=== PATIENT | female | born 1950 | race Caucasian/White ===

== ENCOUNTER 2020-06-23 08:00 | Outpatient (REF) | payer MEDICARE, OTHER, SELFPAY ==
[2020-06-23 11:27] LABS: CDIFF Ag Negative (Negative); CDIFF Internal ctrl Dots and bkg OK (V); CDiff Toxin Negative (Negative)
== END 2020-06-23 08:01 | disposition home or self-care (01) ==
LOC: HO.10HDLNP 08:00
DX: R19.7 Diarrhea, unspecified (principal)
CPT/HCPCS: 87045; 87046; 87324; 87449

== ENCOUNTER → 2020-07-10 12:00 | Outpatient (BNVA) | payer MEDICARE, OTHER, SELFPAY | PROVIDERS: Visit Provider Physician Assistant | DX: Z13.89 Encounter for screening for other disorder (principal) | CPT/HCPCS: Q3014 ==

== ENCOUNTER 2020-10-11 08:21 | Outpatient (REF) | payer MEDICARE, OTHER, SELFPAY ==
--- NOTE | ~2020-10-11 | MM_ITS ---
EXAMINATION: MM SCREENING DIGITAL BREAST TOMOSYNTHESIS, BILATERAL CLINICAL INFORMATION: Screening. Asymptomatic. Prior mammography over 20 years ago, no longer available, purged. The lifetime risk of breast cancer based on the Tyrer-Cuzick Model is 2%. COMPARISON: None (current study represents new baseline exam). TECHNIQUE: Digital breast tomosynthesis is performed in both the craniocaudal and mediolateral oblique views along with computer-aided detection (CAD). Synthesized 2D images are generated from the tomosynthesis. Additional right MLO view is provided. FINDINGS: There are scattered areas of fibroglandular density (ACR BI-RADS breast composition Category b). Breast tissue borders on predominantly fatty. There are no significant masses, abnormal calcifications, or other abnormalities. The axilla are unremarkable. No skin thickening or focal retraction. MM/MM tomosynthesis screening BI IMPRESSION: No mammographic evidence of malignancy. ASSESSMENT: BI-RADS 1: Negative RECOMMENDATION: Routine annual mammography screening. This patient's information was entered into a reminder system with a target due date for their next mammogram.
== END 2020-10-11 08:22 | disposition home or self-care (01) ==
LOC: HO.MAMMO 08:21
PROVIDERS: PCP Internal Medicine; Visit Provider Internal Medicine
DX: Z12.31 Encounter for screening mammogram for malignant neoplasm of breast (principal)
CPT/HCPCS: 77063; 77067

== ENCOUNTER 2020-12-29 06:39 | Outpatient (REF) | payer MEDICARE, OTHER, SELFPAY ==
[2020-12-29 08:17] LABS: Alanine Aminotransferase 17 U/L (0-31); Albumin Level 3.8 g/dL (3.5-5.0); Alkaline Phosphatase 79 U/L (39-117); Anion Gap 10 (12-20); Aspartate Amino Transferase 14 U/L (5-31); Bilirubin Total 0.5 mg/dL (0.0-1.0); Blood Urea Nitrogen 17 mg/dL (9-16); Calcium 9.5 mg/dL (8.4-10.2); Carbon Dioxide 26 mmol/L (22-29); Chloride 109 mmol/L (96-108); Cholesterol 235 mg/dL; Estimated Glomerular Filt Rate 46; Glucose Fasting 115 mg/dL (60-99); HDL Cholesterol 65 mg/dL; LDL Cholesterol Calculated 105 mg/dl; Potassium 4.9 mmol/L (3.3-5.1); Sodium 140 mmol/L (135-145); Total Protein 6.4 g/dL (6.5-8.0); Triglycerides 326 mg/dL
[2020-12-29 10:03] LABS: Creatinine Urine 52.04 mg/dL
[2021-01-05 13:11] LABS: Vitamin D 25-OH, D2 <4 ng/mL; Vitamin D 25-OH, D3 14 ng/mL; Vitamin D 25-OH, Total 14 ng/mL (30-100)
== END 2020-12-29 06:40 | disposition home or self-care (01) ==
LOC: HO.LAB 06:39
PROVIDERS: PCP Internal Medicine; Visit Provider Internal Medicine
DX: E78.5 Hyperlipidemia, unspecified (principal); E55.9 Vitamin D deficiency, unspecified; E11.9 Type 2 diabetes mellitus without complications
CPT/HCPCS: 36415; 80053; 80061; 82043; 82306

== ENCOUNTER 2021-01-30 08:15 | Emergency (ER) | payer MEDICARE, OTHER, SELFPAY ==
[2021-01-30 08:17] VITALS: BP 223/69; PULSE 76; RESP 17; TEMP 35.6; O2SAT 98; BMI 31.6
[2021-01-30 08:51] VITALS: BP 197/80
--- NOTE | 2021-01-30 09:00 | ED.ALLEREA ---
HPI - Allergic Reaction General Chief complaint: Allergic Reaction Stated complaint: allergic reaction Time Seen by Provider: 01/30/21 08:54 Source: patient Mode of arrival: ambulatory Limitations: no limitations History of Present Illness HPI narrative: THIS IS A 70 YEARS OLD OF FEMALE WHO COMES AMBULATORY TO THE EMERGENCY DEPARTMENT COMPLAINING OF FACIAL SWELLING OR REDNESS FOR ABOUT 2 DAYS, DENIES ANY SHORTNESS OF BREATH ANY WHEEZING ANY STRIDOR ORDERS. 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 SHE IS ALSO STATES THAT SHE WAS PLACED ON NEW MEDICINE OXYBUTYNIN WHICH SHE DISCONTINUED MD complaint: allergic reaction and facial swelling Onset (ago): day(s) (2 dAY) Exposure: unknown Symptoms: itching and facial swelling Severity: moderate Previous Allergic Reaction History: none Related Data Previous Rx's Medication Instructions Recorded metformin 1,000 mg tablet 1,000 mg PO BID 90 Days #180 tab 09/15/20 gabapentin 300 mg capsule 300 mg PO BID #180 cap 10/07/20 lisinopril 40 mg tablet 40 mg PO DAILY 90 Days #90 tab 10/10/20 pravastatin 80 mg tablet 80 mg PO DAILY 90 Days #90 tab 11/04/20 cholecalciferol (vitamin D3) 50 50 mcg PO DAILY 90 Days #90 cap 01/12/21 mcg (2,000 unit) capsule glipizide 10 mg tablet 10 mg PO BID 90 Days #180 tab 01/12/21 oxybutynin chloride 5 mg tablet 5 mg PO BEDTIME PRN 90 Days #90 tab 01/12/21 Allergies Allergy/AdvReac Type Severity Reaction Status Date / Time No Known Allergies Allergy Verified 01/12/21 09:13 [No Known Allergies*] Review of Systems Review of Systems: Yes all other systems are reviewed and are negative Constitutional: Constitutional: Reports no additional constitutional complaints Eyes: Eyes: Denies change in vision and Denies loss of vision ENT: Reports system reviewed and no additional complaints, except as documented Cardiovascular: Cardiovascular: Denies chest pain, Denies chest pain at rest and Denies chest pain with activity Gastrointestinal: Gastrointestinal: Reports no additional gastrointestinal complaints Musculoskeletal: Musculoskeletal: Reports no additional musculoskeletal complaints Neurologic: Reports system reviewed and no additional complaints, except as documented and Denies loss of vision Psychiatric: Psychiatric: Reports no additional psychiatric complaints Allergic/Immunologic: Allergic/Immunologic: Reports no additional allergic/immunologic complaints PMFSH Past Medical History Attestation statement: The following information was validated with the patient. Medical History Diabetes mellitus Dyslipidemia Essential hypertension Hypovitaminosis D Insomnia Neuropathy Urge urinary incontinence Surgical History No pertinent past surgical history Family History Family History Father Colon cancer Mother Lung cancer Social History Social History Household Members Other:: lives with her son and grandson 15 y/o- happy with the situation Housing: House Alcohol intake: never Patient Tobacco Use Status: Current everyday Tobacco user Tobacco use type: Cigarette Cigarette Packs Per Day: 1 Cigarettes Per Day: 20 e-Cigarette/Vaping Use: Never Used Second Hand Smoke Exposure: No Use of substances other than those prescribed or required for medical reasons: No Advance Directives: No Advance Directives Information Provided: No service: No Current occupational status: retired Physical Exam Vital Signs: Vital Signs: Last Vital Signs Temp 96.1 F L 01/30/21 08:17 Pulse 76 01/30/21 08:17 Resp 17 01/30/21 08:17 BP 197/80 H 01/30/21 08:51 Pulse Ox 98 01/30/21 08:17 Body Mass Index 31.6 SHE IS NOT TOXIC-APPEARING, SHE IS NOT IN ACUTE DISTRESS, SHE IS SITTING IN THE STRETCHER WITH CLEAR VOICE HENMT: Other: FACIAL EXAMINATION SHOWS A VERONA ORBITAL EDEMA AND ERYTHEMA OF THE FACE General nose exam: Normal external nose present Mouth: Normal oral and palatal mucosa present Neck: Other: NECK IS SUPPLE Resp: Other: LUNGS ARE CLEAR DURING AUSCULTATION THERE IS NO WHEEZING AND NO RHONCHI Effort & Inspection: normal respiratory effort Cardio: Other: HEART EXAM IS SHOWS A REGULAR RATE AND RHYTHM A GI: Other: ABDOMEN IS SOFT NOT TENDER NO GUARDING AND NO REBOUND Skin: Other: SKIN EXAM SHOWS NO HIVES NO ERYTHEMA IN THE UPPER OR LOWER EXTREMITY IN THE CHEST OR ABDOMEN. THERE IS ONLY PRESENT OF FACIAL ERYTHEMA HIP AREA ORBITAL EDEMA MDM - Allergic Reaction MDM Narrative Medical decision making narrative: THIS IS MOST LIKELY A LOCAL ALLERGIC REACTION PERHAPS POISON BETTE DERMATITIS GIVEN THE FACT THAT THE PATIENT WORKS IN THE [employer] A LOT, SHE HAS CLEAR LUNG, NORMAL OXYGEN SATURATION, SHE HAS NO STRIDOR I THINK SHE CAN BE DISCHARGED ON PREDNISONE AND ANTIHISTAMINE Discharge Plan Discharge Prescriptions: No Action gabapentin 300 mg capsule 300 mg PO BID Qty: 180 RF: 2 lisinopril 40 mg tablet 40 mg PO DAILY 90 Days Qty: 90 RF: 3 pravastatin 80 mg tablet 80 mg PO DAILY 90 Days Qty: 90 RF: 0 metformin 1,000 mg tablet 1,000 mg PO BID 90 Days Qty: 180 RF: 3 glipizide 10 mg tablet 10 mg PO BID 90 Days Qty: 180 RF: 1 oxybutynin chloride 5 mg tablet 5 mg PO BEDTIME PRN (Reason: bladder spasms) 90 Days Qty: 90 RF: 1 cholecalciferol (vitamin D3) 50 mcg (2,000 unit) capsule 50 mcg PO DAILY 90 Days Qty: 90 RF: 2
[2021-01-30] MEDS: Loratadine 10 MG TABLET PO (09:06)
[2021-01-30] MEDS: predniSONE 20 MG TABLET 60 MG PO (09:06)
== END 2021-01-30 09:13 | disposition home or self-care (01) ==
PROVIDERS: Emergency Provider Emergency Medicine; PCP Internal Medicine
DX: T78.40XA Allergy, unspecified, initial encounter (principal); L29.9 Pruritus, unspecified; R22.0 Localized swelling, mass and lump, head; X58.XXXA Exposure to other specified factors, initial encounter
CPT/HCPCS: 99283; 99284

== ENCOUNTER 2021-04-29 08:00 | Outpatient (REF) | payer MEDICARE, OTHER, SELFPAY ==
[2021-04-29 09:59] LABS: MANUAL DIFF FLAG NO
[2021-04-29 10:02] LABS: Basophils Absolute Auto 0.1 X10*3/uL (0.0-0.2); Eosinophils Absolute Auto 0.3 X10*3/uL (0.0-0.4); Eosinophils Percent Auto 3.5 % (0-4); Hemoglobin 11.8 g/dl (12.0-16.0); Imm Gran Abs Auto 0.03 X10*3/uL (0.00-0.03); Imm Gran Pct Auto 0.3 % (0.0-0.4); Lymphocytes Absolute Auto 2.8 X10*3/uL (1.2-4.9); Mean Corpuscular HGB Conc 32.8 g/dl (31.0-35.0); Mean Corpuscular Volume 91.6 fL (80-98); Mean Platelet Volume 9.9 fL (9.4-12.3); Monocytes Absolute Auto 0.6 X10*3/uL (0.1-1.2); Monocytes Percent Auto 7.3 % (2-11); Neutrophils Absolute Auto 4.9 X10*3/uL (2.0-8.3); Neutrophils Percent Auto 55.9 % (45-73); Platelet Count 245 X10*3/uL (160-400); Red Blood Count 3.93 X10*6/uL (4.20-5.50); Red Cell Distribution Width 13.4 % (11.0-16.0); White Blood Count 8.8 X10*3/uL (4.8-10.8)
[2021-04-29 10:11] LABS: Alanine Aminotransferase 18 U/L (0-31); Albumin Level 3.7 g/dL (3.5-5.0); Alkaline Phosphatase 75 U/L (39-117); Anion Gap 15 (12-20); Aspartate Amino Transferase 14 U/L (5-31); Bilirubin Total 0.4 mg/dL (0.0-1.0); Blood Urea Nitrogen 24 mg/dL (9-16); Calcium 9.1 mg/dL (8.4-10.2); Carbon Dioxide 22 mmol/L (22-29); Chloride 105 mmol/L (96-108); Cholesterol 244 mg/dL; Estimated Glomerular Filt Rate 37; Glucose Fasting 199 mg/dL (60-99); HDL Cholesterol 61 mg/dL; LDL Cholesterol Calculated 120 mg/dl; Potassium 4.8 mmol/L (3.3-5.1); Sodium 137 mmol/L (135-145); Total Protein 6.5 g/dL (6.5-8.0); Triglycerides 316 mg/dL
[2021-04-29 11:59] LABS: Creatinine Urine 86.43 mg/dL
[2021-05-05 15:05] LABS: Vitamin D 25-OH, D2 <4 ng/mL; Vitamin D 25-OH, D3 33 ng/mL; Vitamin D 25-OH, Total 33 ng/mL (30-100)
== END 2021-04-29 08:01 | disposition home or self-care (01) ==
LOC: HO.10HDL 08:00
PROVIDERS: Visit Provider Internal Medicine
DX: E11.65 Type 2 diabetes mellitus with hyperglycemia (principal); E78.5 Hyperlipidemia, unspecified; E55.9 Vitamin D deficiency, unspecified
CPT/HCPCS: 36415; 80053; 80061; 82043; 82306; 85025

== ENCOUNTER 2021-05-07 09:49 | Outpatient (REF) | payer MEDICARE, OTHER, SELFPAY ==
[2021-05-07 12:55] LABS: Appearance Urine CLOUDY; Color Urine YELLOW; Glucose Urine UA 100 MG/DL (NEG); Leukocyte Esterase Urine 1+ (NEG); Nitrite Urine NEG (NEG); Specific Gravity - Urine 1.025 (1.005-1.025); UACC Culture Trigger YES; Urine Blood TRACE (NEG); Urine Ketones NEG (NEG); Urine Protein 3+ MG/DL (NEG-TRACE)
[2021-05-07 13:57] LABS: Bacteria Urine 4+ /LPF; RBC Urine 0 /HPF (0)
== END 2021-05-07 09:50 | disposition home or self-care (01) ==
LOC: HO.LAB 09:49
PROVIDERS: PCP Internal Medicine; Visit Provider Internal Medicine
DX: R30.0 Dysuria (principal)
CPT/HCPCS: 81001; 81003; 87086; 87088; 87186

== ENCOUNTER → 2021-07-13 08:25 | Outpatient (REF) | payer MEDICARE, OTHER, SELFPAY ==
--- NOTE | 2021-07-13 08:28 | CA_ITS ---
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 The calculated ejection fraction is 50% by biplane method. - The inferoseptal wall and basal inferior segment are hypokinetic. - There is mild aortic valve regurgitation. Findings Left Ventricle Normal left ventricular cavity size. There is mildly increased left ventricular wall thickness. The left ventricular systolic function is mildly decreased. The calculated ejection fraction is 50% by biplane method. E/E prime ratio is >15, consistent with elevated filling pressures. Evidence suggests grade I (mild) diastolic dysfunction. Wall Motion Rest Echo Findings The inferoseptal wall and basal inferior segment are hypokinetic. Right Ventricle Normal right ventricular cavity size and systolic function. Atria Both atria are normal in size. Aortic Valve There is a normal trileaflet aortic valve. There is mild calcification of the aortic valve. The mean gradient is 8 mmHg. There is mild aortic valve regurgitation. No significant aortic stenosis. Mitral Valve The mitral valve appears normal. There is trace mitral valve regurgitation. There is no mitral valve stenosis. Pulmonic Valve The pulmonic valve was not well visualized. Tricuspid Valve Normal tricuspid valve structure. There is trace tricuspid valve regurgitation. The pulmonary artery systolic pressure is normal. Great Vessels There is mild dilatation of the ascending aorta measuring 3.80 cm. Venous The inferior vena cava is normal in size and collapses greater than 50% with inspiration. Pericardium/Pleural There is no evidence of pericardial effusion. Prior Study Comparison Changes noted compared to prior study dated: 01/16/2016. See comments on wall motion. Measurements 2D Linear Measurements IVSd: 1.14 0.6-0.9/0.6-1.0 cm LVIDd: 4.94 3.9-5.3/4.2-5.9 cm LVIDd Index: 2.81 2.4-3.2/2.2-3.1 cm/m2 LVIDs: 3.23 2.0-3.6 cm LVPWd: 1.18 0.7-1.1 cm Ao Root: 2.80 2.1-3.5 cm LA Diam: 4.00 2.7-3.8/3.0-4.0 cm LAIDs Index: 2.27 1.5-2.3 cm/m2 LV Mass: 272.59 67-162/88-224 g LV Mass Index: 154.88 43-95/49-115 g/m2 LVOT Diam: 2.00 3.0+(-)1.3 cm 2D Systolic Function EF 4C: 47.30 >55% EF 2C: 49.30 >55% EF BiP: 50.40 >55% Mitral Valve MV Pk E: 1.11 MV PK A: 1.11 MV Decel Time: 179.00 E/A: 1.00 E'Lateral: 5.44 E'Medial: 4.57 E/E' Med: 24.30 E/E' Lat: 20.40 PHT: 52.00 MVA PHT: 4.23 Decel Fillmore: 6.23 Aortic Valve AoV Pk Daquan: 2.21 AoV Mn Daquan: 1.31 AoV VTI: 0.50 AoV Pk Grad: 20.00 Aov Mn Grad: 8.00 JOANN Cont.VTI: 1.64 AI Pk Daquan: 4.05 AI Fillmore: 4.33 LVOT LVOT Pk Daquan: 1.02 LVOT Mn Daquan: 0.67 LVOT VTI: 0.26 LVOT Pk Grad: 4.00 LVOT Mn Grad: 2.00 LVOT Diam: 2.00 LVOT Area: 3.14 Diastolic Function MV Pk E: 1.11 MV Pk A: 1.11 E/A: 1.00 E'Medial: 4.57 E/E' Med: 24.30 E' Laterial: 5.44 E/E' Lat: 20.40 Right Ventricle TAPSE (mm): 24.00 TVS' Daquan: 14.00 Tricuspid Valve TR Pk Daquan: 2.42 TR Pk Grad: 23.00 Great Vessels Aorta Ao Root-2D: 2.80 2.0-3.7 cm Ao Asc: 3.80 2.1-3.4 cm Pulmonary Valve PV Pk Daquan: 1.05 Peak PV Grad: 4.00 Updated in Other Vendor System with Status of Final Paresh Colmenares MD electronically signed on 07/13/2021 1:03:31 PM with status of Final
== END ==
LOC: HO.CARD 08:25
PROVIDERS: Visit Provider Internal Medicine
DX: R01.1 Cardiac murmur, unspecified (principal)
CPT/HCPCS: 93306

== ENCOUNTER → 2021-08-18 14:12 | Outpatient (BNVA) | payer MEDICARE, OTHER, SELFPAY | PROVIDERS: PCP Internal Medicine; Referring Provider Internal Medicine; Visit Provider Physician Assistant | DX: Z13.89 Encounter for screening for other disorder (principal) ==

== ENCOUNTER 2021-11-06 08:53 | Emergency (ER) | payer MEDICARE, OTHER, SELFPAY ==
--- NOTE | ~2021-11-06 | CT_ITS ---
EXAMINATION: CT ABDOMEN AND PELVIS WITHOUT CONTRAST CLINICAL INFORMATION: Lower back pain and rectal pain for one month. COMPARISON: Report from prior CT of the abdomen and pelvis done on 03/08/2006. TECHNIQUE: Multidetector volumetric imaging was performed from the superior aspect of the liver through the pubic symphysis. Sagittal and coronal reformatted images were obtained on the technologist's workstation. This CT examination was performed using dose optimization techniques as appropriate, variously including the following: *Automated exposure control *Adjustment of mA and/or kV according to patient size (this includes techniques or standardized protocols for targeted exams where dose is matched to indication/reason for exam; i.e. extremities or head) *Use of iterative reconstruction technique DLP: 595 mGy-cm FINDINGS: LUNG BASES: Significant coronary arterial atherosclerotic calcific disease is present. There is no evidence of any pericardial or pleural effusion. The visualized lung bases appear clear. LIVER, GALLBLADDER, AND BILIARY TREE: Tiny punctate peripheral calcifications are noted within the liver, may represent calcified granuloma, best seen on the coronal projection. The gallbladder is unremarkable with no evidence of radiopaque gallstones, gallbladder wall thickening, or obvious pericholecystic inflammatory changes. PANCREAS: Unremarkable. SPLEEN: Unremarkable. ADRENAL GLANDS: Unremarkable. KIDNEYS AND URETERS: The kidneys are normal in size, shape, and attenuation. No hydronephrosis, or hydroureter seen. Few punctate radiopaque densities are present within both renal sinuses along the distribution of the calyces as well as the intrarenal arteries, likely represent intrarenal arterial calcifications, and less likely to be renal calculi or combination thereof. Mild perinephritic stranding is present bilaterally. BLADDER: Unremarkable. GASTROINTESTINAL TRACT: The small and large bowel are unremarkable. The appendix is unremarkable. ABDOMINAL WALL: No significant hernia is appreciated. LYMPH NODES: Normal. VASCULAR: Diffuse atherosclerotic disease of the aorta and is branches without aneurysm formation. PELVIC VISCERA: There is no free fluid and/or free air. There is no pelvic mass present OSSEOUS STRUCTURES: Moderate diffuse osteopenia, multilevel moderate degenerative spondylosis with most pronounced changes seen at L3-L4. Partial sacralization of L5 on the left side. CT/CT abdomen pelvis wo con IMPRESSION: 1. Significant coronary arterial atherosclerotic disease is present within the visualized part of the heart. 2. Tiny punctate peripheral calcifications are noted within the liver, may represent calcified granuloma. 3. Few punctate radiodensity are noted within both renal sinuses along the distribution of the calyces as well as intrarenal arterial branches, likely represent intraluminal arterial calcifications and less likely to be renal calculi or combination thereof. Mild perinephritic stranding is present bilaterally, of indeterminate clinical significance. 4. Moderate diffuse osteopenia, multilevel degenerative spondylosis with most pronounced changes at L3-L4 and partial sacralization of L5 on the left. 5. Etiology for rectal pain is not evident on these images.
[2021-11-06 09:17] VITALS: BP 197/70; PULSE 85; RESP 18; TEMP 36.4; O2SAT 98; BMI 31.8
[2021-11-06 09:27] LABS: MANUAL DIFF FLAG NO
[2021-11-06 09:30] LABS: Basophils Absolute Auto 0.1 X10*3/uL (0.0-0.2); Basophils Percent Auto 0.5 % (0-2); Eosinophils Absolute Auto 0.2 X10*3/uL (0.0-0.4); Eosinophils Percent Auto 1.2 % (0-4); Hemoglobin 10.4 g/dl (12.0-16.0); Imm Gran Abs Auto 0.07 X10*3/uL (0.00-0.03); Imm Gran Pct Auto 0.5 % (0.0-0.4); Lymphocytes Absolute Auto 2.3 X10*3/uL (1.2-4.9); Lymphocytes Percent Auto 17.4 % (20-40); Mean Corpuscular HGB Conc 32.5 g/dl (31.0-35.0); Mean Corpuscular Hemoglobin 29.2 pg (27.0-33.0); Mean Corpuscular Volume 89.9 fL (80.0-98.0); Mean Platelet Volume 9.1 fL (9.4-12.3); Monocytes Absolute Auto 0.8 X10*3/uL (0.1-1.2); Monocytes Percent Auto 6.4 % (2-11); Neutrophils Absolute Auto 9.8 x10*3/uL (2.0-8.3); Platelet Count 261 X10*3/uL (160-400); Red Blood Count 3.56 X10*6/uL (4.20-5.50); Red Cell Distribution Width 13.2 % (11.0-16.0); White Blood Count 13.2 X10*3/uL (4.8-10.8)
[2021-11-06 09:36] LABS: Appearance Urine CLOUDY; Color Urine YELLOW; Glucose Urine UA 250 MG/DL (NEG); Leukocyte Esterase Urine NEG (NEG); Nitrite Urine NEG (NEG); Specific Gravity - Urine 1.025 (1.005-1.025); UACC Culture Trigger NO; Urine Blood NEG (NEG); Urine Ketones NEG (NEG); Urine Protein 3+ MG/DL (NEG-TRACE)
[2021-11-06 09:44] LABS: Bacteria Urine 3+ /LPF; RBC Urine 0 /HPF (0); Squamous Epithelial Cell Urine TRACE /LPF; UACC CULT YES
[2021-11-06 09:47] LABS: Alanine Aminotransferase 11 U/L (0-31); Albumin Level 3.3 g/dL (3.5-5.0); Alkaline Phosphatase 85 U/L (39-117); Anion Gap 15 (12-20); Aspartate Amino Transferase 11 U/L (5-31); Bilirubin Total 0.3 mg/dL (0.0-1.0); Blood Urea Nitrogen 21 mg/dL (9-16); Calcium 9.2 mg/dL (8.4-10.2); Carbon Dioxide 16 mmol/L (22-29); Chloride 109 mmol/L (96-108); Estimated Glomerular Filt Rate 39; Glucose Random 222 mg/dL (60-115); Potassium 4.9 mmol/L (3.3-5.1); Sodium 135 mmol/L (135-145); Total Protein 6.5 g/dL (6.5-8.0)
--- NOTE | 2021-11-06 10:20 | ED.BACK ---
HPI - Back Pain/Injury General Chief Complaint: General Medical Stated Complaint: Rectal pain/Back pain Time Seen by Provider: 11/06/21 09:45 Source: patient Mode of arrival: ambulatory Limitations: no limitations History of Present Illness HPI Narrative: 71-year-old female with a past medical history of CKD stage 3 GFR 30 through 59, heart murmur, diabetes mellitus, dyslipidemia, central hypertension, neuropathy, insomnia/fatigue, urge urinary incontinence who has a change in consistency of stool currently presenting to the ED with complaints of atraumatic lower back pain and rectal pain for the past month. Reports this is worse when she is having a bowel movement she is unsure she has hemorrhoids. She reports that her stools appear normal in colored they are not black and they are not bloody appearing. She reports that she normally has urinary incontinence. She denies any urinary retention or bowel retention or incontinence since this has started. She denies any falls, saddle anesthesias, paresthesias, dysuria, hematuria, fevers, chills, dizziness, headaches, neck pain, chest pain, shortness of breath, dyspnea on exertion, orthopnea, palpitations, paresthesias, abdominal pain, radiation of the pain, rashes, IV drug use, recent travel or sick contacts or any other symptoms complaints or concerns at this time. MD elicited complaint: back pain and other (/rectal pain) Onset (ago): month(s) (1) Timing: constant Severity: moderate Similar Symptoms Previously: Yes Quality: sharp and stabbing Location: lumbar spine and sacrum Radiation: none Exacerbating factors: other (Having bowel movements) Relieving factors: none Context: unknown Associated symptoms: denies other symptoms Work related injury: No Related Data Previous Rx's Medication Instructions Recorded pravastatin 80 mg tablet 80 mg PO DAILY #90 tab 08/15/21 glipizide 10 mg tablet 10 mg PO BID 90 Days #180 tab 09/17/21 lisinopril 40 mg tablet 40 mg PO DAILY 90 Days #90 tab 09/17/21 gabapentin 300 mg capsule 300 mg PO Q8H 90 Days #270 cap 09/18/21 metformin 1,000 mg tablet 1,000 mg PO BID 90 Days #180 tab 09/18/21 amlodipine 5 mg tablet 5 mg PO DAILY 90 Days #90 tab 09/30/21 cholecalciferol (vitamin D3) 50 50 mcg PO DAILY 90 Days #90 cap 04/02/22 mcg (2,000 unit) capsule cyclobenzaprine 10 mg tablet 10 mg PO Q8H PRN #14 tab 11/06/21 docusate sodium 100 mg capsule 100 mg PO BID PRN #14 cap 11/06/21 (Colace) polyethylene glycol 3350 17 17 g PO DAILY #238 g 11/06/21 gram/dose oral powder (Miralax) Allergies Allergy/AdvReac Type Severity Reaction Status Date / Time No Known Allergies Allergy Verified 09/16/21 09:49 [No Known Allergies*] Review of Systems Review of Systems: Constitutional : No trauma, No Weight loss, No Fever, No Chills, ENT/Mouth : No Hearing loss, No Ear Pain, No Nasal Congestion, No Sinus Pain, No Hoarseness, No sore throat, No Rhinorrhea, No Swallowing Difficulty Cardiovascular : No Chest Pain, No SOB Respiratory : No Cough, No Dyspnea Gastrointestinal : No Nausea, No Vomiting, No Diarrhea, No abdominal Pain, No Hematochezia, No Melena Genitourinary : No Dysuria, No Urinary Frequency, No Hematuria, No Urinary or Bowel Incontinence/retention Musculoskeletal : + Back and rectal pain, No neck pain, No joint stiffness, No joint swelling Skin : No Skin Lesions, No rash or signs of infection Neuro : No Weakness, No radiation, No Numbness, No Paresthesias, No headache, no loss of bowel or bladder incontinence, no saddle anesthesia, Focal weakness, No radiation Denies history of IV drug usage. Yes all other systems are reviewed and are negative [facility] Past Medical History Attestation statement: The following information was validated with the patient. Medical History Anemia of chronic disease CKD (chronic kidney disease) CKD (chronic kidney disease) stage 3, GFR 30-59 ml/min Diabetes mellitus Dyslipidemia Essential hypertension Hypovitaminosis D Insomnia Microalbuminuria Murmur Neuropathy Urge urinary incontinence Surgical History No pertinent past surgical history Family History Family History Father Colon cancer Mother Lung cancer Social History Social History Household Members Other:: lives with her son and grandson 15 y/o- happy with the situation Housing: House Alcohol intake: never Patient Tobacco Use Status: Current everyday Tobacco user Tobacco use type: Cigarette Cigarette Packs Per Day: 1 Cigarettes Per Day: 20 e-Cigarette/Vaping Use: Never Used Second Hand Smoke Exposure: No Advance Directives: No Advance Directives Information Provided: Yes service: No Current occupational status: retired Physical Exam Vital Signs: Vital Signs: Last Vital Signs Temp 98.4 F 11/06/21 11:20 Pulse 73 11/06/21 11:20 Resp 16 11/06/21 11:20 BP 189/59 H 11/06/21 11:20 Pulse Ox 99 11/06/21 11:20 BMI result Body Mass Index 31.8 vital signs have been reviewed as normal and appeared to be correct. Blood pressure 197/70. Heart rate normal. Respiration rate normal. Temperature normal. Oxygen saturation normal. Appearance: Alert. Oriented X3. No acute distress. Head: Normal external exam. Normocephalic. Atraumatic. Eyes: PERRLA. EOMI. Conjunctiva and sclera normal. Eyelids normal. ENT: Pharynx normal. Uvula midline. Moist mucous membranes. No trismus noted. No drooling noted. No muffled voice noted. Neck: Normal inspection. Neck supple. FROM. No adenopathy. Thyroid Normal. No meningeal signs. No neck mass noted. CVS: Normal heart rate and rhythm. Heart sound normal. No murmurs noted. Pulses normal throughout. Respiratory: No respiratory distress. Painless inspiration. Breath sounds normal. No wheezes/rales/rhonchi noted. Chest nontender. No accessory muscle usage noted or decreased air movement noted. Abdomen: Soft and nontender. Bowel sounds normal in all 4 quadrants. No distention noted. No organomegaly noted. No visible injury noted. Back: No CVA tenderness. Full range of motion noted. No obvious deformities, or edema. Mild para-spinal muscular tenderness from lumbar region to coccyx. Full ROM in back and lower extremities. 5/5 strength hip extension/flexion, abduction, adduction. Mild Lumbar pain with hip flexion against resistance. Straight leg raise test negative on right; Straight leg raise test negative on left; Reflexes normal ankle and knee bilaterally; EHL motor strength normal bilaterally. No rashes/lesion/induration/fluctuance or signs infection noted. Rectal Exam: No external or internal hemorrhoids noted. She is noted to have a small fissure. No bleeding noted. No abnormalities noted. Normal sphincter tone. Normal rectal tone. Normal sensation to the rectum. Bedside stool occult perform and negative. Skin: Skin warm and dry. Normal skin color. Normal skin turgor. No rashes/lesions/lacerations noted. Extremities: No lower extremity edema. Extremities exhibit normal range of motion. Extremities nontender. Neuro: Oriented X 3. No motor deficit. No sensory deficit. Reflexes normal. Patient has a normal steady gait. Course Course Course Narrative: 10:15am - Pt c likely muscular pain, but could be herniated disc. Neuro exam shows no deficits. Not c/w AAA/epidural abscess/dissection.No high risk Hx (Incont, fever, immunosupp, recent surgery/LP, coag, signif trauma, wt loss, puls mass, hx/o Ca, TB, or IVDU) to warrant MRI today. Not c/w Pyelo/UTI/kidney stone/spinal fx. Not cauda equina syndrome. Labs were taken while the patient was in the waiting room and patient has an elevated white blood cell count at 13,000. Mild anemia with an H&H of 10.4/32.2. This is lower when compared to prior will perform stool occult. BUN 21. Random glucose 222. Albumin 3.3. Otherwise all other labs are within normal limits. UA revealed 250 of glucose and 5-9 white blood cells with a trace of epithelial cells therefore patient with possibly a UTI. Although Will obtain a CT scan abdomen pelvis and lumbar spine to evaluate for possible constipation or any other acute processes provide symptomatic treatment and re-evaluate. Reevaluation(s) Reevaluation #1: - CT scan revealed chronic changes no acute processes noted. - Will d/c home c symptomatic treatment and instructions to follow-up with general surgery for the patient's rectal fissure and to return if any new or worsening symptoms. Patient understands agrees with this plan. Time: 12:48 [facility] - Back Pain/Injury Medical Records Attestation: I reviewed the patient's medical records. Lab Data Attestation: I reviewed the patient's lab results. Result diagrams: 11/06/21 09:24 11/06/21 09:24 Labs: Lab Results 11/06/21 11/06/21 11/06/21 Range/Units 09:24 09:24 09:30 WBC 13.2 H (4.8-10.8) X10*3/uL RBC 3.56 L (4.20-5.50) X10*6/uL Hgb 10.4 L (12.0-16.0) g/dl Hct 32.0 L (37.0-47.0) % MCV 89.9 (80.0-98.0) fL MCH 29.2 (27.0-33.0) pg MCHC 32.5 (31.0-35.0) g/dl RDW 13.2 (11.0-16.0) % Plt Count 261 (160-400) X10*3/uL MPV 9.1 L (9.4-12.3) fL Immature Gran % (Auto) 0.5 H (0.0-0.4) % Neut % (Auto) 74.0 H (45-73) % Lymph % (Auto) 17.4 L (20-40) % [place] % (Auto) 6.4 (2-11) % Eos % (Auto) 1.2 (0-4) % Baso % (Auto) 0.5 (0-2) % Lymph # (Auto) 2.3 (1.2-4.9) X10*3/uL [place] # (Auto) 0.8 (0.1-1.2) X10*3/uL Eos # (Auto) 0.2 (0.0-0.4) X10*3/uL Baso # (Auto) 0.1 (0.0-0.2) X10*3/uL Abs Immat Gran (auto) 0.07 H (0.00-0.03) X10*3/uL Absolute Neuts (auto) 9.8 H (2.0-8.3) x10*3/uL Absolute Nucleated RBC 0.000 (0.0-0.012) X10*3/uL Nucleated RBC % (auto) 0.0 (0.0-0.2) /100WBC Sodium 135 (135-145) mmol/L Potassium 4.9 (3.3-5.1) mmol/L Chloride 109 H (96-108) mmol/L Carbon Dioxide 16 L (22-29) mmol/L Anion Gap 15 (12-20) BUN 21 H (9-16) mg/dL Creatinine 1.32 (0.5-1.4) mg/dL Estim Creat Clear Calc 34.0 Estimated GFR 39 Random Glucose 222 H (60-115) mg/dL Calcium 9.2 (8.4-10.2) mg/dL Total Bilirubin 0.3 (0.0-1.0) mg/dL AST 11 (5-31) U/L ALT 11 (0-31) U/L Alkaline Phosphatase 85 (39-117) U/L Total Protein 6.5 (6.5-8.0) g/dL Albumin 3.3 L (3.5-5.0) g/dL Urine Color YELLOW Urine Appearance CLOUDY Urine pH 6.0 (5.0-8.0) Ur Specific Mclean 1.025 (1.005-1.025) Urine Protein 3+ H (NEG-TRACE) MG/DL Urine Glucose (UA) 250 H (NEG) MG/DL Urine Ketones NEG (NEG) MG/DL Urine Blood NEG (NEG) Urine Nitrite NEG (NEG) Ur Leukocyte Esterase NEG (NEG) Urine RBC 0 (0) /HPF Urine WBC 5-9 H (0-4) /HPF Ur Squamous Epith Cells TRACE /LPF Urine Bacteria 3+ /LPF Imaging Data CT scan abdomen pelvis without IV contrast: Attestation: I personally reviewed and interpreted this imaging study as follows: Radiologist's impression: FINDINGS: LUNG BASES: Significant coronary arterial atherosclerotic calcific disease is present. There is no evidence of any pericardial or pleural effusion. The visualized lung bases appear clear.? LIVER, GALLBLADDER, AND BILIARY TREE: Tiny punctate peripheral calcifications are noted within the liver, may represent calcified granuloma, best seen on the coronal projection. The gallbladder is unremarkable with no evidence of radiopaque gallstones, gallbladder wall thickening, or obvious pericholecystic inflammatory changes.? PANCREAS: Unremarkable.? SPLEEN: Unremarkable.? ADRENAL GLANDS: Unremarkable.? KIDNEYS AND URETERS: The kidneys are normal in size, shape, and attenuation. No hydronephrosis, or hydroureter seen. Few punctate radiopaque densities are present within both renal sinuses along the distribution of the calyces as well as the intrarenal arteries, likely represent intrarenal arterial calcifications, and less likely to be renal calculi or combination thereof. Mild perinephritic stranding is present bilaterally. BLADDER: Unremarkable.? GASTROINTESTINAL TRACT: The small and large bowel are unremarkable. The appendix is unremarkable.? ABDOMINAL WALL: No significant hernia is appreciated.? LYMPH NODES: Normal. VASCULAR: Diffuse atherosclerotic disease of the aorta and is branches without aneurysm formation. PELVIC VISCERA: There is no free fluid and/or free air. There is no pelvic mass present? OSSEOUS STRUCTURES: Moderate diffuse osteopenia, multilevel moderate degenerative spondylosis with most pronounced changes seen at L3-L4. Partial sacralization of L5 on the left side.? CT/CT abdomen pelvis wo con IMPRESSION: ? 1. Significant coronary arterial atherosclerotic disease is present within the visualized part of the heart. 2. Tiny punctate peripheral calcifications are noted within the liver, may represent calcified granuloma. 3. Few punctate radiodensity are noted within both renal sinuses along the distribution of the calyces as well as intrarenal arterial branches, likely represent intraluminal arterial calcifications and less likely to be renal calculi or combination thereof. Mild perinephritic stranding is present bilaterally, of indeterminate clinical significance. 4. Moderate diffuse osteopenia, multilevel degenerative spondylosis with most pronounced changes at L3-L4 and partial sacralization of L5 on the left. 5. Etiology for rectal pain is not evident on these images. ? ? Discharge Plan Discharge Clinical Impression: Rectal fissure Patient Disposition: Home, Self-Care Instructions: Anal Fissure (ED) Prescriptions: New docusate sodium [Colace] 100 mg capsule 100 mg PO BID PRN (Reason: Constipation) Qty: 14 0RF polyethylene glycol 3350 [Miralax] 17 gram/dose powder 17 g PO DAILY Qty: 238 0RF cyclobenzaprine 10 mg tablet 10 mg PO Q8H PRN (Reason: Muscle spasm) Qty: 14 0RF No Action pravastatin 80 mg tablet 80 mg PO DAILY Qty: 90 0RF lisinopril 40 mg tablet 40 mg PO DAILY 90 Days Qty: 90 3RF glipizide 10 mg tablet 10 mg PO BID 90 Days Qty: 180 1RF metformin 1,000 mg tablet 1,000 mg PO BID 90 Days Qty: 180 3RF gabapentin 300 mg capsule 300 mg PO Q8H 90 Days Qty: 270 1RF amlodipine 5 mg tablet 5 mg PO DAILY 90 Days Qty: 90 0RF cholecalciferol (vitamin D3) 50 mcg (2,000 unit) capsule 50 mcg PO DAILY 90 Days Qty: 90 2RF Referrals: Jonathan Wing MD [Physician] - (Call to make a follow-up appointment within a week) Ana Lanier MD [Primary Care Provider] - 2 days Print Language: [place]
[2021-11-06] MEDS: Cyclobenzaprine HCl 10 MG TABLET PO (10:46)
[2021-11-06] MEDS: Lidocaine 5 % Ointment 35 GM 1 APPL TOPICAL (10:46)
[2021-11-06] MEDS: NaPROXEN 500 MG TABLET PO (10:46)
[2021-11-06] MEDS: Hydrocortisone 2.5 % Rectal Cr 30 GM TUBE 1 APPL PR (10:46)
[2021-11-06 11:20] VITALS: BP 189/59; PULSE 73; RESP 16; TEMP 36.9; O2SAT 99
== END 2021-11-06 13:07 | disposition home or self-care (01) ==
PROVIDERS: Emergency Provider Emergency Medicine Emergency Medical Services; PCP Internal Medicine
DX: K60.2 Anal fissure, unspecified (principal); N39.41 Urge incontinence; I12.9 Hypertensive chronic kidney disease with stage 1 through stage 4 chronic kidney disease, or unspecified chronic kidney disease; E11.22 Type 2 diabetes mellitus with diabetic chronic kidney disease; N18.30 Chronic kidney disease, stage 3 unspecified; F17.210 Nicotine dependence, cigarettes, uncomplicated
CPT/HCPCS: 36415; 74176; 80053; 81001; 82272; 85025; 87086; 87088; 87186; 99284

== ENCOUNTER 2022-02-26 09:14 | Outpatient (REF) | payer MEDICARE, OTHER, SELFPAY ==
--- NOTE | ~2022-02-26 | MM_ITS ---
EXAMINATION: BONE DENSITOMETRY CLINICAL INDICATION: Osteopenia. COMPARISON: None (current study represents initial baseline exam). TECHNIQUE: Using a [employer] DXA System (software version: 13.1) manufactured by [employer], dual-energy x-ray absorptiometry was performed of the lumbar spine and left hip. The images are of good technical quality. Summary results are attached. FINDINGS: AP SPINE L1-L4 (excluding L3): The data of L1-L4 has been changed to exclude the L3 vertebral body, because degenerative changes at this level may cause overestimation of lumbar spine density. BMD 1.219 g/cm2, Z-score 2.0, T-score 0.4, normal. LEFT FEMUR, NECK: BMD 0.684 g/cm2, Z-score -0.8, T-score -2.5, osteoporosis. LEFT FEMUR, TOTAL: BMD 0.740 g/cm2, Z-score -0.6, T-score -2.1, osteopenia. IDENTIFIED RISK FACTORS: Menopause, height loss, low calcium intake, osteoporosis, renal, tobacco use (current smoker). HISTORY OF FRACTURE: None listed. MEDICATIONS: Vitamin D. MM/XR DEXA axial skeleton IMPRESSION: 1. DIAGNOSIS: Osteoporosis based on the lowest T-score value of -2.5 in the femoral neck applying World Health Organization criteria. 2. 10-YEAR FRACTURE RISK PREDICTION, FRAX: According to the guidelines, FRAX calculation should only be performed on patients in the osteopenia bone density category. Therefore, FRAX was not performed on this patient. 3. Treatment Recommendations: NOF guidelines recommend consideration for treatment in postmenopausal women and men age 50 and older presenting with the following: -A hip or vertebral (clinical or morphometric) fracture. -T-score less than or equal to -2.5 at the femoral neck or spine after appropriate evaluation to exclude secondary causes. -Low bone mass at the hip or spine and a 10-year fracture probability by FRAX of greater than or equal to 3% for hip fracture or greater than or equal to 20% for major osteoporotic fracture based on the [place] adapted WHO algorithm. 4. Other Recommendations: All treatment decisions require clinical judgment and consideration of individual patient factors, including patient preferences, comorbidities, previous drug use, risk factors not captured in the FRAX model (e.g. frailty, falls, vitamin D deficiency, increased bone turnover, interval significant decline in bone density) and possible under or overestimation of fracture risk by FRAX. Additional medical evaluation for secondary cause of low bone mineral density may be appropriate. FUTURE SCAN RECOMMENDATION: People with diagnosed cases of osteoporosis or at high risk for fracture should have regular bone mineral density tests. For patients eligible for Medicare, routine testing is allowed once every 2 years. The testing frequency can be increased to one year for patients who have rapidly progressing disease, those who are receiving or discontinuing medical therapy to restore bone mass, or have additional risk factors.
== END 2022-02-26 09:15 | disposition home or self-care (01) ==
LOC: HO.MAMMO 09:14
PROVIDERS: PCP Internal Medicine; Visit Provider Internal Medicine
DX: Z13.820 Encounter for screening for osteoporosis (principal); M85.88 Other specified disorders of bone density and structure, other site; Z78.0 Asymptomatic menopausal state
CPT/HCPCS: 77080

== ENCOUNTER 2022-06-14 15:17 | Inpatient (IN) | payer MEDICARE, OTHER, SELFPAY ==
--- NOTE | ~2022-06-14 | XR_ITS ---
EXAMINATION: XR CHEST CLINICAL INFORMATION: Shortness of breath COMPARISON: None TECHNIQUE: 2 views of the chest were obtained. FINDINGS: The lungs are clear. No airspace consolidation, pleural effusion, or pneumothorax. The cardiomediastinal silhouette is within normal limits. No acute osseous injury. XR/XR chest 2V IMPRESSION: No acute pulmonary process.
--- NOTE | 2022-06-14 15:26 | ED_ITS ---
HPI - SOB/Dyspnea General Stated Complaint: cough, wheezing for weeks Related Data Previous Rx's Medication Instructions Recorded lisinopril 40 mg tablet 40 mg PO DAILY 90 days #90 tabs 09/17/21 gabapentin 300 mg capsule 300 mg PO Q8H 90 days #270 caps 09/18/21 metformin 1,000 mg tablet 1,000 mg PO BID 90 days #180 tabs 09/18/21 cyclobenzaprine 10 mg tablet 10 mg PO Q8H PRN Muscle spasm #14 11/06/21 tabs docusate sodium 100 mg capsule 100 mg PO BID PRN Constipation #14 11/06/21 (Colace) caps glipizide 10 mg tablet 10 mg PO BID 90 days #180 tabs 03/16/22 amlodipine 5 mg tablet 5 mg PO DAILY 90 days #90 tabs 03/28/22 alendronate 70 mg tablet 70 mg PO QWEEK 30 days #5 tabs 05/28/22 pravastatin 80 mg tablet 80 mg PO DAILY #90 tabs 05/29/22 Allergies Allergy/AdvReac Type Severity Reaction Status Date / Time No Known Allergies Allergy Verified 06/14/22 15:27 [No Known Allergies*] [facility] Past Medical History Medical History Anemia of chronic disease CKD (chronic kidney disease) CKD (chronic kidney disease) stage 3, GFR 30-59 ml/min Diabetes mellitus Dyslipidemia Essential hypertension Hypovitaminosis D Insomnia Microalbuminuria Murmur Neuropathy Urge urinary incontinence Surgical History No pertinent past surgical history Family History Family History Father Colon cancer Mother Lung cancer Social History Social History Household Members Other:: lives with her son and grandson 15 y/o- happy with the situation Housing: House Alcohol intake: never Patient Tobacco Use Status: Current everyday Tobacco user Tobacco use type: Cigarette Cigarette Packs Per Day: 1 Cigarettes Per Day: 20 e-Cigarette/Vaping Use: Never Used Second Hand Smoke Exposure: No service: No Current occupational status: retired Cognitive needs: No Hearing needs: No Vision needs: No Course Course Course Narrative: This is a rapid medical exam. Deferred additional HPI, ROS and PE to primary provider. 71 yo female with past medical history of CKD, anemia, DM, HTN, HLD, current smoker (undiagnosed with COPD) here with months of shortness of breath, wheezing, cough. Has not been seen by any providers for this, using mucinex with continued symptoms. Supposed to see GI today for +screen using cologuard test d/t complaints, weight loss, diarrhea, poor PO intake. Has never had a colonoscopy. Will need labs, UA, EKG, CXR, covid screen. Hypertensive in triage- other VSS. Discharge Plan Discharge Prescriptions: No Action lisinopril 40 mg tablet 40 mg PO DAILY 90 Days Qty: 90 3RF metformin 1,000 mg tablet 1,000 mg PO BID 90 Days Qty: 180 3RF gabapentin 300 mg capsule 300 mg PO Q8H 90 Days Qty: 270 1RF glipizide 10 mg tablet 10 mg PO BID 90 Days Qty: 180 1RF amlodipine 5 mg tablet 5 mg PO DAILY 90 Days Qty: 90 0RF alendronate 70 mg tablet 70 mg PO QWEEK 30 Days Qty: 5 0RF pravastatin 80 mg tablet 80 mg PO DAILY Qty: 90 0RF docusate sodium [Colace] 100 mg capsule 100 mg PO BID PRN (Reason: Constipation) Qty: 14 0RF cyclobenzaprine 10 mg tablet 10 mg PO Q8H PRN (Reason: Muscle spasm) Qty: 14 0RF
[2022-06-14 15:27] VITALS: BP 203/66; PULSE 102; RESP 18; TEMP 36.8; O2SAT 93; BMI 26.2
--- NOTE | 2022-06-14 15:30 | ECG_ITS ---
Test Reason : SOB Blood Pressure : / mmHG Vent. Rate : 094 BPM Atrial Rate : 094 BPM P-R Int : 144 ms QRS Dur : 074 ms QT Int : 342 ms P-R-T Axes : 050 -11 153 degrees QTc Int : 427 ms Normal sinus rhythm Left ventricular hypertrophy with repolarization abnormality ( R in aVL , James product ) Abnormal ECG When compared with ECG of 03-SEP-2017 10:28, Inverted T waves have replaced nonspecific T wave abnormality in Lateral leads Referred By: Floresita Vernon Electronically Signed By:VITO BARRAZA
[2022-06-14 16:00] LABS: MANUAL DIFF FLAG NO
[2022-06-14 16:08] LABS: Basophils Absolute Auto 0.1 X10*3/uL (0.0-0.2); Basophils Percent Auto 0.4 % (0-2); Eosinophils Absolute Auto 0.2 X10*3/uL (0.0-0.4); Eosinophils Percent Auto 1.1 % (0-4); Hematocrit 36.1 % (37.0-47.0); Hemoglobin 12.3 g/dl (12.0-16.0); Imm Gran Abs Auto 0.04 X10*3/uL (0.00-0.03); Imm Gran Pct Auto 0.3 % (0.0-0.4); Lymphocytes Absolute Auto 2.3 X10*3/uL (1.2-4.9); Lymphocytes Percent Auto 16.9 % (20-40); Mean Corpuscular HGB Conc 34.1 g/dl (31.0-35.0); Mean Corpuscular Hemoglobin 29.7 pg (27.0-33.0); Mean Corpuscular Volume 87.2 fL (80.0-98.0); Mean Platelet Volume 9.1 fL (9.4-12.3); Neutrophils Absolute Auto 10.2 x10*3/uL (2.0-8.3); Neutrophils Percent Auto 74.3 % (45-73); Platelet Count 315 X10*3/uL (160-400); Red Blood Count 4.14 X10*6/uL (4.20-5.50); Red Cell Distribution Width 13.2 % (11.0-16.0); White Blood Count 13.7 X10*3/uL (4.8-10.8)
[2022-06-14 16:12] LABS: Appearance Urine Turbid; Color Urine Yellow; Glucose Urine UA 250 mg/dL (Negative); Leukocyte Esterase Urine Moderate (2+) (Negative); Nitrite Urine Positive (Negative); PH 5.5 (5.0-9.0); UMIC TRIGGER UACC YES; Urine Blood Small (1+) (Negative); Urine Ketones Negative (Negative); Urine Protein >=1000 (4+) mg/dL (Neg-Trace)
[2022-06-14 16:13] LABS: Prothrombin Time 11.6 SEC (10.0-13.1)
[2022-06-14 16:23] LABS: Alanine Aminotransferase 14 U/L (0-31); Albumin Level 3.9 g/dL (3.5-5.0); Alkaline Phosphatase 88 U/L (39-117); Anion Gap 15 (12-20); Aspartate Amino Transferase 14 U/L (5-31); Bilirubin Direct < 0.2 mg/dL (0.0-0.5); Bilirubin Total 0.2 mg/dL (0.0-1.0); Blood Urea Nitrogen 29 mg/dL (9-16); Calcium 9.2 mg/dL (8.4-10.2); Carbon Dioxide 22 mmol/L (22-29); Chloride 104 mmol/L (96-108); Creatinine Clr Calc Pharmacy 29.7; Estimated Glomerular Filt Rate 34; Glucose Random 201 mg/dL (60-115); Magnesium 1.6 mg/dL (1.6-2.6); Potassium 4.5 mmol/L (3.3-5.1); Sodium 136 mmol/L (135-145); Total Protein 6.8 g/dL (6.5-8.0)
[2022-06-14 16:28] LABS: B Type Natriuretic Peptide 36 pg/mL (<100)
[2022-06-14 16:29] LABS: Troponin-I High Sensitivity 17.8 ng/L (<3.5-17.0)
[2022-06-14 16:33] LABS: Bacteria Urine 4+ (None Seen); Hyaline Casts Urine 0-2 /LPF (0-2); RBC Urine 0-2 /HPF (0-2); UACC Culture Trigger YES; WBC Urine >50 /HPF (0-5)
[2022-06-14 16:41] LABS: Influenza A PCR NEGATIVE (Negative); Influenza B PCR NEGATIVE (Negative); Resp Syncy Virus RNA Qual PCR NEGATIVE (Negative); SARS COV2 PCR INHOUSE NEGATIVE (Negative)
[2022-06-14 17:30] LABS: Lactic Acid 1.2 mmol/L (0.5-2.0)
[2022-06-14] MEDS: Albuterol Sulfate 2.5 MG, Albuterol Sulfate (0.083%) 2.5 MG 5 MG INHALE (18:03)
[2022-06-14] MEDS: Albuterol/Iprat 2.5/0.5MG 3 ML AMPUL.NEB INHALE (18:04)
--- NOTE | 2022-06-14 18:20 | ED.GENADULT ---
HPI - General Adult General Chief complaint: General Medical Stated complaint: cough, wheezing for weeks Time Seen by Provider: 06/14/22 17:31 Source: patient and family ( sister) Mode of arrival: ambulatory Limitations: no limitations History of Present Illness HPI narrative: 71-year-old female came in for evaluation of generalized weakness, generalized weakness, decreased p.o. intake and losing weight, productive cough with green sputum and shortness of breath. Patient also is complaining of dysuria, frequent urination, subjective fevers. Related Data Previous Rx's Medication Instructions Recorded lisinopril 40 mg tablet 40 mg PO DAILY 90 days #90 tabs 09/17/21 gabapentin 300 mg capsule 300 mg PO Q8H 90 days #270 caps 09/18/21 metformin 1,000 mg tablet 1,000 mg PO BID 90 days #180 tabs 09/18/21 cyclobenzaprine 10 mg tablet 10 mg PO Q8H PRN Muscle spasm #14 11/06/21 tabs docusate sodium 100 mg capsule 100 mg PO BID PRN Constipation #14 11/06/21 (Colace) caps glipizide 10 mg tablet 10 mg PO BID 90 days #180 tabs 03/16/22 amlodipine 5 mg tablet 5 mg PO DAILY 90 days #90 tabs 03/28/22 alendronate 70 mg tablet 70 mg PO QWEEK 30 days #5 tabs 05/28/22 pravastatin 80 mg tablet 80 mg PO DAILY #90 tabs 05/29/22 Allergies Allergy/AdvReac Type Severity Reaction Status Date / Time No Known Allergies Allergy Verified 06/14/22 15:27 [No Known Allergies*] Review of Systems Review of Systems: All other systems are reviewed and are negative Constitutional: Reports as per HPI and Reports no additional constitutional complaints Eyes: Reports as per HPI and Reports no additional eye complaints Reports system reviewed and no additional complaints, except as documented Cardiovascular: Reports as per HPI and Reports no additional cardiovascular complaints Respiratory: Reports as per HPI and Reports no additional respiratory complaints Gastrointestinal: Reports as per HPI and Reports no additional gastrointestinal complaints Genitourinary: Reports no additional female genitourinary complaints Musculoskeletal: Reports no additional musculoskeletal complaints Skin/Breast: Reports system reviewed and no additional complaints, except as docu Psychiatric: Reports no additional psychiatric complaints Endocrine: Reports no additional endocrine complaints Hematologic/Lymphatic: Reports no additional hematologic/lymphatic complaints Allergic/Immunologic: Reports no additional allergic/immunologic complaints Reports system reviewed and no additional complaints, except as documented and Reports Abnormal speech present [facility] Past Medical History Medical History Anemia of chronic disease CKD (chronic kidney disease) CKD (chronic kidney disease) stage 3, GFR 30-59 ml/min Diabetes mellitus Dyslipidemia Essential hypertension Hypovitaminosis D Insomnia Microalbuminuria Murmur Neuropathy Urge urinary incontinence Surgical History No pertinent past surgical history Family History Family History Father Colon cancer Mother Lung cancer Social History Social History Household Members Other:: lives with her son and grandson 15 y/o- happy with the situation Housing: House Alcohol intake: never Patient Tobacco Use Status: Current everyday Tobacco user Tobacco use type: Cigarette Cigarette Packs Per Day: 1 Cigarettes Per Day: 20 e-Cigarette/Vaping Use: Never Used Second Hand Smoke Exposure: No Advance Directives: No Advance Directives Information Provided: No service: No Current occupational status: retired Cognitive needs: No Hearing needs: No Vision needs: No Physical Exam ED Vital Signs: Vital Signs - 24 hr 06/14/22 15:27 Temperature 98.3 F Pulse Rate 102 H Respiratory Rate 18 Blood Pressure 203/66 H Pulse Oximetry 93 Oxygen Delivery Method Room Air BMI result Body Mass Index 26.2 vital signs have been reviewed as appeared to be correct. Blood pressure elevated. Heart rate normal. Respiration rate normal. Temperature normal. Oxygen saturation normal. Appearance: Alert. Oriented X3. No acute distress. Head: Normal external exam. Normocephalic. Atraumatic. No Ramos signs noted. No raccoon eyes noted Eyes: PERRLA. EOMI. Conjunctiva and sclera normal. Eyelids normal. ENT: TM's Normal. Pharynx normal. Uvula midline. Moist mucous membranes. No trismus noted. No drooling noted. No muffled voice noted. Neck: Normal inspection. Neck supple. FROM. No adenopathy. Thyroid Normal. No meningeal signs. No neck mass noted. CVS: Normal heart rate and rhythm. Heart sound normal. No murmurs noted. Pulses normal throughout. Respiratory: No respiratory distress. Painless inspiration. Breath sounds normal. bilateral diffuse expiratory wheezing with prolonged expiration. Chest nontender. No accessory muscle usage noted or decreased air movement noted. Abdomen: Soft and nontender. Bowel sounds normal in all 4 quadrants. No distention noted. No organomegaly noted. No visible injury noted. Back: No CVA tenderness. Full range of motion noted. Skin: Skin warm and dry. Normal skin color. Normal skin turgor. No rashes/lesions/lacerations noted. Extremities: No lower extremity edema. Extremities exhibit normal range of motion. Extremities nontender. Neuro: Oriented X 3. Cranial nerve exam: II-XII are grossly intact No motor deficit. No sensory deficit. Reflexes normal. Course Course Course Narrative: 1. UTI with SIRS criteria Start on ceftriaxone / IV fluids. 2. Smoker with wheezing for few weeks no official diagnosis of COPD, patient was given bronchodilator and Solu-Medrol. 3. Acute on chronic ANDRE Will hydrate with IV fluids. 4. Reportedly patient is losing weight unintentionally will need further GI workup patient was scheduled for colonoscopy patient could not make it to the appointment because she has been feeling sick. Medications Administered Discontinued Medications Generic Name Dose Route Start Last Admin Trade Name Freq PRN Reason Stop Dose Admin Albuterol Sulfate 2.5 mg/ 5 mg 06/14/22 17:55 06/14/22 18:03 Albuterol Sulfate 2.5 mg INHALE 06/14/22 17:56 5 mg ONCE ONE Administration Albuterol/Ipratropium 3 ml 06/14/22 17:55 06/14/22 18:04 Albuterol/Iprat 2.5/0.5mg 3 Ml Ampul.Neb INHALE 06/14/22 17:56 3 ml ONCE ONE Administration Medical Decision Making Differential Diagnosis Differential Diagnoses: The differential diagnosis associated with the presentation includes Pneumonia/ COPD/ UTI/ mild dehydration/ kidney failure. Admission/Observation Consideration of admission/observation: Escalation of care including admission/observation considered Consult Healthcare Provider Management of the patient was discussed with: Hospitalist Lab Data MDM Lab Attestation statement: I reviewed the patient's lab results. Result Diagrams: 06/14/22 15:53 06/14/22 15:53 Labs: Lab Results 06/14/22 06/14/2206/14/22 Range/Units 15:53 15:53 15:53 WBC 13.7 H (4.8-10.8) X10*3/uL RBC 4.14 L (4.20-5.50) X10*6/uL Hgb 12.3 (12.0-16.0) g/dl Hct 36.1 L (37.0-47.0) % MCV 87.2 (80.0-98.0) fL MCH 29.7 (27.0-33.0) pg MCHC 34.1 (31.0-35.0) g/dl RDW 13.2 (11.0-16.0) % Plt Count 315 (160-400) X10*3/uL MPV 9.1 L (9.4-12.3) fL Immature Gran % (Auto) 0.3 (0.0-0.4) % Neut % (Auto) 74.3 H (45-73) % Lymph % (Auto) 16.9 L (20-40) % Sullivan % (Auto) 7.0 (2-11) % Eos % (Auto) 1.1 (0-4) % Baso % (Auto) 0.4 (0-2) % Lymph # (Auto) 2.3 (1.2-4.9) X10*3/uL Sullivan # (Auto) 1.0 (0.1-1.2) X10*3/uL Eos # (Auto) 0.2 (0.0-0.4) X10*3/uL Baso # (Auto) 0.1 (0.0-0.2) X10*3/uL Abs Immat Gran (auto) 0.04 H (0.00-0.03) X10*3/uL Absolute Neuts (auto) 10.2 H (2.0-8.3) x10*3/uL Absolute Nucleated RBC 0.000 (0.0-0.012) X10*3/uL Nucleated RBC % (auto) 0.0 (0.0-0.2) /100WBC PT 11.6 (10.0-13.1) SEC INR 1.0 (0.9-1.1) Sodium 136 (135-145) mmol/L Potassium 4.5 (3.3-5.1) mmol/L Chloride 104 (96-108) mmol/L Carbon Dioxide 22 (22-29) mmol/L Anion Gap 15 (12-20) BUN 29 H (9-16) mg/dL Creatinine 1.49 H (0.5-1.4) mg/dL Estim Creat Clear Calc 29.7 Estimated GFR 34 Random Glucose 201 H (60-115) mg/dL Lactic Acid (0.5-2.0) mmol/L Calcium 9.2 (8.4-10.2) mg/dL Magnesium 1.6 (1.6-2.6) mg/dL Total Bilirubin 0.2 (0.0-1.0) mg/dL Direct Bilirubin < 0.2 (0.0-0.5) mg/dL AST 14 (5-31) U/L ALT 14 (0-31) U/L Alkaline Phosphatase 88 (39-117) U/L Troponin I High Sens (<3.5-17.0) ng/L B-Natriuretic Peptide (<100) pg/mL Total Protein 6.8 (6.5-8.0) g/dL Albumin 3.9 (3.5-5.0) g/dL Urine Color Urine Appearance Urine pH (5.0-9.0) Ur Specific [place] (1.005-1.025) Urine Protein (Neg-Trace) mg/dL Urine Glucose (UA) (Negative) mg/dL Urine Ketones (Negative) mg/dL Urine Blood (Negative) Urine Nitrite (Negative) Ur Leukocyte Esterase (Negative) Urine RBC (0-2) /HPF Urine WBC (0-5) /HPF Ur Squamous Epith Cells (0-2) /HPF Urine Bacteria (None Seen) Hyaline Casts (0-2) /LPF Influenza Type A (PCR) (Negative) Influenza Type B (PCR) (Negative) RSV RNA Qual (PCR) (Negative) SARS-CoV-2 RNA (RT-PCR) (Negative) 06/14/22 06/14/22 06/14/22 Range/Units 15:53 15:53 15:53 WBC (4.8-10.8) X10*3/uL RBC (4.20-5.50) X10*6/uL Hgb (12.0-16.0) g/dl Hct (37.0-47.0) % MCV (80.0-98.0) fL MCH (27.0-33.0) pg MCHC (31.0-35.0) g/dl RDW (11.0-16.0) % Plt Count (160-400) X10*3/uL MPV (9.4-12.3) fL Immature Gran % (Auto) (0.0-0.4) % Neut % (Auto) (45-73) % Lymph % (Auto) (20-40) % Sullivan % (Auto) (2-11) % Eos % (Auto) (0-4) % Baso % (Auto) (0-2) % Lymph # (Auto) (1.2-4.9) X10*3/uL [place] # (Auto) (0.1-1.2) X10*3/uL Eos # (Auto) (0.0-0.4) X10*3/uL Baso # (Auto) (0.0-0.2) X10*3/uL Abs Immat Gran (auto) (0.00-0.03) X10*3/uL Absolute Neuts (auto) (2.0-8.3) x10*3/uL Absolute Nucleated RBC (0.0-0.012) X10*3/uL Nucleated RBC % (auto) (0.0-0.2) /100WBC PT (10.0-13.1) SEC INR (0.9-1.1) Sodium (135-145) mmol/L Potassium (3.3-5.1) mmol/L Chloride (96-108) mmol/L Carbon Dioxide (22-29) mmol/L Anion Gap (12-20) BUN (9-16) mg/dL Creatinine (0.5-1.4) mg/dL Estim Creat Clear Calc Estimated GFR Random Glucose (60-115) mg/dL Lactic Acid (0.5-2.0) mmol/L Calcium (8.4-10.2) mg/dL Magnesium (1.6-2.6) mg/dL Total Bilirubin (0.0-1.0) mg/dL Direct Bilirubin (0.0-0.5) mg/dL AST (5-31) U/L ALT (0-31) U/L Alkaline Phosphatase (39-117) U/L Troponin I High Sens 17.8 H (<3.5-17.0) ng/L B-Natriuretic Peptide 36 (<100) pg/mL Total Protein (6.5-8.0) g/dL Albumin (3.5-5.0) g/dL Urine Color Yellow Urine Appearance Turbid Urine pH 5.5 (5.0-9.0) Ur Specific [place] 1.020 (1.005-1.025) Urine Protein >=1000 (4+) H (Neg-Trace) mg/dL Urine Glucose (UA) 250 H (Negative) mg/dL Urine Ketones Negative (Negative) mg/dL Urine Blood Small (1+) H (Negative) Urine Nitrite Positive H (Negative) Ur Leukocyte Esterase Moderate (2+) H (Negative) Urine RBC 0-2 (0-2) /HPF Urine WBC >50 H (0-5) /HPF Ur Squamous Epith Cells 6-10 (0-2) /HPF Urine Bacteria 4+ (None Seen) Hyaline Casts 0-2 (0-2) /LPF Influenza Type A (PCR) (Negative) Influenza Type B (PCR) (Negative) RSV RNA Qual (PCR) (Negative) SARS-CoV-2 RNA (RT-PCR) (Negative) 06/14/22 06/14/22 Range/Units 15:53 17:08 WBC (4.8-10.8) X10*3/uL RBC (4.20-5.50) X10*6/uL Hgb (12.0-16.0) g/dl Hct (37.0-47.0) % MCV (80.0-98.0) fL MCH (27.0-33.0) pg MCHC (31.0-35.0) g/dl RDW (11.0-16.0) % Plt Count (160-400) X10*3/uL MPV (9.4-12.3) fL Immature Gran % (Auto) (0.0-0.4) % Neut % (Auto) (45-73) % Lymph % (Auto) (20-40) % Sullivan % (Auto) (2-11) % Eos % (Auto) (0-4) % Baso % (Auto) (0-2) % Lymph # (Auto) (1.2-4.9) X10*3/uL [place] # (Auto) (0.1-1.2) X10*3/uL Eos # (Auto) (0.0-0.4) X10*3/uL Baso # (Auto) (0.0-0.2) X10*3/uL Abs Immat Gran (auto) (0.00-0.03) X10*3/uL Absolute Neuts (auto) (2.0-8.3) x10*3/uL Absolute Nucleated RBC (0.0-0.012) X10*3/uL Nucleated RBC % (auto) (0.0-0.2) /100WBC PT (10.0-13.1) SEC INR (0.9-1.1) Sodium (135-145) mmol/L Potassium (3.3-5.1) mmol/L Chloride (96-108) mmol/L Carbon Dioxide (22-29) mmol/L Anion Gap (12-20) BUN (9-16) mg/dL Creatinine (0.5-1.4) mg/dL Estim Creat Clear Calc Estimated GFR Random Glucose (60-115) mg/dL Lactic Acid 1.2 (0.5-2.0) mmol/L Calcium (8.4-10.2) mg/dL Magnesium (1.6-2.6) mg/dL Total Bilirubin (0.0-1.0) mg/dL Direct Bilirubin (0.0-0.5) mg/dL AST (5-31) U/L ALT (0-31) U/L Alkaline Phosphatase (39-117) U/L Troponin I High Sens (<3.5-17.0) ng/L B-Natriuretic Peptide (<100) pg/mL Total Protein (6.5-8.0) g/dL Albumin (3.5-5.0) g/dL Urine Color Urine Appearance Urine pH (5.0-9.0) Ur Specific [place] (1.005-1.025) Urine Protein (Neg-Trace) mg/dL Urine Glucose (UA) (Negative) mg/dL Urine Ketones (Negative) mg/dL Urine Blood (Negative) Urine Nitrite (Negative) Ur Leukocyte Esterase (Negative) Urine RBC (0-2) /HPF Urine WBC (0-5) /HPF Ur Squamous Epith Cells (0-2) /HPF Urine Bacteria (None Seen) Hyaline Casts (0-2) /LPF Influenza Type A (PCR) NEGATIVE (Negative) Influenza Type B (PCR) NEGATIVE (Negative) RSV RNA Qual (PCR) NEGATIVE (Negative) SARS-CoV-2 RNA (RT-PCR) NEGATIVE (Negative) Independent Interpretation I performed an independent interpretation of an: Plain X-Ray ( No acute pulmonary process. ) Radiology Impression Discussion of test interpretation with radiology: I have reviewed the radiologist's reading. External Record Review External record reviewed: Inpatient record Discharge Plan Discharge Clinical Impression: Acute bronchitis, Urinary tract infection, SIRS (systemic inflammatory response syndrome), Acute on chronic kidney failure Patient Disposition: Admitted As Inpatient Prescriptions: No Action lisinopril 40 mg tablet 40 mg PO DAILY 90 Days Qty: 90 3RF metformin 1,000 mg tablet 1,000 mg PO BID 90 Days Qty: 180 3RF gabapentin 300 mg capsule 300 mg PO Q8H 90 Days Qty: 270 1RF glipizide 10 mg tablet 10 mg PO BID 90 Days Qty: 180 1RF amlodipine 5 mg tablet 5 mg PO DAILY 90 Days Qty: 90 0RF alendronate 70 mg tablet 70 mg PO QWEEK 30 Days Qty: 5 0RF pravastatin 80 mg tablet 80 mg PO DAILY Qty: 90 0RF docusate sodium [Colace] 100 mg capsule 100 mg PO BID PRN (Reason: Constipation) Qty: 14 0RF cyclobenzaprine 10 mg tablet 10 mg PO Q8H PRN (Reason: Muscle spasm) Qty: 14 0RF
[2022-06-14] MEDS: cefTRIAXone sodium 1 GM in 0.9 % Sodium Chloride 50 ML IV (18:46)
[2022-06-14] MEDS: Magnesium Sulfate/H2O 2 GM/50 ML PIGGYBACK IV (18:46)
[2022-06-14] MEDS: methylPREDNISolone Sod Succ 125 MG/2 ML VIAL IVPUSH (18:46)
[2022-06-14 19:54] VITALS: BP 174/76; PULSE 95; O2SAT 95
--- NOTE | 2022-06-14 20:03 | PHA.MEDREC ---
Pharmacy Consult ? Medication Reconciliation Pharmacy has completed the medication reconciliation. Spoke with patient in the ED
--- NOTE | 2022-06-14 21:56 | P.HPHOSP_ITS ---
History of Present Illness Date of Service: 06/14/22 Chief Complaint: cough 71-year-old female with past medical history of lifelong smoking, no official diagnosis of COPD, history of CKD, anemia of chronic disease, diabetes, hypertension presents to the hospital with complaints of cough, sputum production, and shortness of breath. reports her symptoms have been going on for the past 4 weeks, worsening. Patient denies any chest pain, no palpitations. On but on further review of system she is complaining of urinary urgency as well as dysuria for the past few weeks. Denies any fever no chills. No flank pain. No abdominal pain nausea or vomiting, no diarrhea constipation, and no lower extremity edema to the ED found to be hemodynamically stable with an elevated blood pressure Labs are significant for WBC count of 13.7, creatinine of 1.49 which is closer baseline of 1.3 troponin of 17.8, BNP of 36, urine positive for leukocyte Estrace and WBC as well as nitrites, viral serology negative Chest x-ray negative for any acute infection Review of Systems Review of Systems: Yes all other systems are reviewed and are negative [facility] Medical History Anemia of chronic disease CKD (chronic kidney disease) CKD (chronic kidney disease) stage 3, GFR 30-59 ml/min Diabetes mellitus Dyslipidemia Essential hypertension Hypovitaminosis D Insomnia Microalbuminuria Murmur Neuropathy Urge urinary incontinence Family History Father Colon cancer Mother Lung cancer Surgical History No pertinent past surgical history Social History Household Members: Family and Children Household Members Other:: son and grandson Housing: House Do you presently have visiting nurse or other home services: No Alcohol intake: former Patient Tobacco Use Status: Current everyday Tobacco user Tobacco use type: Cigarette Cigarette Packs Per Day: 1 Cigarettes Per Day: 20 Smoked in Last 30 Days: Yes e-Cigarette/Vaping Use: Never Used Patient Interested in Nicotine Replacement: No Second Hand Smoke Exposure: No Use of substances other than those prescribed or required for medical reasons: Yes Substance Use Type: Marijuana Last Used Substance Other:: gummies to help sleep Have you been hit, kicked, punched, or otherwise hurt by someone within the past year? If so, by whom?: No Do you feel safe in your current relationship?: No Current Relationship Is there a partner from a previous relationship who is making you feel unsafe now?: No Are you made to feel afraid or neglected: No Advance Directives: No Advance Directives Information Provided: No Do you have thoughts of harming others: None Do you have a plan to hurt others: No Plan Recently lost weight without trying: Yes How much weight loss: 24-33 pounds Eating poorly because of decreased appetite: Yes Nutrition screen score: 6 Nutrition Risks: Poor intake 0-25% >4 days Patient : No : No Poor oral hygiene: No service: No Current occupational status: retired Cognitive needs: No Hearing needs: No Vision needs: No Meds Allergies Allergy/AdvReac Type Severity Reaction Status Date / Time No Known Allergies Allergy Verified 06/14/22 15:27 [No Known Allergies*] Active Medications: Current Medications Acetaminophen (Acetaminophen 325 Mg Tablet) 650 mg PO Q6H PRN PRN Reason: Pain, Mild (Pain Scale 1-3) Albuterol/Ipratropium (Albuterol/Iprat 2.5/0.5mg 3 Ml Ampul.Neb) 3 ml INHALE RQ4H PRN PRN Reason: Shortness of Breath/Wheezing Albuterol/Ipratropium (Albuterol/Iprat 2.5/0.5mg 3 Ml Ampul.Neb) 3 ml INHALE RQ4H WHILE AWAKE [facility] Enoxaparin Sodium (Enoxaparin Sodium 40 Mg/0.4 Ml Syringe) 40 mg SUBCUT Q24H [facility] Ceftriaxone Sodium 1 gm/ (Sodium Chloride) 50 mls @ 100 mls/hr IV Q24H [facility] Lactated Ringer's (Lr) 1,000 mls @ 100 mls/hr IVCONT .Q10H [facility] Methylprednisolone Sodium Succinate (Methylprednisolone Sod Succ 40 Mg/Ml Vial) 40 mg IVPUSH Q12H [facility] Ondansetron HCl (Ondansetron Hcl 4 Mg/2 Ml Vial) 4 mg IVPUSH Q8H PRN PRN Reason: Nausea and Vomiting Pharmacy Consult (Consult Rx Perform Med Rec) 1 each MISCELLANE ONCE PRN PRN Reason: Consult order Sodium Chloride (0.9 % Sodium Chloride Flush 3 Ml Syringe) 3 ml IVFLUSH QSHIFT [facility] Home Medications Medication Instructions Recorded Confirmed Last Taken Type alendronate 70 mg tablet 70 mg PO VILLALOBOS@0630 06/14/22 06/14/22 06/13/22 History gabapentin 300 mg capsule 300 mg PO Q8H PRN Pain (Scale 06/14/22 06/14/22 06/14/22 History Score 1-3) Physical Exam Vital Signs and Narrative: Vital Signs: Last Vital Signs Temp 98.3 F 06/14/22 15:27 Pulse 95 06/14/22 19:54 Resp 18 06/14/22 15:27 BP 174/76 H 06/14/22 19:54 Pulse Ox 95 06/14/22 19:54 O2 Del Method 06/14/22 19:54 BMI result Body Mass Index 26.2 Const: General: cooperative and no acute distress Bartolome entation/consciousness: patient oriented x3 Eyes: General: appearance normal, both eyes and all related structures Resp: Other: rhonchi bilaterally Effort & Inspection: normal respiratory effort Cardio: Rate: regular rate Rhythm: regular rhythm GI: Palpation (GI): Soft to palpation Auscultation: normal bowel sounds Skin: General skin exam: no rashes or lesions noted Neuro: General: patient oriented x3 Cognition (Neuro): normal cognition Extrem: General: Yes normal to inspection and Yes no pedal edema Results Labs CBC and Chem 7: 06/14/22 15:53 06/14/22 15:53 Labs: Laboratory Results - last 24 hr 06/14/22 06/14/22 06/14/22 15:53 15:53 15:53 MCV 87.2 MCH 29.7 MCHC 34.1 RDW 13.2 Plt Count 315 MPV 9.1 L Immature Gran % (Auto) 0.3 Neut % (Auto) 74.3 H Lymph % (Auto) 16.9 L [place] % (Auto) 7.0 Eos % (Auto) 1.1 Baso % (Auto) 0.4 Lymph # (Auto) 2.3 [place] # (Auto) 1.0 Eos # (Auto) 0.2 Baso # (Auto) 0.1 Abs Immat Gran (auto) 0.04 H Absolute Neuts (auto) 10.2 H Absolute Nucleated RBC 0.000 Nucleated RBC % (auto) 0.0 PT 11.6 INR 1.0 Anion Gap 15 Estim Creat Clear Calc 29.7 Estimated GFR 34 Random Glucose 201 H Lactic Acid Calcium 9.2 Magnesium 1.6 Total Bilirubin 0.2 Direct Bilirubin < 0.2 AST 14 ALT 14 Alkaline Phosphatase 88 Troponin I High Sens B-Natriuretic Peptide Total Protein 6.8 Albumin 3.9 Urine Color Urine Appearance Urine pH Ur Specific [place] Urine Protein Urine Glucose (UA) Urine Ketones Urine Blood Urine Nitrite Ur Leukocyte Esterase Urine RBC Urine WBC Ur Squamous Epith Cells Urine Bacteria Hyaline Casts Influenza Type A (PCR) Influenza Type B (PCR) RSV RNA Qual (PCR) SARS-CoV-2 RNA (RT-PCR) 06/14/22 06/14/22 06/14/22 15:53 15:53 15:53 MCV MCH MCHC RDW Plt Count MPV Immature Gran % (Auto) Neut % (Auto) Lymph % (Auto) [place] % (Auto) Eos % (Auto) Baso % (Auto) Lymph # (Auto) [place] # (Auto) Eos # (Auto) Baso # (Auto) Abs Immat Gran (auto) Absolute Neuts (auto) Absolute Nucleated RBC Nucleated RBC % (auto) PT INR Anion Gap Estim Creat Clear Calc Estimated GFR Random Glucose Lactic Acid Calcium Magnesium Total Bilirubin Direct Bilirubin AST ALT Alkaline Phosphatase Troponin I High Sens 17.8 H B-Natriuretic Peptide 36 Total Protein Albumin Urine Color Yellow Urine Appearance Turbid Urine pH 5.5 Ur Specific [place] 1.020 Urine Protein >=1000 (4+) H Urine Glucose (UA) 250 H Urine Ketones Negative Urine Blood Small (1+) H Urine Nitrite Positive H Ur Leukocyte Esterase Moderate (2+) H Urine RBC 0-2 Urine WBC >50 H Ur Squamous Epith Cells 6-10 Urine Bacteria 4+ Hyaline Casts 0-2 Influenza Type A (PCR) Influenza Type B (PCR) RSV RNA Qual (PCR) SARS-CoV-2 RNA (RT-PCR) 06/14/22 06/14/22 15:53 17:08 MCV MCH MCHC RDW Plt Count MPV Immature Gran % (Auto) Neut % (Auto) Lymph % (Auto) [place] % (Auto) Eos % (Auto) Baso % (Auto) Lymph # (Auto) [place] # (Auto) Eos # (Auto) Baso # (Auto) Abs Immat Gran (auto) Absolute Neuts (auto) Absolute Nucleated RBC Nucleated RBC % (auto) PT INR Anion Gap Estim Creat Clear Calc Estimated GFR Random Glucose Lactic Acid 1.2 Calcium Magnesium Total Bilirubin Direct Bilirubin AST ALT Alkaline Phosphatase Troponin I High Sens B-Natriuretic Peptide Total Protein Albumin Urine Color Urine Appearance Urine pH Ur Specific [place] Urine Protein Urine Glucose (UA) Urine Ketones Urine Blood Urine Nitrite Ur Leukocyte Esterase Urine RBC Urine WBC Ur Squamous Epith Cells Urine Bacteria Hyaline Casts Influenza Type A (PCR) NEGATIVE Influenza Type B (PCR) NEGATIVE RSV RNA Qual (PCR) NEGATIVE SARS-CoV-2 RNA (RT-PCR) NEGATIVE Imaging Radiologist's Impressions: Impressions Chest X-Ray 06/14/22 16:55 IMPRESSION: No acute pulmonary process. Assessment and Plan (1) COPD with acute exacerbation: Status: Acute (2) Acute bronchitis: Status: Acute (3) Urinary tract infection: Status: Acute Plan 71-year-old female with lifelong history of smoking, likely underlying COPD presents to the hospital with cough, sputum production, shortness of breath # acute COPD exacerbation - does not have an official COPD diagnosis S she never seen a pulmonology or had respiratory testing done in the past, but has been smoking since the age of 14 - has increased sputum production, cough, as well as shortness of breath - will treat with Solu-Medrol, DuoNeb p.r.n. as well as scheduled - monitor respiratory status # acute UTI - symptomatic - positive UA - will treat with IV antibiotics - follow cultures # diabetes - hold oral antihyperglycemics - will treat with low-dose sliding scale insulin - diabetic diet # hypertension - elevated blood pressure - will resume home antihypertensives # CKD - no significant increase in baseline creatinine - will treat with IV fluids - follow BMP DVT prophylaxis: Lovenox given need for management of COPD exacerbation patient will require minimum 2 night inpatient hospital stay Time Spent With Patient Time: Total time managing care of this patient today ____ minutes. Quality Stroke Does the patient have a stroke diagnosis?: No VTE Prior VTE?: No VTE Risk Level:: Medical - moderate - high VTE Device Contraindication: Treatment Not Indicated VTE Drug Contraindication: N/A - Med Ordered
[2022-06-15] VITALS (11 sets, daily range): BP systolic 153–190; BP diastolic 57–82; PULSE 67–95; RESP 12–22; TEMP 36.1–36.9; O2SAT 91–97; BMI 26.2
[2022-06-15] MEDS: lisinopriL 40 MG TABLET PO ×2 (00:06→07:52)
[2022-06-15] MEDS: amLODIPine Besylate 5 MG TABLET PO ×2 (00:06→07:52)
[2022-06-15] MEDS: Enoxaparin Sodium 40 MG/0.4 ML SYRINGE SUBCUT ×2 (00:06→22:08)
[2022-06-15] MEDS: Lactated Ringers 1,000 ML 100 ML IVCONT ×2 (00:16→15:31)
--- NOTE | 2022-06-15 01:50 | PC.NURSE ---
Pt's a/o x5, pt's V/S has improved, and she was connected to the monitor. Pt has LR IVF running at 100ml/hr. Pt is independent and able to ambulate to the restroom.
[2022-06-15] MEDS: methylPREDNISolone Sod Succ 40 MG/ML VIAL IVPUSH ×2 (05:46→17:49)
[2022-06-15 06:31] LABS: MANUAL DIFF FLAG NO
[2022-06-15 06:42] LABS: Basophils Percent Auto 0.3 % (0-2); Hematocrit 31.2 % (37.0-47.0); Hemoglobin 10.4 g/dl (12.0-16.0); Imm Gran Abs Auto 0.08 X10*3/uL (0.00-0.03); Imm Gran Pct Auto 0.6 % (0.0-0.4); Lymphocytes Absolute Auto 1.3 X10*3/uL (1.2-4.9); Lymphocytes Percent Auto 9.2 % (20-40); Mean Corpuscular HGB Conc 33.3 g/dl (31.0-35.0); Mean Corpuscular Hemoglobin 30.1 pg (27.0-33.0); Mean Corpuscular Volume 90.2 fL (80.0-98.0); Mean Platelet Volume 9.6 fL (9.4-12.3); Monocytes Absolute Auto 0.2 X10*3/uL (0.1-1.2); Neutrophils Absolute Auto 12.9 x10*3/uL (2.0-8.3); Neutrophils Percent Auto 88.9 % (45-73); Platelet Count 275 X10*3/uL (160-400); Red Blood Count 3.46 X10*6/uL (4.20-5.50); Red Cell Distribution Width 13.1 % (11.0-16.0); White Blood Count 14.5 X10*3/uL (4.8-10.8)
[2022-06-15] MEDS: Albuterol/Iprat 2.5/0.5MG 3 ML AMPUL.NEB INHALE ×4 (07:17→20:04)
[2022-06-15 07:31] LABS: Glucose, Whole Blood 415 mg/dL (60-115)
[2022-06-15 07:35] LABS: Anion Gap 17 (12-20); Blood Urea Nitrogen 30 mg/dL (9-16); Calcium 8.6 mg/dL (8.4-10.2); Carbon Dioxide 19 mmol/L (22-29); Chloride 103 mmol/L (96-108); Creatinine Clr Calc Pharmacy 26.9; Estimated Glomerular Filt Rate 31; Potassium 4.7 mmol/L (3.3-5.1); Sodium 134 mmol/L (135-145)
[2022-06-15] MEDS: Insulin Lispro 100 UNIT/ML 3 ML VIAL SUBCUT ×4 (07:52→22:09)
[2022-06-15] MEDS: Pravastatin Sodium 80 MG TABLET PO (07:52)
[2022-06-15] MEDS: 0.9 % Sodium Chloride Flush 3 ML SYRINGE IVFLUSH ×2 (07:53→15:31)
[2022-06-15 08:17] LABS: Glucose Random 467 mg/dL (60-115)
--- NOTE | 2022-06-15 09:38 | MHC.CM.PN ---
met with pt and her dgter pt lives with son and grandson is not expected to need servceis when dcd
--- NOTE | 2022-06-15 10:59 | MHC.CLN ---
PT WITH 12% SIGNIFCANT WT LOSS X 6 MONTHS WITH POOR PO PER PT PT REMAINS OBESE FOR HT AND POSSIBLY GI WORK UP FOR INVOLUNTARY WT LOSS DIET RX: 1500DM-APPROPRIATE MONITOR PO INTAKE CLOSELY IF PO POOR; RECOMMEND ADDING NUTRITION SUPPLEMENT GLUCERNA BID SEE ALSO FULL CLINICAL NUTRITION ASSESSMENT
[2022-06-15 11:12] LABS: Glucose, Whole Blood 419 mg/dL (60-115)
--- NOTE | 2022-06-15 13:41 | P.PNIM_ITS ---
Subjective Subjective Date of Service: 06/15/22 Interval History: copd excerebation,uti Review of Systems still sob -with minimal exertion, talk in short sentences. Physical Exam Vital Signs: Vital Signs: Last Vital Signs Temp 97.0 F 06/15/22 11:07 Pulse 67 06/15/22 11:10 Resp 16 06/15/22 11:10 BP 153/57 H 06/15/22 11:07 Pulse Ox 93 06/15/22 11:07 O2 Del Method 06/15/22 11:07 BMI result Body Mass Index 26.2 Appearance: Alert.? Oriented X3.? cvs: rrr, [id number] , no murmur res:diminshed breath sounds ,has b/l wheezi abd: no rebound or guarding ,nt, bs present. ext pulses present , no cyanosis . neuro: axo3 , nonfocal. Objective Data Active Medications Acetaminophen (Acetaminophen 325 Mg Tablet) 650 mg PO Q6H PRN PRN Reason: Pain, Mild (Pain Scale 1-3) Albuterol/Ipratropium (Albuterol/Iprat 2.5/0.5mg 3 Ml Ampul.Neb) 3 ml INHALE RQ4H PRN PRN Reason: Shortness of Breath/Wheezing Albuterol/Ipratropium (Albuterol/Iprat 2.5/0.5mg 3 Ml Ampul.Neb) 3 ml INHALE RQ4H WHILE AWAKE [facility] Last Admin: 06/15/22 11:10 Dose: 3 ml Documented By: YUNIOR Amlodipine Besylate (Amlodipine Besylate 5 Mg Tablet) 5 mg PO DAILY [facility]; Protocol Last Admin: 06/15/22 07:52 Dose: 5 mg Documented By: JOSÉ MIGUEL Dextrose (Dextrose 50 % 25 Gm/50 Ml Syringe) 25 gm IVPUSH Q15M PRN; Protocol PRN Reason: per Hypoglycemia Standing Ord. Enoxaparin Sodium (Enoxaparin Sodium 40 Mg/0.4 Ml Syringe) 40 mg SUBCUT Q24H [facility] Last Admin: 06/15/22 00:06 Dose: 40 mg Documented By: POPPY Gabapentin (Gabapentin 300 Mg Capsule) 300 mg PO Q8H PRN PRN Reason: Pain (Scale Score 1-3) Glucose (Glucose Gel 15 Gm Gel..Gram.) 15 gm PO Q15M PRN; Protocol PRN Reason: per Hypoglycemia Standing Ord. Ceftriaxone Sodium 1 gm/ (Sodium Chloride) 50 mls @ 100 mls/hr IV Q24H [facility] Lactated Ringer's (Lr) 1,000 mls @ 100 mls/hr IVCONT .Q10H [facility] Last Admin: 06/15/22 00:16 Dose: 100 mls/hr Documented By: POPPY Insulin Human Lispro (Insulin Lispro 100 Unit/Ml 3 Ml Vial) 0 unit SUBCUT QIDACHS [facility]; Protocol Last Admin: 06/15/22 11:26 Dose: 14 unit Documented By: JOSÉ MIGUEL Lisinopril (Lisinopril 40 Mg Tablet) 40 mg PO DAILY [facility]; Protocol Last Admin: 06/15/22 07:52 Dose: 40 mg Documented By: JOSÉ MIGUEL Methylprednisolone Sodium Succinate (Methylprednisolone Sod Succ 40 Mg/Ml Vial) 40 mg IVPUSH Q12H [facility] Last Admin: 06/15/22 05:46 Dose: 40 mg Documented By: JERMAN Ondansetron HCl (Ondansetron Hcl 4 Mg/2 Ml Vial) 4 mg IVPUSH Q8H PRN PRN Reason: Nausea and Vomiting Pharmacy Consult (Consult Rx Perform Med Rec) 1 each MISCELLANE ONCE PRN PRN Reason: Consult order Pravastatin Sodium (Pravastatin Sodium 80 Mg Tablet) 80 mg PO DAILY [facility] Last Admin: 06/15/22 07:52 Dose: 80 mg Documented By: JOSÉ MIGUEL Sodium Chloride (0.9 % Sodium Chloride Flush 3 Ml Syringe) 3 ml IVFLUSH QSHIFT [facility] Last Admin: 06/15/22 07:53 Dose: 3 ml Documented By: JOSÉ MIGUEL Labs CBC & Chem 7: 06/15/22 06:03 06/15/22 06:03 Labs: Laboratory Results - last 24 hr 06/14/22 06/14/22 06/14/22 15:53 15:53 15:53 MCV 87.2 MCH 29.7 MCHC 34.1 RDW 13.2 Plt Count 315 MPV 9.1 L Immature Gran % (Auto) 0.3 Neut % (Auto) 74.3 H Lymph % (Auto) 16.9 L [place] % (Auto) 7.0 Eos % (Auto) 1.1 Baso % (Auto) 0.4 Lymph # (Auto) 2.3 [place] # (Auto) 1.0 Eos # (Auto) 0.2 Baso # (Auto) 0.1 Abs Immat Gran (auto) 0.04 H Absolute Neuts (auto) 10.2 H Absolute Nucleated RBC 0.000 Nucleated RBC % (auto) 0.0 PT 11.6 INR 1.0 Anion Gap 15 Estim Creat Clear Calc 29.7 Estimated GFR 34 POC Glucose Random Glucose 201 H Lactic Acid Calcium 9.2 Magnesium 1.6 Total Bilirubin 0.2 Direct Bilirubin < 0.2 AST 14 ALT 14 Alkaline Phosphatase 88 Troponin I High Sens B-Natriuretic Peptide Total Protein 6.8 Albumin 3.9 Urine Color Urine Appearance Urine pH Ur Specific [place] Urine Protein Urine Glucose (UA) Urine Ketones Urine Blood Urine Nitrite Ur Leukocyte Esterase Urine RBC Urine WBC Ur Squamous Epith Cells Urine Bacteria Hyaline Casts Influenza Type A (PCR) Influenza Type B (PCR) RSV RNA Qual (PCR) SARS-CoV-2 RNA (RT-PCR) 06/14/22 06/14/22 06/14/22 15:53 15:53 15:53 MCV MCH MCHC RDW Plt Count MPV Immature Gran % (Auto) Neut % (Auto) Lymph % (Auto) [place] % (Auto) Eos % (Auto) Baso % (Auto) Lymph # (Auto) [place] # (Auto) Eos # (Auto) Baso # (Auto) Abs Immat Gran (auto) Absolute Neuts (auto) Absolute Nucleated RBC Nucleated RBC % (auto) PT INR Anion Gap Estim Creat Clear Calc Estimated GFR POC Glucose Random Glucose Lactic Acid Calcium Magnesium Total Bilirubin Direct Bilirubin AST ALT Alkaline Phosphatase Troponin I High Sens 17.8 H B-Natriuretic Peptide 36 Total Protein Albumin Urine Color Yellow Urine Appearance Turbid Urine pH 5.5 Ur Specific [place] 1.020 Urine Protein >=1000 (4+) H Urine Glucose (UA) 250 H Urine Ketones Negative Urine Blood Small (1+) H Urine Nitrite Positive H Ur Leukocyte Esterase Moderate (2+) H Urine RBC 0-2 Urine WBC >50 H Ur Squamous Epith Cells 6-10 Urine Bacteria 4+ Hyaline Casts 0-2 Influenza Type A (PCR) Influenza Type B (PCR) RSV RNA Qual (PCR) SARS-CoV-2 RNA (RT-PCR) 06/14/22 06/14/22 06/15/22 15:53 17:08 06:03 MCV 90.2 MCH 30.1 MCHC 33.3 RDW 13.1 Plt Count 275 MPV 9.6 Immature Gran % (Auto) 0.6 H Neut % (Auto) 88.9 H Lymph % (Auto) 9.2 L [place] % (Auto) 1.0 L Eos % (Auto) 0.0 Baso % (Auto) 0.3 Lymph # (Auto) 1.3 [place] # (Auto) 0.2 Eos # (Auto) 0.0 Baso # (Auto) 0.0 Abs Immat Gran (auto) 0.08 H Absolute Neuts (auto) 12.9 H Absolute Nucleated RBC 0.000 Nucleated RBC % (auto) 0.0 PT INR Anion Gap Estim Creat Clear Calc Estimated GFR POC Glucose Random Glucose Lactic Acid 1.2 Calcium Magnesium Total Bilirubin Direct Bilirubin AST ALT Alkaline Phosphatase Troponin I High Sens B-Natriuretic Peptide Total Protein Albumin Urine Color Urine Appearance Urine pH Ur Specific [place] Urine Protein Urine Glucose (UA) Urine Ketones Urine Blood Urine Nitrite Ur Leukocyte Esterase Urine RBC Urine WBC Ur Squamous Epith Cells Urine Bacteria Hyaline Casts Influenza Type A (PCR) NEGATIVE Influenza Type B (PCR) NEGATIVE RSV RNA Qual (PCR) NEGATIVE SARS-CoV-2 RNA (RT-PCR) NEGATIVE 06/15/22 06/15/22 06/15/22 06:03 07:22 11:06 MCV MCH MCHC RDW Plt Count MPV Immature Gran % (Auto) Neut % (Auto) Lymph % (Auto) [place] % (Auto) Eos % (Auto) Baso % (Auto) Lymph # (Auto) [place] # (Auto) Eos # (Auto) Baso # (Auto) Abs Immat Gran (auto) Absolute Neuts (auto) Absolute Nucleated RBC Nucleated RBC % (auto) PT INR Anion Gap 17 Estim Creat Clear Calc 26.9 Estimated GFR 31 POC Glucose 415 H* 419 H* Random Glucose 467 H* Lactic Acid Calcium 8.6 D Magnesium Total Bilirubin Direct Bilirubin AST ALT Alkaline Phosphatase Troponin I High Sens B-Natriuretic Peptide Total Protein Albumin Urine Color Urine Appearance Urine pH Ur Specific [place] Urine Protein Urine Glucose (UA) Urine Ketones Urine Blood Urine Nitrite Ur Leukocyte Esterase Urine RBC Urine WBC Ur Squamous Epith Cells Urine Bacteria Hyaline Casts Influenza Type A (PCR) Influenza Type B (PCR) RSV RNA Qual (PCR) SARS-CoV-2 RNA (RT-PCR) Microbiology Microbiology Results: Microbiology 06/14/22 Unknown Urine Culture - Preliminary Urine clean catch - Urine lyon top Gram negative oneil Assessment and Plan (1) COPD with acute exacerbation: Status: Acute (2) Urinary tract infection: Status: Acute Plan 71-year-old female with lifelong history of smoking, likely underlying COPD presents to the hospital with cough, sputum production, shortness of breath #? acute COPD exacerbation -? does not have an official COPD diagnosis S she never seen a pulmonology or had respiratory testing done in the past, but has been smoking since the age of 14 -? has increased sputum production, cough, as well as shortness of breath -? will treat with Solu-Medrol, DuoNeb p.r.n. as well as scheduled -? monitor respiratory status #? acute UTI -? symptomatic -? positive UA -? will treat with IV antibiotics -? follow cultures #? diabetes -? hold oral antihyperglycemics -? will treat with low-dose sliding scale insulin -? diabetic diet #? hypertension -? elevated blood pressure -? will resume home antihypertensives #? CKD -? no significant increase in baseline creatinine -? will treat with IV fluids -? follow BMP inpatient needs: acute COPD exacerbation,uti -need iv steriods ,nebs ,antibiotics. Time Spent With Patient Time: Total time managing care of this patient today ____ minutes. Quality Stroke Does the patient have a stroke diagnosis?: No VTE Prior VTE?: No VTE Risk Level:: Medical - moderate - high VTE Device Contraindication: Treatment Not Indicated VTE Drug Contraindication: N/A - Med Ordered
[2022-06-15] MEDS: Acetaminophen 325 MG TABLET 650 MG PO (15:33)
[2022-06-15 16:31] LABS: Glucose, Whole Blood 390 mg/dL (60-115)
[2022-06-15] MEDS: cefTRIAXone sodium 1 GM in 0.9 % Sodium Chloride 50 ML IV (16:46)
[2022-06-15] MEDS: amLODIPine Besylate 2.5 MG TABLET PO (17:48)
[2022-06-15 21:28] LABS: Glucose, Whole Blood 316 mg/dL (60-115)
[2022-06-15] MEDS: glipiZIDE 10 MG TABLET PO (22:09)
[2022-06-16 00:36] VITALS: BP 128/54; PULSE 90; RESP 20; TEMP 36.1; O2SAT 94
[2022-06-16] MEDS: 0.9 % Sodium Chloride Flush 3 ML SYRINGE IVFLUSH ×3 (01:12→12:20)
[2022-06-16] MEDS: Lactated Ringers 1,000 ML 100 ML IVCONT (02:00)
[2022-06-16 03:07] VITALS: BP 143/69; PULSE 75; RESP 16; TEMP 35.9; O2SAT 93
[2022-06-16] MEDS: methylPREDNISolone Sod Succ 40 MG/ML VIAL IVPUSH (06:35)
[2022-06-16 06:57] LABS: Anion Gap 16 (12-20); Blood Urea Nitrogen 34 mg/dL (9-16); Calcium 8.6 mg/dL (8.4-10.2); Carbon Dioxide 18 mmol/L (22-29); Chloride 107 mmol/L (96-108); Creatinine Clr Calc Pharmacy 31.8; Estimated Glomerular Filt Rate 37; Glucose Random 271 mg/dL (60-115); Potassium 5.2 mmol/L (3.3-5.1); Sodium 136 mmol/L (135-145)
[2022-06-16 07:10] VITALS: BP 160/70; PULSE 79; RESP 16; TEMP 36.2; O2SAT 95
[2022-06-16 07:28] LABS: Estimated Average Glucose 157 mg/dL; Hemoglobin A1c % 7.1 %
[2022-06-16 07:39] VITALS: PULSE 88; RESP 18; O2SAT 94
[2022-06-16] MEDS: Albuterol/Iprat 2.5/0.5MG 3 ML AMPUL.NEB INHALE ×2 (07:40→11:37)
[2022-06-16 07:46] LABS: Glucose, Whole Blood 242 mg/dL (60-115)
[2022-06-16] MEDS: lisinopriL 40 MG TABLET PO (08:38)
[2022-06-16] MEDS: amLODIPine Besylate 5 MG TABLET PO (08:38)
[2022-06-16] MEDS: Pravastatin Sodium 80 MG TABLET PO (08:38)
[2022-06-16] MEDS: glipiZIDE 10 MG TABLET PO (08:38)
[2022-06-16] MEDS: Insulin Lispro 100 UNIT/ML 3 ML VIAL SUBCUT ×2 (08:38→12:20)
--- NOTE | 2022-06-16 09:50 | MHC.CDI.CONC ---
CDI Concurrent Query Documentation Clarification: PHYSICIAN'S DOCUMENTATION REQUEST Date of Query: 06/16/22 0950 Patient Name: Mary Ceballos Admit Date: 06/14/22 Dear Doctor, A review of the medical record indicates additional documentation may be needed. Please review below and update the documentation accordingly. Clinical indicators in the record include: Risk Factors/Clinical Indicators/Treatments ED 06/14 - Course narrative - UTI with SIRS criteria, start Ceftriaxone and IV fluids. WBC 13.7 14.5 HR 102 RR 23 UTI/COPD Please clarify the documentation of [include the diagnosis]: SIRS poa, resolved etc. [ ] remains a known or suspected condition for this patient and is further supported by (include additional documentation in the medical record) [ ] has been ruled out and a more appropriate diagnosis for this patient?s condition is Other (please specify) Unable to determine Use of terms such as suspected, likely, concern for, or probable (associated with a specific diagnosis that is being evaluated, monitored, or treated as if it exists) are acceptable and can be coded in the inpatient setting, when documented at the time of discharge. Thank you, Linda Stewart [facility], CDIS Extension: [phone] Please use your independent medical judgment in providing your response. THIS QUERY IS PART OF THE PERMANENT MEDICAL RECORD Provider Response: Other Other Diagnosis: no sirs -tachycardia and tachypnea secondary to COPD .
--- NOTE | 2022-06-16 09:54 | P.CDIC_ITS ---
CDI Concurrent Query Documentation Clarification: PHYSICIAN'S DOCUMENTATION REQUEST Date of Query: 06/16/22 0954 Patient Name: Mary Ceballos Admit Date: 06/14/22 Dear Doctor, A review of the medical record indicates additional documentation may be needed. Please review below and update the documentation accordingly. Clinical Indicators: Risk Factors/Clinical Indicators/Treatments LABS: POC glucose 06/15: 149 H 390 H Insulin given. DM Type 2 Please clarify the following regarding Diabetes Mellitus (DM): * Hyperglycemia * No complications of DM * Other complication ? please specify * Unable to determine Use of terms such as suspected, likely, concern for, or probable (associated with a specific diagnosis that is being evaluated, monitored, or treated as if it exists) are acceptable and can be coded in the inpatient setting, when documented at the time of discharge. Thank you, Linda Stewart [facility], CDIS Extension: [phone] Please use your independent medical judgment in providing your response. THIS QUERY IS PART OF THE PERMANENT MEDICAL RECORD Provider Response: Other Other Diagnosis: dm with hyperglycemia
[2022-06-16 11:31] VITALS: BP 184/79; PULSE 100; RESP 16; TEMP 35.9; O2SAT 95
[2022-06-16 11:37] VITALS: PULSE 111; O2SAT 95
--- NOTE | 2022-06-16 11:50 | MHC.CLN ---
F/U PO INTAKE 100% X 2 MEALS DIET RX: 1500DM-APPROPRIATE MONITOR PO INTAKE CLOSELY IF PO POOR; RECOMMEND ADDING NUTRITION SUPPLEMENT GLUCERNA BID FOLLOWING
[2022-06-16 12:17] LABS: Glucose, Whole Blood 476 mg/dL (60-115)
[2022-06-16] MEDS: Sodium Zirconium Cyclosilicate 10 GM POWD.PACK PO (12:20)
[2022-06-16] MEDS: amLODIPine Besylate 2.5 MG TABLET PO (13:09)
--- NOTE | 2022-06-16 13:27 | P.DS_ITS ---
DS: Providers Provider Date of Service: 06/16/22 Date of admission: 06/14/22 21:53 Primary care physician: Ana Hough MD DS: Diagnosis Discharge Diagnosis (1) COPD with acute exacerbation: Status: Acute (2) Urinary tract infection: Status: Acute (3) Hyperkalemia: Status: Acute (4) Acute bronchitis: Status: Acute (5) Acute on chronic kidney failure: Status: Acute (6) Hyperglycemia: Status: Acute (7) Essential hypertension: Status: Acute DS: Summary Hospital Course Hospital Course: 71-year-old female with past medical history of lifelong smoking, no official diagnosis of COPD, history of CKD, anemia of chronic disease, diabetes, hypertension presents to the hospital with complaints of cough, sputum production, and shortness of breath.? reports her symptoms have been going on for the past 4 weeks, worsening.? Patient denies any chest pain, no palpitations.? On but on further review of system she is complaining of urinary urgency as well as dysuria for the past few weeks.? Denies any fever no chills.? No flank pain.? No abdominal pain nausea or vomiting, no diarrhea constipation, and no lower extremity edema to the ED found to be hemodynamically stable with an elevated blood pressure Labs are significant for? WBC count of? 13.7, creatinine of 1.49 which is closer baseline of 1.3 troponin of 17.8, BNP of 36, urine positive for leukocyte Estrace and WBC as well as nitrites, viral serology negative Chest x-ray negative for any acute infection. hospital course: Patient was admitted to the hospital for possible COPD exacerbation, UTI, ANDRE: Patient was started on nebs, steroids, IV antibiotic respectively and also added hydration for ANDRE. Patient ANDRE seems to be improved, COPD exacerbation also improves with nebs, steroids . UTI mcmullen also received antibiotic urine culture grew E coli sensitive to ceftriaxone. blood cultures neg@24hrs ,leucocytosis improving. SIRS less likely, tachycardia and tachypnea related to COPD exacerbation rather than SIRS. Patient will be going home on p.o. antibiotics, inhalers, encouraged for p.o. hydration. Mild high hyperkalemia possibly related to ANDRE, ANDRE is improving, patient also received Lokelma. Advise low-potassium diet. Monitor electrolytes out patiently with PCP. Diabetes with hyperglycemia: Probably related to steroid use, will switch to low-dose p.o. steroids. Continue home diabetic medications. htn : slightly suboptimal due to acute sickness (copd/uti,iv f): adjusted amlodipine , further management outpatient as per PCP Above management discussed with the patient in detail length she understand in agreement with above plan. Assessment and Plan coordination Time spent 50 minute. Time Spent with Patient Time attestation: Total time managing care of this patient today ____ minutes. Discharge coordination time: Greater than 30 minutes Quality: Safe Use of Opioids Does Pt have an Active Cancer Diagnosis on the Problem List?: No Quality: Stroke Does the patient have a stroke diagnosis?: No Physical Exam Vital Signs: Vital Signs: Last Vital Signs Temp 96.7 F L 06/16/22 11:31 Pulse 111 H 06/16/22 11:37 Resp 16 06/16/22 11:31 BP 184/79 H 06/16/22 11:31 Pulse Ox 95 06/16/22 11:31 O2 Del Method 06/16/22 11:31 BMI result Body Mass Index 26.2 Appearance: Alert.? Oriented X3.? not in distress.? Eyes: Pupils equal, round and reactive to light.? Sclera nonicteric.? ENT: Pharynx normal.? Moist mucous membranes. cvs: rrr, [id number] . res: clear to auscultation ,no rhonchii or wheezing abd: no rebound or guarding ,nt, bs present. ext pulses present , no cyanosis . neuro: axo3 , nonfocal. DS: Data Data Completed and Pending Labs on day of discharge: Laboratory Results - last 24 hr 06/15/22 06/15/22 06/16/22 16:09 21:12 05:42 Sodium 136 Potassium 5.2 H Chloride 107 Carbon Dioxide 18 L Anion Gap 16 BUN 34 H D Creatinine 1.39 Estim Creat Clear Calc 31.8 Estimated GFR 37 POC Glucose 390 H* 316 H Random Glucose 271 H Estimat Average Glucose Hemoglobin A1c % Calcium 8.6 06/16/22 06/16/22 06/16/22 05:42 07:42 12:14 Sodium Potassium Chloride Carbon Dioxide Anion Gap BUN Creatinine Estim Creat Clear Calc Estimated GFR POC Glucose 242 H 476 H* Random Glucose Estimat Average Glucose 157 Hemoglobin A1c % 7.1 Calcium Preliminary micro results at discharge 06/14/22 17:08 Blood Culture - Preliminary Blood - Venous No growth after 24 hours. 06/14/22 17:08 Blood Culture - Preliminary Blood - Venous No growth after 24 hours. Discharge Plan Discharge Anticipated Discharge Date/Time: 06/16/22 13:01 Patient Disposition: Home, Self-Care Discharge Diagnosis: copd excerebation,uti,andre Referrals: Ana Lanier MD [Primary Care Provider] - 1 Week Discharge Medications: New prednisone 20 mg tablet 20 mg PO DAILY Qty: 4 0RF albuterol sulfate 90 mcg/actuation aerosol powdr breath activated 1 inh inhalation Q4-6H MDD copd PRN (Reason: shortness of breath or wheezing) Qty: 1 0RF cefuroxime axetil 500 mg tablet 500 mg PO BID Qty: 12 0RF fluticasone furoate-vilanterol [Breo Ellipta] 100-25 mcg/dose Blister With Device 1 ea inhalation RDAILY Qty: 1 0RF Continued lisinopril 40 mg tablet 40 mg PO DAILY 90 Days Qty: 90 3RF metformin 1,000 mg tablet 1,000 mg PO BID 90 Days Qty: 180 3RF glipizide 10 mg tablet 10 mg PO BID 90 Days Qty: 180 1RF pravastatin 80 mg tablet 80 mg PO DAILY Qty: 90 0RF alendronate 70 mg tablet 70 mg PO VILLALOBOS@0630 gabapentin 300 mg capsule 300 mg PO Q8H PRN (Reason: Pain (Scale Score 1-3)) Changed amlodipine 5 mg tablet 7.5 mg PO DAILY 90 Days Qty: 90 0RF Discharge Orders: Discharge Order (Routine); Ordered 06/16/22 Ordered By: Bart Valente Diet: low potassium diet Activity on Discharge: As tolerated Stand Alone Forms: Patient Portal Discharge page Other Ambulatory Orders: Basic Metabolic Panel (Routine) Timeframe: 1 Week Facility: [facility] - Location: Laboratory Ordered By: Bart Valente Care Plan Goals: Patient was admitted to the hospital for possible COPD exacerbation, UTI, ANDRE: Patient was started on nebs, steroids, IV antibiotic respectively and also added hydration for ANDRE. Patient ANDRE seems to be improved, COPD exacerbation also improves with nebs, steroids . UTI mcmullen also received antibiotic urine culture grew E coli sensitive to Ceftin. Patient will be going home on p.o. antibiotics, inhalers, encouraged for p.o. hydration. Mild high hyperkalemia possibly related to ANDRE, ANDRE is improving, patient also received Lokelma. advised low potassium diet. Monitor electrolytes out patiently with PCP. Diabetes with hyperglycemia: Probably related to steroid use, will switch to low-dose p.o. steroids. Continue home diabetic medications. Health Concerns: As above. Plan of Treatment: As above. Assessment: As above. Patient Instructions: COPD (Chronic Obstructive Pulmonary Disease) (DC), Urinary Tract Infection in Older Adults (DC)
--- NOTE | 2022-06-16 13:41 | MHC.CM.PN ---
pt dcd home no skilled services ordered by
== END 2022-06-16 17:05 | disposition home or self-care (01) | DRG 202 ==
LOC: HO.ED 18:32 → HO.EDOVER 22:10 → HO.IMC 06-15 01:34
PROVIDERS: Nurse Practitioner Family; Admitting Provider Internal Medicine; Emergency Provider Emergency Medicine; PCP Internal Medicine; Visit Provider Internal Medicine
DX: J20.9 Acute bronchitis, unspecified (principal); J44.0 Chronic obstructive pulmonary disease with (acute) lower respiratory infection; N39.0 Urinary tract infection, site not specified; J44.1 Chronic obstructive pulmonary disease with (acute) exacerbation; N17.9 Acute kidney failure, unspecified; I12.9 Hypertensive chronic kidney disease with stage 1 through stage 4 chronic kidney disease, or unspecified chronic kidney disease; N18.9 Chronic kidney disease, unspecified; D63.1 Anemia in chronic kidney disease; E87.5 Hyperkalemia; E11.22 Type 2 diabetes mellitus with diabetic chronic kidney disease; B96.20 Unspecified Escherichia coli [E. coli] as the cause of diseases classified elsewhere; E11.65 Type 2 diabetes mellitus with hyperglycemia; F17.210 Nicotine dependence, cigarettes, uncomplicated; Z20.822 Contact with and (suspected) exposure to COVID-19; Z71.6 Tobacco abuse counseling; Z79.51 Long term (current) use of inhaled steroids; Z79.84 Long term (current) use of oral hypoglycemic drugs; Z79.899 Other long term (current) drug therapy
CPT/HCPCS: 0241U; 36415; 71046; 80048; 80076; 81001; 81003; 82947; 83036; 83605; 83735; 83880; 84484; 85025; 85610; 87040; 87086; 87088; 87186; 93005; 94640; 99285; J0696; J1650; J2920; J2930; J3475

== ENCOUNTER 2022-06-24 06:20 | Outpatient (REF) | payer MEDICARE, OTHER, SELFPAY ==
[2022-06-24 06:35] LABS: MANUAL DIFF FLAG NO
[2022-06-24 07:44] LABS: Basophils Absolute Auto 0.1 X10*3/uL (0.0-0.2); Basophils Percent Auto 0.4 % (0-2); Eosinophils Absolute Auto 0.3 X10*3/uL (0.0-0.4); Eosinophils Percent Auto 2.3 % (0-4); Hematocrit 34.6 % (37.0-47.0); Hemoglobin 11.2 g/dl (12.0-16.0); Imm Gran Abs Auto 0.13 X10*3/uL (0.00-0.03); Imm Gran Pct Auto 1.1 % (0.0-0.4); Lymphocytes Absolute Auto 2.7 X10*3/uL (1.2-4.9); Mean Corpuscular HGB Conc 32.4 g/dl (31.0-35.0); Mean Corpuscular Hemoglobin 29.4 pg (27.0-33.0); Mean Corpuscular Volume 90.8 fL (80.0-98.0); Mean Platelet Volume 9.7 fL (9.4-12.3); Monocytes Absolute Auto 0.8 X10*3/uL (0.1-1.2); Monocytes Percent Auto 6.9 % (2-11); Neutrophils Absolute Auto 7.6 x10*3/uL (2.0-8.3); Neutrophils Percent Auto 66.3 % (45-73); Platelet Count 272 X10*3/uL (160-400); Red Blood Count 3.81 X10*6/uL (4.20-5.50); Red Cell Distribution Width 12.9 % (11.0-16.0); White Blood Count 11.5 X10*3/uL (4.8-10.8)
[2022-06-24 08:21] LABS: Creatinine Urine 81.29 mg/dL
[2022-06-24 08:35] LABS: Alanine Aminotransferase 30 U/L (0-31); Albumin Level 3.4 g/dL (3.5-5.0); Alkaline Phosphatase 100 U/L (39-117); Anion Gap 12 (12-20); Aspartate Amino Transferase 15 U/L (5-31); Bilirubin Total 0.3 mg/dL (0.0-1.0); Blood Urea Nitrogen 22 mg/dL (9-16); Calcium 8.9 mg/dL (8.4-10.2); Carbon Dioxide 26 mmol/L (22-29); Chloride 105 mmol/L (96-108); Cholesterol 227 mg/dL; Estimated Glomerular Filt Rate 39; Glucose Fasting 167 mg/dL (60-99); Glucose Random 166 mg/dL (60-115); HDL Cholesterol 81 mg/dL; Iron 41 mcg/dL (30-160); LDL Cholesterol Calculated 114 mg/dl; Percent Iron Saturation 16 % (15-50); Potassium 4.4 mmol/L (3.3-5.1); Sodium 139 mmol/L (135-145); Thyroid Stimulating Hormone 1.86 uIU/mL (0.32-4.0); Total Iron Binding Capacity 250 mcg/dL (228-428); Triglycerides 163 mg/dL; Unsaturated Iron Binding 209 ug/dL; Vitamin D 25-OH Total 21.4 ng/mL (>30)
[2022-06-24 08:47] LABS: Folate 5.6 ng/mL (> or = 4.0); Vitamin B12 332 pg/mL (200-900)
[2022-06-29 13:44] LABS: NT-proBNP 422 pg/mL
== END 2022-06-24 06:21 | disposition home or self-care (01) ==
LOC: HO.LAB 06:20
PROVIDERS: PCP Internal Medicine; Referring Provider Internal Medicine; Visit Provider Internal Medicine
DX: E11.9 Type 2 diabetes mellitus without complications (principal); R80.9 Proteinuria, unspecified; E78.5 Hyperlipidemia, unspecified; R53.83 Other fatigue; D63.8 Anemia in other chronic diseases classified elsewhere; R94.30 Abnormal result of cardiovascular function study, unspecified; N18.30 Chronic kidney disease, stage 3 unspecified; E55.9 Vitamin D deficiency, unspecified
CPT/HCPCS: 36415; 80053; 80061; 82043; 82306; 82607; 82746; 83540; 83880; 84443; 85025

== ENCOUNTER 2022-09-30 09:46 | Emergency (ER) | payer MEDICARE, OTHER, SELFPAY ==
--- NOTE | ~2022-09-30 | US_ITS ---
EXAMINATION: US VENOUS ULTRASOUND WITH DOPPLER LOWER EXTREMITY, LEFT CLINICAL INFORMATION: Left lower extremity swelling. COMPARISON: None available. TECHNIQUE: Ultrasound of the deep veins is performed from the hip to the calf with compression sonography and color and pulse Doppler assessment. Spectral analysis with color-flow imaging is performed. FINDINGS: There is normal venous compression and respiratory variation and augmented flow. The visualized common femoral vein, superficial femoral vein, profunda femoral vein, popliteal vein, and the trifurcation region shows no evidence of deep venous thrombosis. No left popliteal cyst. Mild subcutaneous edema seen in the left calf. If the patient's symptoms persist, followup ultrasound in 5 days 7 days might be of value to exclude proximal propagation from a non-visualized calf vein. US/US venous duplex LE IMPRESSION: 1. No evidence for deep venous thrombosis in the visualized veins of the left lower extremity. 2. Mild subcutaneous edema in the left calf.
[2022-09-30 10:17] VITALS: BP 187/63; PULSE 77; RESP 17; TEMP 36.1; O2SAT 99; BMI 30.2
[2022-09-30 10:37] LABS: MANUAL DIFF FLAG NO
[2022-09-30 10:39] LABS: Basophils Absolute Auto 0.1 X10*3/uL (0.0-0.2); Eosinophils Absolute Auto 0.3 X10*3/uL (0.0-0.4); Eosinophils Percent Auto 3.5 % (0-4); Hematocrit 33.3 % (37.0-47.0); Imm Gran Abs Auto 0.03 X10*3/uL (0.00-0.03); Imm Gran Pct Auto 0.3 % (0.0-0.4); Lymphocytes Absolute Auto 2.5 X10*3/uL (1.2-4.9); Lymphocytes Percent Auto 26.6 % (20-40); Mean Corpuscular Hemoglobin 30.1 pg (27.0-33.0); Mean Platelet Volume 9.5 fL (9.4-12.3); Monocytes Absolute Auto 0.6 X10*3/uL (0.1-1.2); Monocytes Percent Auto 6.1 % (2-11); Neutrophils Absolute Auto 5.9 x10*3/uL (2.0-8.3); Neutrophils Percent Auto 62.5 % (45-73); Platelet Count 247 X10*3/uL (160-400); Red Blood Count 3.66 X10*6/uL (4.20-5.50); Red Cell Distribution Width 14.1 % (11.0-16.0); White Blood Count 9.4 X10*3/uL (4.8-10.8)
--- NOTE | 2022-09-30 10:40 | PC.NURSE ---
pt alert/oriented, US sound with pt.
--- NOTE | 2022-09-30 10:41 | ED_ITS ---
HPI - General Adult General Chief complaint: General Medical Stated complaint: L leg blood clot? / UTI? Time Seen by Provider: 09/30/22 10:40 Source: patient Mode of arrival: ambulatory Limitations: no limitations History of Present Illness HPI narrative: Patient is a 72 year old assigned female at with a history of COPD, CKD, and HTN presenting to the emergency department today with left leg swelling and a possible UTI. Patient states that over the last month she has had increased urinary urgency and is concerned she has a UTI. Patient states that she also noticed her left leg has been swollen but denies any pain. Patient denies any dizziness, lightheadedness, abdominal pain, nausea, vomiting, fever, chills, blurry vision, double vision, loss of vision, chest pain, difficulty breathing, shortness of breath, back pain, night sweats, pain with urination, increased urinary frequency, blood in her urine or stool, syncope or a near syncopal episode, recent trauma or falls, bowel incontinence, bladder incontinence, bowel retention, bladder retention, or any other complaints at this time. Onset (ago): month(s) (1) Location: left and lower extremity Severity: mild Relieving factors: none Exacerbating factors: none Associated symptoms: denies other symptoms Treatments prior to arrival: none Related Data Home Medications Medication Instructions Recorded Confirmed gabapentin 300 mg capsule 300 mg PO Q8H PRN Pain (Scale 06/14/22 06/21/22 Score 1-3) Previous Rx's Medication Instructions Recorded lisinopril 40 mg tablet 40 mg PO DAILY 90 days #90 tabs 09/17/21 metformin 1,000 mg tablet 1,000 mg PO BID 90 days #180 tabs 09/18/21 glipizide 10 mg tablet 10 mg PO BID 90 days #180 tabs 03/16/22 cefuroxime axetil 500 mg tablet 500 mg PO BID #12 tabs 06/16/22 fluticasone furoate 100 1 ea inhalation RDAILY #1 ea 06/16/22 mcg-vilanterol 25 mcg/dose inhalation powder (Breo Ellipta) albuterol sulfate 90 mcg/actuation 2 puff inhalation Q6H PRN 06/21/22 aerosol inhaler (Ventolin HFA) shortness of breath or wheezing 30 days #6.7 grams alendronate 70 mg tablet 70 mg PO QWEEK 90 days #13 tabs 01/04/23 amlodipine 5 mg tablet 7.5 mg PO DAILY 90 days #90 tabs 08/12/22 pravastatin 80 mg tablet 80 mg PO DAILY #90 tabs 09/07/22 Allergies Allergy/AdvReac Type Severity Reaction Status Date / Time No Known Allergies Allergy Verified 06/21/22 08:29 [No Known Allergies*] Review of Systems Constitutional: Constitutional: Reports no additional constitutional complai nts, Denies chills, Denies fever(s) and Denies night sweats Eyes: Eyes: Reports no additional eye complaints, Denies blurry vision, Denies change in vision, Denies diplopia, Denies eye discharge, Denies loss of vision and Denies eye pain ENT: Denies dizziness Cardiovascular: Cardiovascular: Reports no additional cardiovascular complaints, Denies chest pain, Denies lightheadedness, Denies Loss of Consciousness and Denies dyspnea Respiratory: Respiratory: Reports no additional respiratory complaints and D enies dyspnea Gastrointestinal: Gastrointestinal: Reports no additional gastrointestinal complaints, Denies abdominal pain, Denies melena, Denies hematochezia, Denies change in bowel habits and Denies change in stool character Genitourinary: Genitourinary: Denies hematuria, Denies urinary frequency, Denies dysuria, Denies urinary incontinence, Denies urinary hesitancy and Reports urinary urgency Musculoskeletal: Musculoskeletal: Reports no additional musculoskeletal complaints, Denies numbness and Denies tingling Comments: left lower leg swelling Neurologic: Denies dizziness, Denies loss of vision, Denies numbness and Denies tingling Psychiatric: Psychiatric: Reports no additional psychiatric complaints Endocrine: Endocrine: Reports no additional endocrine complaints Hematologic/Lymphatic: Hematologic/Lymphatic: Reports no additional hematologic/lymphatic complaints Allergic/Immunologic: Allergic/Immunologic: Reports no additional allergic/immunologic complaints PMFSH Past Medical History Attestation statement: The following information was validated with the patient. Source: old records reviewed and nursing notes reviewed Medical History Anemia of chronic disease CKD (chronic kidney disease) CKD (chronic kidney disease) stage 3, GFR 30-59 ml/min Diabetes mellitus Dyslipidemia Essential hypertension Hypovitaminosis D Insomnia Microalbuminuria Murmur Neuropathy Urge urinary incontinence Surgical History No pertinent past surgical history Family History Family History Father Colon cancer Mother Lung cancer Social History Social History Household Members: Family and Children Household Members Other:: son and grandson Housing: House Do you presently have visiting nurse or other home services: No Alcohol intake: never Patient Tobacco Use Status: Current everyday Tobacco user Tobacco use type: Cigarette Cigarettes Per Day: 10 e-Cigarette/Vaping Use: Never Used Second Hand Smoke Exposure: No Substance Use Type: Marijuana service: No Current occupational status: retired Cognitive needs: No Hearing needs: No Vision needs: No Physical Exam ED Vital Signs: Vital Signs - 24 hr 09/30/22 10:17 09/30/22 11:00 Temperature 97.0 F Pulse Rate 77 69 Respiratory Rate 17 16 Blood Pressure 187/63 H 137/50 L Pulse Oximetry 99 98 Oxygen Delivery Method Room Air Room Air BMI result Body Mass Index 30.2 Const General: cooperative, no acute distress, alert and awake Nutritional Appearance: well nourished Orientation/consciousness: patient oriented x3 Limitations: no limitations HENMT Head: Yes normal to inspection and Yes atraumatic Ears: hearing grossly normal bilaterally and external ears normal General nose exam: Normal external nose present, no nasal discharge noted and no epistaxis Face and sinus: Yes normal facial exam, No abrasion and No laceration Mouth: Normal oral and palatal mucosa present, no drooling and no muffled voice Eyes General: appearance normal, both eyes and all related structures Periorbital: periorbital findings normal Eyelids: Yes eyelids normal Conjunctivae: conjunctivae normal Pupils: Equal, round and reactive pupils present EOM: EOMs intact bilaterally Neck Neck: Yes normal visual inspection, Yes full ROM and Yes no lymphadenopathy Chest Chest palpation & inspection: normal inspection of the chest Resp Effort & Inspection: normal respiratory effort and able to speak in complete sentences Auscultation: clear to auscultation bilaterally Cardio Rate: regular rate Rhythm: regular rhythm GI Inspection: Yes normal to inspection Neuro General: patient oriented x3 and moves all extremities Cranial nerves: Yes Equal, round and reactive pupils present Cognition (Neuro): normal cognition Motor exam (neuro): 5/5 motor strength present throughout Sensory Exam: Normal double simultaneous stimulation for sensation Coordination: [id number] test normal Extrem Other: left lower leg swelling General: Yes full ROM and Yes capillary refill normal Psych Appearance: grossly normal Mental Status: mental status grossly normal Affect: normal affect Attitude: cooperative Thought process: Normal thought process present Thought content: Normal thought content present Insight: Good insight present (Psych) Medications Administered Discontinued Medications Generic Name Dose Route Start Last Admin Trade Name Hasmukhq PRN Reason Stop Dose Admin Sodium Polystyrene Sulfonate 30 gm 09/30/22 11:35 09/30/22 11:50 Sodium Polystyrene Sulfon/Sorb 15 Gm/60 Ml Oral.Susp PO 09/30/22 11:36 30 gm ONCE ONE Administration Medical Decision Making Medical Decision Making [facility] Narrative: Patient is a 72 year old assigned female at with a history of CKD, COPD, and HTN presenting to the emergency department today with left lower leg swelling and increased urinary urgency. Patient's physical exam showed left lower leg swelling but was otherwise unremarkable. Patient's blood work showed an elevated potassium of 5.4. Patient's urine showed WBC but no bacteria, will wait for culture before initiating treatment. Patient's left lower leg US showed no acute process. Patient's EKG was unremarkable. I explained my physical exam findings as well as all test results to the patient. I answered all questions asked by the patient. I stressed the importance of the patient taking his medication as prescribed. I stressed the importance of the patient following up with her primary care provider. I stressed the importance of the patient returning to the emergency department immediately if her symptoms were to worsen or if she were to develop any dizziness, shortness of breath, difficulty breathing, chest pain, blurry vision, loss of vision, nausea, vomiting, abdominal pain, fever, chills, back pain, or any other complaints. Patient verbalized agreement and understanding with this treatment plan and discharge. Differential Diagnosis Differential Diagnoses: The differential diagnosis associated with the presentation includes left lower leg swelling Lab Data [facility] Lab Attestation statement: I reviewed the patient's lab results. 09/30/22 10:31 09/30/22 10:31 Labs: Lab Results 09/30/22 09/30/22 09/30/22 Range/Units 10:31 10:31 11:29 WBC 9.4 (4.8-10.8) X10*3/uL RBC 3.66 L (4.20-5.50) X10*6/uL Hgb 11.0 L (12.0-16.0) g/dl Hct 33.3 L (37.0-47.0) % MCV 91.0 (80.0-98.0) fL MCH 30.1 (27.0-33.0) pg MCHC 33.0 (31.0-35.0) g/dl RDW 14.1 (11.0-16.0) % Plt Count 247 (160-400) X10*3/uL MPV 9.5 (9.4-12.3) fL Immature Gran % (Auto) 0.3 (0.0-0.4) % Neut % (Auto) 62.5 (45-73) % Lymph % (Auto) 26.6 (20-40) % [place] % (Auto) 6.1 (2-11) % Eos % (Auto) 3.5 (0-4) % Baso % (Auto) 1.0 (0-2) % Lymph # (Auto) 2.5 (1.2-4.9) X10*3/uL [place] # (Auto) 0.6 (0.1-1.2) X10*3/uL Eos # (Auto) 0.3 (0.0-0.4) X10*3/uL Baso # (Auto) 0.1 (0.0-0.2) X10*3/uL Abs Immat Gran (auto) 0.03 (0.00-0.03) X10*3/uL Absolute Neuts (auto) 5.9 (2.0-8.3) x10*3/uL Absolute Nucleated RBC 0.000 (0.0-0.012) X10*3/uL Nucleated RBC % (auto) 0.0 (0.0-0.2) /100WBC Sodium 140 (135-145) mmol/L Potassium 5.4 H D (3.3-5.1) mmol/L Chloride 109 H (96-108) mmol/L Carbon Dioxide 23 (22-29) mmol/L Anion Gap 13 (12-20) BUN 25 H (9-16) mg/dL Creatinine 1.60 H (0.5-1.4) mg/dL Estim Creat Clear Calc 28.1 Estimated GFR 32 Random Glucose 177 H (60-115) mg/dL Calcium 9.4 (8.4-10.2) mg/dL Urine Color Yellow Urine Appearance Clear Urine pH 5.5 (5.0-9.0) Ur Specific [place] 1.015 (1.005-1.025) Urine Protein >=1000 (4+) H (Neg-Trace) mg/dL Urine Glucose (UA) 250 H (Negative) mg/dL Urine Ketones Negative (Negative) mg/dL Urine Blood Negative (Negative) Urine Nitrite Negative (Negative) Ur Leukocyte Esterase Negative (Negative) Urine RBC 0-2 (0-2) /HPF Urine WBC 21-50 H (0-5) /HPF Ur Squamous Epith Cells 3-5 (0-2) /HPF Urine Bacteria None Seen (None Seen) Hyaline Casts 0-2 (0-2) /LPF Independent Interpretation I performed an independent interpretation of an: Ultrasound Interpretation: My interpretation is in agreement with the radiologist's impression of this imaging study. EXAMINATION:? US VENOUS ULTRASOUND WITH DOPPLER LOWER EXTREMITY, LEFT CLINICAL INFORMATION:? Left lower extremity swelling. COMPARISON:? None available. TECHNIQUE: Ultrasound of the deep veins is performed from the hip to the calf with compression sonography and color and pulse Doppler assessment. Spectral analysis with color-flow imaging is performed. FINDINGS: There is normal venous compression and respiratory variation and augmented flow. The visualized common femoral vein, superficial femoral vein, profunda femoral vein, popliteal vein, and the trifurcation region shows no evidence of deep venous thrombosis. No left popliteal cyst. Mild subcutaneous edema seen in the left calf. If the patient's symptoms persist, followup ultrasound in 5 days 7 days might be of value to exclude proximal propagation from a non-visualized calf vein. US/US venous duplex LE LT IMPRESSION: 1.? No evidence for deep venous thrombosis in the visualized veins of the left lower extremity. 2.? Mild subcutaneous edema in the left calf. Dictated By: Lonnie Echevarria MD Signed By: Electronically signed by Lonnie Echevarria MD 09/30/22 1125 Discharge Plan Discharge Clinical Impression: Acute hyperkalemia, Chronic kidney disease, Left leg swelling Patient Disposition: Home, Self-Care Instructions: Chronic Kidney Disease (ED), Hyperkalemia (ED) Additional Instructions: Follow up with your primary care provider. Return to the emergency department immediately if your symptoms worsen or if you develop any dizziness, shortness of breath, difficulty breathing, chest pain, blurry vision, loss of vision, nausea, vomiting, abdominal pain, fever, chills, back pain, or any other compla ints. Prescriptions: No Action lisinopril 40 mg tablet 40 mg PO DAILY 90 Days Qty: 90 3RF metformin 1,000 mg tablet 1,000 mg PO BID 90 Days Qty: 180 3RF glipizide 10 mg tablet 10 mg PO BID 90 Days Qty: 180 1RF alendronate 70 mg tablet 70 mg PO QWEEK 90 Days Qty: 13 1RF amlodipine 5 mg tablet 7.5 mg PO DAILY 90 Days Qty: 90 0RF pravastatin 80 mg tablet 80 mg PO DAILY Qty: 90 0RF gabapentin 300 mg capsule 300 mg PO Q8H PRN (Reason: Pain (Scale Score 1-3)) cefuroxime axetil 500 mg tablet 500 mg PO BID Qty: 12 0RF fluticasone furoate-vilanterol [Breo Ellipta] 100-25 mcg/dose Blister With Device 1 ea inhalation RDAILY Qty: 1 0RF albuterol sulfate [Ventolin HFA] 90 mcg/actuation HFA aerosol inhaler 2 puff inhalation Q6H PRN (Reason: shortness of breath or wheezing) 30 Days Qty: 6.7 1RF Referrals: Ana Lanier MD [Primary Care Provider] - Interventions: ED Discharge Assessment Last Done: 09/30/22 14:35 Discharge Date/Time: 09/30/22 13:30 Print Language: Togolese
[2022-09-30 10:58] LABS: Anion Gap 13 (12-20); Blood Urea Nitrogen 25 mg/dL (9-16); Calcium 9.4 mg/dL (8.4-10.2); Carbon Dioxide 23 mmol/L (22-29); Chloride 109 mmol/L (96-108); Creatinine Clr Calc Pharmacy 28.1; Estimated Glomerular Filt Rate 32; Glucose Random 177 mg/dL (60-115); Potassium 5.4 mmol/L (3.3-5.1); Sodium 140 mmol/L (135-145)
[2022-09-30 11:00] VITALS: BP 137/50; PULSE 69; RESP 16; O2SAT 98
--- NOTE | 2022-09-30 11:35 | ECG_ITS ---
Test Reason : hyperkalemia Blood Pressure : / mmHG Vent. Rate : 071 BPM Atrial Rate : 267 BPM P-R Int : 000 ms QRS Dur : 074 ms QT Int : 380 ms P-R-T Axes : 044 -09 207 degrees QTc Int : 412 ms Normal sinus rhythm Left ventricular hypertrophy with repolarization abnormality ( R in aVL ) Abnormal ECG When compared with ECG of 14-JUN-2022 15:40, No significant changes seen Referred By: Pushpa Saundres Electronically Signed By:VITO BARRAZA
[2022-09-30 11:36] LABS: Appearance Urine Clear; Color Urine Yellow; Glucose Urine UA 250 mg/dL (Negative); Leukocyte Esterase Urine Negative (Negative); Nitrite Urine Negative (Negative); PH 5.5 (5.0-9.0); Specific Gravity - Urine 1.015 (1.005-1.025); UMIC TRIGGER UACC YES; Urine Blood Negative (Negative); Urine Ketones Negative (Negative); Urine Protein >=1000 (4+) mg/dL (Neg-Trace)
[2022-09-30 11:45] LABS: Bacteria Urine None Seen (None Seen); Hyaline Casts Urine 0-2 /LPF (0-2); RBC Urine 0-2 /HPF (0-2); UACC Culture Trigger YES; WBC Urine 21-50 /HPF (0-5)
[2022-09-30] MEDS: Sodium Polystyrene Sulfon/Sorb 15 GM/60 ML ORAL.SUSP 30 GM PO (11:50)
--- NOTE | 2022-09-30 11:52 | PC.NURSE ---
pt medicated per order. EKG done. awaiting urine results
== END 2022-09-30 13:30 | disposition home or self-care (01) ==
PROVIDERS: Physician Assistant; Emergency Provider Emergency Medicine; PCP Internal Medicine
DX: R60.0 Localized edema (principal); E23.2 Diabetes insipidus; R94.31 Abnormal electrocardiogram [ECG] [EKG]; F17.210 Nicotine dependence, cigarettes, uncomplicated; I12.9 Hypertensive chronic kidney disease with stage 1 through stage 4 chronic kidney disease, or unspecified chronic kidney disease; E11.22 Type 2 diabetes mellitus with diabetic chronic kidney disease; N18.9 Chronic kidney disease, unspecified; Z79.84 Long term (current) use of oral hypoglycemic drugs; Z71.6 Tobacco abuse counseling; Z79.899 Other long term (current) drug therapy
CPT/HCPCS: 36415; 80048; 81001; 85025; 87086; 93005; 93971; 99284

== ENCOUNTER 2023-01-13 07:31 | Outpatient (REF) | payer MEDICARE, OTHER, SELFPAY ==
[2023-01-13 12:13] LABS: Alanine Aminotransferase 13 U/L (0-31); Albumin Level 3.6 g/dL (3.5-5.0); Alkaline Phosphatase 76 U/L (39-117); Anion Gap 13 (12-20); Aspartate Amino Transferase 13 U/L (5-31); Bilirubin Total 0.3 mg/dL (0.0-1.0); Blood Urea Nitrogen 22 mg/dL (9-16); Calcium 9.9 mg/dL (8.4-10.2); Carbon Dioxide 20 mmol/L (22-29); Chloride 110 mmol/L (96-108); Cholesterol 216 mg/dL; Estimated Glomerular Filt Rate 40; Glucose Fasting 191 mg/dL (60-99); HDL Cholesterol 68 mg/dL; LDL Cholesterol Calculated 109 mg/dl; Potassium 5.3 mmol/L (3.3-5.1); Sodium 138 mmol/L (135-145); Total Protein 6.7 g/dL (6.5-8.0); Triglycerides 197 mg/dL
[2023-01-13 12:16] LABS: Vitamin D 25-OH Total 32.7 ng/mL (>30)
[2023-01-13 12:48] LABS: Creatinine Urine 46.95 mg/dL; Microalbum/Creatinine Ratio Ur 4259.8 ug/mg cr; Microalbumin Urine > 2000.0 mg/L
== END 2023-01-13 07:32 | disposition home or self-care (01) ==
LOC: HO.10HDL 07:31
PROVIDERS: Visit Provider Internal Medicine
DX: N18.30 Chronic kidney disease, stage 3 unspecified (principal); E11.9 Type 2 diabetes mellitus without complications; E55.9 Vitamin D deficiency, unspecified; E78.5 Hyperlipidemia, unspecified
CPT/HCPCS: 36415; 80053; 80061; 82043; 82306

== ENCOUNTER 2023-02-22 08:28 | Outpatient (REF) | payer MEDICARE, OTHER, SELFPAY ==
[2023-02-22 11:01] LABS: Alanine Aminotransferase 23 U/L (0-31); Albumin Level 3.6 g/dL (3.5-5.0); Alkaline Phosphatase 70 U/L (39-117); Anion Gap 11 (12-20); Aspartate Amino Transferase 15 U/L (5-31); Bilirubin Total 0.2 mg/dL (0.0-1.0); Blood Urea Nitrogen 20 mg/dL (9-16); Calcium 9.4 mg/dL (8.4-10.2); Carbon Dioxide 23 mmol/L (22-29); Chloride 109 mmol/L (96-108); Cholesterol 191 mg/dL (<200); Estimated Glomerular Filt Rate 43; Glucose Fasting 198 mg/dL (60-99); HDL Cholesterol 64 mg/dL (>40); LDL Cholesterol Calculated 92 mg/dL (<100); Potassium 5.2 mmol/L (3.3-5.1); Sodium 138 mmol/L (135-145); Total Protein 6.7 g/dL (6.5-8.0); Triglycerides 176 mg/dL (<150)
[2023-02-25 22:09] LABS: NT-proBNP 625 pg/mL (<125)
== END 2023-02-22 08:29 | disposition home or self-care (01) ==
LOC: HO.10HDL 08:28
PROVIDERS: Visit Provider Internal Medicine
DX: I50.9 Heart failure, unspecified (principal); E78.5 Hyperlipidemia, unspecified
CPT/HCPCS: 36415; 80053; 80061; 83880

== ENCOUNTER 2023-03-30 07:35 | Outpatient (REF) | payer MEDICARE, OTHER, SELFPAY ==
[2023-03-30 09:11] LABS: Alanine Aminotransferase 15 U/L (0-31); Albumin Level 3.6 g/dL (3.5-5.0); Alkaline Phosphatase 75 U/L (39-117); Anion Gap 11 (12-20); Aspartate Amino Transferase 13 U/L (5-31); Bilirubin Total 0.3 mg/dL (0.0-1.0); Blood Urea Nitrogen 24 mg/dL (9-16); Calcium 9.6 mg/dL (8.4-10.2); Carbon Dioxide 24 mmol/L (22-29); Chloride 108 mmol/L (96-108); Estimated Glomerular Filt Rate 38; Glucose Random 205 mg/dL (60-115); Potassium 4.8 mmol/L (3.3-5.1); Sodium 138 mmol/L (135-145); Total Protein 6.8 g/dL (6.5-8.0)
== END 2023-03-30 07:36 | disposition home or self-care (01) ==
LOC: HO.LAB 07:35
PROVIDERS: PCP Internal Medicine; Visit Provider Internal Medicine
DX: E87.5 Hyperkalemia (principal)
CPT/HCPCS: 36415; 80053

== ENCOUNTER 2023-04-05 08:24 | Outpatient (AMB) | payer MEDICARE, OTHER, SELFPAY ==
[2023-04-05 08:39] VITALS: BP 158/58; PULSE 75; O2SAT 98; BMI 28.0
--- NOTE | 2023-04-05 08:39 | MHC.PC.OV ---
Vital Signs 04/05/23 08:39 Height 5 ft 1 in Weight 148 lb BMI 28.0 BP 158/58 H Blood Pressure Location Lt brachial Position Sitting Pulse 75 Pulse Source Pulse Oximeter Pulse Oximetry (%) 98 Oxygen Delivery Method Room Air Intake Visit Reasons: bp Photographer Portrait: Not Required per policy Accompanied by: Self / Same As Patient Allergies No Known Allergies [No Known Allergies*] Allergy (Verified 04/05/23 08:59) Medication List - Last Reconciled 04/05/23 by GAIL Alexandre alendronate 70 mg PO QWEEK 90 days amlodipine 10 mg PO DAILY 90 days ezetimibe 10 mg PO DAILY 90 days gabapentin 300 mg PO Q8H 90 days linagliptin (Tradjenta) 5 mg PO DAILY 90 days metformin 1,000 mg PO BID 90 days pravastatin 80 mg PO DAILY Tobacco use date assessed: 11/01/22 Fall risk assessment: No Falls in past year Last assessed Fall Risk: 04/05/23 Dental Screening Dental Screen Date: 04/05/23 Did you have a dental visit in the last 12 months?: No Did you have a dental problem in the last 6 months where you did not have access to dental care?: No Was dental information given to patient?: Patient has dentist HPI HPI Comments History of Present Illness Details This is a 72-year-old female with diabetes mellitus type 2, hypertension, dyslipidemia, chronic kidney disease stage 3, COPD and congestive heart failure. Patient of Dr. Sanford last seen in December patient presents today for follow up. Hemoglobin A1c elevated at 8.8% patient's glipizide was discontinued at last office visit and Farxiga was started. Patient reports that she discontinued taking this medication on her own as she cannot afford it. Consider starting patient on pioglitozone as a low cost option, however she has a history of heart failure this is not recommended. Will re-initiate patient on glipizide 5 mg daily. Patient does admit to eating sweets. Patient reports was seen by Nephrology and her lisinopril was discontinued due to hyperkalemia patient currently on amlodipine 10 mg daily and has an upcoming appointment with Nephrology follow-up on her blood pressure. [facility] Medical History CKD (chronic kidney disease) stage 3, GFR 30-59 ml/min Anemia of chronic disease CKD (chronic kidney disease) Murmur Microalbuminuria Urge urinary incontinence Hypovitaminosis D Neuropathy Insomnia Diabetes mellitus Dyslipidemia Essential hypertension Surgical History No pertinent past surgical history Family History Father Colon cancer Mother Lung cancer Social History Household Members: Family and Children Household Members Other:: son and grandson Housing: House Do you presently have visiting nurse or other home services: No Alcohol intake: never Patient Tobacco Use Status: Current everyday Tobacco user Tobacco use type: Cigarette Cigarettes Per Day: 10 e-Cigarette/Vaping Use: Never Used Second Hand Smoke Exposure: No Substance Use Type: Marijuana service: No Current occupational status: retired Cognitive needs: No Hearing needs: No Vision needs: No Questionnaire PHQ-9 Over the last 2 weeks, how often have you been bothered by any of the following problems? 1. Little interest or pleasure in doing things: not at all 2. Feeling down, depressed, or hopeless: not at all 3. Trouble falling or staying asleep, or sleeping too much: not at all 4. Feeling tired or having little energy: not at all 5. Poor appetite or overeating: not at all 6. Feeling bad about yourself - or that you are a failure or have let yourself or your family down: not at all 7. Trouble concentrating on things, such as reading the newspaper or watching television: not at all 8. Moving or speaking so slowly that other people could have noticed. Or the opposite - being so fidgety or restless that you have been moving around a lot more than usual: not at all 9. Thoughts that you would be better off or of hurting yourself in some way: not at all Total score: 0 Depression Screening Interpretation: Negative 42543 - PHQ-9 Billing: Yes Source: Developed by Drs. Williams Garduno, Kelley Hook, Francisco Mendoza and colleagues, with an educational sabrina from [employer]. Thrive Questionnaire Date Thrive assessed: 11/01/22 RADHA-7 AMB Questionnaire RADHA-7 Date RADHA - 7 assessed: 11/01/22 Source: Developed by Drs. Williams Garduno, Kelley Hook, Francisco Mendoza and colleagues, with an educational sabrina from [employer]. Review of Systems Const Denies chills, Denies fatigue, Denies fever(s) and Denies poor appetite Eyes Denies no additional complaints ENT Reports Normal hearing present Card Denies chest pain, Denies syncope, Denies rapid heart rate and Denies dyspnea Resp Denies cough and Denies dyspnea GI Denies change in stool character, Denies constipation, Denies diarrhea, Denies nausea and Denies vomiting Denies urinary frequency, Denies dysuria and Denies urinary urgency Neuro Reports Normal hearing present, Denies confusion and Denies syncope Psych Denies confusion Endo Denies fatigue Physical exam (Primary Care) Vital Signs: Last Vital Signs Pulse 75 04/05/23 08:39 BP 158/58 H 04/05/23 08:39 Pulse Ox 98 04/05/23 08:39 Oxygen Delivery Method Room Air 04/05/23 08:39 BMI result Body Mass Index 28.0 Tobacco/Smoking Status: Tobacco use Status Tobacco use date assessed 11/01/22 04/05/23 08:40 Patient Tobacco Use Status Current everyday Tobacco 04/05/23 08:40 Tobacco use type Cigarette 04/05/23 08:40 e-Cigarette/Vaping Use Never Used 04/05/23 08:40 PHQ-9: PHQ-9 Score PHQ-9: Total score 0 04/05/23 12:55 Depression Screening Interpretation: Negative Thrive Assessment: Date of Thrive Assessment Date Thrive assessed 11/01/22 04/05/23 08:40 Const General: No confusion Orientation/consciousness: No confusion HENMT Head: Yes normocephalic and Yes atraumatic Eyes Conjunctivae: conjunctivae normal Chest Chest palpation & inspection: normal inspection of the chest Resp Effort & Inspection: normal respiratory effort Auscultation: clear to auscultation bilaterally, no crackles, no rhonchi and no wheezes Cardio Rate: regular rate Rhythm: regular rhythm Heart sounds: S1 normal heart sound present and S2 normal heart sound present GI Inspection: Yes normal to inspection Neuro General: No confusion Cranial nerves: Yes Normal hearing present Extrem General: No edema Office Procedures Flu Questionnaire Does the patient have a severe egg allergy?: No Does the patient have severe life threatening allergies?: No Does the patient have a fever or illness today?: No Has the patient ever had Guillain-[place] Syndrome?: No Has the patient ever had any past reaction to a flu shot?: No Results AMB Hemoglobin A1c AMB Hemoglobin A1c 8.8 % Last Edit by AMANDA Hou on 04/05/23 08:57 Immunizations flu vacc [id number] 6mos up(PF) 60 mcg(15 mcgx4)/0.5 mL IM syringe Performing Provider: GAIL Alexandre [facility] Administered by: AMANDA Hou on 04/05/23 08:55 Dose Route Admin Location Dispensed Lot Number Expiration Date NDC Artificial Flower Maker 0.5 mL IM Right Deltoid 0.5 mL [id number] 04/05/23 60172-877-24 [employer] VIS Given Date VIS Provided VIS Publication Date 04/05/23 Single Vaccine 21 Eligibility Eligibility Date Funding Source Not VF Eligible 04/05/23 Private Results Reviewed Results Reviewed: Laboratory Last Values Hgb A1c (Clinic) 8.8 % (4.0-6.0) H 04/05/23 08:40 Assessment and Plan Assessment & Plan (1) Diabetes mellitus: Code(s): E11.9 - Type 2 diabetes mellitus without complications Qualifiers: Diabetes mellitus complication status: with hyperglycemia Diabetes mellitus halfway insulin use: without terminal gauger supervisor use Diabetes mellitus type: type 2 Qualified Code(s): E11.65 - Type 2 diabetes mellitus with hyperglycemia Plan: Continue on metformin a 1000 mg b.i.d., Trajenta 5 mg daily. Given patient unable to afford Fargixa will re-initiate back on the glipizide 5 mg daily. Hemoglobin A1c 8.8, goal < 7.0% Patient educated to decrease the amount of carbohydrate intake such as pasta, bread, rice and potatoes are all sugar in addition to the sweet stuff. Remember that fruits are good but they also have sugar. (2) Congestive heart failure: Code(s): I50.9 - Heart failure, unspecified Plan: Follow-up echo was ordered at last appointment however did not see the results this, will follow-up on this (3) COPD (chronic obstructive pulmonary disease): Code(s): J44.9 - Chronic obstructive pulmonary disease, unspecified (4) CKD (chronic kidney disease) stage 3, GFR 30-59 ml/min: Code(s): N18.30 - Chronic kidney disease, stage 3 unspecified Plan: Continue to follow with Dr. Nguyen nephrology. (5) Essential hypertension: Code(s): I10 - Essential (primary) hypertension Plan: Continue on amlodipine 10 mg daily. Follow low-salt diet exercise. Patient reports lisinopril was discontinued by Nephrology related to hyperkalemia. Has upcoming appointment to follow-up on her blood pressure. (6) Dyslipidemia: Code(s): E78.5 - Hyperlipidemia, unspecified Plan: Continue on pravastatin 80 mg daily. Avoid fried foods, chicken skin, eggs, butter,margarine, pastries and?? red meat. Plan Follow-up in 3 months. Orders: Orders AMB Hemoglobin A1c Today E11.9 - Type 2 diabetes mellitus without complications Influenza [id number] Immunization Today Z23 - Encounter for immunization Medications: New glipizide 5 mg PO DAILY 30 tabs 3RF Coding Level of Care Code Est Pt Level 4 (09495) Diagnoses Type 2 diabetes mellitus with hyperglycemia, without long-term current use of insulin E11.65 Diabetes mellitus complication status: with hyperglycemia Diabetes mellitus terminal gauger supervisor insulin use: without halfway use Diabetes mellitus type: type 2 Congestive heart failure I50.9 COPD (chronic obstructive pulmonary disease) J44.9 CKD (chronic kidney disease) stage 3, GFR 30-59 ml/min N18.30 Essential hypertension I10 Dyslipidemia E78.5
== END 2023-04-05 09:10 | disposition home or self-care (01) ==
PROVIDERS: PCP Internal Medicine; Visit Provider Nurse Practitioner Family
DX: E11.22 Type 2 diabetes mellitus with diabetic chronic kidney disease (principal); I12.9 Hypertensive chronic kidney disease with stage 1 through stage 4 chronic kidney disease, or unspecified chronic kidney disease; N18.30 Chronic kidney disease, stage 3 unspecified; Z23 Encounter for immunization; E11.65 Type 2 diabetes mellitus with hyperglycemia; J44.9 Chronic obstructive pulmonary disease, unspecified; E78.5 Hyperlipidemia, unspecified
CPT/HCPCS: 83036; 90471; 90686; 99214

== ENCOUNTER 2023-04-16 07:33 | Outpatient (REF) | payer MEDICARE, OTHER, SELFPAY ==
[2023-04-16 09:37] LABS: Anion Gap 13 (12-20); Blood Urea Nitrogen 23 mg/dL (9-16); Calcium 9.2 mg/dL (8.4-10.2); Carbon Dioxide 22 mmol/L (22-29); Chloride 108 mmol/L (96-108); Estimated Glomerular Filt Rate 44; Potassium 4.7 mmol/L (3.3-5.1); Sodium 138 mmol/L (135-145)
== END 2023-04-16 07:34 | disposition home or self-care (01) ==
LOC: HO.LAB 07:33
PROVIDERS: PCP Internal Medicine; Visit Provider Internal Medicine Hypertension Specialist
DX: N18.30 Chronic kidney disease, stage 3 unspecified (principal)
CPT/HCPCS: 36415; 80051; 82310; 82565; 84132; 84520

== ENCOUNTER 2023-05-12 10:50 | Outpatient (AMB) | payer MEDICARE, OTHER, SELFPAY ==
--- NOTE | 2023-05-12 11:01 | HO.NEPHOV_ITS ---
HPI HPI Comments History of Present Illness Details Mary is a pleasant 72-year-old woman with a history of longstanding hypertension and diabetes mellitus with stage III A chronic kidney disease. She has a history of hyperkalemia while she was on lisinopril 40 mg q.d. Lisinopril was switched to Diovan head CT and she has been able to tolerate this very well. She has no new complaints today. Of note she has been taking ibuprofen 800 mg 2 tabs as needed. She has been doing this for quite some time. She was prescribed Farxiga but she is unable to take it due to cost issues. She has a history of COPD. However she has no significant respiratory issues and she has not needed the inhalers. [facility] Medical History CKD (chronic kidney disease) stage 3, GFR 30-59 ml/min Anemia of chronic disease CKD (chronic kidney disease) Murmur Microalbuminuria Urge urinary incontinence Hypovitaminosis D Neuropathy Insomnia Diabetes mellitus Dyslipidemia Essential hypertension Surgical History No pertinent past surgical history Family History Father Colon cancer Mother Lung cancer Social History Household Members: Family and Children Household Members Other:: son and grandson Housing: House Do you presently have visiting nurse or other home services: No Alcohol intake: never Patient Tobacco Use Status: Current everyday Tobacco user Tobacco use type: Cigarette Cigarettes Per Day: 10 e-Cigarette/Vaping Use: Never Used Second Hand Smoke Exposure: No Substance Use Type: Marijuana service: No Current occupational status: retired Cognitive needs: No Hearing needs: No Vision needs: No Vital Signs 05/12/23 11:04 Height 5 ft 1 in Weight 154 lb 3 oz BMI 29.1 BP 138/60 Blood Pressure Location Lt brachial Position Sitting Pulse 69 Pulse Source Pulse Oximeter Pulse Oximetry (%) 98 Oxygen Delivery Method Room Air Physical Exam Vital Signs: Last Vital Signs Pulse 69 05/12/23 11:04 BP 138/60 05/12/23 11:04 Pulse Ox 98 05/12/23 11:04 Oxygen Delivery Method Room Air 05/12/23 11:04 BMI result Body Mass Index 29.1 Const General: comfortable Nutritional Appearance: well nourished Orientation/consciousness: patient oriented x3 HEENT Head: No normal to inspection Mouth: moist mucous membranes Neck Neck: Yes supple and Yes no JVD Resp Auscultation: clear to auscultation bilaterally, no rales and rub present Cardio Jugular venous distension: no JVD Palpation: no palpable S3 and no palpable S4 Heart sounds: no rubs GI Palpation (GI): Soft to palpation and nontender Percussion: No Fluid wave present General: Yes no CVA tenderness Back/Spine/Pelvis Back: no CVA tenderness Skin General skin exam: no rashes or lesions noted Neuro General: patient oriented x3 Extrem General: Yes no pedal edema and No clubbing Results Reviewed Results Reviewed: Labs also reviewed Creatinine 1.19 potassium was normal. Assessment & Plan Assessment & Plan (1) CKD (chronic kidney disease) stage 3, GFR 30-59 ml/min: Code(s): N18.30 - Chronic kidney disease, stage 3 unspecified (2) Hyperkalemia: Code(s): E87.5 - Hyperkalemia (3) Essential hypertension: Code(s): I10 - Essential (primary) hypertension (4) COPD (chronic obstructive pulmonary disease): Code(s): J44.9 - Chronic obstructive pulmonary disease, unspecified Plan Mary has stage 3 chronic kidney disease in the setting of longstanding hypertension and diabetes mellitus. The renal function is improved. Goal is to slow the progression of renal disease. 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 Hypertension blood pressure is well controlled. History of hyperkalemia. Attention was normal at this time. Hyperkalemia is again due to the combination of NSAIDs and PANTERA inhibitors. COPD which seems well controlled. Recommendation would be to keep her on low-sodium diet. Increase her to stay on low-potassium diet as well. She should avoid NSAIDs. Discussed the risks associated with the use of a NSAIDs along with ARB use and diuretics. Since the blood pressure is well controlled I have not made any changes to the antihypertensive regimen. No fluid status is acceptable therefore we will continue with the low-dose of HCTZ. I answered all questions and reassured her. Orders: Orders Electrolytes 6 Months N18.30 - Chronic kidney disease, stage 3 unspecified Blood Urea Nitrogen 6 Months N18.30 - Chronic kidney disease, stage 3 unspecified Creatinine 6 Months N18.30 - Chronic kidney disease, stage 3 unspecified Complete Blood Count Auto Diff 6 Months N18.30 - Chronic kidney disease, stage 3 unspecified Total Protein Urine Random 6 Months N18.30 - Chronic kidney disease, stage 3 unspecified Calcium 6 Months N18.30 - Chronic kidney disease, stage 3 unspecified Creatinine Urine 6 Months N18.30 - Chronic kidney disease, stage 3 unspecified Medications: New valsartan-hydrochlorothiazide 80-12.5 mg 1 tab PO DAILY 30 tabs 6RF Coding Level of Care Code Est Pt Level 4 (33826) Diagnoses CKD (chronic kidney disease) stage 3, GFR 30-59 ml/min N18.30 Hyperkalemia E87.5 Essential hypertension I10 COPD (chronic obstructive pulmonary disease) J44.9
[2023-05-12 11:04] VITALS: BP 138/60; PULSE 69; O2SAT 98; BMI 29.1
== END 2023-05-12 11:18 | disposition home or self-care (01) ==
PROVIDERS: PCP Internal Medicine; Visit Provider Internal Medicine Hypertension Specialist
DX: N18.30 Chronic kidney disease, stage 3 unspecified (principal); E87.5 Hyperkalemia; I12.9 Hypertensive chronic kidney disease with stage 1 through stage 4 chronic kidney disease, or unspecified chronic kidney disease; J44.9 Chronic obstructive pulmonary disease, unspecified
CPT/HCPCS: 99214

== ENCOUNTER → 2023-05-12 10:50 | Outpatient (BNVA) | payer MEDICARE, OTHER, SELFPAY | PROVIDERS: PCP Internal Medicine; Visit Provider Internal Medicine Hypertension Specialist | DX: I12.9 Hypertensive chronic kidney disease with stage 1 through stage 4 chronic kidney disease, or unspecified chronic kidney disease (principal); N18.30 Chronic kidney disease, stage 3 unspecified; E78.5 Hyperlipidemia, unspecified; J44.9 Chronic obstructive pulmonary disease, unspecified | CPT/HCPCS: 99212 ==

== ENCOUNTER 2023-05-17 09:28 | Outpatient (REF) | payer MEDICARE, OTHER, SELFPAY ==
[2023-05-17 10:52] LABS: Appearance Urine Turbid; Color Urine Yellow; Glucose Urine UA 500 mg/dL (Negative); Leukocyte Esterase Urine Moderate (2+) (Negative); Nitrite Urine Positive (Negative); PH 5.5 (5.0-9.0); Specific Gravity - Urine 1.015 (1.005-1.025); UMIC TRIGGER UACC YES; Urine Blood Moderate (2+) (Negative); Urine Ketones Negative (Negative); Urine Protein 300 (3+) mg/dL (Neg-Trace)
[2023-05-17 11:06] LABS: Bacteria Urine 4+ (None Seen); RBC Urine 0-2 /HPF (0-2); UACC Culture Trigger YES; WBC Clumps Urine Present; WBC Urine >50 /HPF (0-5)
== END 2023-05-17 09:29 | disposition home or self-care (01) ==
LOC: HO.10HDLNP 09:28
PROVIDERS: Visit Provider Internal Medicine
DX: N39.0 Urinary tract infection, site not specified (principal)
CPT/HCPCS: 81001; 87086; 87088; 87186

== ENCOUNTER 2023-07-12 10:32 | Outpatient (REF) | payer MEDICARE, OTHER, SELFPAY ==
[2023-07-12 12:56] LABS: Appearance Urine Turbid; Color Urine Yellow; Glucose Urine UA 500 mg/dL (Negative); Leukocyte Esterase Urine Moderate (2+) (Negative); Nitrite Urine Positive (Negative); Specific Gravity - Urine 1.015 (1.005-1.025); UMIC TRIGGER UACC YES; Urine Blood Small (1+) (Negative); Urine Ketones Negative (Negative); Urine Protein >=1000 (4+) mg/dL (Neg-Trace)
[2023-07-12 13:05] LABS: Bacteria Urine 4+ (None Seen); Hyaline Casts Urine 0-2 /LPF (0-2); Squamous Epithelial Cell Urine 0-2 /HPF (0-2); UACC Culture Trigger YES; WBC Urine >50 /HPF (0-5)
== END 2023-07-12 10:33 | disposition home or self-care (01) ==
LOC: HO.LAB 10:32
PROVIDERS: PCP Internal Medicine; Visit Provider Internal Medicine
DX: R30.0 Dysuria (principal); R39.9 Unspecified symptoms and signs involving the genitourinary system
CPT/HCPCS: 81001; 87086; 87088; 87186

== ENCOUNTER 2023-08-04 09:51 | Outpatient (AMB) | payer MEDICARE, OTHER, SELFPAY ==
--- NOTE | 2023-08-04 09:55 | A.OFFPC_ITS ---
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: No Accompanied by: Self / Same As Patient Allergies No Known Allergies [No Known Allergies*] Allergy (Verified 08/04/23 10:15) Medication List - Last Reconciled 08/04/23 by Ana Hough MD amlodipine 10 mg PO DAILY 90 days gabapentin 300 mg PO Q8H 90 days linagliptin (Tradjenta) 5 mg PO DAILY 90 days metformin 1,000 mg PO BID 90 days pravastatin 80 mg PO DAILY valsartan-hydrochlorothiazide 80-12.5 mg 1 tab PO DAILY Tobacco use date assessed: 08/04/23 Fall risk assessment: No Falls in past year Last assessed Fall Risk: 08/04/23 Dental Screening Dental Screen Date: 08/04/23 Did you have a dental visit in the last 12 months?: No Did you have a dental problem in the last 6 months where you did not have access to dental care?: No Was dental information given to patient?: Patient declined HPI HPI Comments History of Present Illness Details This is a 73-year-old female with diabetes mellitus type 2, hypertension, dyslipidemia, COPD, congestive heart failure and chronic kidney disease stage 3 that comes today for follow-up on her conditions. Blood pressure elevated because she has not take her medications yet. Blood pressure will be recheck in 3 weeks by nurse navigator. A1c elevated but she admits not being compliant with Tradjenta. On pravastatin for cholesterol and lipid panel will be reorder to check if LDL is less than 70. Has COPD but declines the use of any inhaler because she has not short of breath. Last echocardiogram was 2021 and ejection fraction was 50%. She denies any chest pain or leg swelling. Denies gaining 5 lb in a week. Chronic kidney disease has been stable and is follow by Nephrology. Still a smoker and was advised to quit. Aware that has to avoid NSAIDs. [facility] Medical History (Updated 08/04/23 @ 11:47 by Ana Hough MD) COPD with acute exacerbation Urinary tract infection Acute bronchitis CKD (chronic kidney disease) stage 3, GFR 30-59 ml/min Anemia of chronic disease CKD (chronic kidney disease) Murmur Microalbuminuria Urge urinary incontinence Hypovitaminosis D Neuropathy Insomnia Diabetes mellitus Dyslipidemia Essential hypertension Surgical History No pertinent past surgical history Family History Father Colon cancer Mother Lung cancer Social History Household Members: Family and Children Household Members Other:: son and grandson Housing: House Do you presently have visiting nurse or other home services: No Alcohol intake: never Patient Tobacco Use Status: Current everyday Tobacco user Tobacco use type: Cigarette Cigarette Packs Per Day: 1 e-Cigarette/Vaping Use: Never Used Second Hand Smoke Exposure: No Substance Use Type: Marijuana service: No Current occupational status: retired Cognitive needs: No Hearing needs: No Vision needs: No Questionnaire PHQ-9 Over the last 2 weeks, how often have you been bothered by any of the following problems? 1. Little interest or pleasure in doing things: not at all 2. Feeling down, depressed, or hopeless: not at all 3. Trouble falling or staying asleep, or sleeping too much: not at all 4. Feeling tired or having little energy: not at all 5. Poor appetite or overeating: not at all 6. Feeling bad about yourself - or that you are a failure or have let yourself or your family down: not at all 7. Trouble concentrating on things, such as reading the newspaper or watching television: not at all 8. Moving or speaking so slowly that other people could have noticed. Or the opposite - being so fidgety or restless that you have been moving around a lot more than usual: not at all 9. Thoughts that you would be better off or of hurting yourself in some way: not at all Total score: 0 Depression Screening Interpretation: Negative Depression Screening Done: Yes 76807 - PHQ-9 Billing: Yes Source: Developed by Drs. Williams Garduno, Kelley Hook, Francisco Mendoza and colleagues, with an educational sabrina from [employer]. Thrive Questionnaire Date Thrive assessed: 08/04/23 I am a: Patient What is your living situation today?: I have a steady place to live Within the past 12 months, did the food you bought not last and you didn't have the money to get more?: Never true Within the past 12 months, did you worry whether your food would run out before you got money to buy more?: Never true Do you have trouble paying for medicines?: No Do you have trouble getting transportation to medical appointments?: No Do you have trouble paying your heating and electricity bill?: No Do you have trouble taking care of your child, family member or friend?: No Do you have trouble with day-to-day activities such as bathing, preparing meals, shopping, managing finances, etc.?: No Are you currently unemployed and looking for a job?: No Are you interested in more education?: No Please select the resources that you would like help with: None Currently or been in a relationship where the following occur: no concerns reported THRIVE Score: 0 AUDIT C Alcohol Use Questionnaire (AUDIT-C) 1. How often do you have a drink containing alcohol?: Never Total Score: 0 RADHA-7 AMB Questionnaire RADHA-7 Date RADHA - 7 assessed: 08/04/23 Feeling nervous, anxious, or on edge: 0 = Not at all Not being able to stop or control worryin = Not at all Worrying too much about different things: 0 = Not at all Trouble relaxin = Not at all Being so restless that it is hard to sit still: 0 = Not at all Becoming easily annoyed or irritable: 0 = Not at all Feeling afraid as if something awful might happen: 0 = Not at all Total RADHA-7 score (0-4 normal; 5-9 mild; 10-14 moderate; 15-21 severe): 0 Source: Developed by Drs. Williams Garduno, Kelley Hook, Francisco Mendoza and colleagues, with an educational sbarina from [employer]. RADHA-7 Assessment Billing RADHA-7 Assessment Tool: RADHA-7 Assessment 66721 Review of Systems Const All systems reviewed & are unremarkable except as noted in HPI and below Eyes Reports no additional complaints, Denies change in vision and Denies other visual disturbances Card Denies chest pain at rest, Denies chest pain with activity, Denies edema, Denies irregular heart rhythm, Denies claudication, Denies dyspnea, Denies dyspnea on exertion, Denies orthopnea, Denies paroxysmal nocturnal dyspnea and Denies slow heart rate Resp Denies cough, Denies dyspnea and Denies dyspnea on exertion GI Denies abdominal pain, Denies change in bowel habits, Denies excessive flatus, Denies nausea and Denies vomiting Denies urinary incontinence, Denies urinary hesitancy and Denies urinary urgency Musc Denies abnormal gait, Denies atrophy, Denies deformity and Denies limited range of motion Skin/Breast Denies bleeding lesions, Denies changing lesions and Denies rash Neuro Denies abnormal gait, Denies behavioral changes and Denies lack of coordination Psych Denies behavioral changes Physical exam (Primary Care) Vital Signs: Last Vital Signs BP 160/68 H 08/04/23 09:56 BMI result Body Mass Index 28.3 Tobacco/Smoking Status: Tobacco use Status Tobacco use date assessed 08/04/23 08/04/23 10:05 Patient Tobacco Use Status Current everyday Tobacco 08/04/23 10:02 Tobacco use type Cigarette 08/04/23 10:02 e-Cigarette/Vaping Use Never Used 08/04/23 10:02 PHQ-9: PHQ-9 Score PHQ-9: Total score 0 08/04/23 11:44 Depression Screening Interpretation: Negative Thrive Assessment: Date of Thrive Assessment Date Thrive assessed 08/04/23 08/04/23 10:05 Currently or been in a relationship where the following occur: no concerns reported Eyes General: appearance normal, both eyes and all related structures Eyelids: Yes eyelids normal Conjunctivae: conjunctivae normal Neck Neck: Yes normal visual inspection and Yes supple Resp Effort & Inspection: normal respiratory effort Auscultation: wheezes Cardio Jugular venous distension: no JVD Rate: regular rate Rhythm: regular rhythm Heart sounds: S1 normal heart sound present and S2 normal heart sound present Extrem General: Yes full ROM Results AMB Hemoglobin A1c AMB Hemoglobin A1c 9.0 % Last Edit by AMANDA Francis on 08/04/23 10:1 8 Results Reviewed Results Reviewed: Laboratory Last Values Hgb A1c (Clinic) 9.0 % (4.0-6.0) H 08/04/23 10:10 Assessment and Plan Assessment & Plan (1) Diabetes mellitus: Code(s): E11.9 - Type 2 diabetes mellitus without complications Qualifiers: Diabetes mellitus type: type 2 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 A1c goal is equal or less than 7% (2) Dyslipidemia: Code(s): E78.5 - Hyperlipidemia, unspecified Plan: Continue statins. Repeat lipid panel. LDL goal is less than 70. (3) Essential hypertension: Code(s): I10 - Essential (primary) hypertension Plan: Continue amlodipine and valsartan-hydrochlorothiazide. Blood pressure goal is equal or less than 130/80. Recheck blood pressure with nurse navigator in 3 weeks. (4) CKD (chronic kidney disease) stage 3, GFR 30-59 ml/min: Code(s): N18.30 - Chronic kidney disease, stage 3 unspecified Plan: Avoid NSAIDs. Compliant with medications. Keep blood pressure less than 130/80. Avoid salt. (5) COPD (chronic obstructive pulmonary disease): Code(s): J44.9 - Chronic obstructive pulmonary disease, unspecified Plan: Patient declines inhaler use. Advised to quit smoking. (6) Congestive heart failure: Code(s): I50.9 - Heart failure, unspecified Plan: Consider to repeat echocardiogram this year. The goal is to not gain 5 lb in a week. Orders: Orders Lipid Panel 4 Months E78.5 - Hyperlipidemia, unspecified Comprehensive Adel. Panel Fast 4 Months N18.30 - Chronic kidney disease, stage 3 unspecified NT-proBNP 4 Months I50.9 - Heart failure, unspecified AMB Hemoglobin A1c Today E11.9 - Type 2 diabetes mellitus without complications Microalbumin, Random (w Creat) 4 Months E11.9 - Type 2 diabetes mellitus without complications Referrals Gastroenterology Referral Z12.11 - Encounter for screening for malignant neoplasm of colon Medications: Changed From linagliptin (Tradjenta) 5 mg PO DAILY 90 days 90 tabs 1RF E11.65 - Type 2 diabetes mellitus with hyperglycemia To linagliptin (Tradjenta) 5 mg PO DAILY 30 days 30 tabs 1RF E11.65 - Type 2 diabetes mellitus with hyperglycemia From amlodipine 10 mg PO DAILY 90 days 90 tabs 1RF To amlodipine 10 mg PO DAILY 30 days 30 tabs 6RF Refilled amlodipine 10 mg PO DAILY 90 days 90 tabs 1RF linagliptin (Tradjenta) 5 mg PO DAILY 90 days 90 tabs 1RF E11.65 - Type 2 diabetes mellitus with hyperglycemia linagliptin (Tradjenta) 5 mg PO DAILY 30 days 30 tabs 4RF E11.65 - Type 2 diabetes mellitus with hyperglycemia Coding Level of Care Code Est Pt Level 4 (83191) Diagnoses Type 2 diabetes mellitus with hyperglycemia, without long-term current use of insulin E11.65 Diabetes mellitus type: type 2 Diabetes mellitus marine oil terminal 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
[2023-08-04 09:56] VITALS: BP 160/68; BMI 28.3
[2023-08-04 11:45] VITALS: BP 160/70
== END 2023-08-04 10:37 | disposition home or self-care (01) ==
PROVIDERS: PCP Internal Medicine; Visit Provider Internal Medicine
DX: E11.65 Type 2 diabetes mellitus with hyperglycemia (principal); I13.0 Hypertensive heart and chronic kidney disease with heart failure and stage 1 through stage 4 chronic kidney disease, or unspecified chronic kidney disease; N18.30 Chronic kidney disease, stage 3 unspecified; I50.9 Heart failure, unspecified; J44.9 Chronic obstructive pulmonary disease, unspecified; E78.5 Hyperlipidemia, unspecified
CPT/HCPCS: 83036; 99214

== ENCOUNTER 2023-09-22 08:15 | Outpatient (REF) | payer MEDICARE, OTHER, SELFPAY ==
[2023-09-22 11:08] LABS: Appearance Urine Cloudy; Color Urine Yellow; Glucose Urine UA 250 mg/dL (Negative); Leukocyte Esterase Urine Moderate (2+) (Negative); Nitrite Urine Positive (Negative); Specific Gravity - Urine 1.015 (1.005-1.025); UMIC TRIGGER UACC YES; Urine Blood Small (1+) (Negative); Urine Ketones Negative (Negative); Urine Protein 300 (3+) mg/dL (Neg-Trace)
[2023-09-22 11:26] LABS: Bacteria Urine 4+ (None Seen); Hyaline Casts Urine 0-2 /LPF (0-2); RBC Urine 0-2 /HPF (0-2); Squamous Epithelial Cell Urine 0-2 /HPF (0-2); UACC Culture Trigger YES; WBC Clumps Urine Present; WBC Urine >50 /HPF (0-5)
== END 2023-09-22 08:16 | disposition home or self-care (01) ==
LOC: HO.10HDLNP 08:15
PROVIDERS: Visit Provider Internal Medicine
DX: R30.0 Dysuria (principal)
CPT/HCPCS: 81001; 81003; 87086

== ENCOUNTER 2023-09-30 08:29 | Outpatient (REF) | payer MEDICARE, OTHER, SELFPAY ==
[2023-09-30 11:05] LABS: MANUAL DIFF FLAG NO
[2023-09-30 11:09] LABS: Basophils Absolute Auto 0.1 X10*3/uL (0.0-0.2); Basophils Percent Auto 0.9 % (0-2); Eosinophils Absolute Auto 0.8 X10*3/uL (0.0-0.4); Eosinophils Percent Auto 6.7 % (0-4); Hematocrit 35.2 % (37.0-47.0); Imm Gran Abs Auto 0.04 X10*3/uL (0.00-0.03); Imm Gran Pct Auto 0.3 % (0.0-0.4); Lymphocytes Absolute Auto 2.6 X10*3/uL (1.2-4.9); Lymphocytes Percent Auto 22.2 % (20-40); Mean Corpuscular HGB Conc 34.1 g/dl (31.0-35.0); Mean Corpuscular Hemoglobin 30.2 pg (27.0-33.0); Mean Corpuscular Volume 88.4 fL (80.0-98.0); Mean Platelet Volume 9.5 fL (9.4-12.3); Monocytes Absolute Auto 0.9 X10*3/uL (0.1-1.2); Monocytes Percent Auto 7.6 % (2-11); Neutrophils Absolute Auto 7.2 x10*3/uL (2.0-8.3); Neutrophils Percent Auto 62.3 % (45-73); Platelet Count 289 X10*3/uL (160-400); Red Blood Count 3.98 X10*6/uL (4.20-5.50); Red Cell Distribution Width 13.2 % (11.0-16.0); White Blood Count 11.6 X10*3/uL (4.8-10.8)
[2023-09-30 11:32] LABS: Anion Gap 14 (12-20); Blood Urea Nitrogen 23 mg/dL (9-16); Calcium 9.6 mg/dL (8.4-10.2); Carbon Dioxide 22 mmol/L (22-29); Chloride 105 mmol/L (96-108); Estimated Glomerular Filt Rate 33; Sodium 137 mmol/L (135-145)
[2023-09-30 12:56] LABS: Creatinine Urine 69.21 mg/dL
[2023-09-30 13:10] LABS: Total Protein Urine Random 384 mg/dL (<12)
== END 2023-09-30 08:30 | disposition home or self-care (01) ==
LOC: HO.10HDL 08:29
PROVIDERS: Visit Provider Internal Medicine Hypertension Specialist
DX: N18.30 Chronic kidney disease, stage 3 unspecified (principal)
CPT/HCPCS: 36415; 80051; 82310; 82565; 82570; 84156; 84520; 85025

== ENCOUNTER 2023-10-10 10:51 | Outpatient (AMB) | payer MEDICARE, OTHER, SELFPAY ==
[2023-10-10 10:57] VITALS: BP 150/60; PULSE 84; O2SAT 98; BMI 28.4
--- NOTE | 2023-10-10 10:57 | HO.NEPHOV ---
HPI HPI Comments History of Present Illness Details Mary is a pleasant 72-year-old woman with a history of longstanding hypertension and diabetes mellitus with stage III A chronic kidney disease. She has a history of hyperkalemia while she was on lisinopril 40 mg q.d. Lisinopril was switched to Diovan head CT and she has been able to tolerate this very well. She has no new complaints today. Of note she has been taking ibuprofen 800 mg 2 tabs as needed. She has been doing this for quite some time. She was prescribed Farxiga but she is unable to take it due to cost issues. She has a history of COPD. However she has no significant respiratory issues and she has not needed the inhalers. 10/10/23 Here for follow up c/o pain left flank Recently treated with antibiotics for UTI Blood sugar sub optimal with A1C 9% Cr is up to 1.56 [facility] Medical History (Updated 08/04/23 @ 11:47 by Ana Hough MD) COPD with acute exacerbation Urinary tract infection Acute bronchitis CKD (chronic kidney disease) stage 3, GFR 30-59 ml/min Anemia of chronic disease CKD (chronic kidney disease) Murmur Microalbuminuria Urge urinary incontinence Hypovitaminosis D Neuropathy Insomnia Diabetes mellitus Dyslipidemia Essential hypertension Surgical History No pertinent past surgical history Family History Father Colon cancer Mother Lung cancer Social History Household Members: Family and Children Household Members Other:: son and grandson Housing: House Do you presently have visiting nurse or other home services: No Alcohol intake: never Patient Tobacco Use Status: Current everyday Tobacco user Tobacco use type: Cigarette Cigarette Packs Per Day: 1 e-Cigarette/Vaping Use: Never Used Second Hand Smoke Exposure: No Substance Use Type: Marijuana service: No Current occupational status: retired Cognitive needs: No Hearing needs: No Vision needs: No Vital Signs 10/10/23 10:57 Height 5 ft 1 in Weight 150 lb 4 oz BMI 28.4 BP 150/60 H Blood Pressure Location Lt brachial Position Sitting Pulse 84 Pulse Source Pulse Oximeter Pulse Oximetry (%) 98 Oxygen Delivery Method Room Air Physical Exam Vital Signs: Last Vital Signs Pulse 84 10/10/23 10:57 BP 150/60 H 10/10/23 10:57 Pulse Ox 98 10/10/23 10:57 Oxygen Delivery Method Room Air 10/10/23 10:57 BMI result Body Mass Index 28.4 Const General: comfortable Nutritional Appearance: well nourished Orientation/consciousness: patient oriented x3 HEENT Head: No normal to inspection Mouth: moist mucous membranes Neck Neck: Yes supple and Yes no JVD Resp Auscultation: clear to auscultation bilaterally, no rales and rub present Cardio Jugular venous distension: no JVD Palpation: no palpable S3 and no palpable S4 Heart sounds: no rubs GI Palpation (GI): Soft to palpation and nontender Percussion: No Fluid wave present General: Yes no CVA tenderness Back/Spine/Pelvis Back: no CVA tenderness Skin General skin exam: no rashes or lesions noted Neuro General: patient oriented x3 Extrem General: Yes no pedal edema and No clubbing Assessment & Plan Assessment & Plan (1) CKD (chronic kidney disease) stage 3, GFR 30-59 ml/min: Code(s): N18.30 - Chronic kidney disease, stage 3 unspecified (2) Hyperkalemia: Code(s): E87.5 - Hyperkalemia (3) Essential hypertension: Code(s): I10 - Essential (primary) hypertension (4) COPD (chronic obstructive pulmonary disease): Code(s): J44.9 - Chronic obstructive pulmonary disease, unspecified Plan Mary has stage 3 chronic kidney disease in the setting of longstanding hypertension and diabetes mellitus. The renal function is worse!! r/o obstruction . Goal is to slow the progression of renal disease. 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 Ordered Renal Ultrasound Hypertension blood pressure needs to be optimized History of hyperkalemia. Resolved after stopping NSAIDS Increase her to stay on low-potassium diet as well. COPD which seems well controlled. No intention to quit smoking Orders: Orders US renal BI 4 Weeks N18.30 - Chronic kidney disease, stage 3 unspecified Total Protein Urine Random 4 Weeks N18.30 - Chronic kidney disease, stage 3 unspecified Basic Metabolic Panel 4 Weeks N18.30 - Chronic kidney disease, stage 3 unspecified Parathyroid Hormone Intact 4 Weeks N18.30 - Chronic kidney disease, stage 3 unspecified Creatinine Urine 4 Weeks N05.9 - Unspecified nephritic syndrome with unspecified morphologic changes, N18.30 - Chronic kidney disease, stage 3 unspecified Coding Level of Care Code New Pt Level 4 (00024) Diagnoses CKD (chronic kidney disease) stage 3, GFR 30-59 ml/min N18.30 Hyperkalemia E87.5 Essential hypertension I10 COPD (chronic obstructive pulmonary disease) J44.9 Results Reviewed Nephrology Results: Hgb 12.0 g/dl (12.0-16.0) 09/30/23 WBC 11.6 X10*3/uL (4.8-10.8) H 09/30/23 Plt Count 289 X10*3/uL (160-400) 09/30/23 Sodium 137 mmol/L (135-145) 09/30/23 Potassium 4.0 mmol/L (3.3-5.1) 09/30/23 Chloride 105 mmol/L (96-108) 09/30/23 Carbon Dioxide 22 mmol/L (22-29) 09/30/23 BUN 23 mg/dL (9-16) H 09/30/23 Creatinine 1.54 mg/dL (0.5-1.4) H 09/30/23 Calcium 9.6 mg/dL (8.4-10.2) 09/30/23 Urine Protein 300 (3+) mg/dL (Neg-Trace) H 09/22/23 Urine Creatinine 69.21 mg/dL 09/30/23
== END 2023-10-10 11:20 | disposition home or self-care (01) ==
PROVIDERS: PCP Internal Medicine; Visit Provider Internal Medicine Hypertension Specialist
DX: I12.9 Hypertensive chronic kidney disease with stage 1 through stage 4 chronic kidney disease, or unspecified chronic kidney disease (principal); E11.22 Type 2 diabetes mellitus with diabetic chronic kidney disease; N18.31 Chronic kidney disease, stage 3a; E87.5 Hyperkalemia; J44.9 Chronic obstructive pulmonary disease, unspecified
CPT/HCPCS: 99214

== ENCOUNTER → 2023-10-10 10:51 | Outpatient (BNVA) | payer MEDICARE, OTHER, SELFPAY | PROVIDERS: PCP Internal Medicine; Visit Provider Internal Medicine Hypertension Specialist | DX: I12.9 Hypertensive chronic kidney disease with stage 1 through stage 4 chronic kidney disease, or unspecified chronic kidney disease (principal); N18.30 Chronic kidney disease, stage 3 unspecified; J44.9 Chronic obstructive pulmonary disease, unspecified; E87.5 Hyperkalemia | CPT/HCPCS: 99212 ==

== ENCOUNTER 2023-12-12 10:28 | Outpatient (REF) | payer MEDICARE, OTHER, SELFPAY ==
[2023-12-12 11:31] LABS: Anion Gap 17 (12-20); Blood Urea Nitrogen 22 mg/dL (9-16); Calcium 10.2 mg/dL (8.4-10.2); Carbon Dioxide 22 mmol/L (22-29); Chloride 107 mmol/L (96-108); Estimated Glomerular Filt Rate 36; Glucose Random 187 mg/dL (60-115); Sodium 141 mmol/L (135-145)
[2023-12-12 13:00] LABS: Creatinine Urine 103.72 mg/dL
[2023-12-12 13:11] LABS: Total Protein Urine Random 777 mg/dL (<12)
== END 2023-12-12 10:29 | disposition home or self-care (01) ==
LOC: HO.LAB 10:28
PROVIDERS: Absent Provider Internal Medicine; PCP Internal Medicine; Visit Provider Internal Medicine Hypertension Specialist
DX: N18.30 Chronic kidney disease, stage 3 unspecified (principal); N05.9 Unspecified nephritic syndrome with unspecified morphologic changes
CPT/HCPCS: 36415; 80048; 82570; 83970; 84156

== ENCOUNTER 2023-12-13 08:16 | Outpatient (AMB) | payer MEDICARE, OTHER, SELFPAY ==
--- NOTE | 2023-12-13 08:20 | A.OFFPC_ITS ---
Vital Signs 12/13/23 08:25 12/13/23 08:32 Height 5 ft 1 in Weight 150 lb BMI 28.3 BP 190/60 H 180/60 H Blood Pressure Location Lt brachial Lt brachial Position Sitting Sitting Intake Visit Reasons: dm,bp Intake Note: Patient here for a follow up DM, BP, c/o sore on head Insurance Healthcare Representative Required: No Accompanied by: Self / Same As Patient Allergies No Known Allergies [No Known Allergies*] Allergy (Verified 12/13/23 08:33) Medication List - Last Reconciled 12/13/23 by Ana Hough MD amlodipine 10 mg PO DAILY 30 days gabapentin 300 mg PO Q8H 90 days linagliptin (Tradjenta) 5 mg PO DAILY 30 days metformin 1,000 mg PO BID 90 days pravastatin 80 mg PO DAILY valsartan-hydrochlorothiazide 80-12.5 mg 1 tab PO DAILY Tobacco use date assessed: 08/04/23 Fall risk assessment: No Falls in past year Last assessed Fall Risk: 12/13/23 Dental Screening Dental Screen Date: 08/04/23 HPI HPI Comments History of Present Illness Details This is a 73-year-old female with diabetes mellitus type 2, hypertension, dyslipidemia, COPD and history of positive Cologuard few years ago that comes today for follow-up on her conditions. A1c has improved but still elevated and she declines insulin or any other type of injection. I will start her on pioglitazone in addition to Tradjenta and metformin. Blood pressure elevated but she is not taking valsartan-hydrochlorothiazide which I will refill. On statins for her cholesterol and her LDL should be less than 70 and labs will be repeated in 4 months. Positive Cologuard in 2021 and declined colonoscopy by then but is willing to do it now and I will refer her through open access. She has a smoker and was advised to quit. She has COPD and has right expiratory wheezes but declines using any type of inhaler. Patient also has chronic kidney disease stage IIIB in which last GFR from yesterday was 36 and this is follow by Nephrology. [facility] Medical History (Updated 12/13/23 @ 10:21 by Ana Hough MD) COPD with acute exacerbation Urinary tract infection Acute bronchitis CKD (chronic kidney disease) stage 3, GFR 30-59 ml/min Anemia of chronic disease CKD (chronic kidney disease) Murmur Microalbuminuria Urge urinary incontinence Hypovitaminosis D Neuropathy Insomnia Diabetes mellitus Dyslipidemia Essential hypertension Surgical History No pertinent past surgical history Family History Father Colon cancer Mother Lung cancer Social History Household Members: Family and Children Household Members Other:: son and grandson Housing: House Do you presently have visiting nurse or other home services: No Alcohol intake: never Patient Tobacco Use Status: Current everyday Tobacco user Tobacco use type: Cigarette Cigarette Packs Per Day: 1 e-Cigarette/Vaping Use: Never Used Second Hand Smoke Exposure: No Substance Use Type: Marijuana service: No Current occupational status: retired Cognitive needs: No Hearing needs: No Vision needs: No Questionnaire Thrive Questionnaire Date Thrive assessed: 08/04/23 RADHA-7 AMB Questionnaire RADHA-7 Date RADHA - 7 assessed: 08/04/23 Source: Developed by Drs. Williams Garduno, Kelley Hook, Francisco Mendoza and colleagues, with an educational sabrina from [employer]. Review of Systems Const All systems reviewed & are unremarkable except as noted in HPI and below Card Denies chest pain at rest, Denies chest pain with activity, Denies edema, Denies irregular heart rhythm, Denies claudication, Denies dyspnea, Denies dyspnea on exertion, Denies orthopnea, Denies paroxysmal nocturnal dyspnea and Denies slow heart rate Resp Denies cough, Denies dyspnea and Denies dyspnea on exertion Physical exam (Primary Care) Vital Signs: Last Vital Signs BP 180/60 H 12/13/23 08:32 Care Plan Goal for BP management: Recheck blood pressure with nurse navigator in 3 weeks. Next steps: Be compliant with valsartan-hydrochlorothiazide. BMI result Body Mass Index 28.3 BMI Assessment/Plan discussion: High BMI High, discussed plan: lifestyle and weight reduction Tobacco/Smoking Status: Tobacco use Status Tobacco use date assessed 08/04/23 12/13/23 08:21 Patient Tobacco Use Status Current everyday Tobacco 12/13/23 08:21 Tobacco use type Cigarette 12/13/23 08:21 e-Cigarette/Vaping Use Never Used 12/13/23 08:21 Are you ready to quit: No Tobacco cessation counseling provided: Yes Items discussed: [employer] Relapse Prevention: discussed the importance of a supportive environment, discussed negative mood or depression after quitting, weight gain after smoking is common and discussed dietary, exercise and/or lifestyle changes Number of minutes spent counselin CPT code: 35764 - 4-10 Minutes Thrive Assessment: Date of Thrive Assessment Date Thrive assessed 08/04/23 12/13/23 08:21 Const General: cooperative Resp Effort & Inspection: normal respiratory effort Auscultation: wheezes expiratory wheezes and right lower Cardio Jugular venous distension: no JVD Rate: regular rate Rhythm: regular rhythm Heart sounds: S1 normal heart sound present and S2 normal heart sound present Extrem General: Yes full ROM Results AMB Hemoglobin A1c AMB Hemoglobin A1c 8.1 % Last Edit by AMANDA Francis on 12/13/23 08:3 0 Results Reviewed Results Reviewed: Laboratory Last Values Hgb A1c (Clinic) 8.1 % (4.0-6.0) H 12/13/23 08:19 Assessment and Plan Assessment & Plan (1) Diabetes mellitus: Code(s): E11.9 - Type 2 diabetes mellitus without complications Qualifiers: Diabetes mellitus type: type 2 Diabetes mellitus longterm insulin use: without terminal superintendent use Diabetes mellitus complication status: with hyperglycemia Qualified Code(s): E11.65 - Type 2 diabetes mellitus with hyperglycemia Plan: Continue metformin and Tradjenta. Start Actos. A1c goal is equal or less than 7%. (2) Essential hypertension: Code(s): I10 - Essential (primary) hypertension Plan: Continue amlodipine and valsartan-hydrochlorothiazide. Blood pressure goal is equal or less than 130/80. Recheck blood pressure with nurse navigator in 3 weeks. (3) Dyslipidemia: Code(s): E78.5 - Hyperlipidemia, unspecified Plan: Continue statins. Repeat lipid panel in 4 months. (4) CKD (chronic kidney disease) stage 3, GFR 30-59 ml/min: Code(s): N18.30 - Chronic kidney disease, stage 3 unspecified Qualifiers: Chronic kidney disease stage 3 subtype: stage 3b (GFR 30-44) Qualified Code(s): N18.32 - Chronic kidney disease, stage 3b Plan: Avoid NSAIDs. Keep blood pressure less than 130/80. Follow-up with nephrology. (5) COPD (chronic obstructive pulmonary disease): Code(s): J44.9 - Chronic obstructive pulmonary disease, unspecified Qualifiers: COPD type: unspecified COPD Qualified Code(s): J44.9 - Chronic obstructive pulmonary disease, unspecified Plan: Declines the use of inhaler and also declines referral to pulmonology. (6) Positive colorectal cancer screening using Cologuard test: Code(s): R19.5 - Other fecal abnormalities Plan: Referred through open access again. Orders: Orders AMB Hemoglobin A1c Today E11.65 - Type 2 diabetes mellitus with hyperglycemia Microalbumin, Random (w Creat) 4 Months E11.9 - Type 2 diabetes mellitus without complications XR DEXA axial skeleton Today N95.9 - Unspecified menopausal and perimenopausal disorder Lipid Panel 4 Months E78.5 - Hyperlipidemia, unspecified Vitamin D 25-OH Total 4 Months E55.9 - Vitamin D deficiency, unspecified Comprehensive Dent. Panel Fast 4 Months N18.30 - Chronic kidney disease, stage 3 unspecified NT-proBNP 4 Months I50.9 - Heart failure, unspecified Referrals Gastroenterology Referral R19.5 - Other fecal abnormalities Medications: New pioglitazone 15 mg PO DAILY 90 days 90 tabs 1RF E11.65 - Type 2 diabetes mellitus with hyperglycemia Refilled pravastatin 80 mg PO DAILY 90 tabs 1RF amlodipine 10 mg PO DAILY 30 days 30 tabs 6RF valsartan-hydrochlorothiazide 80-12.5 mg 1 tab PO DAILY 30 tabs 6RF Coding Level of Care Code Est Pt Level 4 (36679) Complex EM visit Add On G2211 Diagnoses Type 2 diabetes mellitus with hyperglycemia, without long-term current use of insulin E11.65 Diabetes mellitus type: type 2 Diabetes mellitus terminal superintendent insulin use: without longterm use Diabetes mellitus complication status: with hyperglycemia Essential hypertension I10 Dyslipidemia E78.5 Stage 3b chronic kidney disease N18.32 Chronic kidney disease stage 3 subtype: stage 3b (GFR 30-44) Chronic obstructive pulmonary disease, unspecified COPD type J44.9 COPD type: unspecified COPD Positive colorectal cancer screening using Cologuard test R19.5 Additional Codes Vital Signs *Quality* - CPT code: 12700 - 4-10 Minutes ([id number]) Time Spent (min) 25
[2023-12-13 08:25] VITALS: BP 190/60; BMI 28.3
[2023-12-13 08:32] VITALS: BP 180/60
== END 2023-12-13 08:57 | disposition home or self-care (01) ==
PROVIDERS: PCP Internal Medicine; Visit Provider Internal Medicine
DX: I12.9 Hypertensive chronic kidney disease with stage 1 through stage 4 chronic kidney disease, or unspecified chronic kidney disease (principal); E11.65 Type 2 diabetes mellitus with hyperglycemia; N18.32 Chronic kidney disease, stage 3b; J44.9 Chronic obstructive pulmonary disease, unspecified; E78.5 Hyperlipidemia, unspecified; R19.5 Other fecal abnormalities
CPT/HCPCS: 83036; 99214; G2211

== ENCOUNTER 2023-12-23 07:49 | Outpatient (REF) | payer MEDICARE, OTHER, SELFPAY ==
--- NOTE | ~2023-12-23 | US_ITS ---
EXAMINATION: US RETROPERITONEAL LIMITED (RENAL ONLY) CLINICAL INFORMATION: Chronic kidney disease, stage 3 unspecified. COMPARISON: CT abdomen and pelvis 11/06/2021. TECHNIQUE: Real-time imaging of the kidneys. FINDINGS: RIGHT KIDNEY: 10.9 x 5.0 x 5.3 cm (SAG x AP x TRV). No hydronephrosis. No renal calculi. Renal cortical thickness is normal. Limited visualization. LEFT KIDNEY: 10.3 x 5.2 x 4.0 cm (SAG x AP x TRV). No hydronephrosis. No renal calculi. Renal cortical thickness is normal. Limited visualization. US/US renal BI IMPRESSION: No hydronephrosis. No renal calculi. Renal cortical thickness is normal. Limited visualization.
== END 2023-12-23 07:50 | disposition home or self-care (01) ==
LOC: HO.US 07:49
PROVIDERS: PCP Internal Medicine; Visit Provider Internal Medicine Hypertension Specialist
DX: N18.30 Chronic kidney disease, stage 3 unspecified (principal)
CPT/HCPCS: 76775

== ENCOUNTER 2024-03-01 08:25 | Outpatient (REF) | payer MEDICARE, OTHER, SELFPAY ==
--- NOTE | ~2024-03-01 | MM_ITS ---
EXAMINATION: BONE DENSITOMETRY CLINICAL INDICATION: Menopause. COMPARISON: Baseline BD dated 02/26/2022. TECHNIQUE: Using a [employer] DXA System (software version: 13.1) manufactured by [employer], dual-energy x-ray absorptiometry was performed of the lumbar spine and left hip. The images are of good technical quality. Summary results are attached. FINDINGS: LEFT FEMUR, NECK: Current: BMD 0.678 g/cm2, Z-score -0.8, T-score -2.6, osteoporosis. Baseline: BMD 0.684 g/cm2. LEFT FEMUR, TOTAL: Current: BMD 0.747 g/cm2, Z-score -0.4, T-score -2.1, osteopenia, 0.9% increase from baseline (<5% change is not significant). Baseline: BMD 0.740 g/cm2. AP SPINE L1-L4 (excluding L3): The data of L1-L4 has been changed to exclude the L3 vertebral body, because degenerative sclerosis at this level may cause overestimation of lumbar spine density. Current: BMD 1.407 g/cm2, Z-score 3.5, T-score 2.0, normal, 15.3% increase from baseline (<5% change is not significant). Baseline: BMD 1.219 g/cm2. IDENTIFIED RISK FACTORS: Menopause, osteoporosis, height loss, renal, tobacco use (current smoker). HISTORY OF FRACTURE: None listed. MEDICATIONS: None listed. MM/XR DEXA axial skeleton IMPRESSION: 1. DIAGNOSIS: Osteoporosis based on the lowest T-score value of -2.6 in the femoral neck applying World Health Organization criteria. 2. 10-YEAR FRACTURE RISK PREDICTION, FRAX: According to the guidelines, FRAX calculation should only be performed on patients in the osteopenia bone density category. Therefore, FRAX was not performed on this patient. 3. Treatment Recommendations: NOF guidelines recommend consideration for treatment in postmenopausal women and men age 50 and older presenting with the following: -A hip or vertebral (clinical or morphometric) fracture. -T-score less than or equal to -2.5 at the femoral neck or spine after appropriate evaluation to exclude secondary causes. -Low bone mass at the hip or spine and a 10-year fracture probability by FRAX of greater than or equal to 3% for hip fracture or greater than or equal to 20% for major osteoporotic fracture based on the [place] adapted WHO algorithm. 4. Other Recommendations: All treatment decisions require clinical judgment and consideration of individual patient factors, including patient preferences, comorbidities, previous drug use, risk factors not captured in the FRAX model (e.g. frailty, falls, vitamin D deficiency, increased bone turnover, interval significant decline in bone density) and possible under or overestimation of fracture risk by FRAX. Additional medical evaluation for secondary cause of low bone mineral density may be appropriate. FUTURE SCAN RECOMMENDATION: People with diagnosed cases of osteoporosis or at high risk for fracture should have regular bone mineral density tests. For patients eligible for Medicare, routine testing is allowed once every 2 years. The testing frequency can be increased to one year for patients who have rapidly progressing disease, those who are receiving or discontinuing medical therapy to restore bone mass, or have additional risk factors. Electronically signed by: Adalid Barboza MD 03/06/2024 11:08 AM EDT
== END 2024-03-01 08:26 | disposition home or self-care (01) ==
LOC: HO.MAMMO 08:25
PROVIDERS: PCP Internal Medicine; Visit Provider Internal Medicine
DX: Z13.820 Encounter for screening for osteoporosis (principal); Z78.0 Asymptomatic menopausal state
CPT/HCPCS: 77080

== ENCOUNTER 2024-03-28 14:37 | Emergency (ER) | payer MEDICARE, OTHER, SELFPAY ==
--- NOTE | ~2024-03-28 | US_ITS ---
EXAMINATION: US TRIPLEX LOWER EXTREMITY, LEFT CLINICAL INFORMATION: Pain COMPARISON: None available. TECHNIQUE: Color-flow triplex imaging with spectral analysis and compression Doppler were performed on the left lower extremity. FINDINGS: Respiratory variation, normal compression and augmented flow are noted throughout the left lower extremity. The visualized common femoral vein, superficial femoral vein, profunda femoral vein, popliteal vein and midcalf peroneal and posterior tibial venous segments show no evidence of deep venous thrombosis. There is no Keating's cyst. US/US venous duplex LE LT IMPRESSION: No evidence of deep venous thrombosis involving the left lower extremity. Electronically signed by: Michi Shields MD 03/28/2024 04:59 PM EDT
[2024-03-28 15:03] VITALS: BP 198/55; PULSE 83; RESP 19; TEMP 36.6; O2SAT 98; BMI 28.3
--- NOTE | 2024-03-28 15:03 | ED.LOWEXIN ---
HPI - Extremity Injury (Lower) General Chief Complaint: Extremity Injury, Lower Stated Complaint: l leg pain Time Seen by Provider: 03/28/24 18:04 Source: patient Limitations: no limitations History of Present Illness ED Provider: Faye Harris PA-C HPI Narrative: 73-year-old female with a history of prior left sciatica, osteoarthritis, rheumatoid arthritis, diabetes with neuropathy, presents with left leg pain x1 month. There have been no change in the patient's symptoms, she is not contact her primary care. Patient states the pain migrates from her groin across her inner thigh, described as a burning sensation. Patient has paresthesias at times. Patient states she also develops cramping in the lower extremity where her ?toes curl?. Patient always has chronic low back pain. 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 Denies urinary retention, bowel incontinence, saddle anesthesia or weakness of lower extremities. Patient has not ever had joint injections. Related Data Previous Rx's ?Medication ?Instructions ?Recorded gabapentin 300 mg capsule 300 mg PO Q8H 90 days #270 caps 10/17/23 metformin 1,000 mg tablet 1,000 mg PO BID 90 days #180 tabs 12/02/23 amlodipine 10 mg tablet 10 mg PO DAILY 30 days #30 tabs 12/13/23 pioglitazone 15 mg tablet 15 mg PO DAILY 90 days #90 tabs 12/13/23 pravastatin 80 mg tablet 80 mg PO DAILY #90 tabs 12/13/23 valsartan 80 1 tab PO DAILY #30 tabs 12/13/23 mg-hydrochlorothiazide 12.5 mg tablet linagliptin 5 mg tablet (Tradjenta) 5 mg PO DAILY 30 days #30 tabs 03/21/24 methocarbamol 750 mg tablet 750 mg PO BEDTIME #7 tabs 03/28/24 Allergies Allergy/AdvReac Type Severity Reaction Status Date / Time No Known Allergies Allergy Verified 03/28/24 15:04 [No Known Allergies*] Review of Systems Constitutional: Constitutional: Denies fever(s) Cardiovascular: Cardiovascular: Denies chest pain and Denies dyspnea Respiratory: Respiratory: Denies dyspnea Gastrointestinal: Gastrointestinal: Denies abdominal pain and Denies vomiting Genitourinary: Genitourinary: Denies urinary incontinence and Denies urinary hesitancy Musculoskeletal: Musculoskeletal: Reports back pain, Reports arthralgias and Reports radiating pain into limb PMF Past Medical History Attestation statement: The following information was validated with the patient. Medical History COPD with acute exacerbation Urinary tract infection Acute bronchitis CKD (chronic kidney disease) stage 3, GFR 30-59 ml/min Anemia of chronic disease CKD (chronic kidney disease) Murmur Microalbuminuria Urge urinary incontinence Hypovitaminosis D Neuropathy Insomnia Diabetes mellitus Dyslipidemia Essential hypertension Surgical History No pertinent past surgical history Family History Family History Father Colon cancer Mother Lung cancer Social History Social History Household Members: Family and Children Household Members Other:: son and grandson Housing: House Do you presently have visiting nurse or other home services: No Alcohol intake: never Patient Tobacco Use Status: Current everyday Tobacco user Tobacco use type: Cigarette Cigarette Packs Per Day: 1 e-Cigarette/Vaping Use: Never Used Second Hand Smoke Exposure: No Substance Use Type: Marijuana Advance Directives: Yes Advance Directives on File: Yes Advance Directives Date on File: 06/17/22 service: No Current occupational status: retired Cognitive needs: No Hearing needs: No Vision needs: No Physical Exam Vital Signs: Vital Signs: Last Vital Signs Temp 98 F 03/28/24 18:58 Pulse 83 03/28/24 18:58 Resp 19 03/28/24 18:58 BP 198/55 H 03/28/24 18:58 Pulse Ox 98 03/28/24 18:58 O2 Del Method Room Air 03/28/24 18:58 BMI result Body Mass Index 28.3 Const: Other: Alert, well in appearance Orientation/consciousness: patient oriented x3 Resp: Effort & Inspection: normal respiratory effort Cardio: Other: Normal peripheral perfusion Skin: Other: Warm dry no rash Neuro: General: patient oriented x3, no focal motor deficits and CN's II-XI intact bilaterally Extrem: Other: Strength 5/5 bilateral lower extremities, patient walks with a normal steady gait Psych: Other: Calm cooperative Course Course Course Narrative: This is a Rapid Medical Exam performed in triage by Jeanne Mckee PA-C. Full HPI, ROS and PE to be performed by primary ED provider. 73 yo F w/pmhx COPD, sciatica, CHF, CKD, DM, HLD presenting to the ED c/o Left leg pain described as burning and gurgling x 1 mos, worsening. denies injury/fall, hx clots. deneis AC use. PE: ambulating w/steady gait, + left lateral thigh w/ slight reproducible tenderness. No rash/erythema or ecchymosis. Neurovascularly intact distally. No pitting edema. No calf tenderness Plan: Ultrasound Medical Decision Making Medical Decision Making MDM Narrative: 73-year-old female with a history of prior left sciatica, osteoarthritis, rheumatoid arthritis, diabetes with neuropathy, presents with left leg pain x1 month. There have been no change in the patient's symptoms, she is not contact her primary care. Patient states the pain migrates from her groin across her inner thigh, described as a burning sensation. Patient has paresthesias at times. Patient states she also develops cramping in the lower extremity where her ?toes curl?. Patient always has chronic low back pain. 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 Denies urinary retention, bowel incontinence, saddle anesthesia or weakness of lower extremities. Patient has not ever had joint injections. Problem: Multiple pain syndromes, diabetes History: Per patient I have considered the following differential diagnoses: Sciatica, arthritic pain, RA exacerbation, cauda equina, DVT Plan: Patient is assessment began out inRME, a DVT study was ordered given duration of symptoms. To note there was no objective exam findings to suggest a DVT. The patient has chronic pain, she has had radicular symptoms in the past. She has no red flag signs symptoms concerning for cord compression. This is her chronic ongoing back and lower extremity discomfort. She has pending follow up with her classroom coordinator, they are initiating an infusion, her disease process must have progressed. She will be following up with them, she has a pending appointment. I have independently reviewed the following tests: Ultrasound left lower extremity:FINDINGS: Respiratory variation, normal compression and augmented flow are noted throughout the left lower extremity. The visualized common femoral vein, superficial femoral vein, profunda femoral vein, popliteal vein and midcalf peroneal and posterior tibial venous segments show no evidence of deep venous thrombosis. There is no Keating's cyst. US/US venous duplex LE LT IMPRESSION: No evidence of deep venous thrombosis involving the left lower extremity. Electronically signed by: Michi Shields MD 03/28/2024 04:59 PM EDT Discharge Plan Discharge Clinical Impression: Left lumbar radiculopathy Patient Disposition: Home, Self-Care Instructions: Lumbar Radiculopathy (ED) Additional Instructions: There was no clot in your left lower extremity noted on the ultrasound. You have numerous reasons to be having pain in your extremities, it sounds as if your classroom coordinator once you to initiate additional treatment for your rheumatoid arthritis. You also have osteoarthritis which is contributory. And lastly, your diabetic, you clearly have neuropathy, which causes discomfort as well. You have an inflammatory process that is causing your symptoms, I understand your apprehension over using a steroid taper. You need to have discussion with your healthcare providers about these matters. In the meantime, I will send you with a short prescription for a muscle relaxant to be used at nighttime for bed only. To note this medication can cause drowsiness, do not drive or operate machinery while taking the medication. You need to reach out to your healthcare providers tomorrow. Prescriptions: New methocarbamol 750 mg tablet 750 mg PO BEDTIME Qty: 7 0RF No Action gabapentin 300 mg capsule 300 mg PO Q8H 90 Days Qty: 270 1RF metformin 1,000 mg tablet 1,000 mg PO BID 90 Days Qty: 180 3RF Tradjenta 5 mg tablet 5 mg PO DAILY 30 Days Qty: 30 4RF valsartan-hydrochlorothiazide 80-12.5 mg tablet 1 tab PO DAILY Qty: 30 6RF pravastatin 80 mg tablet 80 mg PO DAILY Qty: 90 1RF amlodipine 10 mg tablet 10 mg PO DAILY 30 Days Qty: 30 6RF pioglitazone 15 mg tablet 15 mg PO DAILY 90 Days Qty: 90 1RF Interventions: ED Discharge Assessment Last Done: 03/28/24 18:58 Discharge Date/Time: 03/28/24 18:58 Print Language: Bolivian
[2024-03-28 18:58] VITALS: BP 198/55; PULSE 83; RESP 19; TEMP 36.6; O2SAT 98
== END 2024-03-28 18:58 | disposition home or self-care (01) ==
PROVIDERS: Emergency Provider Emergency Medicine; PCP Internal Medicine
DX: M54.16 Radiculopathy, lumbar region (principal); M79.605 Pain in left leg; E11.22 Type 2 diabetes mellitus with diabetic chronic kidney disease; I12.9 Hypertensive chronic kidney disease with stage 1 through stage 4 chronic kidney disease, or unspecified chronic kidney disease; N18.30 Chronic kidney disease, stage 3 unspecified; E78.5 Hyperlipidemia, unspecified; J44.9 Chronic obstructive pulmonary disease, unspecified; F17.210 Nicotine dependence, cigarettes, uncomplicated; Z79.84 Long term (current) use of oral hypoglycemic drugs; Z79.899 Other long term (current) drug therapy; Z79.02 Long term (current) use of antithrombotics/antiplatelets
CPT/HCPCS: 93971; 99282; 99284

== ENCOUNTER 2024-04-16 11:38 | Outpatient (REF) | payer MEDICARE, OTHER, SELFPAY ==
[2024-04-16 12:18] LABS: Appearance Urine Clear; Color Urine Yellow; Glucose Urine UA 250 mg/dL (Negative); Leukocyte Esterase Urine Negative (Negative); Nitrite Urine Negative (Negative); Specific Gravity - Urine 1.015 (1.005-1.025); UMIC TRIGGER UACC YES; Urine Blood Negative (Negative); Urine Ketones Negative (Negative); Urine Protein 300 (3+) mg/dL (Neg-Trace)
[2024-04-16 12:24] LABS: Bacteria Urine None Seen (None Seen); Hyaline Casts Urine 0-2 /LPF (0-2); RBC Urine 0-2 /HPF (0-2); UACC Culture Trigger YES
[2024-04-16 12:59] LABS: Microalbum/Creatinine Ratio Ur 2202.6 ug/mg cr (<30); Microalbumin Urine > 2000.0 mg/L
== END 2024-04-16 11:39 | disposition home or self-care (01) ==
LOC: HO.LAB 11:38
PROVIDERS: PCP Internal Medicine; Visit Provider Internal Medicine
DX: E11.9 Type 2 diabetes mellitus without complications (principal); N18.30 Chronic kidney disease, stage 3 unspecified; E78.5 Hyperlipidemia, unspecified; I50.9 Heart failure, unspecified; R39.9 Unspecified symptoms and signs involving the genitourinary system; R30.0 Dysuria; E55.9 Vitamin D deficiency, unspecified
CPT/HCPCS: 81001; 82043; 82570; 87086

== ENCOUNTER 2024-04-23 14:27 | Outpatient (REF) | payer MEDICARE, OTHER, SELFPAY ==
[2024-04-23 15:33] LABS: MANUAL DIFF FLAG NO
[2024-04-23 15:41] LABS: Basophils Absolute Auto 0.1 X10*3/uL (0.0-0.2); Basophils Percent Auto 0.8 % (0-2); Eosinophils Absolute Auto 0.3 X10*3/uL (0.0-0.4); Eosinophils Percent Auto 2.8 % (0-4); Hematocrit 33.1 % (37.0-47.0); Hemoglobin 10.9 g/dl (12.0-16.0); Imm Gran Abs Auto 0.04 X10*3/uL (0.00-0.03); Imm Gran Pct Auto 0.5 % (0.0-0.4); Lymphocytes Absolute Auto 2.4 X10*3/uL (1.2-4.9); Lymphocytes Percent Auto 27.5 % (20-40); Mean Corpuscular HGB Conc 32.9 g/dl (31.0-35.0); Mean Corpuscular Hemoglobin 30.1 pg (27.0-33.0); Mean Corpuscular Volume 91.4 fL (80.0-98.0); Mean Platelet Volume 9.3 fL (9.4-12.3); Monocytes Absolute Auto 0.7 X10*3/uL (0.1-1.2); Monocytes Percent Auto 7.8 % (2-11); Neutrophils Absolute Auto 5.4 x10*3/uL (2.0-8.3); Neutrophils Percent Auto 60.6 % (45-73); Platelet Count 274 X10*3/uL (160-400); Red Blood Count 3.62 X10*6/uL (4.20-5.50); Red Cell Distribution Width 13.7 % (11.0-16.0); White Blood Count 8.8 X10*3/uL (4.8-10.8)
[2024-04-23 16:42] LABS: Anion Gap 13 (12-20); Blood Urea Nitrogen 38 mg/dL (9-16); Calcium 9.1 mg/dL (8.4-10.2); Carbon Dioxide 18 mmol/L (22-29); Chloride 109 mmol/L (96-108); Estimated Glomerular Filt Rate 25; Glucose Random 189 mg/dL (60-115); Potassium 5.1 mmol/L (3.3-5.1); Sodium 135 mmol/L (135-145)
== END 2024-04-23 14:28 | disposition home or self-care (01) ==
LOC: HO.LAB 14:27
PROVIDERS: PCP Internal Medicine; Visit Provider Internal Medicine Hypertension Specialist
DX: I12.9 Hypertensive chronic kidney disease with stage 1 through stage 4 chronic kidney disease, or unspecified chronic kidney disease (principal); E11.22 Type 2 diabetes mellitus with diabetic chronic kidney disease; N18.31 Chronic kidney disease, stage 3a; E87.5 Hyperkalemia; J44.9 Chronic obstructive pulmonary disease, unspecified
CPT/HCPCS: 36415; 80048; 85025; 99212

== ENCOUNTER 2024-04-23 14:27 | Outpatient (AMB) | payer MEDICARE, OTHER, SELFPAY ==
[2024-04-23 14:41] VITALS: BP 162/46; PULSE 78; O2SAT 96; BMI 28.3
--- NOTE | 2024-04-23 14:41 | HO.NEPHOV ---
Vital Signs 04/23/24 14:41 Height 5 ft 2 in Weight 155 lb BMI 28.3 BP 162/46 H Blood Pressure Location Rt brachial Position Sitting Pulse 78 Pulse Source Pulse Oximeter Pulse Oximetry (%) 96 Oxygen Delivery Method Room Air Intake Visit Reasons: 04/16/24 Labs FU/ conf Medicine And Health Service Manager Required: No Accompanied by: Self / Same As Patient Allergies No Known Allergies [No Known Allergies*] Allergy (Verified 04/23/24 14:43) Medication List - Last Reconciled 04/23/24 by Emory Martinez MD amlodipine 10 mg PO DAILY 30 days gabapentin 300 mg PO Q8H 90 days linagliptin (Tradjenta) 5 mg PO DAILY 30 days metformin 1,000 mg PO BID 90 days pioglitazone 15 mg PO DAILY 90 days pravastatin 80 mg PO DAILY valsartan-hydrochlorothiazide 80-12.5 mg 1 tab PO DAILY HPI Comments Details: Mary is a pleasant 72-year-old woman with a history of longstanding hypertension and diabetes mellitus with stage III A chronic kidney disease. She has a history of hyperkalemia while she was on lisinopril 40 mg q.d. Lisinopril was switched to Diovan head CT and she has been able to tolerate this very well. She has no new complaints today. Of note she has been taking ibuprofen 800 mg 2 tabs as needed. She has been doing this for quite some time. She was prescribed Farxiga but she is unable to take it due to cost issues. She has a history of COPD. However she has no significant respiratory issues and she has not needed the inhalers. 10/10/23 Here for follow up c/o pain left flank Recently treated with antibiotics for UTI Blood sugar sub optimal with A1C 9% Cr is up to 1.56 04/23/24 Continues to have back pain Radiates down legs NO urinary symptoms PFSH Medical History COPD with acute exacerbation Urinary tract infection Acute bronchitis CKD (chronic kidney disease) stage 3, GFR 30-59 ml/min Anemia of chronic disease CKD (chronic kidney disease) Murmur Microalbuminuria Urge urinary incontinence Hypovitaminosis D Neuropathy Insomnia Diabetes mellitus Dyslipidemia Essential hypertension Surgical History No pertinent past surgical history Family History Father Colon cancer Mother Lung cancer Social History Household Members: Family and Children Household Members Other:: son and grandson Housing: House Do you presently have visiting nurse or other home services: No Alcohol intake: never Patient Tobacco Use Status: Current everyday Tobacco user Tobacco use type: Cigarette Cigarette Packs Per Day: 1 e-Cigarette/Vaping Use: Never Used Second Hand Smoke Exposure: No Substance Use Type: Marijuana Advance Directives Date on File: 06/17/22 service: No Current occupational status: retired Cognitive needs: No Hearing needs: No Vision needs: No Physical Exam Vital Signs: Last Vital Signs Pulse 78 04/23/24 14:41 BP 162/46 H 04/23/24 14:41 Pulse Ox 96 04/23/24 14:41 Oxygen Delivery Method Room Air 04/23/24 14:41 BMI result Body Mass Index 28.3 Const General: comfortable; No acute distress Orientation/consciousness: patient oriented x3 Eyes General: appearance normal, both eyes and all related structures Visual Rhodes: normal visual rhodes by confrontation Neck Neck: Yes supple and Yes no JVD Resp Effort & Inspection: normal respiratory effort and respiratory effort not decreased Auscultation: rhonchi Cardio Palpation: no palpable S3 and no palpable S4 Heart sounds: no rubs GI Inspection: Yes normal to inspection Palpation (GI): Soft to palpation Percussion: Yes normal to percussion Auscultation: normal bowel sounds General: Yes no CVA tenderness Back/Spine/Pelvis Back: no CVA tenderness Skin General skin exam: no petechiae and no purpura Neuro General: patient oriented x3 and no focal motor deficits Extrem General: No clubbing and No edema Results Reviewed Nephrology Results: Hgb 12.0 g/dl (12.0-16.0) 09/30/23 WBC 11.6 X10*3/uL (4.8-10.8) H 09/30/23 Plt Count 289 X10*3/uL (160-400) 09/30/23 Sodium 141 mmol/L (135-145) 12/12/23 Potassium 5.0 mmol/L (3.3-5.1) 12/12/23 Chloride 107 mmol/L (96-108) 12/12/23 Carbon Dioxide 22 mmol/L (22-29) 12/12/23 BUN 22 mg/dL (9-16) H 12/12/23 Creatinine 1.43 mg/dL (0.5-1.4) H 12/12/23 Calcium 10.2 mg/dL (8.4-10.2) 12/12/23 PTH Intact 48.0 pg/mL (8.7-77.1) 12/12/23 Urine Protein 300 (3+) mg/dL (Neg-Trace) H 04/16/24 Urine Creatinine 90.80 mg/dL 04/16/24 Renal US 12/23/23 Assessment & Plan Assessment & Plan (1) CKD (chronic kidney disease) stage 3, GFR 30-59 ml/min: Code(s): N18.30 - Chronic kidney disease, stage 3 unspecified Category: Medical Qualifiers: Chronic kidney disease stage 3 subtype: stage 3b (GFR 30-44) Qualified Code(s): N18.32 - Chronic kidney disease, stage 3b (2) Hyperkalemia: Code(s): E87.5 - Hyperkalemia Category: Medical (3) Essential hypertension: Code(s): I10 - Essential (primary) hypertension Category: Medical (4) COPD (chronic obstructive pulmonary disease): Code(s): J44.9 - Chronic obstructive pulmonary disease, unspecified Category: Medical Qualifiers: COPD type: unspecified COPD Qualified Code(s): J44.9 - Chronic obstructive pulmonary disease, unspecified Plan Mary has stage 3 chronic kidney disease in the setting of longstanding hypertension and diabetes mellitus. The renal function is close to baseline now . Goal is to slow the progression of renal disease. 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 Renal function is at baseline NEphrotic range proteinuria due to diabetic kidney disease Hypertension : blood pressure is better controlled History of hyperkalemia. Resolved after stopping NSAIDS Encouraged her to stay on low-potassium diet as well. COPD which seems well controlled. No intention to quit smoking Repeat labs ordered Avoid nephrotoxins including NSAIDS Orders: Orders Complete Blood Count Auto Diff Today N18.32 - Chronic kidney disease, stage 3b Basic Metabolic Panel Today N18.32 - Chronic kidney disease, stage 3b Coding Level of Care Code Est Pt Level 4 (83565) Diagnoses Stage 3b chronic kidney disease N18.32 Chronic kidney disease stage 3 subtype: stage 3b (GFR 30-44) Hyperkalemia E87.5 Essential hypertension I10 Chronic obstructive pulmonary disease, unspecified COPD type J44.9 COPD type: unspecified COPD
== END 2024-04-23 14:58 | disposition home or self-care (01) ==
PROVIDERS: PCP Internal Medicine; Visit Provider Internal Medicine Hypertension Specialist
DX: I12.9 Hypertensive chronic kidney disease with stage 1 through stage 4 chronic kidney disease, or unspecified chronic kidney disease (principal); E11.22 Type 2 diabetes mellitus with diabetic chronic kidney disease; N18.32 Chronic kidney disease, stage 3b; E87.5 Hyperkalemia; J44.9 Chronic obstructive pulmonary disease, unspecified
CPT/HCPCS: 99214

== ENCOUNTER 2024-05-08 07:51 | Outpatient (AMB) | payer MEDICARE, OTHER, SELFPAY ==
--- NOTE | 2024-05-08 07:57 | MHC.PC.OV ---
Vital Signs 05/08/24 08:01 Height 5 ft 2 in Weight 156 lb BMI 28.5 BP 156/52 H Blood Pressure Location Lt brachial Position Sitting Intake Visit Reasons: DM Intake Note: Patient here for a follow up DM Environmental Engineering Intern Required: No Accompanied by: Self / Same As Patient Allergies No Known Allergies [No Known Allergies*] Allergy (Verified 05/08/24 08:07) Medication List - Last Reconciled 05/08/24 by Ana Hough MD amlodipine 10 mg PO DAILY 30 days gabapentin 300 mg PO Q8H 90 days linagliptin (Tradjenta) 5 mg PO DAILY 30 days metformin 1,000 mg PO BID 90 days pioglitazone 15 mg PO DAILY 90 days pravastatin 80 mg PO DAILY valsartan-hydrochlorothiazide 80-12.5 mg 1 tab PO DAILY Tobacco use date assessed: 08/04/23 Fall risk assessment: No Falls in past year Last assessed Fall Risk: 05/08/24 Dental Screening Dental Screen Date: 05/08/24 Did you have a dental visit in the last 12 months?: No Did you have a dental problem in the last 6 months where you did not have access to dental care?: No Was dental information given to patient?: Patient has dentist HPI HPI Comments History of Present Illness Details This is a 73-year-old female with diabetes mellitus type 2, hypertension, dyslipidemia, COPD and chronic kidney disease stage 4 that comes today for follow-up on her conditions. A1c has improved to 7.1 and I will add pioglitazone 15 mg which she said she has not been taking. Blood pressure borderline normal to elevated and she has not take her medications today. Blood pressure will be recheck in 3 weeks by nurse navigator. Lipid panel will be order and her LDL goal should be less than 70. She is a smoker and was advised to quit. She has COPD and has declined inhalers for a long time but now is feeling more short of breath and would like inhaler. I will prescribe a long-acting inhaler and a rescue inhaler as needed. Her GFR decreased from 36-25. She does follows with Nephrology. She is aware she has to avoid NSAIDs. Denies any chest pain or shortness on breath. No leg swelling. Has osteoporosis and will see Rheumatology for this matter. She does have anemia of chronic kidney disease and denies any active bleeding. Hemoglobin will be monitor. PFSH Medical History (Updated 05/08/24 @ 10:08 by Ana Hough MD) COPD with acute exacerbation Urinary tract infection Acute bronchitis CKD (chronic kidney disease) stage 3, GFR 30-59 ml/min Anemia of chronic disease CKD (chronic kidney disease) Murmur Microalbuminuria Urge urinary incontinence Hypovitaminosis D Neuropathy Insomnia Diabetes mellitus Dyslipidemia Essential hypertension Surgical History No pertinent past surgical history Family History Father Colon cancer Mother Lung cancer Social History Household Members: Family and Children Household Members Other:: son and grandson Housing: House Do you presently have visiting nurse or other home services: No Alcohol intake: never Patient Tobacco Use Status: Current everyday Tobacco user Tobacco use type: Cigarette Cigarette Packs Per Day: 1 e-Cigarette/Vaping Use: Never Used Second Hand Smoke Exposure: No Substance Use Type: Marijuana Advance Directives Date on File: 06/17/22 service: No Current occupational status: retired Cognitive needs: No Hearing needs: No Vision needs: No Questionnaire Thrive Questionnaire Date Thrive assessed: 08/04/23 RADHA-7 AMB Questionnaire RADHA-7 Date RADHA - 7 assessed: 08/04/23 Source: Developed by Drs. Williams Garduno, Kelley Hook, Francisco Mendoza and colleagues, with an educational sabrina from [employer]. Review of Systems Const All systems reviewed & are unremarkable except as noted in HPI and below Card Denies chest pain at rest, Denies chest pain with activity, Denies edema, Denies irregular heart rhythm, Denies claudication, Denies dyspnea, Denies dyspnea on exertion, Denies orthopnea, Denies paroxysmal nocturnal dyspnea and Denies slow heart rate Resp Denies cough, Denies dyspnea and Denies dyspnea on exertion GI Denies abdominal pain, Denies change in bowel habits, Denies excessive flatus, Denies nausea and Denies vomiting Denies urinary incontinence, Denies urinary hesitancy and Denies urinary urgency Musc Denies atrophy, Denies deformity and Denies limited range of motion Skin/Breast Denies bleeding lesions, Denies changing lesions and Denies rash Physical exam (Primary Care) Vital Signs: Last Vital Signs BP 156/52 H 05/08/24 08:01 Care Plan Goal for BP management: Recheck blood pressure with nurse navigator in 3 weeks. Blood pressure goal is equal or less than 130/80. BMI result Body Mass Index 28.5 BMI Assessment/Plan discussion: High BMI High, discussed plan: lifestyle, weight reduction, dietary and physical activity Tobacco/Smoking Status: Tobacco use Status Tobacco use date assessed 08/04/23 05/08/24 07:59 Patient Tobacco Use Status Current everyday Tobacco 05/08/24 07:59 Tobacco use type Cigarette 05/08/24 07:59 e-Cigarette/Vaping Use Never Used 05/08/24 07:59 Are you ready to quit: No Tobacco cessation counseling provided: Yes Items discussed: [employer]uitWorks Relapse Prevention: discussed the importance of a supportive environment, discussed negative mood or depression after quitting, weight gain after smoking is common and discussed dietary, exercise and/or lifestyle changes Number of minutes spent counselin CPT code: 74552 - 4-10 Minutes Thrive Assessment: Date of Thrive Assessment Date Thrive assessed 08/04/23 05/08/24 07:59 Resp Auscultation: rhonchi Cardio Jugular venous distension: no JVD Rate: regular rate Rhythm: regular rhythm Heart sounds: Murmur heart sound present systolic Extrem General: Yes full ROM Office Procedures Flu Questionnaire Does the patient have a severe egg allergy?: No Results AMB Hemoglobin A1c AMB Hemoglobin A1c 7.1 % Last Edit by AMANDA Francis on 05/08/24 08:23 Immunizations Fluarix Triv [id number] (PF) 45 mcg (15 mcg x 3)/0.5 mL IM syringe Performing Provider: Ana Hough MD [facility] [place] Documented (not given) by: AMANDA Francis on 05/08/24 08:25 Reason Not Given: Not Given Results Reviewed Results Reviewed: Laboratory Last Values Hgb A1c (Clinic) 7.1 % (4.0-6.0) H 05/08/24 07:57 Coding Level of Care Code Est Pt Level 4 (35118) Complex EM visit Add On G2211 Diagnoses CKD (chronic kidney disease) stage 4, GFR 15-29 ml/min N18.4 Chronic obstructive pulmonary disease, unspecified COPD type J44.9 COPD type: unspecified COPD Type 2 diabetes mellitus with hyperglycemia, without long-term current use of insulin E11.65 Diabetes mellitus type: type 2 Diabetes mellitus hand knitter insulin use: without hand knitter use Diabetes mellitus complication status: with hyperglycemia Essential hypertension I10 Dyslipidemia E78.5 Anemia of chronic disease D63.8 Additional Codes Vital Signs *Quality* - CPT code: 05212 - 4-10 Minutes ([id number]) Time Spent (min) 25 Assessment & Plan Assessment & Plan (1) CKD (chronic kidney disease) stage 4, GFR 15-29 ml/min: Code(s): N18.4 - Chronic kidney disease, stage 4 (severe) Category: Medical Plan: Avoid NSAIDs. Blood pressure goal is equal or less than 130/80. Follow-up with nephrology. (2) COPD (chronic obstructive pulmonary disease): Code(s): J44.9 - Chronic obstructive pulmonary disease, unspecified Category: Medical Qualifiers: COPD type: unspecified COPD Qualified Code(s): J44.9 - Chronic obstructive pulmonary disease, unspecified Plan: Start Breo. Use rescue inhaler as needed. Advised to stop smoking. (3) Diabetes mellitus: Code(s): E11.9 - Type 2 diabetes mellitus without complications Category: Medical Qualifiers: Diabetes mellitus type: type 2 Diabetes mellitus longterm insulin use: without longterm use Diabetes mellitus complication status: with hyperglycemia Qualified Code(s): E11.65 - Type 2 diabetes mellitus with hyperglycemia Plan: Continue metformin and Tradjenta. Start Actos. A1c goal is equal or less than 7%. (4) Essential hypertension: Code(s): I10 - Essential (primary) hypertension Category: Medical Plan: Continue amlodipine and valsartan-hydrochlorothiazide. Blood pressure goal is equal or less than 130/80. Recheck blood pressure with nurse navigator in 3 weeks. Advised low-salt diet. (5) Dyslipidemia: Code(s): E78.5 - Hyperlipidemia, unspecified Category: Medical Plan: Continue low-cholesterol diet. LDL goal is less than 70. (6) Anemia of chronic disease: Code(s): D63.8 - Anemia in other chronic diseases classified elsewhere Category: Medical Plan: Repeat hemoglobin. She denies any active bleeding. Orders: Orders Influenza [id number] Immunization Today Z23 - Encounter for immunization AMB Hemoglobin A1c Today E11.65 - Type 2 diabetes mellitus with hyperglycemia Complete Blood Count Auto Diff 4 Months D64.9 - Anemia, unspecified Vitamin D 25-OH Total 4 Months E55.9 - Vitamin D deficiency, unspecified Vitamin B12 and Folate 4 Months E53.8 - Deficiency of other specified B group vitamins Microalbumin, Random (w Creat) 4 Months R80.9 - Proteinuria, unspecified NT-proBNP 4 Months I50.9 - Heart failure, unspecified CA echo transthoracic complete Today I50.9 - Heart failure, unspecified, R01.1 - Cardiac murmur, unspecified IRON PROFILE 4 Months D64.9 - Anemia, unspecified Lipid Panel 4 Months E78.5 - Hyperlipidemia, unspecified Comprehensive [place]. Panel Fast 4 Months E11.65 - Type 2 diabetes mellitus with hyperglycemia Medications: New fluticasone furoate-vilanterol 50-25 mcg/dose (Breo Ellipta) 1 inh inhalation Q24H 30 days 60 ea 6RF J44.9 - Chronic obstructive pulmonary disease, unspecified Ventolin HFA 90 mcg/actuation (albuterol sulfate) 2 puffs inhalation Q6H 30 days PRN 18 grams 1RF shortness of breath or wheezing NS J44.9 - Chronic obstructive pulmonary disease, unspecified Refilled pioglitazone 15 mg PO DAILY 90 days 90 tabs 1RF E11.65 - Type 2 diabetes mellitus with hyperglycemia
[2024-05-08 08:01] VITALS: BP 156/52; BMI 28.5
== END 2024-05-08 08:30 | disposition home or self-care (01) ==
LOC: HO.HMCH 07:51
PROVIDERS: PCP Internal Medicine; Visit Provider Internal Medicine
DX: I12.9 Hypertensive chronic kidney disease with stage 1 through stage 4 chronic kidney disease, or unspecified chronic kidney disease (principal); N18.4 Chronic kidney disease, stage 4 (severe); J44.9 Chronic obstructive pulmonary disease, unspecified; E11.65 Type 2 diabetes mellitus with hyperglycemia; E78.5 Hyperlipidemia, unspecified; D63.8 Anemia in other chronic diseases classified elsewhere; Z23 Encounter for immunization

== ENCOUNTER → 2024-05-08 07:51 | Outpatient (BNVA) | payer MEDICARE, OTHER, SELFPAY | PROVIDERS: PCP Internal Medicine; Visit Provider Internal Medicine | DX: E11.65 Type 2 diabetes mellitus with hyperglycemia (principal); N18.4 Chronic kidney disease, stage 4 (severe); J44.9 Chronic obstructive pulmonary disease, unspecified; I10 Essential (primary) hypertension; E78.5 Hyperlipidemia, unspecified; D63.8 Anemia in other chronic diseases classified elsewhere | CPT/HCPCS: 83036; 90471; 99212 ==

== ENCOUNTER → 2024-05-24 08:50 | Outpatient (REF) | payer MEDICARE, OTHER, SELFPAY ==
--- NOTE | 2024-05-24 09:16 | CA_ITS ---
Transthoracic Echocardiogram Patient (Last, First, Middle): Mary Ceballos E Gender: Female Date of : 1950 Age: 73 Procedure Date: 05/24/2024 Procedure Type: Transthoracic Echocardiogram Location: OP Height: 157.48 cm Weight: 70.76 kg BSA: 1.72 m2 Heart Rate: 76 bpm BP: 156 / 52 mmHg Environmental Protection Officer: SB Referring MD: Ana Hough MD Orthopedic Rn: Shamar Howe MD Symptoms: I50.9 - Heart failure, unspecified Study Quality: Adequate ECG Rhythm: Sinus Conclusions: - 1. Normal LV ejection fraction 55-60% with impaired relaxation filling pattern and elevated filling pressures 2. Mildly dilated left atrium 3. Mild calcific aortic stenosis and regurgitation 4. Mild mitral regurgitation 5. Normal RV systolic pressure 6. Upper limits of normal ascending aortic size 7. No pericardial effusion Findings Left Ventricle Normal left ventricular size, thickness, and systolic function. The visually estimated ejection fraction is between 55-60%. Spectral Doppler is indicative of an impaired relaxation filling pattern. Elevated left atrial and left ventricular end-diastolic pressures. E/E prime ratio is >15, consistent with elevated filling pressures. Wall Motion Rest Echo Findings The inferoseptal wall and basal inferior segment are hypokinetic. All other scored wall segments showed normal motion. Right Ventricle Normal right ventricular cavity size and systolic function. Atria The left atrium is mildly dilated. There is no evidence of interatrial shunt. The right atrium is normal in size. Aortic Valve There is mild calcification of the aortic valve. There is mild aortic valve stenosis. The peak aortic gradient is 22 mmHg.The mean gradient is 12 mmHg. The aortic valve area is 1.72 cm2. There is mild aortic valve regurgitation. Mitral Valve There is mild anterior and posterior mitral leaflet thickening. There is mild mitral annular calcification. There is mild mitral valve regurgitation. There is no mitral valve stenosis. Pulmonic Valve The pulmonic valve is likely normal. There is trace pulmonic valve regurgitation. Tricuspid Valve Normal tricuspid valve structure. There is mild tricuspid valve regurgitation. The right ventricular systolic pressure is normal. The right ventricular systolic pressure is 32 mmHg. Normal right atrial pressure. There is no evidence of pulmonary hypertension. Great Vessels The pulmonary artery was not well visualized. There is no dilatation of the ascending aorta measuring 3.60 cm. Small plaque is seen in the sino tubular ridge. Venous The inferior vena cava is normal in size and collapses greater than 50% with inspiration. Pericardium/Pleural There is no evidence of pericardial effusion. Measurements 2D Linear Measurements IVSd: 1.10 0.6-0.9/0.6-1.0 cm LVIDd: 4.79 3.9-5.3/4.2-5.9 cm LVIDd Index: 2.78 2.4-3.2/2.2-3.1 cm/m2 LVIDs: 3.51 2.0-3.6 cm LVPWd: 0.92 0.7-1.1 cm LA Diam: 3.90 2.7-3.8/3.0-4.0 cm LAIDs Index: 2.27 1.5-2.3 cm/m2 LV Mass: 214.30 67-162/88-224 g LV Mass Index: 124.59 43-95/49-115 g/m2 LVOT Diam: 2.00 3.0+(-)1.3 cm 2D Systolic Function EF 4C: 55.70 >55% EF 2C: 56.20 >55% EF BiP: 55.70 >55% Mitral Valve MV Pk E: 1.13 MV PK A: 1.22 MV Decel Time: 212.00 E/A: 0.90 E'Lateral: 4.79 E'Medial: 4.03 E/E' Med: 28.00 E/E' Lat: 23.60 PHT: 62.00 MVA PHT: 3.55 Decel [place]: 5.30 MR Vol - PW Dopp: 5.06 MR VTI: 2.53 MR ERO: 2.00 MR Alias Daquan: 0.30 MR RAD: 0.30 Aortic Valve AoV Pk Daquan: 2.35 AoV Mn Daquan: 1.61 AoV VTI: 0.56 AoV Pk Grad: 22.00 Aov Mn Grad: 12.00 JOANN Cont.VTI: 1.72 AI Pk Daquan: 4.18 AI [place]asta: 4.05 LVOT LVOT Pk Daquan: 1.19 LVOT Mn Daquan: 0.86 LVOT VTI: 0.31 LVOT Pk Grad: 6.00 LVOT Mn Grad: 4.00 LVOT Diam: 2.00 LVOT Area: 3.14 Diastolic Function MV Pk E: 1.13 MV Pk A: 1.22 E/A: 0.90 E'Medial: 4.03 E/E' Med: 28.00 E' Laterial: 4.79 E/E' Lat: 23.60 Right Ventricle TAPSE (mm): 26.10 TVS' Daquan: 14.30 Tricuspid Valve TR Pk Daquan: 2.67 TR Pk Grad: 29.00 RA Press: 3.00 RVSP: 32.00 Great Vessels Aorta Sinus of Valsalva: 3.30 2.0-3.5 cm Ao Asc: 3.60 2.1-3.4 cm Pulmonary Veins Pulm Vein S/D 1.60 Pulmonary Valve PV Pk Daquan: 1.08 Peak PV Grad: 5.00 Updated in Other Vendor System with Status of Final Shamar Howe MD electronically signed on 05/25/2024 8:50:53 AM with status of Final
== END ==
LOC: HO.CARD 08:50
PROVIDERS: PCP Internal Medicine; Visit Provider Internal Medicine
DX: I50.9 Heart failure, unspecified (principal); R01.1 Cardiac murmur, unspecified
CPT/HCPCS: 93306

== ENCOUNTER → 2024-05-24 09:16 | Outpatient (BNV) | payer MEDICARE, OTHER, SELFPAY | PROVIDERS: PCP Internal Medicine; Visit Provider Internal Medicine Cardiovascular Disease | DX: I35.2 Nonrheumatic aortic (valve) stenosis with insufficiency (principal); I35.8 Other nonrheumatic aortic valve disorders; I34.0 Nonrheumatic mitral (valve) insufficiency; I36.1 Nonrheumatic tricuspid (valve) insufficiency | CPT/HCPCS: 93306 ==

== ENCOUNTER 2024-05-29 07:29 | Outpatient (AMB) | payer MEDICARE, OTHER, SELFPAY ==
[2024-05-29 07:32] VITALS: BP 158/60; PULSE 73; O2SAT 100; BMI 29.1
--- NOTE | 2024-05-29 07:32 | A.OFFVIS_ITS ---
Vital Signs 05/29/24 07:32 Height 5 ft 2 in Weight 159 lb BMI 29.1 BP 158/60 H Blood Pressure Location Lt brachial Position Sitting Pulse 73 Pulse Source Pulse Oximeter Pulse Oximetry (%) 100 Oxygen Delivery Method Room Air Intake Visit Reasons: osteoporosis/CM APT Intake Note: Patient presents today for osteoporosis, she was internally referred by Dr. Sanford. Allergies No Known Allergies [No Known Allergies*] Allergy (Verified 05/29/24 07:35) Medication List - Last Reconciled 05/29/24 by Sandra Waldrop MD amlodipine 10 mg PO DAILY 30 days fluticasone furoate-vilanterol 50-25 mcg/dose (Breo Ellipta) 1 inh inhalation Q24H 30 days gabapentin 300 mg PO Q8H 90 days linagliptin (Tradjenta) 5 mg PO DAILY 30 days metformin 1,000 mg PO BID 90 days pioglitazone 15 mg PO DAILY 90 days pravastatin 80 mg PO DAILY valsartan-hydrochlorothiazide 80-12.5 mg 1 tab PO DAILY Ventolin HFA 90 mcg/actuation (albuterol sulfate) 2 puffs inhalation Q6H PRN 30 days NS HPI Comments Details: Patient is a 73-year-old female current every day smoker (70 pack years) with hypertension complicated by CKD stage 4, diabetes, hyperlipidemia who presents for evaluation of low bone density Risk Factor Assessment: Age: 73 years Race: Menarche: 14 - 48 Family history including hip fracture: No known family history Low calcium/vitamin-D intake: Not currently on supplementation, drinks milk in coffee and eats cheese Estrogen deficiency: None Sedentary lifestyle: Yes Cigarette smokin pack years Excessive alcohol: No EtOH Excessive caffeine: Drinks 4 cups a day High-risk medication assessment: Glucocorticoids: short course in the past but no prolonged use No other high risk meds No falls, no broken bones PFSH Medical History (Updated 05/29/24 @ 08:34 by Sandra Waldrop MD) COPD with acute exacerbation Urinary tract infection Acute bronchitis CKD (chronic kidney disease) stage 3, GFR 30-59 ml/min Anemia of chronic disease CKD (chronic kidney disease) Murmur Microalbuminuria Urge urinary incontinence Hypovitaminosis D Neuropathy Insomnia Diabetes mellitus Dyslipidemia Essential hypertension Surgical History No pertinent past surgical history Family History Father Colon cancer Mother Lung cancer Social History Household Members: Family and Children Household Members Other:: son and grandson Housing: House Do you presently have visiting nurse or other home services: No Alcohol intake: never Patient Tobacco Use Status: Current everyday Tobacco user Tobacco use type: Cigarette Cigarette Packs Per Day: 1 e-Cigarette/Vaping Use: Never Used Second Hand Smoke Exposure: No Substance Use Type: Marijuana Advance Directives Date on File: 06/17/22 service: No Current occupational status: retired Cognitive needs: No Hearing needs: No Vision needs: No Review of Systems Const Details: Review of Systems Constitutional: Denies fever, chills, weight loss ENT: Denies vision changes, eye pain or eye redness, dental caries, dry mouth GI: Denies nausea, vomiting, diarrhea, abdominal pain, change in BM Pulm: Denies SOB, DIEGO, hemoptysis, wheezing Cards: Denies chest pain, palpitations Skin: Denies Raynaud's, rash, nail changes, photosensitivity, [employer]: Denies headaches, weakness, paresthesias, recurrent falls MSK: as per HPI All other systems reviewed and are unremarkable except noted above Physical Exam Vital Signs: Last Vital Signs Pulse 73 05/29/24 07:32 BP 158/60 H 05/29/24 07:32 Pulse Ox 100 05/29/24 07:32 Oxygen Delivery Method Room Air 05/29/24 07:32 BMI result Body Mass Index 29.1 Physical Examination CONSTITUITIONAL Patient alert and cooperative. Well appearing and in no apparent painful distress. Hyper kyphotic spine. CHEST/RESPIRATORY SYSTEM Normal respiratory effort and able to speak in complete sentences. Clear to auscultation bilaterally. No crackles, rales, rhonchi, wheezes heard. CARDIAC SYSTEM Regular rate and rhythm. Systolic murmur heard. 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 No synovitis noted to the MCPs, PIPs or DIPs. No tenderness to palpation of these joints. Knees: Full range of motion. No tenderness, swelling, increased warmth or erythema.? Crepitations noted. SKIN Skin intact without rashes. Results Reviewed Results Reviewed: Laboratory Tests 01/13/23 12/12/23 04/23/24 07:35 10:46 15:32 WBC 8.8 RBC 3.62 L Hgb 10.9 L Hct 33.1 L Plt Count 274 Sodium 135 Potassium 5.1 Chloride 109 H Carbon Dioxide 18 L BUN 38 H Creatinine 1.95 H 25-OH Vitamin D Total 32.7 PTH Intact 48.0 DEXA 03/01/24 FINDINGS: LEFT FEMUR, NECK: Current: BMD 0.678 g/cm2, Z-score -0.8, T-score -2.6, osteoporosis. Baseline: BMD 0.684 g/cm2. LEFT FEMUR, TOTAL: Current: BMD 0.747 g/cm2, Z-score -0.4, T-score -2.1, osteopenia, 0.9% increase from baseline (<5% change is not significant). Baseline: BMD 0.740 g/cm2. AP SPINE L1-L4 (excluding L3): The data of L1-L4 has been changed to exclude the L3 vertebral body, because degenerative sclerosis at this level may cause overestimation of lumbar spine density. Current: BMD 1.407 g/cm2, Z-score 3.5, T-score 2.0, normal, 15.3% increase from baseline (<5% change is not significant). Baseline: BMD 1.219 g/cm2. DEXA 02/26/22 FINDINGS: AP SPINE L1-L4 (excluding L3): The data of L1-L4 has been changed to exclude the L3 vertebral body, because degenerative changes at this level may cause overestimation of lumbar spine density. BMD 1.219 g/cm2, Z-score 2.0, T-score 0.4, normal. LEFT FEMUR, NECK: BMD 0.684 g/cm2, Z-score -0.8, T-score -2.5, osteoporosis. LEFT FEMUR, TOTAL: BMD 0.740 g/cm2, Z-score -0.6, T-score -2.1, osteopenia. Assessment & Plan Assessment & Plan (1) Osteoporosis: Code(s): M81.0 - Age-related osteoporosis without current pathological fracture Category: Medical Qualifiers: Osteoporosis type: age-related Presence of current pathological fracture: without current pathological fracture Qualified Code(s): M81.0 - Age- related osteoporosis without current pathological fracture Plan: #Osteoporosis of the left femur neck #Osteopenia of the spine Patient is a 73-year-old follow with osteoporosis. Risk factors include her race and her age, but significantly her smoking history. She does not have any history of prolonged medication use for glucocorticoids or thyroid hormone supplementation. Of note she had a bone density 2 years ago with the osteoporosis of the left femur. The T-score between the 2 DEXA as is about the same over the course of 2 years. I had a long discussion with the patient about treatment options. I 1st discussed nonpharmacological treatment including vitamin-D and calcium supplementation (pamphlet given) as well as weight-bearing exercises (pamphlet given. I discussed that patient would need to take at least 1200 mg of calcium per day whether that be via [id number] supplementation or dietary intake (pamphlet given with calcium rich foods and mg about in each). I also discussed that she would need to do weight-bearing exercises at least 4 times a week to encourage bone production. With respect to pharmacological treatment because of her stage 4 kidney disease we are limited. Oral and intravenous bisphosphonates are contraindicated in patients with a creatinine clearance less than 35. Patient's last creatinine c learance was 28.1 back in 2022 and has since been not reportable with a GFR 20 - 36. I discussed denosumab (Prolia) which is a 6 monthly injection. I informed her of the benefits of the medication as well as the caveats which is that she would have to be on Prolia lifelong because there would be rapid bone loss if this were to ever be stopped for a prolonged period of time. At this time patient would like to try non pharmacological management for her osteoporosis. I am okay with this especially because her osteoporosis is stable over the past 2 years. I will check labs including C telopeptide and bone specific alkaline phosphatase. I will see her in 6 months and recheck her C telopeptide. If there is a decrease then that would mean that there is improvement in bone turnover. If it is the same or worse than at that time we will need to proceed with denosumab. Of note she is currently undergoing workup for a positive Cologuard test. She has a colonoscopy scheduled for July. Also discuss smoking cessation but patient is not interested at this time Plan I spent 45 minutes reviewing the record and labs, seeing the patient, discussing the treatment plan and documenting in the medical record ? Orders: Orders Collagen Type I C-Telopeptide Today M81.0 - Age-related osteoporosis without current pathological fracture TSH reflex Free T4 Today M81.0 - Age-related osteoporosis without current pathological fracture Protein Electrophoresis, Serum Today M81.0 - Age-related osteoporosis without current pathological fracture Alkaline Phosphatase Bone Today M81.0 - Age-related osteoporosis without current pathological fracture Collagen Type I C-Telopeptide 6 Months M81.0 - Age-related osteoporosis without current pathological fracture Vitamin D 1,25 dihydroxy 6 Months M81.0 - Age-related osteoporosis without current pathological fracture Alkaline Phosphatase Bone 6 Months M81.0 - Age-related osteoporosis without current pathological fracture Comprehensive Met. Panel Today M81.0 - Age-related osteoporosis without current pathological fracture Vitamin D 1,25 dihydroxy Today M81.0 - Age-related osteoporosis without current pathological fracture Comprehensive Met. Panel 6 Months M81.0 - Age-related osteoporosis without current pathological fracture Vitamin D 25-OH (D2 and D3) 6 Months M81.0 - Age-related osteoporosis without current pathological fracture Coding Level of Care Code New Pt Level 4 (50816) Complex EM visit Add On G2211 Diagnoses Age-related osteoporosis without current pathological fracture M81.0 Osteoporosis type: age-related Presence of current pathological fracture: without current pathological fracture
== END 2024-05-29 08:26 | disposition home or self-care (01) ==
PROVIDERS: PCP Internal Medicine; Visit Provider Student in an Organized Health Care Education/Training Program
DX: M81.0 Age-related osteoporosis without current pathological fracture (principal)
CPT/HCPCS: 99204; G2211

== ENCOUNTER 2024-05-29 08:44 | Outpatient (REF) | payer MEDICARE, OTHER, SELFPAY ==
[2024-05-29 11:25] LABS: Alanine Aminotransferase 14 U/L (0-31); Albumin Level 3.5 g/dL (3.5-5.0); Alkaline Phosphatase 77 U/L (39-117); Anion Gap 13 (12-20); Aspartate Amino Transferase 16 U/L (5-31); Bilirubin Total 0.2 mg/dL (0.0-1.0); Blood Urea Nitrogen 34 mg/dL (9-16); Calcium 9.1 mg/dL (8.4-10.2); Carbon Dioxide 21 mmol/L (22-29); Chloride 108 mmol/L (96-108); Estimated Glomerular Filt Rate 30; Glucose Random 150 mg/dL (60-115); Potassium 4.7 mmol/L (3.3-5.1); Sodium 137 mmol/L (135-145); Total Protein 6.4 g/dL (6.5-8.0)
[2024-05-29 11:28] LABS: TSH reflex Free T4 2.09 uIU/mL (0.32-4.0)
[2024-06-01 09:29] LABS: Prot Elec - Albumin 3.4 g/dL (3.8-4.8); Prot Elec - Alpha1 0.3 g/dL (0.2-0.3); Prot Elec - Alpha2 1.1 g/dL (0.5-0.9); Prot Elec - Beta 1 0.4 g/dL (0.4-0.6); Prot Elec - Beta 2 0.4 g/dL (0.2-0.5); Prot Elec - Gamma 0.7 g/dL (0.8-1.7); Prot Elec - Total Protein 6.3 g/dL (6.1-8.1)
[2024-06-04 20:38] LABS: Collagen Type I C-Telopeptide 556 pg/mL (see note); VITAMIN D (1,25 OH) D3 22 pg/mL; Vit D (1,25-Dihydroxy) Total 22 pg/mL (18-72); Vitamin D (1,25 OH) D2 <8 pg/mL
== END 2024-05-29 08:45 | disposition home or self-care (01) ==
LOC: HO.10HDL 08:44
PROVIDERS: Visit Provider Student in an Organized Health Care Education/Training Program
DX: M81.0 Age-related osteoporosis without current pathological fracture (principal)
CPT/HCPCS: 36415; 80053; 82523; 82652; 84165; 84443; 99202

== ENCOUNTER 2024-07-16 09:32 | Outpatient (AMB) | payer MEDICARE, OTHER, SELFPAY ==
--- NOTE | 2024-07-16 09:37 | A.OFFVIS_ITS ---
Vital Signs 07/16/24 09:41 Height 5 ft 2 in Weight 154 lb 5.177 oz BMI 28.2 BP 182/74 H Pulse 80 Intake Visit Reasons: Fecal abnormalities/tonny pt([facility])08/18/2021 Intake Note: Mary presents in the office as Tonny patient for fecal abnormalities. CC: Having pain in the buttocks region, denies pain near rectum, occasional diarrhea, no blood in stool, no pains in the stomach, no acid reflux Allergies No Known Allergies [No Known Allergies*] Allergy (Verified 05/29/24 07:35) HPI Comments Details: 73 y.o F with PMH of who is here for diagnostic colo discussion. Pt has been in the office for the same at least twice since 2020. Had been having change in bowel habits for which colo was reocmmended. Both times has remained hesitant to pursue. Pt then had a cologuard through PCP office which was positive in 2021. Pt again did not want to undergo follow up colo at that time. Now here on behest of her children. Again reports abd bloating and loose stools which are pasty and thin caliber ongoing x 2 years. No abd pain, rectal bleeding. No fam hx of CRC. Pt has never had a colo. [facility] Medical History COPD with acute exacerbation Urinary tract infection Acute bronchitis CKD (chronic kidney disease) stage 3, GFR 30-59 ml/min Anemia of chronic disease CKD (chronic kidney disease) Murmur Microalbuminuria Urge urinary incontinence Hypovitaminosis D Neuropathy Insomnia Diabetes mellitus Dyslipidemia Essential hypertension Surgical History No pertinent past surgical history Family History Father Colon cancer Mother Lung cancer Social History Household Members: Family and Children Household Members Other:: son and grandson Housing: House Do you presently have visiting nurse or other home services: No Alcohol intake: never Patient Tobacco Use Status: Current everyday Tobacco user Tobacco use type: Cigarette Cigarette Packs Per Day: 1 e-Cigarette/Vaping Use: Never Used Second Hand Smoke Exposure: No Substance Use Type: Marijuana Advance Directives Date on File: 06/17/22 service: No Current occupational status: retired Cognitive needs: No Hearing needs: No Vision needs: No Review of Systems Const All systems reviewed & are unremarkable except as noted in HPI and below Physical Exam Vital Signs: Last Vital Signs Pulse 80 07/16/24 09:41 BP 182/74 H 07/16/24 09:41 BMI result Body Mass Index 28.2 No apparent distress, elderly Nonicteric Abdomen soft, nondistended Alert and oriented x3, normal gait Derm: echymosis on hands Assessment & Plan Assessment & Plan (1) Positive colorectal cancer screening using Cologuard test: Code(s): R19.5 - Other fecal abnormalities Category: Medical (2) Change in bowel habit: Code(s): R19.4 - Change in bowel habit Category: Medical Plan Is overdue for a diagnostic colo for change in bowel habits x 2 years and for positive cologuard 2021. This will be set up urgently. Prep instructions reviewed and handout given. Pt also aware to hold tradjenta as per protocol. Follow up after colo. Medications: New peg 3350-electrolytes 236-22.74-6.74 -5.86 gram (Golytely) as per split prep instructions, until fecal effluent is clear 240 mL PO Q10M 4,000 mL 0RF colonoscopy Coding Level of Care Code New Pt Level 4 (42298) Diagnoses Positive colorectal cancer screening using Cologuard test R19.5 Change in bowel habit R19.4
[2024-07-16 09:41] VITALS: BP 182/74; PULSE 80; BMI 28.2
== END 2024-07-16 10:58 | disposition home or self-care (01) ==
PROVIDERS: PCP Internal Medicine; Visit Provider Internal Medicine
DX: R19.5 Other fecal abnormalities (principal); R19.4 Change in bowel habit
CPT/HCPCS: 99204

== ENCOUNTER → 2024-07-16 09:32 | Outpatient (BNVA) | payer MEDICARE, OTHER, SELFPAY | PROVIDERS: PCP Internal Medicine; Visit Provider Internal Medicine | DX: R19.5 Other fecal abnormalities (principal); R19.4 Change in bowel habit | CPT/HCPCS: 99202 ==

== ENCOUNTER 2024-08-30 14:10 | Outpatient (AMB) | payer MEDICARE, OTHER, SELFPAY ==
[2024-08-30 14:20] VITALS: BP 148/52; PULSE 83; O2SAT 97; BMI 28.7
--- NOTE | 2024-08-30 14:20 | HO.NEPHOV ---
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 Required: No Accompanied by: Self / Same As Patient Allergies No Known Allergies [No Known Allergies*] Allergy (Verified 08/30/24 14:22) Medication List - Last Reconciled 08/30/24 by Emory Martinez MD amlodipine 10 mg PO DAILY 30 days fluticasone furoate-vilanterol 50-25 mcg/dose (Breo Ellipta) 1 inh inhalation Q24H 30 days gabapentin 300 mg PO Q8H 90 days linagliptin (Tradjenta) 5 mg PO DAILY 30 days metformin 1,000 mg PO BID 90 days peg 3350-electrolytes 236-22.74-6.74 -5.86 gram (Golytely) 240 mL PO Q10M pravastatin 80 mg PO DAILY valsartan-hydrochlorothiazide 80-12.5 mg 1 tab PO DAILY 90 days Ventolin HFA 90 mcg/actuation (albuterol sulfate) 2 puffs inhalation Q6H PRN 30 days NS HPI Comments Details: Mary is a pleasant 72-year-old woman with a history of longstanding hypertension and diabetes mellitus with stage III A chronic kidney disease. She has a history of hyperkalemia while she was on lisinopril 40 mg q.d. Lisinopril was switched to Diovan head CT and she has been able to tolerate this very well. She has no new complaints today. Of note she has been taking ibuprofen 800 mg 2 tabs as needed. She has been doing this for quite some time. She was prescribed Farxiga but she is unable to take it due to cost issues. She has a history of COPD. However she has no significant respiratory issues and she has not needed the inhalers. 10/10/23 Here for follow up c/o pain left flank ;Recently treated with antibiotics for UTI ;Blood sugar sub optimal with A1C 9% ;Cr is up to 1.56 04/23/24 Continues to have back pain ;Radiates down legs ;NO urinary symptoms 08/30/24 Still with back pain. Worse at night Waiting for Colonoscopy in September [facility] Medical History COPD with acute exacerbation Urinary tract infection Acute bronchitis CKD (chronic kidney disease) stage 3, GFR 30-59 ml/min Anemia of chronic disease CKD (chronic kidney disease) Murmur Microalbuminuria Urge urinary incontinence Hypovitaminosis D Neuropathy Insomnia Diabetes mellitus Dyslipidemia Essential hypertension Surgical History No pertinent past surgical history Family History Father Colon cancer Mother Lung cancer Social History Household Members: Family and Children Household Members Other:: son and grandson Housing: House Do you presently have visiting nurse or other home services: No Alcohol intake: never Patient Tobacco Use Status: Current everyday Tobacco user Tobacco use type: Cigarette Cigarette Packs Per Day: 1 e-Cigarette/Vaping Use: Never Used Second Hand Smoke Exposure: No Substance Use Type: Marijuana Advance Directives Date on File: 06/17/22 service: No Current occupational status: retired Cognitive needs: No Hearing needs: No Vision needs: No Physical Exam Vital Signs: Last Vital Signs Pulse 83 08/30/24 14:20 BP 148/52 H 08/30/24 14:20 Pulse Ox 97 08/30/24 14:20 Oxygen Delivery Method Room Air 08/30/24 14:20 BMI result Body Mass Index 28.7 Const General: comfortable; No acute distress Orientation/consciousness: patient oriented x3 Eyes General: appearance normal, both eyes and all related structures Visual Rhodes: normal visual rhodes by confrontation Neck Neck: Yes supple and Yes no JVD Resp Effort & Inspection: normal respiratory effort and respiratory effort not decreased Cardio Palpation: no palpable S3 and no palpable S4 Heart sounds: no rubs GI Inspection: Yes normal to inspection Palpation (GI): Soft to palpation Percussion: Yes normal to percussion Auscultation: normal bowel sounds General: Yes no CVA tenderness Back/Spine/Pelvis Back: no CVA tenderness Skin General skin exam: no petechiae and no purpura Neuro General: patient oriented x3 and no focal motor deficits Extrem General: No clubbing and No edema Results Reviewed Nephrology Results: Hgb 10.9 g/dl (12.0-16.0) L 04/23/24 WBC 8.8 X10*3/uL (4.8-10.8) 04/23/24 Plt Count 274 X10*3/uL (160-400) 04/23/24 Sodium 137 mmol/L (135-145) 05/29/24 Potassium 4.7 mmol/L (3.3-5.1) 05/29/24 Chloride 108 mmol/L (96-108) 05/29/24 Carbon Dioxide 21 mmol/L (22-29) L 05/29/24 BUN 34 mg/dL (9-16) H 05/29/24 Creatinine 1.67 mg/dL (0.5-1.4) H 05/29/24 Calcium 9.1 mg/dL (8.4-10.2) 05/29/24 Assessment & Plan Assessment & Plan (1) CKD (chronic kidney disease) stage 3, GFR 30-59 ml/min: Code(s): N18.30 - Chronic kidney disease, stage 3 unspecified Category: Medical Qualifiers: Chronic kidney disease stage 3 subtype: stage 3b (GFR 30-44) Qualified Code(s): N18.32 - Chronic kidney disease, stage 3b (2) Hyperkalemia: Code(s): E87.5 - Hyperkalemia Category: Medical (3) Essential hypertension: Code(s): I10 - Essential (primary) hypertension Category: Medical (4) COPD (chronic obstructive pulmonary disease): Code(s): J44.9 - Chronic obstructive pulmonary disease, unspecified Category: Medical Qualifiers: COPD type: unspecified COPD Qualified Code(s): J44.9 - Chronic obstructive pulmonary disease, unspecified (5) CKD (chronic kidney disease) stage 4, GFR 15-29 ml/min: Code(s): N18.4 - Chronic kidney disease, stage 4 (severe) Category: Medical Plan Mary has stage 3 chronic kidney disease in the setting of longstanding hypertension and diabetes mellitus. The renal function is close to baseline now . Goal is to slow the progression of renal disease. 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 Avoid nephrotoxins including NSAIDS Renal function is at baseline NEphrotic range proteinuria due to diabetic kidney disease Hypertension : blood pressure is better controlled History of hyperkalemia. Resolved after stopping NSAIDS Encouraged her to stay on low-potassium diet as well. COPD which seems well controlled. No intention to quit smoking Orders: Orders Parathyroid Hormone Intact 4 Months N18.4 - Chronic kidney disease, stage 4 (severe) Basic Metabolic Panel 4 Months N18.4 - Chronic kidney disease, stage 4 (severe) Coding Level of Care Code Est Pt Level 4 (20480) Diagnoses Stage 3b chronic kidney disease N18.32 Chronic kidney disease stage 3 subtype: stage 3b (GFR 30-44) Hyperkalemia E87.5 Essential hypertension I10 Chronic obstructive pulmonary disease, unspecified COPD type J44.9 COPD type: unspecified COPD CKD (chronic kidney disease) stage 4, GFR 15-29 ml/min N18.4
--- OUTSIDE RECORDS SUMMARY | 2024-08-30 17:16 | XMS_ITS | Clinical Summary ---
Author Organization [facility] Address [address] [place] [address] Phone Care Team Providers Care Electronic Device Monitor Name Role Phone Ana Lanier MD Primary Care Provider Allergies No known active allergies Medications amLODIPine (NORVASC) 5 MG tablet Take 1 tablet by mouth 1 (one) time each day 05/08/2016 Active gabapentin (NEURONTIN) 300 MG capsule Take 1 capsule by mouth in the morning and 1 capsule in the evening. Active metFORMIN (Glucophage) 1000 MG tablet Take 1 tablet by mouth in the morning and 1 tablet in the evening. Active alendronate (FOSAMAX) 70 MG tablet Take 70 mg by mouth per week 02/17/2023 Active ezetimibe (ZETIA) 10 MG tablet Take 10 mg by mouth 1 (one) time each day 01/13/2023 Active Tradjenta 5 MG tablet Take 1 tablet by mouth 1 (one) time each day 01/14/2023 Active pravastatin (PRAVACHOL) 80 MG tablet Take 80 mg by mouth 1 (one) time each day 12/08/2022 Active valsartan-hydro CHLOROthiazide (Diovan HCT) 80-12.5 MG per tablet Take 1 tablet by mouth 1 (one) time each day 30 tablet 11 03/03/2023 Active Active Problems Problem Noted Date Diagnosed Date Chronic kidney disease stage 3 03/02/2023 0 03/02/2023 Essential hypertension 03/02/2023 Family History Medical History Relation Comments Gout Child Son Cancer Father Cancer Mother Lung Heart disease Mother Angina Hypertension Mother Stroke Mother Relation Status Comments Child Father Mother Social History Tobacco Use Types Packs/Day Years Used Date Smoking Tobacco: Every Day Cigarettes Smokeless Tobacco: Never Tobacco Cessation:Ready to Q uit: Not Asked; Counseling Given: Not Answered Alcohol Use Standard Drinks/Week Comments No 0 (1 standard drink = 0.6 oz pur e alcohol) Comments Unknown Sex and Gender Information Value Date Recorded Sex Assigned at Not on file Legal Sex Female 5:13 PM EST Gender Identity Not on file Sexual Orientation Not on file Last Filed Vital Signs Vital Sign Reading Time Taken Comments Blood Pressure 140/62 03/03/2023 1:05 PM EDT Pulse 74 03/03/2023 1:05 PM EDT Temperature - - Respiratory Rate - - Oxygen Saturation - - Inhaled Oxygen Concentration - - Weight 70.1 kg (154 lb 9.6 oz) 03/03/2023 1:05 P M EDT Height - - Body Mass Index - - Plan of Treatment Health Maintenance Due Date Last Done Comments Pneumococcal Vaccine: 65+ Ye ars (1 of 2 - PCV) 1956 Influenza Vaccine (#1) 2024 Hepatitis B Vaccine Aged Out No longe r eligible based on patient's age to complete this topic Insurance MEDICARE [facility] MEDICARE [facility] Care Teams Electronic Device Monitor Relationship Specialty Start Date End Date Ana Lanier MD [address] [place], [place] PCP - General Internal Medicine 07/01/21
== END 2024-08-30 14:40 | disposition home or self-care (01) ==
PROVIDERS: PCP Internal Medicine; Visit Provider Internal Medicine Hypertension Specialist
DX: I12.9 Hypertensive chronic kidney disease with stage 1 through stage 4 chronic kidney disease, or unspecified chronic kidney disease (principal); N18.32 Chronic kidney disease, stage 3b; E87.5 Hyperkalemia; J44.9 Chronic obstructive pulmonary disease, unspecified; N18.4 Chronic kidney disease, stage 4 (severe)
CPT/HCPCS: 99214

== ENCOUNTER → 2024-08-30 14:10 | Outpatient (BNVA) | payer MEDICARE, OTHER, SELFPAY | PROVIDERS: PCP Internal Medicine; Visit Provider Internal Medicine Hypertension Specialist | DX: I12.9 Hypertensive chronic kidney disease with stage 1 through stage 4 chronic kidney disease, or unspecified chronic kidney disease (principal); N18.4 Chronic kidney disease, stage 4 (severe); J44.9 Chronic obstructive pulmonary disease, unspecified; E87.5 Hyperkalemia | CPT/HCPCS: 99212 ==

== ENCOUNTER → 2024-09-14 11:23 | Outpatient (REF) | payer MEDICARE, OTHER, SELFPAY ==
--- NOTE | 2024-09-14 11:28 | ECG_ITS ---
Test Reason : PRE OP Blood Pressure : */* mmHG Vent. Rate : 80 BPM Atrial Rate : 80 BPM P-R Int : 162 ms QRS Dur : 88 ms QT Int : 366 ms P-R-T Axes : 59 10 179 degrees QTcB Int : 422 ms Normal sinus rhythm Left ventricular hypertrophy with repolarization abnormality ( James product ) Possible Inferior infarct , age undetermined Abnormal ECG When compared with ECG of 30-Sep-2022 11:46, Borderline criteria for Inferior infarct are now Present Non-specific change in ST segment in Inferior leads Referred By: Ana Hough Electronically Signed By: VITO BARRAZA
--- OUTSIDE RECORDS SUMMARY | 2024-09-14 13:09 | XMS_ITS | Clinical Summary ---
Author Organization [facility] Address [address] [place] [address] Phone Care Team Providers Care Systems Analyst Engineer Name Role Phone Ana Lanier MD Primary Care Provider [phone] Allergies No known active allergies Medications amLODIPine [...] age to complete this topic Insurance MEDICARE [facility] MEDICARE [facility] Care Teams Systems Analyst Engineer Relationship Specialty Start Date End Date Ana Lanier MD [address] [place], [place] PCP - General Internal Medicine 07/01/21
== END ==
LOC: HO.CARD 11:23
PROVIDERS: Visit Provider Internal Medicine
DX: Z01.818 Encounter for other preprocedural examination (principal)
CPT/HCPCS: 93005

== ENCOUNTER → 2024-09-14 11:28 | Outpatient (BNV) | payer MEDICARE, OTHER, SELFPAY | PROVIDERS: Visit Provider Internal Medicine | DX: I42.2 Other hypertrophic cardiomyopathy (principal); R94.31 Abnormal electrocardiogram [ECG] [EKG] | CPT/HCPCS: 93010 ==

== ENCOUNTER 2024-09-15 08:57 | Outpatient (REF) | payer MEDICARE, OTHER, SELFPAY ==
--- OUTSIDE RECORDS SUMMARY | 2024-09-15 09:00 | XMS_ITS | Clinical Summary ---
Author Organization [facility] Address [address] [place] [address] Phone Care Team Providers Care [employer] Tech Name Role Phone Ana Lanier MD Primary Care Provider [phone] Allergies No known active allergies Medications amLODIPine [...] age to complete this topic Insurance MEDICARE [facility] MEDICARE [facility] Care Teams [employer] Tech Relationship Specialty Start Date End Date Ana Lanier MD [address] [place], [place] PCP - General Internal Medicine 07/01/21
[2024-09-15 09:23] LABS: MANUAL DIFF FLAG NO
[2024-09-15 09:44] LABS: Basophils Absolute Auto 0.1 X10*3/uL (0.0-0.2); Basophils Percent Auto 0.7 % (0-2); Eosinophils Absolute Auto 0.2 X10*3/uL (0.0-0.4); Eosinophils Percent Auto 3.2 % (0-4); Hematocrit 31.4 % (37.0-47.0); Hemoglobin 10.4 g/dl (12.0-16.0); Imm Gran Abs Auto 0.03 X10*3/uL (0.00-0.03); Imm Gran Pct Auto 0.4 % (0.0-0.4); Lymphocytes Absolute Auto 1.8 X10*3/uL (1.2-4.9); Lymphocytes Percent Auto 25.7 % (20-40); Mean Corpuscular HGB Conc 33.1 g/dl (31.0-35.0); Mean Corpuscular Hemoglobin 30.1 pg (27.0-33.0); Mean Corpuscular Volume 90.8 fL (80.0-98.0); Mean Platelet Volume 9.8 fL (9.4-12.3); Monocytes Absolute Auto 0.6 X10*3/uL (0.1-1.2); Monocytes Percent Auto 8.5 % (2-11); Neutrophils Absolute Auto 4.2 x10*3/uL (2.0-8.3); Neutrophils Percent Auto 61.5 % (45-73); Platelet Count 209 X10*3/uL (160-400); Red Blood Count 3.46 X10*6/uL (4.20-5.50); White Blood Count 6.8 X10*3/uL (4.8-10.8)
[2024-09-15 10:35] LABS: Alanine Aminotransferase 12 U/L (0-31); Albumin Level 3.6 g/dL (3.5-5.0); Alkaline Phosphatase 67 U/L (39-117); Anion Gap 13 (12-20); Aspartate Amino Transferase 13 U/L (5-31); Bilirubin Total 0.2 mg/dL (0.0-1.0); Blood Urea Nitrogen 39 mg/dL (9-16); Calcium 9.3 mg/dL (8.4-10.2); Carbon Dioxide 22 mmol/L (22-29); Chloride 112 mmol/L (96-108); Cholesterol 185 mg/dL (<200); Estimated Glomerular Filt Rate 33; Glucose Fasting 131 mg/dL (60-99); HDL Cholesterol 68 mg/dL (>40); Iron 58 mcg/dL (30-160); LDL Cholesterol Calculated 87 mg/dL (<100); Percent Iron Saturation 22 % (15-50); Potassium 5.8 mmol/L (3.3-5.1); Sodium 141 mmol/L (135-145); Total Iron Binding Capacity 268 mcg/dL (228-428); Total Protein 7.1 g/dL (6.5-8.0); Triglycerides 150 mg/dL (<150); Unsaturated Iron Binding 210 ug/dL
[2024-09-15 10:44] LABS: Creatinine Urine 56.67 mg/dL
[2024-09-15 10:54] LABS: Vitamin D 25-OH Total 24.6 ng/mL (>30)
[2024-09-15 10:58] LABS: Folate 6.4 ng/mL (> or = 4.0); Vitamin B12 221 pg/mL (200-900)
[2024-09-19 05:48] LABS: NT-proBNP 3186 pg/mL (<450)
== END 2024-09-15 08:58 | disposition home or self-care (01) ==
LOC: HO.LAB 08:57
PROVIDERS: PCP Internal Medicine; Visit Provider Internal Medicine
DX: I50.9 Heart failure, unspecified (principal); D64.9 Anemia, unspecified; E55.9 Vitamin D deficiency, unspecified; E53.8 Deficiency of other specified B group vitamins; R80.9 Proteinuria, unspecified; E78.5 Hyperlipidemia, unspecified; E11.65 Type 2 diabetes mellitus with hyperglycemia
CPT/HCPCS: 36415; 80053; 80061; 82043; 82306; 82570; 82607; 82746; 83540; 83880; 85025

== ENCOUNTER 2024-09-17 08:13 | Outpatient (AMB) | payer MEDICARE, OTHER, SELFPAY ==
--- OUTSIDE RECORDS SUMMARY | 2024-09-17 08:20 | XMS_ITS | Clinical Summary ---
Author Organization [facility] Address [address] [place] [address] Phone Care Team Providers Care Police Captain Senior Name Role Phone Ana Lanier MD Primary Care Provider [phone] Allergies No known active allergies Medications amLODIPine [...] to complete this topic Insurance MEDICARE [facility] MEDICARE [facility] Care Teams Police Captain Senior Relationship Specialty Start Date End Date Ana Lanier MD [address] [place], [place] PCP - General Internal Medicine 07/01/21
--- NOTE | 2024-09-17 08:21 | A.OFFPC_ITS ---
Vital Signs 09/17/24 08:26 Height 5 ft 2 in Weight 156 lb BMI 28.5 BP 138/62 Blood Pressure Location Lt brachial Position Sitting Pulse 77 Pulse Source Pulse Oximeter Pulse Oximetry (%) 96 Oxygen Delivery Method Room Air Intake Visit Reasons: Pre-op colonoscopy, follow up DM Agriculture Intern Required: No Accompanied by: Self / Same As Patient Allergies No Known Allergies [No Known Allergies*] Allergy (Verified 09/17/24 08:37) Medication List - Last Reconciled 09/17/24 by Ana Hough MD amlodipine 10 mg PO DAILY 30 days fluticasone furoate-vilanterol 50-25 mcg/dose (Breo Ellipta) 1 inh inhalation Q24H 30 days gabapentin 300 mg PO Q8H 90 days linagliptin (Tradjenta) 5 mg PO DAILY 30 days metformin 1,000 mg PO BID 90 days peg 3350-electrolytes 236-22.74-6.74 -5.86 gram (Golytely) 240 mL PO Q10M pravastatin 80 mg PO DAILY valsartan-hydrochlorothiazide 80-12.5 mg 1 tab PO DAILY 90 days Ventolin HFA 90 mcg/actuation (albuterol sulfate) 2 puffs inhalation Q6H PRN 30 days NS Tobacco use date assessed: 09/17/24 Fall risk assessment: No Falls in past year Last assessed Fall Risk: 09/17/24 Dental Screening Dental Screen Date: 09/17/24 Did you have a dental visit in the last 12 months?: No Did you have a dental problem in the last 6 months where you did not have access to dental care?: No Was dental information given to patient?: Patient has dentist HPI HPI Comments History of Present Illness Details The patient is a 74-year-old female presenting for a preoperative evaluation for a planned colonoscopy. Her medical background is significant for management of Chronic Obstructive Pulmonary Disease, hypertension, Type 2 Diabetes Mellitus, and hyperlipidemia. These conditions are being managed with an array of medications including amlodipine, Breo, Trajenta, metformin, and pravastatin. The patient has also been diagnosed with chronic kidney disease, which contributes to her elevated potassium levels. There is an associated anemia, which is plausible due to her renal condition. She is monitored by a deputy chief magistrate, and her labs have exhibited elevated potassium levels. She has a skin condition, psoriasis, characterized by lesions that resolve if she refrains from scratching. She has osteoporosis, which contributes to her back pain and has previously found relief with ibuprofen; however, she has discontinued its use due to renal implications. She underwent an echocardiogram in May, showing normal cardiac function, but a recent EKG raised concern for possible ischemic changes, prompting referral to cardiology for further assessment. Based on these findings, a cardiology consultation is advised prior to proceeding with her colonoscopy to ensure cardiac stability. [facility] Medical History (Updated 09/17/24 @ 08:47 by Ana Hough MD) COPD with acute exacerbation Urinary tract infection Acute bronchitis CKD (chronic kidney disease) stage 3, GFR 30-59 ml/min Anemia of chronic disease CKD (chronic kidney disease) Murmur Microalbuminuria Urge urinary incontinence Hypovitaminosis D Neuropathy Insomnia Diabetes mellitus Dyslipidemia Essential hypertension Surgical History (Updated 09/17/24 @ 08:41 by Ana Hough MD) History of tonsillectomy No pertinent past surgical history Family History Father Colon cancer Mother Lung cancer Social History Household Members: Family and Children Household Members Other:: son and grandson Housing: House Do you presently have visiting nurse or other home services: No Alcohol intake: never Patient Tobacco Use Status: Current everyday Tobacco user Tobacco use type: Cigarette Cigarette Packs Per Day: 1 e-Cigarette/Vaping Use: Never Used Second Hand Smoke Exposure: No Substance Use Type: Marijuana Advance Directives Date on File: 06/17/22 service: No Current occupational status: retired Cognitive needs: No Hearing needs: No Vision needs: No Questionnaire PHQ-9 Over the last 2 weeks, how often have you been bothered by any of the following problems? 1. Little interest or pleasure in doing things: not at all 2. Feeling down, depressed, or hopeless: not at all 3. Trouble falling or staying asleep, or sleeping too much: not at all 4. Feeling tired or having little energy: not at all 5. Poor appetite or overeating: not at all 6. Feeling bad about yourself - or that you are a failure or have let yourself or your family down: not at all 7. Trouble concentrating on things, such as reading the newspaper or watching television: not at all 8. Moving or speaking so slowly that other people could have noticed. Or the opposite - being so fidgety or restless that you have been moving around a lot more than usual: not at all 9. Thoughts that you would be better off or of hurting yourself in some way: not at all Total score: 0 Depression Screening Interpretation: Negative Depression Screening Done: Yes 90704 - PHQ-9 Billing: Yes Source: Developed by Drs. Williams aGrduno, Kelley Hook, Francisco Mendoza and colleagues, with an educational sabrina from [employer]. Thrive Questionnaire Date Thrive assessed: 09/17/24 I am a: Patient What is your living situation today?: I have a steady place to live Within the past 12 months, did the food you bought not last and you didn't have the money to get more?: Never true Within the past 12 months, did you worry whether your food would run out before you got money to buy more?: Never true Do you have trouble paying for medicines?: No Do you have trouble getting transportation to medical appointments?: No Do you have trouble paying your heating and electricity bill?: No Do you have trouble taking care of your child, family member or friend?: No Do you have trouble with day-to-day activities such as bathing, preparing meals, shopping, managing finances, etc.?: No Are you currently unemployed and looking for a job?: No Are you interested in more education?: No Please select the resources that you would like help with: None Currently or been in a relationship where the following occur: No concerns reported THRIVE Score: 0 AUDIT C Alcohol Use Questionnaire (AUDIT-C) 1. How often do you have a drink containing alcohol?: Never Total Score: 0 Score Reviewed/Action Taken: No RADHA-7 AMB Questionnaire RADHA-7 Date RADHA - 7 assessed: 09/17/24 Feeling nervous, anxious, or on edge: 0 = Not at all Not being able to stop or control worryin = Not at all Worrying too much about different things: 0 = Not at all Trouble relaxin = Not at all Being so restless that it is hard to sit still: 0 = Not at all Becoming easily annoyed or irritable: 0 = Not at all Feeling afraid as if something awful might happen: 0 = Not at all Total RADHA-7 score (0-4 normal; 5-9 mild; 10-14 moderate; 15-21 severe): 0 Source: Developed by Drs. Williams Garduno, Kelley Hook, Francisco Mendoza and colleagues, with an educational sabrina from [employer]. RADHA-7 Assessment Billing RADHA-7 Assessment Tool: RADHA-7 Assessment 71692 Review of Systems Const All systems reviewed & are unremarkable except as noted in HPI and below Card Denies chest pain at rest, Denies chest pain with activity, Denies edema, Denies irregular heart rhythm, Denies claudication, Denies dyspnea, Denies dyspnea on exertion, Denies orthopnea, Denies paroxysmal nocturnal dyspnea and Denies slow heart rate Resp Denies cough, Denies dyspnea and Denies dyspnea on exertion GI Denies abdominal pain, Denies change in bowel habits, Denies excessive flatus, Denies nausea and Denies vomiting Physical exam (Primary Care) Vital Signs: Last Vital Signs Pulse 77 09/17/24 08:26 BP 138/62 09/17/24 08:26 Pulse Ox 96 09/17/24 08:26 Oxygen Delivery Method Room Air 09/17/24 08:26 BMI result Body Mass Index 28.5 Tobacco/Smoking Status: Tobacco use Status Tobacco use date assessed 09/17/24 09/17/24 08:29 Patient Tobacco Use Status Current everyday Tobacco 09/17/24 08:24 Tobacco use type Cigarette 09/17/24 08:24 e-Cigarette/Vaping Use Never Used 09/17/24 08:24 Are you ready to quit: No Tobacco cessation counseling provided: Yes Items discussed: Nicotine replacement and QuitWorks Relapse Prevention: discussed the importance of a supportive environment, discussed extending NRT, discussed negative mood or depression after quitting, weight gain after smoking is common and discussed dietary, exercise and/or lifestyle changes Number of minutes spent counselin CPT code: 64938 - 4-10 Minutes PHQ-9: PHQ-9 Score PHQ-9: Total score 0 09/17/24 08:41 Depression Screening Interpretation: Negative Thrive Assessment: Date of Thrive Assessment Date Thrive assessed 09/17/24 09/17/24 08:24 Currently or been in a relationship where the following occur: No concerns reported Resp Effort & Inspection: normal respiratory effort Auscultation: clear to auscultation bilaterally Cardio Jugular venous distension: no JVD Rate: regular rate Rhythm: regular rhythm Heart sounds: Murmur heart sound present systolic Extrem General: Yes full ROM Results AMB Hemoglobin A1c AMB Hemoglobin A1c 7.3 % Last Edit by AMANDA Francis on 09/17/24 08:4 2 Results Reviewed Results Reviewed: Laboratory Last Values Hgb A1c (Clinic) 7.3 % (4.0-6.0) H 09/17/24 08:21 Coding Level of Care Code Est Pt Level 4 (92152) Complex EM visit Add On G2211 Diagnoses Pre-op evaluation Z01.818 Hyperkalemia E87.5 Abnormal EKG R94.31 CKD (chronic kidney disease) stage 4, GFR 15-29 ml/min N18.4 Chronic obstructive pulmonary disease, unspecified COPD type J44.9 COPD type: unspecified COPD Type 2 diabetes mellitus with hyperglycemia, without long-term current use of insulin E11.65 Diabetes mellitus type: type 2 Diabetes mellitus terminal carman insulin use: without terminal carman use Diabetes mellitus complication status: with hyperglycemia Anemia of chronic disease D63.8 Essential hypertension I10 Dyslipidemia E78.5 Additional Codes RADHA-7 Assessment Billing - RADHA-7 Assessment Tool: RADHA-7 Assessment 20912 ([id number]) PHQ-9 - 37296 - PHQ-9 Billing: Yes ([id number]) Vital Signs *Quality* - CPT code: 94137 - 4-10 Minutes ([id number]) Time Spent (min) 24 Assessment & Plan Assessment & Plan (1) Pre-op evaluation: Code(s): Z01.818 - Encounter for other preprocedural examination Category: Medical (2) Hyperkalemia: Code(s): E87.5 - Hyperkalemia Category: Medical (3) Abnormal EKG: Code(s): R94.31 - Abnormal electrocardiogram [ECG] [EKG] Category: Medical (4) CKD (chronic kidney disease) stage 4, GFR 15-29 ml/min: Code(s): N18.4 - Chronic kidney disease, stage 4 (severe) Category: Medical (5) COPD (chronic obstructive pulmonary disease): Code(s): J44.9 - Chronic obstructive pulmonary disease, unspecified Category: Medical Qualifiers: COPD type: unspecified COPD Qualified Code(s): J44.9 - Chronic obstructive pulmonary disease, unspecified (6) Diabetes mellitus: Code(s): E11.9 - Type 2 diabetes mellitus without complications Category: Medical Qualifiers: Diabetes mellitus type: type 2 Diabetes mellitus mcfp insulin use: without mcfp use Diabetes mellitus complication status: with hyperglycemia Qualified Code(s): E11.65 - Type 2 diabetes mellitus with hyperglycemia (7) Anemia of chronic disease: Code(s): D63.8 - Anemia in other chronic diseases classified elsewhere Category: Medical (8) Essential hypertension: Code(s): I10 - Essential (primary) hypertension Category: Medical (9) Dyslipidemia: Code(s): E78.5 - Hyperlipidemia, unspecified Category: Medical Plan The patient's scheduled colonoscopy is suspended until cardiac assessment and clearance are obtained due to ischemic changes noted on her EKG. She will attend a cardiology consultation to differentiate ischemic cardiac events from recent EKG changes. Hyperkalemia will be treated with a one-time medication, with repeat potassium levels scheduled in one week. Her anemia linked to chronic kidney disease will continue being observed by her deputy chief magistrate. She is advised to maintain her current medication regimen for hypertension and diabetes, considering her stable condition. The ongoing avoidance of ibuprofen is crucial due to its renal implications. Patient was informed and verbally consented to the use of an ambient scribe for clinic note documentation during this visit. I reviewed with the patient the importance of addressing her elevated potassium levels and potential ischemic changes on her EKG, both of which necessitate further evaluation before her colonoscopy. I emphasized that the cardiology referral needs prioritization to ensure her cardiac safety. We discussed her chronic conditions, including COPD, hypertension, and chronic kidney disease, focusing on medication compliance and associated health considerations. I clearly explained the risks of ibuprofen to her renal function, reinforcing that Tylenol is a safer alternative for her osteoporosis-related pain. We also discussed the benefits of cigarette smoking cessation, although she expressed no interest in quitting at this time. Coordination with her deputy chief magistrate and scheduling follow-up appointments were encouraged, stressing the importance of regular monitoring and timely intervention. Orders: Orders Potassium Today E87.5 - Hyperkalemia AMB Hemoglobin A1c Today E11.65 - Type 2 diabetes mellitus with hyperglycemia Referrals Cardiology Referral R94.31 - Abnormal electrocardiogram [ECG] [EKG] Medications: New sodium zirconium cyclosilicate (Lokelma) 5 grams PO DAILY 1 day 1 ea 0RF Patient Instructions: - Hold off on the scheduled colonoscopy until after cardiology evaluation. - Follow up with pneumatic tester for further cardiac assessment. - Take the prescribed potassium-lowering medication as instructed. - Return for lab work in one week to check potassium levels. - Avoid the use of ibuprofen for pain management. - Continue with prescribed COPD, blood pressure, diabetes, and cholesterol medications. - Schedule regular follow-ups with your kidney specialist.
[2024-09-17 08:26] VITALS: BP 138/62; PULSE 77; O2SAT 96; BMI 28.5
== END 2024-09-17 08:59 | disposition home or self-care (01) ==
LOC: HO.HMCH 08:13
PROVIDERS: PCP Internal Medicine; Visit Provider Internal Medicine
DX: Z01.818 Encounter for other preprocedural examination (principal); E87.5 Hyperkalemia; R94.31 Abnormal electrocardiogram [ECG] [EKG]; N18.4 Chronic kidney disease, stage 4 (severe); J44.9 Chronic obstructive pulmonary disease, unspecified; E11.65 Type 2 diabetes mellitus with hyperglycemia; D63.8 Anemia in other chronic diseases classified elsewhere; I12.9 Hypertensive chronic kidney disease with stage 1 through stage 4 chronic kidney disease, or unspecified chronic kidney disease; E78.5 Hyperlipidemia, unspecified

== ENCOUNTER → 2024-09-17 08:13 | Outpatient (BNVA) | payer MEDICARE, OTHER, SELFPAY | PROVIDERS: PCP Internal Medicine; Visit Provider Internal Medicine | DX: Z01.818 Encounter for other preprocedural examination (principal); E87.5 Hyperkalemia; R94.31 Abnormal electrocardiogram [ECG] [EKG]; I12.9 Hypertensive chronic kidney disease with stage 1 through stage 4 chronic kidney disease, or unspecified chronic kidney disease; E11.22 Type 2 diabetes mellitus with diabetic chronic kidney disease; N18.4 Chronic kidney disease, stage 4 (severe); D63.8 Anemia in other chronic diseases classified elsewhere; J44.9 Chronic obstructive pulmonary disease, unspecified; E11.65 Type 2 diabetes mellitus with hyperglycemia; E78.5 Hyperlipidemia, unspecified | CPT/HCPCS: 83036; 96127; 99212 ==

== ENCOUNTER 2024-10-09 12:55 | Outpatient (AMB) | payer MEDICARE, OTHER, SELFPAY ==
--- NOTE | 2024-10-09 13:01 | A.OFFVIS_ITS ---
Vital Signs 10/09/24 13:02 Height 5 ft 2 in Weight 159 lb 9.835 oz BMI 29.2 BP 140/60 H Blood Pressure Location Lt brachial Position Sitting Pulse 76 Pulse Source Monitor Intake Visit Reasons: [employer] [facility]ER/ Juvenal/ abn ekg Intake Note: [facility]/Juvenal/abn ekg Medical Insurance Coding Specialist Required: No Accompanied by: Self / Same As Patient Allergies No Known Allergies [No Known Allergies*] Allergy (Verified 09/17/24 08:37) Medication List - Last Reconciled 10/09/24 by Mark Gonzalez MD amlodipine 10 mg PO DAILY 30 days fluticasone furoate-vilanterol 50-25 mcg/dose (Breo Ellipta) 1 inh inhalation Q24H 30 days gabapentin 300 mg PO Q8H 90 days linagliptin (Tradjenta) 5 mg PO DAILY 30 days metformin 1,000 mg PO BID 90 days peg 3350-electrolytes 236-22.74-6.74 -5.86 gram (Golytely) 240 mL PO Q10M pravastatin 80 mg PO DAILY sodium zirconium cyclosilicate (Lokelma) 5 grams PO DAILY 1 day valsartan-hydrochlorothiazide 80-12.5 mg 1 tab PO DAILY 90 days Ventolin HFA 90 mcg/actuation (albuterol sulfate) 2 puffs inhalation Q6H PRN 30 days NS HPI Comments Details: Pleasant 74 year female who is here for 1st office visit. She has background history of chronic kidney disease, COPD, active smoker 1 pack per day (saying that she does not want to quit and does not want to discuss smoking cessation), diabetes and anemia of chronic disease. She had ECG performed on [id number] which showed sinus rhythm at 80 beats per minute, normal axis, inferior infarct with biphasic T-waves and reciprocal changes in 1 aVL. She does not remember why she had the ECG performed where it says this was a preop ECG. She does not remember what procedure she was getting. She is saying that when she does heavy work she gets some chest discomfort but in day-to-day life mostly she has not had any significant issues. Also in the time. She did not have any significant symptoms like sweating, chest discomfort or shortness of breath or any indigestion like feeling. Due to this abnormal ECG she is sent to us for further assessment. Repeat ECG in the office is showing inferior T- wave inversions without any significant Q-waves which makes 1 wonder whether she had occlusion of RCA with spontaneous recanalization. She is saying she has no significant symptoms but also discussing with our does not appear to be very active in her day-to-day life. She takes aspirin full dose from time to time but does not use it regularly. No bleeding issues. [facility] Medical History (Updated 10/09/24 @ 13:35 by Mark Gonzalez MD) COPD with acute exacerbation Urinary tract infection Acute bronchitis CKD (chronic kidney disease) stage 3, GFR 30-59 ml/min Anemia of chronic disease CKD (chronic kidney disease) Murmur Microalbuminuria Urge urinary incontinence Hypovitaminosis D Neuropathy Insomnia Diabetes mellitus Dyslipidemia Essential hypertension Surgical History History of tonsillectomy No pertinent past surgical history Family History Father Colon cancer Mother Lung cancer Social History Household Members: Family and Children Household Members Other:: son and grandson Housing: House Do you presently have visiting nurse or other home services: No Alcohol intake: never Patient Tobacco Use Status: Current everyday Tobacco user Tobacco use type: Cigarette Cigarette Packs Per Day: 1 e-Cigarette/Vaping Use: Never Used Second Hand Smoke Exposure: No Substance Use Type: Marijuana Advance Directives Date on File: 06/17/22 service: No Current occupational status: retired Cognitive needs: No Hearing needs: No Vision needs: No Review of Systems Const Denies chills, Denies fatigue, Denies fever(s), Denies frequent falls, Denies weakness, Denies weight gain and Denies weight loss ENT Denies dizziness Card Denies chest pain, Denies leg edema, Denies lightheadedness, Denies palpitations, Reports dyspnea, Reports dyspnea on exertion and Denies orthopnea Resp Denies cough, Reports dyspnea and Reports dyspnea on exertion GI Denies bloating and Denies change in bowel habits Musc Denies muscle weakness, Denies numbness and Denies tingling Neuro Denies dizziness, Denies frequent falls, Denies numbness, Denies tingling and Denies weakness Endo Denies fatigue and Denies palpitations Physical Exam Vital Signs: Last Vital Signs Pulse 76 10/09/24 13:02 BP 140/60 H 10/09/24 13:02 BMI result Body Mass Index 29.2 GENERAL APPEARANCE: in no acute distress, pleasant. NECK: Aortic stenosis murmur radiating to the carotids, no jugular venous distention. SKIN: no suspicious lesions, warm and dry. HEART: Ejection systolic murmur aortic area with a febrile 2nd heart sound, regular rate and rhythm. LUNGS: clear to auscultation bilaterally. ABDOMEN: soft, nontender. EXTREMITIES: no edema. PERIPHERAL PULSES: equal. NEUROLOGIC: No gross deficits, AAO X 3 Office Procedures EKG Details: Sinus rhythm 76 beats per minute, normal axis, inferior T-wave inversions, lateral T-wave inversions, concerning for ischemia, QTC 425 milliseconds. [id number], Complete Assessment & Plan Assessment & Plan (1) Aortic stenosis: Code(s): I35.0 - Nonrheumatic aortic (valve) stenosis Category: Medical (2) Abnormal EKG: Code(s): R94.31 - Abnormal electrocardiogram [ECG] [EKG] Category: Medical Plan Pleasant 74 year female who is here for 1st office visit. She had EKG performed during perioperative period in September 2024 which showed inferior Q-waves with subtle ST elevations and biphasic T-waves with reciprocal changes in 1 and aVL. It appears she did not have any further testing after that and was referred to us for further assessment. Her EKG in the office is currently showing inferior T-wave inversions without any significant Q-waves. She also has lateral T-wave inversions. She has a aortic stenosis murmur by examination. She is a heavy smoker and plans to smoke and does not want to quit. She has COPD, chronic kidney disease and diabetes. She has significant risk factors for coronary artery disease and I am concerned that she probably closed and open her right coronary artery or circumflex artery. She is denying any significant symptoms. I have proposed to her to undergo angiography and after understanding risks and benefits she has decided to proceed with that. We will arrange this as soon as we can. I will send her for echocardiography today to assess the aortic stenosis and to get more information about wall motion abnormality and PA pressures. I have advised her to start taking baby aspirin. She will pick it [id number] and start taking it. Once the angiogram is done I will do further medication changes including high-intensity statin therapy once we prove presence or absence of coronary disease. I will do some basic blood workup today too. Thank you for allowing me to participate in the care of your patient. Please feel free to contact me if you have any questions. Orders: Orders CA echo transthoracic complete Today R94.31 - Abnormal electrocardiogram [ECG] [EKG] Complete Blood Count no Diff Today I35.0 - Nonrheumatic aortic (valve) stenosis Troponin-I High Sensitivity Today I35.0 - Nonrheumatic aortic (valve) stenosis Cardiac Cath LT w PCI Today I35.0 - Nonrheumatic aortic (valve) stenosis B Type Natriuretic Peptide Today I35.0 - Nonrheumatic aortic (valve) stenosis Basic Metabolic Panel Today I35.0 - Nonrheumatic aortic (valve) stenosis Prothrombin Time INR Today I35.0 - Nonrheumatic aortic (valve) stenosis Coding Level of Care Code Est Pt Level 5 (29105) Diagnoses Aortic stenosis I35.0 Abnormal EKG R94.31 CPT Codes EKG - CPT: 68295-[id number], Complete ([id number])
[2024-10-09 13:02] VITALS: BP 140/60; PULSE 76; BMI 29.2
--- OUTSIDE RECORDS SUMMARY | 2024-10-09 15:34 | XMS_ITS | Clinical Summary ---
Author Organization [facility] Address [address] [place] [address] Phone Care Team Providers Care Manager Media Name Role Phone Ana Lanier MD Primary Care Provider [phone] Allergies No known active allergies Medications amLODIPine [...] of 2 - PCV) 1956 Influenza Vaccine (Season Ended) 2025 Hepatitis B Vaccine Aged Out No longe r eligible based on patient's age to complete this topic Insurance MEDICARE [facility] MEDICARE [facility] Care Teams Manager Media Relationship Specialty Start Date End Date Ana Lanier MD [address] [place], [place] PCP - General Internal Medicine 07/01/21
== END 2024-10-09 14:03 | disposition home or self-care (01) ==
LOC: HO.HCS 12:55
PROVIDERS: PCP Internal Medicine; Visit Provider Internal Medicine Cardiovascular Disease
DX: I35.2 Nonrheumatic aortic (valve) stenosis with insufficiency (principal); I35.8 Other nonrheumatic aortic valve disorders
CPT/HCPCS: 93306

== ENCOUNTER → 2024-10-09 12:55 | Outpatient (BNVA) | payer MEDICARE, OTHER, SELFPAY | PROVIDERS: PCP Internal Medicine; Visit Provider Internal Medicine Cardiovascular Disease | DX: Z13.89 Encounter for screening for other disorder (principal) ==

== ENCOUNTER → 2024-10-09 14:09 | Outpatient (REF) | payer MEDICARE, OTHER, SELFPAY ==
--- NOTE | 2024-10-09 14:13 | CA_ITS ---
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 There is normal left ventricular wall thickness. The left ventricular systolic function is mildly decreased. The visually estimated ejection fraction is between 40-45%. - Elevated filling pressures. - The inferolateral wall, the basal inferior, and mid inferior segments are akinetic. - Normal right ventricular cavity size and systolic function. - There is mild aortic valve stenosis. There is mild to moderate aortic valve regurgitation. - There is mild dilatation of the ascending aorta measuring 3.80 cm. Findings Procedure Information Contrast agent, definity, is being given per protocol without apparent complications. Left Ventricle Normal left ventricular cavity size. There is normal left ventricular wall thickness. The left ventricular systolic function is mildly decreased. The visually estimated ejection fraction is between 40-45%. There is evidence of regional wall motion abnormalities. Abnormal diastolic function is noted. Spectral Doppler is indicative of an impaired relaxation filling pattern. Elevated filling pressures. Wall Motion Rest Echo Findings The inferolateral wall, the basal inferior, and mid inferior segments are akinetic. Right Ventricle Normal right ventricular cavity size and systolic function. Atria The left atrium is mildly dilated. The right atrium is normal in size. Aortic Valve There is a normal trileaflet aortic valve. There is mild calcification of the aortic valve. There is mild aortic valve stenosis. There is mild to moderate aortic valve regurgitation. Mitral Valve The mitral valve appears normal. There is mild mitral annular calcification. There is mild mitral valve regurgitation. There is no mitral valve stenosis. Pulmonic Valve Normal pulmonic valve structure and function. There is no pulmonic valve regurgitation. Tricuspid Valve Normal tricuspid valve structure. There is trace tricuspid valve regurgitation. Moderately elevated right atrial pressure. There is no evidence of pulmonary hypertension. Great Vessels There is mild dilatation of the ascending aorta measuring 3.80 cm. The visualized portions of the pulmonary artery and branches are normal. Venous The inferior vena cava is dilated and collapses greater than 50% with inspiration. Pericardium/Pleural There is no evidence of pericardial effusion. Prior Study Comparison Changes noted compared to prior study dated: 05/24/2024. EF 40-45%, inferior and inferolateral wall motion abnormalities. Measurements 2D Linear Measurements IVSd: 0.98 0.6-0.9/0.6-1.0 cm LVIDd: 5.18 3.9-5.3/4.2-5.9 cm LVIDd Index: 2.99 2.4-3.2/2.2-3.1 cm/m2 LVIDs: 4.16 2.0-3.6 cm LVPWd: 0.80 0.7-1.1 cm LA Diam: 3.90 2.7-3.8/3.0-4.0 cm LAIDs Index: 2.25 1.5-2.3 cm/m2 LV Mass: 205.48 67-162/88-224 g LV Mass Index: 118.78 43-95/49-115 g/m2 LVOT Diam: 2.00 3.0+(-)1.3 cm 2D Systolic Function EF 4C: 37.20 >55% EF 2C: 43.40 >55% EF BiP: 39.60 >55% Mitral Valve MV Pk E: 0.88 MV PK A: 1.18 MV Decel Time: 229.00 E/A: 0.70 E'Lateral: 3.26 E'Medial: 3.37 E/E' Med: 26.10 E/E' Lat: 26.90 PHT: 67.00 MVA PHT: 3.28 Decel [place]: 3.84 Aortic Valve AoV Pk Daquan: 2.16 AoV Mn Daquan: 1.56 AoV VTI: 0.54 AoV Pk Grad: 19.00 Aov Mn Grad: 11.00 JOANN Cont.VTI: 1.45 AI Pk Daquan: 3.74 AI VTI: 1.60 AI [place]oke: 3.21 AI Alias Daquan: 0.39 AI RV - PISA: 26.00 ERO - PISA: 16.00 LVOT LVOT Pk Daquan: 0.94 LVOT Mn Daquan: 0.64 LVOT VTI: 0.25 LVOT Pk Grad: 4.00 LVOT Mn Grad: 2.00 LVOT Diam: 2.00 LVOT Area: 3.14 Diastolic Function MV Pk E: 0.88 MV Pk A: 1.18 E/A: 0.70 E'Medial: 3.37 E/E' Med: 26.10 E' Laterial: 3.26 E/E' Lat: 26.90 Right Ventricle TAPSE (mm): 20.00 TVS' Daquan: 12.40 Tricuspid Valve TR Pk Daquan: 2.28 TR Pk Grad: 21.00 RA Press: 8.00 RVSP: 29.00 Great Vessels Aorta Sinus of Valsalva: 3.13 2.0-3.5 cm Ao Asc: 3.80 2.1-3.4 cm Updated in Other Vendor System with Status of Final Mark Gonzalez MD electronically signed on 10/09/2024 11:04:43 PM with status of Final
[2024-10-09 15:28] LABS: MANUAL DIFF FLAG NO
[2024-10-09 15:31] LABS: White Blood Count 8.7 X10*3/uL (4.8-10.8)
[2024-10-09 15:32] LABS: Basophils Absolute Auto 0.1 X10*3/uL (0.0-0.2); Basophils Percent Auto 0.7 % (0-2); Eosinophils Absolute Auto 0.2 X10*3/uL (0.0-0.4); Eosinophils Percent Auto 2.3 % (0-4); Hematocrit 32.4 % (37.0-47.0); Hemoglobin 10.4 g/dl (12.0-16.0); Imm Gran Abs Auto 0.03 X10*3/uL (0.00-0.03); Imm Gran Pct Auto 0.3 % (0.0-0.4); Lymphocytes Absolute Auto 2.4 X10*3/uL (1.2-4.9); Mean Corpuscular HGB Conc 32.1 g/dl (31.0-35.0); Mean Corpuscular Volume 93.4 fL (80.0-98.0); Mean Platelet Volume 9.6 fL (9.4-12.3); Monocytes Absolute Auto 0.6 X10*3/uL (0.1-1.2); Neutrophils Absolute Auto 5.5 x10*3/uL (2.0-8.3); Neutrophils Percent Auto 62.7 % (45-73); Platelet Count 224 X10*3/uL (160-400); Red Blood Count 3.47 X10*6/uL (4.20-5.50); Red Cell Distribution Width 14.2 % (11.0-16.0)
[2024-10-09 15:36] LABS: INTERNATIONAL NORM RATIO 0.9 (0.9-1.1); Prothrombin Time 10.5 SEC (10.9-12.4)
[2024-10-09 16:04] LABS: Troponin-I High Sensitivity 17.3 ng/L (<3.5-17.0)
[2024-10-09 16:17] LABS: Appearance Urine Clear; Color Urine Yellow; Glucose Urine UA Negative (Negative); Leukocyte Esterase Urine Negative (Negative); Nitrite Urine Negative (Negative); PH 5.5 (5.0-9.0); Specific Gravity - Urine 1.015 (1.005-1.025); UMIC TRIGGER UACC YES; Urine Blood Negative (Negative); Urine Ketones Negative (Negative); Urine Protein 300 (3+) mg/dL (Neg-Trace)
[2024-10-09 16:20] LABS: Vitamin D 25-OH Total 23.5 ng/mL (>30)
[2024-10-09 16:23] LABS: Bacteria Urine None Seen (None Seen); RBC Urine 0-2 /HPF (0-2); Squamous Epithelial Cell Urine 0-2 /HPF (0-2); WBC Urine 0-5 /HPF (0-5)
[2024-10-09 16:35] LABS: Alanine Aminotransferase 13 U/L (0-31); Albumin Level 4.1 g/dL (3.5-5.0); Alkaline Phosphatase 79 U/L (39-117); Anion Gap 11 (12-20); Aspartate Amino Transferase 16 U/L (5-31); Bilirubin Total 0.2 mg/dL (0.0-1.0); Blood Urea Nitrogen 30 mg/dL (9-16); Calcium 9.2 mg/dL (8.4-10.2); Carbon Dioxide 20 mmol/L (22-29); Chloride 114 mmol/L (96-108); Cholesterol 183 mg/dL (<200); Estimated Glomerular Filt Rate 33; Glucose Fasting 121 mg/dL (60-99); Glucose Random 120 mg/dL (60-115); HDL Cholesterol 74 mg/dL (>40); LDL Cholesterol Calculated 66 mg/dL (<100); Sodium 140 mmol/L (135-145); Total Protein 7.3 g/dL (6.5-8.0); Triglycerides 217 mg/dL (<150)
[2024-10-09 16:36] LABS: B Type Natriuretic Peptide 352 pg/mL (<100)
[2024-10-09 16:57] LABS: Creatinine Urine 71.35 mg/dL
[2024-10-09 17:02] LABS: Microalbumin Urine > 2000.0 mg/L
--- OUTSIDE RECORDS SUMMARY | 2024-10-09 17:16 | XMS_ITS | Clinical Summary ---
Author Organization [facility] Address [address] [place] [address] Phone Care Team Providers Care Automotive Finance Manager Name Role Phone Ana Lanier MD Primary Care Provider [phone] Allergies No known active allergies Medications amLODIPine [...] age to complete this topic Insurance MEDICARE [facility] MEDICARE [facility] Care Teams Automotive Finance Manager Relationship Specialty Start Date End Date Ana Lanier MD [address] [place], [place] PCP - General Internal Medicine 07/01/21
[2024-10-10 05:37] LABS: NT-proBNP 4544 pg/mL (<450)
[2024-10-11 21:04] LABS: Alkaline Phosphatase Bone 10.3 mcg/L (5.6-29.0)
== END ==
LOC: HO.CARD 14:09
PROVIDERS: Student in an Organized Health Care Education/Training Program; Absent Provider Internal Medicine; PCP Internal Medicine; Visit Provider Internal Medicine Cardiovascular Disease
DX: R01.1 Cardiac murmur, unspecified (principal); I35.0 Nonrheumatic aortic (valve) stenosis; M81.0 Age-related osteoporosis without current pathological fracture; N18.30 Chronic kidney disease, stage 3 unspecified; E11.9 Type 2 diabetes mellitus without complications; E78.5 Hyperlipidemia, unspecified; E55.9 Vitamin D deficiency, unspecified; R94.31 Abnormal electrocardiogram [ECG] [EKG]
CPT/HCPCS: 36415; 80048; 80053; 80061; 81001; 82043; 82306; 82570; 83880; 84075; 84484; 85025; 85610; 93306; Q9957

== ENCOUNTER → 2024-10-11 23:59 | Outpatient (BNV) | payer MEDICARE, OTHER, SELFPAY | PROVIDERS: PCP Internal Medicine; Visit Provider Internal Medicine Cardiovascular Disease | DX: I20.89 Other forms of angina pectoris (principal); I25.84 Coronary atherosclerosis due to calcified coronary lesion | CPT/HCPCS: 92928; 93458; 99152 ==

== ENCOUNTER 2024-10-25 10:07 | Outpatient (AMB) | payer MEDICARE, OTHER, SELFPAY ==
[2024-10-25 10:42] VITALS: BP 148/52; BMI 27.8
--- NOTE | 2024-10-25 10:42 | A.OFFVIS_ITS ---
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 Hand Required: No Allergies No Known Allergies [No Known Allergies*] Allergy (Verified 10/25/24 10:45) Medication List - Last Reconciled 10/25/24 by LIS Hobbs amlodipine 10 mg PO DAILY 30 days fluticasone furoate-vilanterol 50-25 mcg/dose (Breo Ellipta) 1 inh inhalation Q24H 30 days gabapentin 300 mg PO Q8H 90 days linagliptin (Tradjenta) 5 mg PO DAILY 30 days metformin 1,000 mg PO BID 90 days peg 3350-electrolytes 236-22.74-6.74 -5.86 gram (Golytely) 240 mL PO Q10M pravastatin 80 mg PO DAILY sodium zirconium cyclosilicate (Lokelma) 5 grams PO DAILY 1 day valsartan-hydrochlorothiazide 80-12.5 mg 1 tab PO DAILY 90 days Ventolin HFA 90 mcg/actuation (albuterol sulfate) 2 puffs inhalation Q6H PRN 30 days NS HPI HPI 2 wk s/p cath KM: Details: Mary is a 74-year-old female with past medical history of diabetes, hyperlipidemia, chronic kidney disease, smoking, COPD, mild aortic stenosis, abnormal EKG who was recently evaluated for abnormal EKG with inferior T-wave inversions with a cardiac catheterization showing significant two-vessel disease. She had a stent placed to the proximal RCA. She continues to have residual proximal LAD stenosis. She was started on aspirin and Brilinta and now presents for follow-up. Today she reports she has been doing well since her cardiac catheterization. Her right radial catheterization site feels good. She notices increased energy and activity tolerance. Prior to her procedure she says she was not getting chest discomfort. She has some mild exertional shortness of breath which she relates to smoking. This symptom is overall unchanged. No PND, orthopnea or edema. No lightheadedness, presyncope, syncope, falls. Compliant with meds. She has some bruising but no bleeding issues reported. She has been doing light activities only. She declines cardiac rehab. [facility] Medical History COPD with acute exacerbation Urinary tract infection Acute bronchitis CKD (chronic kidney disease) stage 3, GFR 30-59 ml/min Anemia of chronic disease CKD (chronic kidney disease) Murmur Microalbuminuria Urge urinary incontinence Hypovitaminosis D Neuropathy Insomnia Diabetes mellitus Dyslipidemia Essential hypertension Surgical History History of tonsillectomy No pertinent past surgical history Family History Father Colon cancer Mother Lung cancer Social History Household Members: Family and Children Household Members Other:: son and grandson Housing: House Do you presently have visiting nurse or other home services: No Alcohol intake: never Patient Tobacco Use Status: Current everyday Tobacco user Tobacco use type: Cigarette Cigarette Packs Per Day: 1 e-Cigarette/Vaping Use: Never Used Second Hand Smoke Exposure: No Substance Use Type: Marijuana Advance Directives Date on File: 06/17/22 service: No Current occupational status: retired Cognitive needs: No Hearing needs: No Vision needs: No Review of Systems Const All systems reviewed & are unremarkable except as noted in HPI and below ENT Denies dizziness Card Denies chest pain, Denies chest pain at rest, Denies chest pain with activity, Denies rapid heart rate, Denies pedal edema, Denies edema, Denies leg edema, Denies lightheadedness, Denies palpitations, Denies dyspnea, Denies dyspnea on exertion and Denies orthopnea Resp Denies cough, Denies dyspnea and Denies dyspnea on exertion GI Denies hematochezia and Denies change in stool character Musc Denies abnormal gait, Denies limited range of motion, Denies muscle cramps, Denies muscle weakness, Denies numbness, Denies radiating pain into limb, Denies stiffness and Denies tingling Neuro Denies abnormal gait, Denies dizziness, Denies numbness and Denies tingling Endo Denies palpitations Physical Exam Vital Signs: Last Vital Signs BP 148/52 H 10/25/24 10:42 BMI result Body Mass Index 27.8 Const General: cooperative, healthy appearing, comfortable and no acute distress Orientation/consciousness: patient oriented x3 Neck Neck: Yes normal visual inspection and Yes no JVD Resp Effort & Inspection: normal respiratory effort Auscultation: clear to auscultation bilaterally, no rales, no rhonchi and no wheezes Cardio Rate: regular rate Rhythm: regular rhythm Heart sounds: S1 normal heart sound present, S2 normal heart sound present, Murmur heart sound present (2/6 systolic right and left sternal border) and no rubs Neuro General: patient oriented x3 Extrem Other: right radial cath site well healed, resolving ecchimosis present General: Yes normal to inspection, No no pedal edema and No calf tenderness Psych Appearance: grossly normal Mental Status: mental status grossly normal Speech and movement: Normal speech and movement present Results Reviewed Results Reviewed: - Cardiac catheterization 10/11/2024 plaque rupture proximal LAD with thrombus as well as mid LAD severe stenosis, 85%, RCA proximal 90% stenosis, right coronary dominant system, KEV placed to the RCA Assessment & Plan Assessment & Plan (1) CAD (coronary artery disease): Code(s): I25.10 - Atherosclerotic heart disease of [place] coronary artery without angina pectoris Category: Medical Plan: Patient has abnormal EKG with T-wave abnormality inferiorly. An echocardiogram done 10/09/2024 showed EF 40-45% with inferior wall motion abnormality. She then had cardiac catheterization showing significant LAD and RCA stenosis. A KEV was placed to the RCA. Currently no anginal symptoms. She declines cardiac rehab. Will have her continue aspirin indefinitely. Continue Brilinta 90 mg b.i.d. uninterrupted for at least 1 year post stent. Continue pravastatin with ideal LDL goal less than 70. Blood pressure mildly elevated today. Will start on metoprolol XL 25 mg daily. (2) S/P cardiac cath: Comment: - Cardiac catheterization 10/11/2024 plaque rupture proximal LAD with thrombus as well as mid LAD severe stenosis, 85%, RCA proximal 90% stenosis, right coronary dominant system, KEV placed to the RCA Code(s): Z98.890 - Other specified postprocedural states Category: Surgical Plan: Right radial catheterization site healing well, easily palpable radial pulse, resolving ecchymosis present (3) Aortic stenosis: Code(s): I35.0 - Nonrheumatic aortic (valve) stenosis Category: Medical Plan: Echo 10/09/2024 shows mild . Heart murmur noted on exam. Will plan for repeat echo in 1 year to re-evaluate. (4) Essential hypertension: Code(s): I10 - Essential (primary) hypertension Category: Medical Plan: Blood pressure goal less than 130/80. Elevated at this visit. Will start metoprolol XL 25 mg daily. Continue amlodipine and valsartan/hydrochlorothiazide. (5) Hyperlipidemia: Code(s): E78.5 - Hyperlipidemia, unspecified Category: Medical Plan: [place] LDL goal less than 70. Labs done 10/09/2024 shows LDL 66. Continue pravastatin. Plan Time spent on chart review, documentation, interview and assessment During this follow-up, I reviewed with the patient her condition post-stenting and reinforcement of medical management strategies. Discussion included the importance of continued antiplatelet therapy and regular monitoring for symptoms indicative of aggravated ischemia, especially considering the significant stenosis in the left coronary artery. We covered the rationale and benefit of medical management over immediate further invasive procedures, inclusive of its potential risks versus intervention benefits. Emphasized the importance of continued efforts towards smoking cessation for cardiovascular benefits. Discussed the follow-up timeframe and reasons to contact medical providers if new symptoms arise. Medications: New aspirin 81 mg PO DAILY ticagrelor (Brilinta) 90 mg PO BID 60 tabs 11RF metoprolol succinate ER 25 mg PO DAILY 30 tabs 5RF Patient Instructions: - Continue medications as prescribed including Aspirin and Ticagrelor. - Monitor for any symptoms like chest pain or shortness of breath and contact healthcare provider. - Maintain efforts to quit smoking. - Keep blood pressure under control and follow dietary recommendations. - Return for follow-up as directed by your healthcare provider or sooner if symptoms change. - Rest and engage in light activity as tolerated without overexertion. Coding Level of Care Code Est Pt Level 4 (45246) Complex EM visit Add On G2211 Diagnoses CAD (coronary artery disease) I25.10 S/P cardiac cath Z98.890 Aortic stenosis I35.0 Essential hypertension I10 Hyperlipidemia E78.5 Time Spent (min) 28
--- OUTSIDE RECORDS SUMMARY | 2024-10-25 11:37 | XMS_ITS | Clinical Summary ---
Author Organization [facility] Address [address] [place] [address] Phone Care Team Providers Care Inspector Screen Printing Name Role Phone Ana Lanier MD Primary Care Provider [phone] Allergies No known active allergies Medications amLODIPine [...] Due Date Last Done Comments Pneumococcal Vaccine: 50+ Ye ars (1 of 2 - PCV) 1967 Influenza Vaccine (Season Ended) 2025 Hepatitis B Vaccine Aged Out No longe r eligible based on patient's age to complete this topic Insurance Medicare [facility] Medicare [facility] Care Teams Inspector Screen Printing Relationship Specialty Start Date End Date Ana Lanier MD [address] [place], [place] PCP - General Internal Medicine 07/01/21
== END 2024-10-25 11:24 | disposition home or self-care (01) ==
LOC: HO.HCS 10:07
PROVIDERS: PCP Internal Medicine; Visit Provider Nurse Practitioner Family
DX: I25.10 Atherosclerotic heart disease of native coronary artery without angina pectoris (principal); Z98.890 Other specified postprocedural states; I35.0 Nonrheumatic aortic (valve) stenosis; I10 Essential (primary) hypertension; E78.5 Hyperlipidemia, unspecified
CPT/HCPCS: 99214; G2211

== ENCOUNTER → 2024-10-25 10:07 | Outpatient (BNVA) | payer MEDICARE, OTHER, SELFPAY | PROVIDERS: PCP Internal Medicine; Visit Provider Nurse Practitioner Family | DX: I25.10 Atherosclerotic heart disease of native coronary artery without angina pectoris (principal); I35.0 Nonrheumatic aortic (valve) stenosis; I12.9 Hypertensive chronic kidney disease with stage 1 through stage 4 chronic kidney disease, or unspecified chronic kidney disease; E11.22 Type 2 diabetes mellitus with diabetic chronic kidney disease; N18.9 Chronic kidney disease, unspecified; E78.5 Hyperlipidemia, unspecified; Z98.890 Other specified postprocedural states | CPT/HCPCS: 99212 ==

== ENCOUNTER 2025-01-24 09:25 | Outpatient (AMB) | payer MEDICARE, OTHER, SELFPAY ==
--- NOTE | 2025-01-24 09:34 | MHC.OFFVIS ---
Vital Signs 01/24/25 09:36 Height 5 ft 2 in Weight 155 lb 10.342 oz BMI 28.5 BP 140/60 H Blood Pressure Location Lt brachial Position Sitting Pulse 71 Pulse Source Pulse Oximeter Intake Visit Reasons: 3m follow up Intake Note: 3 mth Burlap Spreader Required: No Accompanied by: Self / Same As Patient Allergies No Known Allergies (No Known Allergies*) Allergy (Verified 10/25/24 10:45) Medication List - Last Reconciled 01/24/25 by POOL HobbsC amlodipine 10 mg PO DAILY 30 days aspirin 81 mg PO DAILY fluticasone furoate-vilanterol 50-25 mcg/dose (Breo Ellipta) 1 inh inhalation Q24H 30 days gabapentin 300 mg PO Q8H 90 days linagliptin (Tradjenta) 5 mg PO DAILY 30 days metformin 1,000 mg PO BID 90 days metoprolol succinate ER 25 mg PO DAILY pravastatin 80 mg PO DAILY ticagrelor (Brilinta) 90 mg PO BID valsartan-hydrochlorothiazide 80-12.5 mg 1 tab PO DAILY 90 days Ventolin HFA 90 mcg/actuation (albuterol sulfate) 2 puffs inhalation Q6H PRN 30 days NS HPI HPI 3m follow up: Details: Mary is a 74-year-old female with past medical history of diabetes, hyperlipidemia, chronic kidney disease, smoking, COPD, mild aortic stenosis, abnormal EKG who was recently evaluated for abnormal EKG with inferior T-wave inversions with a cardiac catheterization showing significant two-vessel disease. She had a stent placed to the proximal RCA. She continues to have residual proximal LAD stenosis. She was started on aspirin and Brilinta. Today she reports she has been doing well since last visit in October. She does not have any chest discomfort at rest or with activity. Prior to her procedure she says she was not getting chest discomfort. She has some mild exertional shortness of breath which she relates to smoking and is unchanged recently. No PND, orthopnea. She is noticing some newer leg edema. She admits to eating a high salt diet including ham stakes, ham salad and add salt to her food. No lightheadedness, presyncope, syncope, falls. Compliant with meds. She has easy bruising on her arms. Does light activities only. She previously declined cardiac rehab. Taking all her meds as directed. [facility] Medical History COPD with acute exacerbation Urinary tract infection Acute bronchitis CKD (chronic kidney disease) stage 3, GFR 30-59 ml/min Anemia of chronic disease CKD (chronic kidney disease) Murmur Microalbuminuria Urge urinary incontinence Hypovitaminosis D Neuropathy Insomnia Diabetes mellitus Dyslipidemia Essential hypertension Surgical History History of tonsillectomy No pertinent past surgical history Family History Father Colon cancer Mother Lung cancer Social History Household Members: Family and Children Household Members Other:: son and grandson Housing: House Do you presently have visiting nurse or other home services: No Alcohol intake: never Patient Tobacco Use Status: Current everyday Tobacco user Tobacco use type: Cigarette Cigarette Packs Per Day: 1 e-Cigarette/Vaping Use: Never Used Second Hand Smoke Exposure: No Substance Use Type: Marijuana Advance Directives Date on File: 06/17/22 service: No Current occupational status: retired Cognitive needs: No Hearing needs: No Vision needs: No Review of Systems Const All systems reviewed & are unremarkable except as noted in HPI and below Denies chills, Denies fatigue, Denies fever(s), Denies frequent falls, Denies weakness, Denies weight gain and Denies weight loss ENT Denies dizziness Card Denies chest pain, Reports pedal edema, Reports leg edema, Denies lightheadedness, Denies palpitations, Denies dyspnea and Denies dyspnea on exertion Resp Denies cough, Denies dyspnea and Denies dyspnea on exertion GI Denies hematochezia Musc Denies abnormal gait, Denies muscle weakness, Denies numbness, Denies radiating pain into limb and Denies tingling Neuro Denies abnormal gait, Denies dizziness, Denies frequent falls, Denies numbness, Denies tingling and Denies weakness Endo Denies fatigue and Denies palpitations Physical Exam Vital Signs: Last Vital Signs Pulse 71 01/24/25 09:36 BP 140/60 H 01/24/25 09:36 BMI result Body Mass Index 28.5 Const General: cooperative, healthy appearing, comfortable and no acute distress Orientation/consciousness: patient oriented x3 Neck Neck: Yes normal visual inspection and Yes no JVD Resp Effort & Inspection: normal respiratory effort Auscultation: clear to auscultation bilaterally, no rales, no rhonchi and no wheezes Cardio Rate: regular rate Rhythm: regular rhythm Heart sounds: S1 normal heart sound present, S2 normal heart sound present, Murmur heart sound present (2/6 systolic right and left sternal border) and no rubs Neuro General: patient oriented x3 Extrem Other: bilateral lower leg edema, +1 General: Yes normal to inspection, No calf tenderness and Yes pedal edema Psych Appearance: grossly normal Mental Status: mental status grossly normal Speech and movement: Normal speech and movement present Assessment & Plan Assessment & Plan (1) CAD (coronary artery disease): Code(s): I25.10 - Atherosclerotic heart disease of [place] coronary artery without angina pectoris Category: Medical Plan: Patient has abnormal EKG with T-wave abnormality inferiorly. An echocardiogram done 10/09/2024 showed EF 40-45% with inferior wall motion abnormality. She then had cardiac catheterization showing significant LAD and RCA stenosis. A KEV was placed to the RCA. Currently no anginal symptoms. Will have her continue aspirin indefinitely. Continue Brilinta 90 mg b.i.d. uninterrupted for at least 1 year post stent. Continue pravastatin with ideal LDL goal less than 70. Continue metoprolol XL 25 mg daily. Signs and symptoms of angina reviewed with her. (2) S/P cardiac cath: Comment: - Cardiac catheterization 10/11/2024 plaque rupture proximal LAD with thrombus as well as mid LAD severe stenosis, 85%, RCA proximal 90% stenosis, right coronary dominant system, KEV placed to the RCA Code(s): Z98.890 - Other specified postprocedural states Category: Surgical Plan: As above (3) Aortic stenosis: Code(s): I35.0 - Nonrheumatic aortic (valve) stenosis Category: Medical Plan: Echo 10/09/2024 shows mild . Heart murmur noted on exam. Will plan for repeat echocardiogram in 1 year to re-evaluate. (4) Essential hypertension: Code(s): I10 - Essential (primary) hypertension Category: Medical Plan: Blood pressure goal less than 130/80. Mildly Elevated at this visit. She does have mild bilateral lower leg edema. She is currently on valsartan/hydrochlorothiazide 80/12.5. Will separate and have her continue valsartan 80 mg daily and increase hydrochlorothiazide up to 25 mg daily. Labs from 10/09/2024 showed creatinine 1.55, potassium 5. Continue metoprolol, amlodipine. Amlodipine can be contributing to her edema also very hot weather, sedentary lifestyle. Reviewed the need for a low-salt diet and she states she will cut back. (5) Hyperlipidemia: Code(s): E78.5 - Hyperlipidemia, unspecified Category: Medical Plan: [place] LDL goal less than 70. Labs done 10/09/2024 shows LDL 66. Continue pravastatin. Plan Time spent on chart review, documentation, interview and assessment Medications: New valsartan changed to separate tab 80 mg PO DAILY 90 tabs 1RF hydrochlorothiazide changed to separate pill and dose increased 25 mg PO DAILY 30 tabs 3RF 30 days Discontinued valsartan-hydrochlorothiazide 80-12.5 mg Discontinued Reason: Doctor's Order 1 tab PO DAILY 90 days 90 tabs 6RF Coding Level of Care Code Est Pt Level 4 (33439) Complex EM visit Add On G2211 Diagnoses CAD (coronary artery disease) I25.10 S/P cardiac cath Z98.890 Aortic stenosis I35.0 Essential hypertension I10 Hyperlipidemia E78.5 Time Spent (min) 28
[2025-01-24 09:36] VITALS: BP 140/60; PULSE 71; BMI 28.5
--- OUTSIDE RECORDS SUMMARY | 2025-01-24 09:58 | XMS_ITS | Clinical Summary ---
Author Organization [facility] Address [address] [place] [address] Phone Care Team Providers Care Dip Tanker Name Role Phone Ana Lanier MD Primary Care Provider [phone] Allergies No known active allergies Medications amLODIPine [...] of 2 - PCV) 1969 Influenza Vaccine (#1) 2025 Hepatitis B Vaccine Aged Out No longe r eligible based on patient's age to complete this topic Insurance Medicare [facility] Medicare [facility] Care Teams Dip Tanker Relationship Specialty Start Date End Date Ana Lanier MD [address] [place], [place] PCP - General Internal Medicine 07/01/21
== END 2025-01-24 10:07 | disposition home or self-care (01) ==
LOC: HO.HCS 09:26
PROVIDERS: PCP Internal Medicine; Visit Provider Nurse Practitioner Family
DX: I25.10 Atherosclerotic heart disease of native coronary artery without angina pectoris (principal); Z98.890 Other specified postprocedural states; I35.0 Nonrheumatic aortic (valve) stenosis; I10 Essential (primary) hypertension; E78.5 Hyperlipidemia, unspecified
CPT/HCPCS: 99214; G2211

== ENCOUNTER → 2025-01-24 09:25 | Outpatient (BNVA) | payer MEDICARE, OTHER, SELFPAY | PROVIDERS: PCP Internal Medicine; Visit Provider Nurse Practitioner Family | DX: I25.10 Atherosclerotic heart disease of native coronary artery without angina pectoris (principal); I35.0 Nonrheumatic aortic (valve) stenosis; I10 Essential (primary) hypertension; E78.5 Hyperlipidemia, unspecified; Z98.890 Other specified postprocedural states | CPT/HCPCS: 99212 ==

== ENCOUNTER 2025-02-11 10:41 | Outpatient (AMB) | payer MEDICARE, OTHER, SELFPAY ==
[2025-02-11 10:44] VITALS: BP 168/52; PULSE 67; O2SAT 98; BMI 28.7
--- NOTE | 2025-02-11 10:44 | HO.NEPHOV_ITS ---
Vital Signs 02/11/25 10:44 Height 5 ft 2 in Weight 157 lb BMI 28.7 BP 168/52 H Blood Pressure Location Lt brachial Position Sitting Pulse 67 Pulse Source Pulse Oximeter Pulse Oximetry (%) 98 Oxygen Delivery Method Room Air Intake Visit Reasons: 4-5 months fu/ Conf Fourth Officer Required: No Accompanied by: Self / Same As Patient Allergies No Known Allergies (No Known Allergies*) Allergy (Verified 02/11/25 10:46) Medication List - Last Reconciled 02/11/25 by Emory Martinez MD amlodipine 10 mg PO DAILY 30 days aspirin 81 mg PO DAILY fluticasone furoate-vilanterol 50-25 mcg/dose (Breo Ellipta) 1 inh inhalation Q24H 30 days gabapentin 300 mg PO Q8H 90 days hydrochlorothiazide 25 mg PO DAILY 30 days linagliptin (Tradjenta) 5 mg PO DAILY 30 days metformin 1,000 mg PO BID 90 days metoprolol succinate ER 25 mg PO DAILY pioglitazone 15 mg PO DAILY pravastatin 80 mg PO DAILY ticagrelor (Brilinta) 90 mg PO BID valsartan 80 mg PO DAILY Ventolin HFA 90 mcg/actuation (albuterol sulfate) 2 puffs inhalation Q6H PRN 30 days NS HPI Comments Details: Mary is a pleasant 72-year-old woman with a history of longstanding hypertension and diabetes mellitus with stage III A chronic kidney disease. She has a history of hyperkalemia while she was on lisinopril 40 mg q.d. Lisinopril was switched to Diovan head CT and she has been able to tolerate this very well. She has no new complaints today. Of note she has been taking ibuprofen 800 mg 2 tabs as needed. She has been doing this for quite some time. She was prescribed Farxiga but she is unable to take it due to cost issues. She has a history of COPD. However she has no significant respiratory issues and she has not needed the inhalers. 10/10/23 Here for follow up c/o pain left flank ;Recently treated with antibiotics for UTI ;Blood sugar sub optimal with A1C 9% ;Cr is up to 1.56 04/23/24 Continues to have back pain ;Radiates down legs ;NO urinary symptoms 08/30/24 Still with back pain. Worse at night ; Waiting for Colonoscopy in 02/11/25 c/o back pain radiating to legs HCTZ has been added. Leg edema improved with HCTZ Admits to eating more salt PFSH Medical History COPD with acute exacerbation Urinary tract infection Acute bronchitis CKD (chronic kidney disease) stage 3, GFR 30-59 ml/min Anemia of chronic disease CKD (chronic kidney disease) Murmur Microalbuminuria Urge urinary incontinence Hypovitaminosis D Neuropathy Insomnia Diabetes mellitus Dyslipidemia Essential hypertension Surgical History (Updated 02/11/25 @ 10:55 by AMANDA Grider) History of heart artery stent (~05/2024) History of tonsillectomy No pertinent past surgical history Family History Father Colon cancer Mother Lung cancer Social History Household Members: Family and Children Household Members Other:: son and grandson Housing: House Do you presently have visiting nurse or other home services: No Alcohol intake: never Patient Tobacco Use Status: Current everyday Tobacco user Tobacco use type: Cigarette Cigarette Packs Per Day: 1 e-Cigarette/Vaping Use: Never Used Second Hand Smoke Exposure: No Substance Use Type: Marijuana Advance Directives Date on File: 06/17/22 service: No Current occupational status: retired Cognitive needs: No Hearing needs: No Vision needs: No Physical Exam Vital Signs: Last Vital Signs Pulse 67 02/11/25 10:44 BP 168/52 H 02/11/25 10:44 Pulse Ox 98 02/11/25 10:44 Oxygen Delivery Method Room Air 02/11/25 10:44 BMI result Body Mass Index 28.7 Const General: comfortable; No acute distress Orientation/consciousness: patient oriented x3 Eyes General: appearance normal, both eyes and all related structures Visual Rhodes: normal visual rhodes by confrontation Neck Neck: Yes supple and Yes no JVD Resp Effort & Inspection: normal respiratory effort and respiratory effort not decreased Cardio Palpation: no palpable S3 and no palpable S4 Heart sounds: no rubs GI Inspection: Yes normal to inspection Palpation (GI): Soft to palpation Percussion: Yes normal to percussion Auscultation: normal bowel sounds General: Yes no CVA tenderness Back/Spine/Pelvis Back: no CVA tenderness Skin General skin exam: no petechiae and no purpura Neuro General: patient oriented x3 and no focal motor deficits Extrem General: No clubbing and No edema Results Reviewed Nephrology Results: Hgb, (12.0-16.0) 10.4 g/dl L 10/09/24 WBC, (4.8-10.8) 8.7 X10*3/uL 10/09/24 Plt Count, (160-400) 224 X10*3/uL 10/09/24 Sodium, (135-145) 140 mmol/L 10/09/24 Potassium, (3.3-5.1) 5.0 mmol/L 10/09/24 Chloride, (96-108) 114 mmol/L H 10/09/24 Carbon Dioxide, (22-29) 20 mmol/L L 10/09/24 BUN, (9-16) 30 mg/dL H 10/09/24 Creatinine, (0.5-1.4) 1.55 mg/dL H 10/09/24 Calcium, (8.4-10.2) 9.2 mg/dL 10/09/24 Urine Protein, (Neg-Trace) 300 (3+) mg/dL H 10/09/24 Urine Creatinine 71.35 mg/dL 10/09/24 Renal US 12/23/23 Assessment & Plan Assessment & Plan (1) CKD (chronic kidney disease) stage 3, GFR 30-59 ml/min: Code(s): N18.30 - Chronic kidney disease, stage 3 unspecified Category: Medical Qualifiers: Chronic kidney disease stage 3 subtype: stage 3b (GFR 30-44) Qualified Code(s): N18.32 - Chronic kidney disease, stage 3b (2) Hyperkalemia: Code(s): E87.5 - Hyperkalemia Category: Medical (3) Essential hypertension: Code(s): I10 - Essential (primary) hypertension Category: Medical (4) COPD (chronic obstructive pulmonary disease): Code(s): J44.9 - Chronic obstructive pulmonary disease, unspecified Category: Medical Qualifiers: COPD type: unspecified COPD Qualified Code(s): J44.9 - Chronic obstructive pulmonary disease, unspecified (5) CKD (chronic kidney disease) stage 4, GFR 15-29 ml/min: Code(s): N18.4 - Chronic kidney disease, stage 4 (severe) Category: Medical Plan Mary has stage 3 chronic kidney disease in the setting of longstanding hypertension and diabetes mellitus. The renal function is close to baseline now . Goal is to slow the progression of renal disease. 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 Avoid nephrotoxins including NSAIDS Renal function is at baseline NEphrotic range proteinuria due to diabetic kidney disease Will recheck today Hypertension : blood pressure is sub optimal Hypervolemia coudl be contributing KEep HCTZ LOW salt diet History of hyperkalemia. Resolved after stopping NSAIDS Encouraged her to stay on low-potassium diet as well. COPD which seems well controlled. No intention to quit smoking Orders: Orders Basic Metabolic Panel Today I10 - Essential (primary) hypertension, N18.4 - Chronic kidney disease, stage 4 (severe) Coding Level of Care Code Est Pt Level 4 (24648) Diagnoses Stage 3b chronic kidney disease N18.32 Chronic kidney disease stage 3 subtype: stage 3b (GFR 30-44) Hyperkalemia E87.5 Essential hypertension I10 Chronic obstructive pulmonary disease, unspecified COPD type J44.9 COPD type: unspecified COPD CKD (chronic kidney disease) stage 4, GFR 15-29 ml/min N18.4
--- OUTSIDE RECORDS SUMMARY | 2025-02-11 11:24 | XMS_ITS | Clinical Summary ---
Author Organization [facility] Address [address] [place] [address] Phone Care Team Providers Care Cell Assembly Pinner Name Role Phone Ana Lanier MD Primary Care Provider [phone] Allergies No known active allergies Medications amLODIPine [...] age to complete this topic Insurance Medicare [facility] Medicare [facility] Care Teams Cell Assembly Pinner Relationship Specialty Start Date End Date Ana Lanier MD [address] [place], [place] PCP - General Internal Medicine 07/01/21
== END 2025-02-11 11:03 | disposition home or self-care (01) ==
LOC: HO.HKA 10:41
PROVIDERS: PCP Internal Medicine; Visit Provider Internal Medicine Hypertension Specialist
DX: I12.9 Hypertensive chronic kidney disease with stage 1 through stage 4 chronic kidney disease, or unspecified chronic kidney disease (principal); N18.32 Chronic kidney disease, stage 3b; E87.5 Hyperkalemia; J44.9 Chronic obstructive pulmonary disease, unspecified
CPT/HCPCS: 99214

== ENCOUNTER → 2025-02-11 10:41 | Outpatient (BNVA) | payer MEDICARE, OTHER, SELFPAY | PROVIDERS: PCP Internal Medicine; Visit Provider Internal Medicine Hypertension Specialist | DX: I12.9 Hypertensive chronic kidney disease with stage 1 through stage 4 chronic kidney disease, or unspecified chronic kidney disease (principal); N18.4 Chronic kidney disease, stage 4 (severe); J44.9 Chronic obstructive pulmonary disease, unspecified; E87.5 Hyperkalemia | CPT/HCPCS: 99212 ==

== ENCOUNTER 2025-02-11 11:22 | Outpatient (REF) | payer MEDICARE, OTHER, SELFPAY ==
[2025-02-11 13:26] LABS: Parathyroid Hormone Intact 96.5 pg/mL (8.7-77.1)
[2025-02-11 13:53] LABS: Anion Gap 13 (12-20); Blood Urea Nitrogen 34 mg/dL (9-16); Calcium 9.0 mg/dL (8.4-10.2); Carbon Dioxide 21 mmol/L (22-29); Chloride 111 mmol/L (96-108); Estimated Glomerular Filt Rate 28; Potassium 6.0 mmol/L (3.3-5.1); Sodium 139 mmol/L (135-145)
== END 2025-02-11 11:23 | disposition home or self-care (01) ==
LOC: HO.10HDL 11:22
PROVIDERS: Visit Provider Internal Medicine Hypertension Specialist
DX: I12.9 Hypertensive chronic kidney disease with stage 1 through stage 4 chronic kidney disease, or unspecified chronic kidney disease (principal); N18.4 Chronic kidney disease, stage 4 (severe)
CPT/HCPCS: 36415; 80048; 83970

== ENCOUNTER 2025-04-22 11:14 | Outpatient (REF) | payer MEDICARE, OTHER, SELFPAY ==
[2025-04-22 12:31] LABS: Appearance Urine Cloudy; Glucose Urine UA Negative (Negative); PH 5.5 (5.0-9.0); Specific Gravity - Urine 1.015 (1.005-1.025); UMIC TRIGGER UACC YES
[2025-04-22 12:35] LABS: UACC Culture Trigger YES
== END 2025-04-22 11:15 | disposition home or self-care (01) ==
LOC: HO.10HDLNP 11:14
PROVIDERS: Visit Provider Internal Medicine
DX: R30.0 Dysuria (principal)
CPT/HCPCS: 81001; 81003; 87086; 87088; 87186

== ENCOUNTER 2025-05-10 12:32 | Inpatient (IN) | payer MEDICARE, OTHER, SELFPAY ==
--- NOTE | ~2025-05-10 | XR_ITS ---
EXAMINATION: XR CHEST CLINICAL INFORMATION: SOB COMPARISON: X-ray 06/14/2022 TECHNIQUE: 2 views of the chest were obtained. FINDINGS: The cardiomediastinal silhouette is within normal limits. The lungs are well expanded. Small left pleural effusion. Subtle band of hazy opacity in the left midlung, could represent fluid within the fissure versus atelectasis/infiltrate. No pneumothorax. No acute osseous abnormality. XR/XR chest 2V IMPRESSION: Small left pleural effusion. Band of hazy facet in the left midlung could represent fluid within the fissure versus atelectasis/infiltrate.. Electronically signed by: Reginaldo Woods MD 05/10/2025 01:40 PM EST
--- NOTE | ~2025-05-10 | CT_ITS ---
EXAMINATION: CT ABDOMEN PELVIS WITHOUT IV CONTRAST HISTORY: Rectal pain, with soft mass , increasing anemia COMPARISON: Previous CT of the abdomen and pelvis most recent November 2021 and renal and bladder ultrasound December 2023 TECHNIQUE: CT scan of the abdomen and pelvis was performed without contrast using standard departmental protocol. Coronal and sagittal reformatted images were generated and reviewed. This CT exam was performed with one or more of the following dose reduction techniques: automated exposure control, adjustment of the mA and/or kV according to patient size, use of iterative reconstruction technique. DLP: 581 mGy-cm FINDINGS: LOWER CHEST: Trace left pleural effusion and adjacent left lower lobe atelectasis. Right lung base is clear. CARDIOVASCULATURE: The heart is enlarged. There is no pericardial effusion. There is coronary artery calcification. LIVER: Prominent caudate lobe and left lobe of the liver and slightly nodular contour questionable for mild cirrhotic change. Small calcifications in the liver similar to previous exam. These may be vascular. No focal liver lesion. GALLBLADDER / BILE DUCTS: The gallbladder is unremarkable. There is no intra or extrahepatic biliary ductal dilatation. SPLEEN: The spleen is normal in size and has an unremarkable unenhanced appearance. PANCREAS: The pancreas has an unremarkable unenhanced appearance. ADRENAL GLANDS: Slight thickening of the left adrenal gland similar to prior exam. No nodule. The right adrenal gland is normal. KIDNEYS/RETROPERITONEUM: Small bilateral renal calcifications probably vascular. There is no hydronephrosis. LYMPH NODES: No retroperitoneal lymphadenopathy is identified in the abdomen or pelvis. VASCULATURE: Severe atherosclerotic disease. No aneurysm. MESENTERY/PERITONEUM: No free fluid. No masses. There is no free intraperitoneal gas. STOMACH: Under distended and not well evaluated. SMALL BOWEL: The small bowel is normal in caliber. COLON: Mild diverticulosis of the colon. No evidence of diverticulitis. No rectal mass or wall thickening appreciated. There is a low-attenuation or cystic lesion in the right perianal region buttock crease. This measures 2 x 2.3 cm in transverse and AP dimension axial image 88 series 3. This is difficult to evaluate without IV contrast but is a questionable for a right perianal abscess or pilonidal cyst. No appreciable surrounding fat stranding. No abnormal air or fluid in the ischiorectal fossa.. APPENDIX: Normal. URINARY BLADDER/PELVIC ORGANS: The urinary bladder is unremarkable. Small calcification in the uterus that is stable and may represent small calcified fibroid. Uterus and adnexa are otherwise unremarkable. BONES / SOFT TISSUES: Degenerative changes of the spine and left hip. CT/CT abdomen pelvis wo IV con IMPRESSION: No rectal mass or wall thickening appreciated. 2 x 2.3 cm low-attenuation or cystic right perianal lesion measuring 2 x 2.3 cm, question perianal abscess or pilonidal cyst. Mild diverticulosis of the colon. Severe atherosclerotic disease. Question mild cirrhotic changes of the liver. Electronically signed by: Torrie Wren MD 05/10/2025 04:32 PM [facility]
--- NOTE | ~2025-05-10 | US_ITS ---
CLINICAL HISTORY: swelling Bilateral lower extremity duplex venous Doppler Comparison: US/SR - US LOWER EXTREMITY VEINS LIMITED FOLLOW UP LEFT - 03/28/24 16:10 EDT Technique: Grayscale/Color/Duplex Doppler sonographic evaluation of the deep venous system within both lower extremities. Findings: Right lower extremity Common femoral vein: Patent CFV/GSV junction: Patent Femoral vein: Patent Popliteal vein: Patent Infrapopliteal veins: Patent where seen Soft tissue: No focal abnormality Left lower extremity Common femoral vein: Patent CFV/GSV junction: Patent Femoral vein: Patent Popliteal vein: Patent Infrapopliteal veins: Patent where seen Soft tissues: No focal abnormality Impression: 1. Negative for bilateral lower extremity DVT 2. No Keating's cyst This document has been electronically signed by: Kingsley Fang MD on 05/11/2025 09:08:26
--- NOTE | ~2025-05-10 | XR_ITS ---
CLINICAL HISTORY: SOB 1 view chest x-ray. Comparison: 05/10/2025 Findings: No consolidation or effusion. Trace left midlung atelectasis. Cardiac and mediastinal contours appear stable. Bones unremarkable. Impression: 1. No acute pulmonary disease. This document has been electronically signed by: Dixon Valdovinos MD on 05/11/2025 15:36:22
[2025-05-10 12:59] VITALS: BP 162/65; PULSE 68; RESP 18; TEMP 36.5; O2SAT 99; BMI 29.0
--- NOTE | 2025-05-10 13:01 | ED_ITS ---
HPI - General Adult General Chief complaint: General Medical Stated complaint: lump rectal area Time Seen by Provider: 05/10/25 14:04 Source: patient Mode of arrival: ambulatory Limitations: no limitations History of Present Illness ED Provider: Dr. Carlos Galindo HPI narrative: 74-year-old female history of COPD, chronic kidney disease, anemia, neuropathy, diabetes mellitus, dyslipidemia, hypertension, aortic stenosis, coronary artery disease proximal, RCA stent with residual proximal LAD stenosis 10/11/2024 who presents emergency department for evaluation of rectal lump times 3-4 days which she describes as burning and painful. Patient states she normally has 6-8 loose watery stools per day but over the last several days she has been constipated. She states that she feels short of breath but not above her baseline. She states that she was having elevated potassiums and was treated by Dr. Martinez with medication 2 times a day at home. She has not noticed any dark black stools or bloody stools. She denied fever, chills, nausea, vomiting, dysuria or urinary frequency. She is also complaining of sciatic pain in her right buttocks radiating to the lateral aspect of her thigh to her knee, she had no numbness or weakness. She states she has had similar sciatic pain in the past. She has not any [id number] NSAIDs for the pain. Related Data Home Medications ?Medication ?Instructions ?Recorded ?Confirmed aspirin 81 mg tablet,delayed 81 mg PO DAILY 10/25/24 0 02/11/25 release pioglitazone 15 mg tablet 15 mg PO DAILY 02/11/2502/01 linagliptin 5 mg tablet (Tradjenta) 5 mg PO DAILY 01/25 Previous Rx's ?Medication ?Instructions ?Recorded Ventolin HFA 90 mcg/actuation 2 puff inhalation Q6H DE N 05/08/24 aerosol inhaler (albuterol sulfate) shortness of breat h or wheezing 30 days #18 grams fluticasone furoate 50 1 inh inhalation Q24H 30 day s #60 05/08/24 mcg-vilanterol 25 mcg/dose ea inhalation powder (Breo Ellipta) metformin 1,000 mg tablet 1,000 mg PO BID 90 days #180 tabs 12/17/24 pravastatin 80 mg tablet 80 mg PO DAILY #90 tabs 07/28 ticagrelor 90 mg tablet (Brilinta) 90 mg PO BID #60 ta bs 01/16/25 hydrochlorothiazide 25 mg tablet 25 mg PO DAILY 30 day s #30 tabs 01/24/25 valsartan 80 mg tablet 80 mg PO DAILY #90 tabs 01/02 10/26 sodium zirconium cyclosilicate 5 5 g PO .COMPLEX #11 e a 02/11/25 gram oral powder packet (Lokelma) amlodipine 10 mg tablet 10 mg PO DAILY 30 days #30 t abs 03/03/25 gabapentin 300 mg capsule 300 mg PO Q8H 90 days #270 c aps 04/22/25 nitrofurantoin macrocrystal 100 mg 100 mg PO BID 5 day s #10 caps 04/23/25 capsule metoprolol succinate 25 mg 25 mg PO DAILY #90 tabs tablet,extended release 24 hr Allergies Allergy/AdvReac Type Severity Reaction Status Date / Time No Known Allergies (No Known Allergy Verified 05/10/25 13:04 Allergies*) Review of Systems 2 Review of Systems: Yes all other systems are reviewed and are negative [facility] Past Medical History [facility] Narrative: Social history: Patient smokes 1 pack of cigarettes per day times 60 years. She denies alcohol use. She denies drug use. Medical History COPD with acute exacerbation Urinary tract infection Acute bronchitis CKD (chronic kidney disease) stage 3, GFR 30-59 ml/min Anemia of chronic disease CKD (chronic kidney disease) Murmur Microalbuminuria Urge urinary incontinence Hypovitaminosis D Neuropathy Insomnia Diabetes mellitus Dyslipidemia Essential hypertension Surgical History History of heart artery stent (~05/2024) History of tonsillectomy No pertinent past surgical history Family History Family History Father Colon cancer Mother Lung cancer Social History Social History Household Members: Family and Children Household Members Other:: son and grandson Housing: House Do you presently have visiting nurse or other home services: No Alcohol intake: never Patient Tobacco Use Status: Current everyday Tobacco user Tobacco use type: Cigarette Cigarette Packs Per Day: 1 Smoked in Last 30 Days: Yes e-Cigarette/Vaping Use: Never Used Second Hand Smoke Exposure: No Use of substances other than those prescribed or required for medical reasons: No Substance Use Type: Marijuana Advance Directives: Yes Advance Directives on File: Yes Advance Directives Date on File: 06/17/22 service: No Current occupational status: retired Cognitive needs: No Hearing needs: No Vision needs: No Physical Exam ED Vital Signs: Vital Signs - 24 hr 05/10/25 12:59 05/10/25 14:00 Temperature 97.7 F Pulse Rate 68 65 Respiratory Rate 18 17 Blood Pressure 162/65 H 140/30 H Pulse Oximetry 99 96 Oxygen Delivery Method Room Air Room Air BMI result Body Mass Index 29.0 Vital signs revealed an elevated blood pressure of 162/65 Exam: General: Awake, alert in no distress Head: Normocephalic, atraumatic EENT: PERRL, sclera and conjunctiva are normal, mouth with no erythema or exudates Neck: Supple, no adenopathy Lung: breath sounds symmetric, no wheezing, no rales and no rhonchi Chest: symmetric movement, nontender Heart: regular rate and rhythm, normal S1, S2 no murmurs or rubs Abdomen: soft, non-tender, nondistended, normal bowel sounds Rectum: The patient has a soft, flocculent, tender rectal mass, 2.5 cm in diameter. Stool was brown and Hemoccult negative Back: no vertebral tenderness, no CVAT, negative straight leg raises bilaterally Extremities: no deformities, moves all extremities symmetrically, no edema Neuro: Awake, alert, oriented, normal speech, cranial nerves 2-12 intact, moves all extremities symmetrically Psych: Pleasant, cooperative Course Course Course Narrative: This is an RME: Additional HPI, ROS, PE not included below will be deferred to primary provider. RME assessment and note performed by: Jess Bolden PA-C This is a 59-rdlb-brc-female, with a hx of COPD, CKD, HTN, prior left sciatica, osteoarthritis, rheumatoid arthritis, diabetes with neuropathy, who presents to the ER with a complaint of lump on rectum, that causes pain into her right buttock and radiates down into her right leg x 2 days. Reports runny stools - possible clot during bowel movement. Reports that she has never had a colonoscopy as she had cardiac issues and colonoscopy was cancelled, has not followed up since. Plan: Labs, EKG Medications Administered Generic Name Dose Route Start Last Admin Trade Name Freq PRN Reason Stop Dose Admin Sodium Chloride 3 ml 05/10/25 16:00 05/10/25 16:07 0.9 % Sodium Chloride Flush 3 Ml Syringe IVFLUSH 3 ml QSHIFT SKINNY Administration Discontinued Medications Generic Name Dose Route Start Last Admin Trade Name Freq PRN Reason Stop Dose Admin Sodium Zirconium Cyclosilicate 10 gm 05/10/25 14:33 05/10/25 14:44 Sodium Zirconium Cyclosilicate 10 Gm Powd.Pack PO 05/10/25 14:34 10 gm ONCE ONE Administration Medical Decision Making Medical Decision Making MDM Narrative: 74-year-old female history of COPD, chronic kidney disease, anemia, neuropathy, diabetes mellitus, dyslipidemia, hypertension, aortic stenosis, coronary artery disease proximal, RCA stent with residual proximal LAD stenosis 10/11/2024 who presents emergency department for evaluation of rectal lump times 3-4 days which she describes as burning and painful. Patient states she normally has 6-8 loose watery stools per day but over the last several days she has been constipated. She states that she feels short of breath but not above her baseline. She states that she was having elevated potassiums and was treated by Dr. Martinez with medication 2 times a day at home. She has not noticed any dark black stools or bloody stools. She denied fever, chills, nausea, vomiting, dysuria or urinary frequency. Rectal exam did reveal a tender, flocculent, 2.5 cm mass. Stool was Hemoccult negative. Exam was otherwise unremarkable. Differential diagnosis: ?Includes but is not limited to hemorrhoids, rectal abscess, rectal cancer, colon cancer, anemia, electrolyte abnormalities Course: 15:14 My independent interpretation patient's laboratory evaluation is as follows: Normocytic anemia with an H&H of 7.3 and 24.3 significantly changed compared to 10/09/2024 with an H&H of 10.4 and 32.4. Potassium elevated 6.4. BUN creatinine elevated 43 and 1.58 with a GFR of 32 compared to a GFR of 28 on 02/11/2025- kidney function is essentially unchanged. First troponin was elevated at 40.4. Repeat is due at 15:25-I suspect that the elevated troponin is due retention of troponin secondary to renal disease. Urinalysis has been collection Twelve EKG did reveal inverted T-waves in 2, 3, F, V5 and V6 which were unchanged compared to her previous EKG. Patient has a new Q-waves in V1 and V2. I did discuss the patient's presentation with the her diesel dragline operator, Dr Owens. He states he has been treating the patient with Lokelma b.i.d. for her low potassium. He recommended giving Lokelma 10 g now and repeat in 2 hours. Given the fact that her kidney function is unchanged from her baseline, he did not believe that her new anemia was secondary to her kidney disease but may be caused by a GI bleed. He recommended admitting the patient to the hospitalist service to follow her potassium and to workup her up for possible GI bleed. I did discuss over tiger text, the flocculent rectal mass with the covering hospitalist, Dr. Vazquez and he states that he will evaluate the patient in the emergency department. I did order a CT abdomen pelvis without IV contrast to further evaluate this finding as well. I also discuss the patient's presentation over tiger text with the covering hospitalist, Dr. Jimenez of the patient will be admitted for further treatment and evaluate. Differential Diagnosis Differential Diagnoses: The differential diagnosis associated with the presentation includes (See above) Admission/Observation Consideration of admission/observation: Escalation of care including admission/observation considered (Yes) Consult Healthcare Provider Management of the patient was discussed with: Hospitalist (Dr. Faulkner ) and Bulldogger (General surgeon: Dr. Vazquez) Lab Data MDM Lab Attestation statement: I reviewed the patient's lab results. 05/10/25 13:25 05/10/25 13:25 Labs: Lab Results 05/10/25 05/10/25 05/10/25 Range/Units 13:24 13:25 14:26 WBC 13.9 H (4.8-10.8) X10*3/uL RBC 2.51 L D (4.20-5.50) X10*6/uL Hgb 7.3 L D (12.0-16.0) g/dl Hct 24.3 L D (37.0-47.0) % MCV 96.8 (80.0-98.0) fL MCH 29.1 (27.0-33.0) pg MCHC 30.0 L (31.0-35.0) g/dl RDW 16.1 H (11.0-16.0) % Plt Count 265 (160-400) X10*3/uL MPV 9.8 (9.4-12.3) fL Immature Gran % (Auto) 0.6 H (0.0-0.4) % Neut % (Auto) 77.5 H (45-73) % Lymph % (Auto) 11.2 L (20-40) % [place] % (Auto) 7.6 (2-11) % Eos % (Auto) 2.5 (0-4) % Baso % (Auto) 0.6 (0-2) % Lymph # (Auto) 1.6 (1.2-4.9) X10*3/uL [place] # (Auto) 1.1 (0.1-1.2) X10*3/uL Eos # (Auto) 0.4 (0.0-0.4) X10*3/uL Baso # (Auto) 0.1 (0.0-0.2) X10*3/uL Abs Immat Gran (auto) 0.08 H (0.00-0.03) X10*3/uL Absolute Neuts (auto) 10.8 H (2.0-8.3) x10*3/uL Absolute Nucleated RBC 0.000 (0.0-0.012) X10*3/uL Nucleated RBC % (auto) 0.0 (0.0-0.2) /100WBC Sodium 139 (135-145) mmol/L Potassium 6.4 H* (3.3-5.1) mmol/L Chloride 119 H (96-108) mmol/L Carbon Dioxide 16 L (22-29) mmol/L Anion Gap 10 L (12-20) BUN 43 H (9-16) mg/dL Creatinine 1.58 H (0.5-1.4) mg/dL Estim Creat Clear Calc 28.1 Estimated GFR 32 Random Glucose 113 (60-115) mg/dL Calcium 9.1 (8.4-10.2) mg/dL Magnesium 2.0 (1.6-2.6) mg/dL Total Bilirubin 0.1 (0.0-1.0) mg/dL Direct Bilirubin < 0.2 (0.0-0.5) mg/dL AST 15 (5-31) U/L ALT 12 (0-31) U/L Alkaline Phosphatase 104 (39-117) U/L Troponin I High Sens 40.4 H D (<3.5-17.0) ng/L Total Protein 7.2 (6.5-8.0) g/dL Albumin 3.7 (3.5-5.0) g/dL Lipase 31 (8-78) U/L Stool Occult Blood NEGATIVE (NEGATIVE) Influenza Type A (PCR) NEGATIVE (Negative) Influenza Type B (PCR) NEGATIVE (Negative) RSV RNA Qual (PCR) NEGATIVE (Negative) SARS-CoV-2 RNA (RT-PCR) NEGATIVE (Negative) Blood Type Antibody Screen 05/10/25 Range/Units 15:20 WBC (4.8-10.8) X10*3/uL RBC (4.20-5.50) X10*6/uL Hgb (12.0-16.0) g/dl Hct (37.0-47.0) % MCV (80.0-98.0) fL MCH (27.0-33.0) pg MCHC (31.0-35.0) g/dl RDW (11.0-16.0) % Plt Count (160-400) X10*3/uL MPV (9.4-12.3) fL Immature Gran % (Auto) (0.0-0.4) % Neut % (Auto) (45-73) % Lymph % (Auto) (20-40) % [place] % (Auto) (2-11) % Eos % (Auto) (0-4) % Baso % (Auto) (0-2) % Lymph # (Auto) (1.2-4.9) X10*3/uL [place] # (Auto) (0.1-1.2) X10*3/uL Eos # (Auto) (0.0-0.4) X10*3/uL Baso # (Auto) (0.0-0.2) X10*3/uL Abs Immat Gran (auto) (0.00-0.03) X10*3/uL Absolute Neuts (auto) (2.0-8.3) x10*3/uL Absolute Nucleated RBC (0.0-0.012) X10*3/uL Nucleated RBC % (auto) (0.0-0.2) /100WBC Sodium (135-145) mmol/L Potassium (3.3-5.1) mmol/L Chloride (96-108) mmol/L Carbon Dioxide (22-29) mmol/L Anion Gap (12-20) BUN (9-16) mg/dL Creatinine (0.5-1.4) mg/dL Estim Creat Clear Calc Estimated GFR Random Glucose (60-115) mg/dL Calcium (8.4-10.2) mg/dL Magnesium (1.6-2.6) mg/dL Total Bilirubin (0.0-1.0) mg/dL Direct Bilirubin (0.0-0.5) mg/dL AST (5-31) U/L ALT (0-31) U/L Alkaline Phosphatase (39-117) U/L Troponin I High Sens 39.7 H (<3.5-17.0) ng/L Total Protein (6.5-8.0) g/dL Albumin (3.5-5.0) g/dL Lipase (8-78) U/L Stool Occult Blood (NEGATIVE) Influenza Type A (PCR) (Negative) Influenza Type B (PCR) (Negative) RSV RNA Qual (PCR) (Negative) SARS-CoV-2 RNA (RT-PCR) (Negative) Blood Type A Positive Antibody Screen NEGATIVE Independent Interpretation I performed an independent interpretation of an: EKG Interpretation: My independent interpretation patient's 12 EKG done on 05/10/2025 at 13:16 hours is as follows: Normal sinus rhythm rate of 67, normal DE interval, QRS duration and QTC interval, inverted T-waves in 2, 3, AVF, V5 and V6 with Q-waves V1 and V2, no ST segment elevation, no ST segment depression. Compared to an EKG dated 09/14/2024 at 11:27 hours the T-wave inversions are old. The Q-waves are new. Radiology Impression Discussion of test interpretation with radiology: I have reviewed the radiologist's reading. Radiologist Impression: CT abdomen pelvis wo IV con IMPRESSION: No rectal mass or wall thickening appreciated. 2 x 2.3 cm low-attenuation or cystic right perianal lesion measuring 2 x 2.3 cm, question perianal abscess or pilonidal cyst. Mild diverticulosis of the colon. Severe atherosclerotic disease. Question mild cirrhotic changes of the liver. Electronically signed by: Torrie Wren MD 05/10/2025 04:32 PM EST RP Independent Historian Clinical information obtained from an independent historian. History obtained from or confirmed by: Other (Son) External Record Review External record reviewed: Inpatient record Chronic Conditions Patient?s care impacted by: Diabetes and Other (COPD) Critical Care Time Critical Care Time Total Critical Care Time: 45 Attestation: Critical Care: The patient was critically ill with a high probability of imminent or life threatening deterioration. I spent greater than 30 minutes of discontinuous time evaluating the patient,delivering critical care at the bedside, discussing and evaluating pertinent data with consultants. Critical care time does not include time spent performing separately billable procedures or teaching. Total time spent performing critical care was 45 minutes. Discharge Plan Discharge Clinical Impression: Anemia, Acute hyperkalemia, Perianal abscess, Chronic kidney disease Patient Disposition: Admitted As Inpatient
--- NOTE | 2025-05-10 13:05 | ECG_ITS ---
Test Reason : SOB Blood Pressure : */* mmHG Vent. Rate : 67 BPM Atrial Rate : 67 BPM P-R Int : 170 ms QRS Dur : 74 ms QT Int : 378 ms P-R-T Axes : 29 -12 231 degrees QTcB Int : 399 ms Normal sinus rhythm Left ventricular hypertrophy with repolarization abnormality ( R in aVL ) Abnormal ECG When compared with ECG of 14-Sep-2024 11:27, Borderline criteria for Inferior infarct are no longer Present Referred By: Jess Bolden Electronically Signed By: Mark Gonzalez
[2025-05-10 13:30] LABS: MANUAL DIFF FLAG NO
[2025-05-10 13:50] LABS: Hematocrit 24.3 % (37.0-47.0); Hemoglobin 7.3 g/dl (12.0-16.0); Imm Gran Abs Auto 0.08 X10*3/uL (0.00-0.03); Imm Gran Pct Auto 0.6 % (0.0-0.4); Lymphocytes Absolute Auto 1.6 X10*3/uL (1.2-4.9); Mean Corpuscular HGB Conc 30.0 g/dl (31.0-35.0); Mean Corpuscular Hemoglobin 29.1 pg (27.0-33.0); Mean Corpuscular Volume 96.8 fL (80.0-98.0); NRBC Abs Auto 0.000 X10*3/uL (0.0-0.012); NRBC Pct Auto 0.0 /100WBC (0.0-0.2); Platelet Count 265 X10*3/uL (160-400); Red Blood Count 2.51 X10*6/uL (4.20-5.50); White Blood Count 13.9 X10*3/uL (4.8-10.8)
[2025-05-10 13:51] LABS: Troponin-I High Sensitivity 40.4 ng/L (<3.5-17.0)
[2025-05-10 14:00] VITALS: BP 140/30; PULSE 65; RESP 17; O2SAT 96
[2025-05-10 14:05] LABS: Alanine Aminotransferase 12 U/L (0-31); Albumin Level 3.7 g/dL (3.5-5.0); Alkaline Phosphatase 104 U/L (39-117); Anion Gap 10 (12-20); Aspartate Amino Transferase 15 U/L (5-31); Blood Urea Nitrogen 43 mg/dL (9-16); Calcium 9.1 mg/dL (8.4-10.2); Carbon Dioxide 16 mmol/L (22-29); Chloride 119 mmol/L (96-108); Creatinine Clr Calc Pharmacy 28.1; Estimated Glomerular Filt Rate 32; Lipase 31 U/L (8-78); Magnesium 2.0 mg/dL (1.6-2.6); Potassium 6.4 mmol/L (3.3-5.1); Sodium 139 mmol/L (135-145); Total Protein 7.2 g/dL (6.5-8.0)
[2025-05-10 14:11] LABS: Resp Syncy Virus RNA Qual PCR NEGATIVE (Negative); SARS COV2 PCR INHOUSE NEGATIVE (Negative)
[2025-05-10 14:33] LABS: OBS Int Ctl Valid YES; OBS1 NEGATIVE (NEGATIVE)
--- NOTE | 2025-05-10 15:34 | P.HPHOSP_ITS ---
History of Present Illness Date of Service: 05/10/25 Chief Complaint: rectal pain, anemia and high potassium 74-year-old female with a history of COPD, CKD stage 3, chronic HypErkalemiachronic was 6 in February and was prescribed Kayexalate but didn't go for repeat lab, anemia (has refused colonoscopy in past), diabetic neuropathy, diabetes mellitus, dyslipidemia, hypertension, aortic stenosis, and coronary artery disease (proximal RCA stents, residual proximal LAD stenosis as of 10/11/2024), she is on Brilanta and ASA. She presents with a self-reported rectal lump noticed 3-4 days ago. She describes burning pain at the site. Normally, she has up to 8 loose bowel movements daily, but has been constipated for the past several days. She has also noticed a small amount of blood on wiping. In the ED, a 2.5 cm fluctuant mass was noted, possibly an abscess. A non-contrast CT has been requested. She received Lokelma 10 mg PO x2 for hyperkalemia (K 6.4). Creatinine is 1.54 (at baseline). Hemoglobin is 7.3 (down from 10.4 in October). ECG shows no peaked T waves. ED treatment: Lokelma 10 mg po x 2, Review of Systems 2 Review of Systems: Constitutional:?No fever or chills reported. GI:?Rectal lump, burning pain, constipation, small amount of rectal bleeding. :?No dysuria or hematuria reported. Cardiac:?No chest pain or palpitations. Respiratory:?No new shortness of breath. Neuro:?No new focal deficits. FOR[facility]LY [facility] Medical History COPD with acute exacerbation Urinary tract infection Acute bronchitis CKD (chronic kidney disease) stage 3, GFR 30-59 ml/min Anemia of chronic disease CKD (chronic kidney disease) Murmur Microalbuminuria Urge urinary incontinence Hypovitaminosis D Neuropathy Insomnia Diabetes mellitus Dyslipidemia Essential hypertension Family History Father Colon cancer Mother Lung cancer Surgical History History of heart artery stent (~05/2024) History of tonsillectomy No pertinent past surgical history Social History Household Members: Children Household Members Other:: son and grandson Housing: House Do you presently have visiting nurse or other home services: No Alcohol intake: never Patient Tobacco Use Status: Current everyday Tobacco user Tobacco use type: Cigarette Cigarette Packs Per Day: 1 Cigarettes Per Day: 20.0 Smoked in Last 30 Days: Yes e-Cigarette/Vaping Use: Never Used Patient Interested in Nicotine Replacement: No Second Hand Smoke Exposure: No Use of substances other than those prescribed or required for medical reasons: No Substance Use Type: Marijuana Currently Displaying Signs/Symptoms of Drug Intoxication Withdrawal: No Have you been hit, kicked, punched, or otherwise hurt by someone within the past year? If so, by whom?: No Do you feel safe in your current relationship?: No Current Relationship Is there a partner from a previous relationship who is making you feel unsafe now?: No Are you made to feel afraid or neglected: No Advance Directives: Yes Advance Directives on File: Yes Advance Directives Date on File: 06/17/22 Do you have a plan to hurt others: No Plan Nutrition Risks: No Nutritional Risk Patient : No : No Poor oral hygiene: No service: No Current occupational status: retired Cognitive needs: No Hearing needs: No Vision needs: No Meds Allergies Allergy/AdvReac Type Severity Reaction Status Date / Time No Known Allergies (No Known Allergy Verified 05/10/25 13:04 Allergies*) Active Medications: Current Medications Sodium Zirconium Cyclosilicate (Sodium Zirconium Cyclosilicate 10 Gm Powd.Pack) 10 gm PO ONCE ONE Stop: 05/10/25 16:46 Home Medications ?Medication ?Instructions ?Recorded ?Confirmed ?Last Taken ?Type aspirin 81 mg tablet,delayed 81 mg PO DAILY 10/25/24 1 07/10/24 05/10/25 History release pioglitazone 15 mg tablet 15 mg PO DAILY 02/11/2501/2505/10/25 History linagliptin 5 mg tablet (Tradjenta) 5 mg PO DAILY 01/2505/10/25 05/10/25 History Physical Exam 2 Vital Signs and Narrative: Vital Signs: Last Vital Signs Temp 97.7 F 05/10/25 12:59 Pulse 65 05/10/25 14:00 Resp 17 05/10/25 14:00 BP 140/30 H 05/10/25 14:00 Pulse Ox 96 05/10/25 14:00 O2 Del Method Room Air 05/10/25 14:00 BMI result Body Mass Index 29.0 Const: Other: General:?Alert, no acute distress Cardiac:?Regular rate and rhythm, no murmurs Pulmonary:?Clear to auscultation Abdomen:?Soft, non-tender, no distension Rectal:?2.5 cm fluctuant mass, tender, possible abscess--as assessed by Ed doctor Neuro:?Grossly intact Results Labs 05/11/25 06:09 05/11/25 06:09 Labs: Laboratory Results - last 24 hr 05/10/25 05/10/25 05/10/25 13:24 13:25 14:26 MCV 96.8 MCH 29.1 MCHC 30.0 L RDW 16.1 H Plt Count 265 MPV 9.8 Immature Gran % (Auto) 0.6 H Neut % (Auto) 77.5 H Lymph % (Auto) 11.[address] [place] % (Auto) 7.6 Eos % (Auto) 2.5 Baso % (Auto) 0.6 Lymph # (Auto) 1.6 [place] # (Auto) 1.1 Eos # (Auto) 0.4 Baso # (Auto) 0.1 Abs Immat Gran (auto) 0.08 H Absolute Neuts (auto) 10.8 H Absolute Nucleated RBC 0.000 Nucleated RBC % (auto) 0.0 Anion Gap 10 L Estim Creat Clear Calc 28.1 Estimated GFR 32 Random Glucose 113 Calcium 9.1 Magnesium 2.0 Total Bilirubin 0.1 Direct Bilirubin < 0.2 AST 15 ALT 12 Alkaline Phosphatase 104 Troponin I High Sens 40.4 H D Total Protein 7.2 Albumin 3.7 Lipase 31 Stool Occult Blood NEGATIVE Influenza Type A (PCR) NEGATIVE Influenza Type B (PCR) NEGATIVE RSV RNA Qual (PCR) NEGATIVE SARS-CoV-2 RNA (RT-PCR) NEGATIVE Imaging Radiologist's Impressions: Impressions Chest X-Ray 05/10/25 13:25 IMPRESSION: Small left pleural effusion. Band of hazy facet in the left midlung could represent fluid within the fissure versus atelectasis/infiltrate.. Electronically signed by: Reginaldo Woods MD 05/10/2025 01:40 PM [facility] [place] and Plan (1) CKD (chronic kidney disease): Status: Acute (2) Hyperkalemia: Status: Acute (3) Colonoscopy refused: Status: Acute Plan 74-year-old female with multiple comorbidities presenting with a rectal mass, likely abscess, associated with burning pain, constipation, and minor rectal bleeding. Notable for acute drop in hemoglobin and hyperkalemia (treated). CKD at baseline. No ECG changes. Plan Rectal Mass/Abscess Surgery consult for evaluation and management (possible I&D). Non-contrast CT pending for further characterization. GI consult for evaluation of rectal bleeding and chronic anemia. Hold Abx for now Anemia Transfuse packed red blood cells if Hgb <7 (Hgb 7.3 now) Monitor hemoglobin/hematocrit Evaluate for ongoing blood loss. Hold ASA and Brilanta Hyperkalemia, acute on chronic Lokelma administered in ED, additional Lokelma as needed Monitor potassium levels and renal function. Elevated troponin, flat/chronic, no acute event Constipation Bowel regimen as appropriate, considering rectal pathology. Comorbidities (DM, HTN, HLD, CAD) Continue home medications as appropriate, adjust for renal function. Monitor for cardiac and respiratory complications. 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 Pharmacologic prophylaxis to be considered after surgical/GI evaluation and bleeding risk reassessed Code Status:Full code. Disposition: Admit to medicine for further management and coordination of care. Quality Stroke Does the patient have a stroke diagnosis?: No VTE Prior VTE?: No VTE Risk Level:: Medical - moderate - high VTE Device Contraindication: N/A - Device Ordered VTE Drug Contraindication: Treatment Not Tolerated (anemia, active bleed)
--- NOTE | 2025-05-10 15:36 | P.CONGS_ITS ---
History of Present Illness Consult details Consult date: 05/10/25 Narrative: 74-year-old female patient with a history of COPD, CKD, anemia, neuropathy, DM, dyslipidemia, HTN, aortic stenosis, coronary artery disease s/p RCA stent with LAD proximal stenosis presenting to the emergency department for evaluation of a painful rectal lump of the past 3-4 days. She denies any bleeding or discharge from the site and has noted that having a bowel movement is more painful. She normally has loose stools however recently she has been more constipated. She denied any fever or chills. She is being admitted to the hospitalist service for further management and surgical consultation was requested for evaluation of the perianal lump. Review of Systems 2 Review of Systems: Yes all other systems are reviewed and are negative Constitutional: Constitutional: Denies chills, Denies fever(s) and Denies lethargy Cardiovascular: Cardiovascular: Reports as per HPI Respiratory: Comments: COPD Gastrointestinal: Comments: Change in bowel habits, no bleeding or melena, no nausea or vomiting PMFSH Past Medical History Medical History COPD with acute exacerbation Urinary tract infection Acute bronchitis CKD (chronic kidney disease) stage 3, GFR 30-59 ml/min Anemia of chronic disease CKD (chronic kidney disease) Murmur Microalbuminuria Urge urinary incontinence Hypovitaminosis D Neuropathy Insomnia Diabetes mellitus Dyslipidemia Essential hypertension Family History Family History Father Colon cancer Mother Lung cancer Surgical History Surgical History History of heart artery stent (~05/2024) History of tonsillectomy No pertinent past surgical history Social History Social History Household Members: Family and Children Household Members Other:: son and grandson Housing: House Do you presently have visiting nurse or other home services: No Alcohol intake: never Patient Tobacco Use Status: Current everyday Tobacco user Tobacco use type: Cigarette Cigarette Packs Per Day: 1 Smoked in Last 30 Days: Yes e-Cigarette/Vaping Use: Never Used Second Hand Smoke Exposure: No Use of substances other than those prescribed or required for medical reasons: No Substance Use Type: Marijuana Advance Directives: Yes Advance Directives on File: Yes Advance Directives Date on File: 06/17/22 service: No Current occupational status: retired Cognitive needs: No Hearing needs: No Vision needs: No Meds Allergies Allergy/AdvReac Type Severity Reaction Status Date / Time No Known Allergies (No Known Allergy Verified 05/10/25 13:04 Allergies*) Active Medications: Current Medications Sodium Zirconium Cyclosilicate (Sodium Zirconium Cyclosilicate 10 Gm Powd.Pack) 10 gm PO ONCE ONE Stop: 05/10/25 16:46 Home Medications ?Medication ?Instructions ?Recorded ?Confirmed ?Last Taken ?Type aspirin 81 mg tablet,delayed 81 mg PO DAILY 10/25/24 0 02/11/25 Unknown History release pioglitazone 15 mg tablet 15 mg PO DAILY 02/11/2502/01 Unknown History Physical Exam 2 Vital Signs: Vital Signs: Last Vital Signs Temp 97.7 F 05/10/25 12:59 Pulse 65 05/10/25 14:00 Resp 17 05/10/25 14:00 BP 140/30 H 05/10/25 14:00 Pulse Ox 96 05/10/25 14:00 O2 Del Method Room Air 05/10/25 14:00 BMI result Body Mass Index 29.0 Const: General: no acute distress Nutritional Appearance: well nourished Orientation/consciousness: patient oriented x3 Limitations: no limitations HEENT: Head: Yes normocephalic and Yes atraumatic Eyes: Other: Sclera nonicteric Resp: Effort & Inspection: normal respiratory effort, no audible wheezes, no cough and no respiratory distress GI: Other: Soft, nondistended, nontender, no rebound, guarding or rigidity. Rectal examination: No evidence of thrombosed hemorrhoid, fistula or fissure. There is a tender lump located in the left anterior wall, appears fluctuant to palpation. Findings suggestive of a perirectal abscess. Digital rectal exam deferred due to pain Skin: Other: Warm, dry, no rash Neuro: General: patient oriented x3 Extrem: General: Yes no pedal edema Results Labs 05/10/25 13:25 05/10/25 13:25 Labs: Abnormal lab results 05/10/25 Range/Units 13: WBC 13.9 H (4.8-10.8) X10*3/uL RBC 2.51 L D (4.20-5.50) X10*6/uL Hgb 7.3 L D (12.0-16.0) g/dl Hct 24.3 L D (37.0-47.0) % MCHC 30.0 L (31.0-35.0) g/dl RDW 16.1 H (11.0-16.0) % Immature Gran % (Auto) 0.6 H (0.0-0.4) % Neut % (Auto) 77.5 H (45-73) % Lymph % (Auto) 11.2 L (20-40) % Abs Immat Gran (auto) 0.08 H (0.00-0.03) X10*3/uL Absolute Neuts (auto) 10.8 H (2.0-8.3) x10*3/uL Potassium 6.4 H* (3.3-5.1) mmol/L Chloride 119 H (96-108) mmol/L Carbon Dioxide 16 L (22-29) mmol/L Anion Gap 10 L (12-20) BUN 43 H (9-16) mg/dL Creatinine 1.58 H (0.5-1.4) mg/dL Troponin I High Sens 40.4 H D (<3.5-17.0) ng/L Short CBC 05/10/25 Range/Units 13:25 WBC 13.9 H (4.8-10.8) X10*3/uL Hgb 7.3 L D (12.0-16.0) g/dl Hct 24.3 L D (37.0-47.0) % Plt Count 265 (160-400) X10*3/uL BMP 05/10/25 13:25 Sodium 139 Potassium 6.4 H* Chloride 119 H Carbon Dioxide 16 L BUN 43 H Creatinine 1.58 H Calcium 9.1 Liver Function 05/10/25 Range/Units 13:25 Total Bilirubin 0.1 (0.0-1.0) mg/dL Direct Bilirubin < 0.2 (0.0-0.5) mg/dL AST 15 (5-31) U/L ALT 12 (0-31) U/L Alkaline Phosphatase 104 (39-117) U/L Albumin 3.7 (3.5-5.0) g/dL All other labs normal. Assessment and Plan (1) Perirectal abscess: Status: Acute Plan 74-year-old female patient with multiple medical problems presenting with complaints of a painful lump in the perirectal skin. This has been present for approximately 3 days and seems to be associated with a change in bowel habits with increased constipation. She denies any blood or melena. Laboratories do reveal an elevated WBC. Discussed with Dr. Galindo. We will await finding of the CT abdomen and pelvis. Could potentially perform incision and drainage at bedside. Patient expressed understanding. We will follow during her hospitalization. Procedures Date of Service Date of Service: 05/10/25
[2025-05-10 15:50] LABS: Troponin-I High Sensitivity 39.7 ng/L (<3.5-17.0)
--- OUTSIDE RECORDS SUMMARY | 2025-05-10 15:53 | XMS_ITS | Clinical Summary ---
Author Organization [facility] Address [address] [place] [address] Phone Care Team Providers Care Molder Wax Ball Name Role Phone Ana Lanier MD Primary Care Provider [phone] Allergies No known active allergies Medications amLODIPine [...] age to complete this topic Insurance Medicare [facility] Medicare [facility] Care Teams Molder Wax Ball Relationship Specialty Start Date End Date Ana Lanier MD [address] [place], [place] PCP - General Internal Medicine 07/01/21
[2025-05-10] MEDS: 0.9 % Sodium Chloride Flush 3 ML SYRINGE IVFLUSH ×2 (16:07→23:01)
--- NOTE | 2025-05-10 16:18 | HO.NURTONUR ---
Pt here today c/o painful rectal lump x 3-4 days asoc w/ constipation. (Usually pt has up to 8 loose stools/day at baseline) CT shows shady-rectal abscess. Pt also noted to have a decreased H&H of 7.3/24.3. Pt denies any black stools and/or hematemesis. Pt has extensive pmhx which includes RCA stent placement 10/26, CKD, among others. Pt noted to have new t-wave inversion on ekg, elevated trop, possibly d/t demand ischemia, and hyperkalemia. (Pt was being tx'd recently at home for hyperkalemia w/ Lokelma bid) Pt admitted for poss I&D of abscess, RBC transfusion, and w/ w/u for poss g.i. bleed. Pt is independent w/ ADLS
--- NOTE | 2025-05-10 17:10 | PHA.MEDREC ---
Addendum entered by Mara Estrada RPh 05/10/25 17:25: Reviewed by [facility] Original Note: Pharmacy Consult ? Medication Reconciliation Pharmacy has completed the medication reconciliation. Patient had a list of her medications with her. Patient states she is no using Ventolin HFA or any other inhalers. She has them but never takes them. Patient had all her morning medications today.
[2025-05-10 17:14] VITALS: BP 148/80; PULSE 80; RESP 20; O2SAT 97
[2025-05-10 18:00] VITALS: BP 144/78; PULSE 78; RESP 22; O2SAT 97
[2025-05-10 18:08] LABS: Glucose, Whole Blood 120 mg/dL (60-115)
[2025-05-10 19:59] VITALS: BMI 29.0
[2025-05-10 20:40] LABS: Glucose, Whole Blood 129 mg/dL (60-115)
[2025-05-10 20:55] VITALS: BP 164/54; PULSE 74; RESP 20; TEMP 36.7; O2SAT 98
[2025-05-10 23:33] LABS: Appearance Urine Clear; Glucose Urine UA Negative (Negative); PH 5.5 (5.0-9.0); Specific Gravity - Urine 1.015 (1.005-1.025); UMIC TRIGGER UACC YES
[2025-05-10 23:38] VITALS: BP 167/72; PULSE 70; RESP 20; O2SAT 98
[2025-05-10 23:58] LABS: MANUAL DIFF FLAG NO
[2025-05-11] VITALS (13 sets, daily range): BP systolic 123–191; BP diastolic 58–78; PULSE 64–86; RESP 14–20; TEMP 36.1–36.9; O2SAT 88–97
[2025-05-11 00:01] LABS: Hematocrit 23.5 % (37.0-47.0); Hemoglobin 7.2 g/dl (12.0-16.0); Imm Gran Abs Auto 0.07 X10*3/uL (0.00-0.03); Imm Gran Pct Auto 0.5 % (0.0-0.4); Lymphocytes Absolute Auto 1.7 X10*3/uL (1.2-4.9); Mean Corpuscular HGB Conc 30.6 g/dl (31.0-35.0); Mean Corpuscular Hemoglobin 28.9 pg (27.0-33.0); Mean Corpuscular Volume 94.4 fL (80.0-98.0); NRBC Abs Auto 0.000 X10*3/uL (0.0-0.012); NRBC Pct Auto 0.0 /100WBC (0.0-0.2); Platelet Count 245 X10*3/uL (160-400); Red Blood Count 2.49 X10*6/uL (4.20-5.50); White Blood Count 13.7 X10*3/uL (4.8-10.8)
[2025-05-11 00:10] LABS: INTERNATIONAL NORM RATIO 1.1 (0.9-1.1); Prothrombin Time 12.9 SEC (11.2-13.5)
[2025-05-11 00:12] LABS: Anion Gap 13 (12-20); Blood Urea Nitrogen 39 mg/dL (9-16); Calcium 9.0 mg/dL (8.4-10.2); Carbon Dioxide 15 mmol/L (22-29); Chloride 115 mmol/L (96-108); Creatinine Clr Calc Pharmacy 30.6; Estimated Glomerular Filt Rate 35; Potassium 5.4 mmol/L (3.3-5.1); Sodium 138 mmol/L (135-145)
[2025-05-11 00:13] LABS: Partial Thromboplastin Time 28.1 SEC (26.7-34.1)
[2025-05-11] MEDS: Lactated Ringers 1,000 ML 150 ML IVCONT (03:38)
[2025-05-11 06:29] LABS: Hematocrit 21.9 % (37.0-47.0); Mean Corpuscular HGB Conc 30.6 g/dl (31.0-35.0); Mean Corpuscular Hemoglobin 28.8 pg (27.0-33.0); Mean Corpuscular Volume 94.0 fL (80.0-98.0); NRBC Abs Auto 0.000 X10*3/uL (0.0-0.012); NRBC Pct Auto 0.0 /100WBC (0.0-0.2); Platelet Count 240 X10*3/uL (160-400); Red Blood Count 2.33 X10*6/uL (4.20-5.50); White Blood Count 11.1 X10*3/uL (4.8-10.8)
[2025-05-11 06:32] LABS: Hemoglobin 6.7 g/dl (12.0-16.0)
[2025-05-11 06:42] LABS: Anion Gap 12 (12-20); Blood Urea Nitrogen 36 mg/dL (9-16); Calcium 8.9 mg/dL (8.4-10.2); Carbon Dioxide 16 mmol/L (22-29); Chloride 116 mmol/L (96-108); Creatinine Clr Calc Pharmacy 34.2; Estimated Glomerular Filt Rate 40; Potassium 5.5 mmol/L (3.3-5.1); Sodium 138 mmol/L (135-145)
--- NOTE | 2025-05-11 07:03 | P.CNGI_ITS ---
History of Present Illness Data of Consult Service Date: 05/11/25 Requesting physician: Mike Faulkner Primary Care Provider: Ana Hough MD HPI Reason for consult: Anemia, +FOBT, 74 YF with COPD, CKD stage 3, chronic hyperkalemia (K was 6 in February and was prescribed Kayexalate but didn't go for repeat lab), anemia (has refused colonoscopy in past), diabetic neuropathy, diabetes mellitus, dyslipidemia, hypertension, aortic stenosis, and coronary artery disease (proximal RCA stents, residual proximal LAD stenosis as of 10/11/2024), she is on Brilanta and ASA. Pt came to [facility] on 05/10/25 with a self-reported rectal lump noticed 3-4 days ago. with burning pain at the site. Pt denies history of anemia in the past. She complains of intermittent dysphagia to rice and has to regurgitate the food for relief (can have an episode once a week) Patient denies heartburn or abdominal pain. She reports a hx of chronic diarrhea for the past several years with up to 8 loose non-bloody bowel movements daily, and has been constipated for the past several days. She has also noticed a small amount of blood on wiping. Patient admits to weight gain from 155-158 She admits to smoking 1 pack per day since age 14 (60 pack years) and denies EtOH abuse. 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 She lives at home with her son and grandson. FAMILY HX: Dad of colon cancer at age 92 years. In the ED, a 2.5 cm fluctuant mass was noted, possibly an abscess. Creatinine is 1.54 (at baseline). Hemoglobin is 7.3 (down from 10.4 in October). ECG shows no peaked T waves. ED treatment: Lokelma 10 mg po x 2 for hyperkalemia (K 6.4). 05/10/[address] SCAN SHOWED: COLON: Mild diverticulosis of the colon. No evidence of diverticulitis. No rectal mass or wall thickening appreciated. There is a low-attenuation or cystic lesion in the right perianal region buttock crease. This measures 2 x 2.3 cm in transverse and AP dimension axial image 88 series 3. This is difficult to evaluate without IV contrast but is a questionable for a right perianal abscess or pilonidal cyst. No appreciable surrounding fat stranding. No abnormal air or fluid in the ischiorectal fossa.. IMPRESSION: No rectal mass or wall thickening appreciated. 2 x 2.3 cm low-attenuation or cystic right perianal lesion measuring 2 x 2.3 cm, question perianal abscess or pilonidal cyst. Mild diverticulosis of the colon. Severe atherosclerotic disease. Question mild cirrhotic changes of the liver. Review of Systems 2 Review of Systems: Yes all other systems are reviewed and are negative Constitutional: Constitutional: Denies chills, Denies fever(s) and Denies lethargy Cardiovascular: Cardiovascular: Reports as per HPI Respiratory: Comments: COPD Gastrointestinal: Comments: Change in bowel habits, no bleeding or melena, no nausea or vomiting PMFSH Past Medical History Medical History COPD with acute exacerbation Urinary tract infection Acute bronchitis CKD (chronic kidney disease) stage 3, GFR 30-59 ml/min Anemia of chronic disease CKD (chronic kidney disease) Murmur Microalbuminuria Urge urinary incontinence Hypovitaminosis D Neuropathy Insomnia Diabetes mellitus Dyslipidemia Essential hypertension Family History Family History Father Colon cancer Mother Lung cancer Surgical History Surgical History History of heart artery stent (~05/2024) History of tonsillectomy No pertinent past surgical history Social History Social History Household Members: Children Household Members Other:: son and grandson Housing: House Do you presently have visiting nurse or other home services: No Alcohol intake: never Comment: refuse nonslip socks Patient Tobacco Use Status: Current everyday Tobacco user Tobacco use type: Cigarette Cigarette Packs Per Day: 1 Cigarettes Per Day: 20.0 Smoked in Last 30 Days: Yes e-Cigarette/Vaping Use: Never Used Patient Interested in Nicotine Replacement: No Second Hand Smoke Exposure: No Use of substances other than those prescribed or required for medical reasons: No Substance Use Type: Marijuana Currently Displaying Signs/Symptoms of Drug Intoxication Withdrawal: No Have you been hit, kicked, punched, or otherwise hurt by someone within the past year? If so, by whom?: No Do you feel safe in your current relationship?: No Current Relationship Is there a partner from a previous relationship who is making you feel unsafe now?: No Are you made to feel afraid or neglected: No Advance Directives: Yes Advance Directives on File: Yes Advance Directives Date on File: 06/17/22 Do you have a plan to hurt others: No Plan Nutrition Risks: No Nutritional Risk Patient : No : No Poor oral hygiene: No service: No Current occupational status: retired Cognitive needs: No Hearing needs: No Vision needs: No Meds Allergies Allergy/AdvReac Type Severity Reaction Status Date / Time No Known Allergies (No Known Allergy Verified 05/10/25 13:04 Allergies*) Active Medications: Current Medications Acetaminophen (Acetaminophen 325 Mg Tablet) 650 mg PO Q6H PRN PRN Reason: Pain, Mild 1-3,fever,headache Last Admin: 05/10/25 22:58 Dose: 650 mg Amlodipine Besylate (Amlodipine Besylate 10 Mg Tablet) 10 mg PO DAILY [facility]; Protocol Calcium Carbonate (Calcium Carbonate 750 Mg Tab.Chew) 750 mg PO Q4H PRN PRN Reason: Heartburn Dextrose (Dextrose 50 % 25 Gm/50 Ml Syringe) 25 gm IVPUSH Q15M PRN; Protocol PRN Reason: per Hypoglycemia Standing Ord. Gabapentin (Gabapentin 300 Mg Capsule) 300 mg PO Q8H [facility] Last Admin: 05/11/25 03:37 Dose: 300 mg Glucose (Glucose Gel 15 Gm Gel..Gram.) 15 gm PO Q15M PRN; Protocol PRN Reason: per Hypoglycemia Standing Ord. Lactated Ringer's (Lr) 1,000 mls @ 150 mls/hr IVCONT .Q6H40M [facility] Last Admin: 05/11/25 03:38 Dose: 150 mls/hr Influenza Virus Vaccine (Flu Vacc In1602-49(6mo Up)/Pf 0.5 Ml Syringe) 0.5 ml IM .ONCE ONE Stop: 05/11/25 09:01 Insulin Human Lispro (Insulin Lispro 100 Unit/Ml 3 Ml Vial) 0 unit SUBCUT QIDACHS [facility]; Protocol Last Admin: 05/10/25 20:44 Dose: Not Given Magnesium Hydroxide (Milk Of Magnesia 30 Ml Oral.Susp) 30 ml PO DAILY PRN PRN Reason: Constipation Melatonin (Melatonin 3 Mg Tablet) 6 mg PO BEDTIME PRN PRN Reason: Insomnia Metoprolol Succinate (Metoprolol Succinate Er 25 Mg Tab.Er.24h) 25 mg PO DAILY [facility]; Protocol Pravastatin Sodium (Pravastatin Sodium 80 Mg Tablet) 80 mg PO DAILY [facility] Sodium Chloride (0.9 % Sodium Chloride Flush 3 Ml Syringe) 3 ml IVFLUSH QSHIFT [facility] Last Admin: 05/10/25 23:01 Dose: 3 ml Home Medications ?Medication ?Instructions ?Recorded ?Confirmed ?Last Taken ?Type aspirin 81 mg tablet,delayed 81 mg PO DAILY 10/25/24 1 07/10/24 05/10/25 History release pioglitazone 15 mg tablet 15 mg PO DAILY 02/11/2501/2505/10/25 History linagliptin 5 mg tablet (Tradjenta) 5 mg PO DAILY 01/2505/10/25 05/10/25 History Physical Exam 2 Vital Signs: Vital Signs: Last Vital Signs Temp 97.6 F 05/11/25 04:00 Pulse 70 05/11/25 04:00 Resp 20 05/11/25 04:00 BP 151/65 H 05/11/25 04:00 Pulse Ox 92 05/11/25 04:00 O2 Del Method Room Air 05/11/25 04:00 BMI result Body Mass Index 29.0 Const: General: no acute distress and anxious Nutritional Appearance: o verweight Orientation/consciousness: patient oriented x3 GI: Palpation (GI): Soft to palpation and nontender Auscultation: normal bowel sounds Rectal Exam - Female: other (Rectal:?2.5 cm fluctuant mass, tender, possible abscess--as assessed by Ed ) Neuro: General: patient oriented x3 and moves all extremities Cognition (Neuro): normal cognition Gait exam (Neuro): Normal gait present Psych: Appearance: grossly normal Mental Status: mental status grossly normal Speech and movement: Normal speech and movement present Attitude: c ooperative Results Labs 05/11/25 06:09 05/11/25 06:09 Labs: Short CBC 05/10/25 05/10/25 05/11/25 Range/Units 13:25 23:52 06:09 WBC 13.9 H 13.7 H 11.1 H (4.8-10.8) X10*3/uL Hgb 7.3 L D 7.2 L 6.7 L* (12.0-16.0) g/dl Hct 24.3 L D 23.5 L 21.9 L (37.0-47.0) % Plt Count 265 245 240 (160-400) X10*3/uL BMP 05/10/25 05/10/25 05/11/25 13:25 23:52 06:09 Sodium 139 138 138 Potassium 6.4 H* 5.4 H 5.5 H Chloride 119 H 115 H 116 H Carbon Dioxide 16 L 15 L 16 L BUN 43 H 39 H 36 H Creatinine 1.58 H 1.45 H 1.30 Calcium 9.1 9.0 8.9 Liver Function 05/10/25 Range/Units 13:25 Total Bilirubin 0.1 (0.0-1.0) mg/dL Direct Bilirubin < 0.2 (0.0-0.5) mg/dL AST 15 (5-31) U/L ALT 12 (0-31) U/L Alkaline Phosphatase 104 (39-117) U/L Albumin 3.7 (3.5-5.0) g/dL Urine 05/10/25 Range/Units 23:19 Urine Color Yellow Urine Appearance Clear Urine pH 5.5 (5.0-9.0) Ur Specific [place] 1.015 (1.005-1.025) Urine Protein 300 (3+) H (Neg-Trace) mg/dL Urine Glucose (UA) Negative (Negative) mg/dL Assessment and Plan (1) Perirectal abscess: Status: Acute (2) Anemia: Status: Acute Plan 74 YF with COPD, CKD stage 3, chronic hyperkalemia (K was 6 in February and was prescribed Kayexalate but didn't go for repeat lab), anemia (has refused colonoscopy in past), diabetic neuropathy, diabetes mellitus, dyslipidemia, hypertension, aortic stenosis, and coronary artery disease (proximal RCA stents, residual proximal LAD stenosis as of 10/11/2024), she is on Brilanta and ASA. Pt came to [facility] on 05/10/25 with a self-reported rectal lump noticed 3-4 days ago. with burning pain at the site. CT scan showed a 2 x 2.3 cm low-attenuation or cystic right perianal lesion measuring 2 x 2.3 cm, question perianal abscess Pt had I&D of the abscess by Dr. Vazquez earlier today Pt has acute on chronic normocytic normochromic anemia and normal iron studies in the past Stool Cologuard test was positive in 2021. Colonoscopy was scheduled and had to be canceled because of cardiac issues RECOMMENDATIONS: 1. Agree with transfusion of 2 Units PRBCs for anemia and monitor CBC daily 2. Pt needs further evaluation with upper endoscopy and colonoscopy. Both procedures and potential complications including bleeding, perforation, reaction to anesthetic and aspiration were reviewed with the patient. She was initially reluctant and after talking to her daughter and HCP, Bertin Skaggs, agreed to undergo the procedures during present hospitalization. Procedures Date of Service Date of Service: 05/11/25
[2025-05-11 07:47] LABS: Glucose, Whole Blood 133 mg/dL (60-115)
[2025-05-11] MEDS: 0.9 % Sodium Chloride Flush 3 ML SYRINGE IVFLUSH ×2 (08:06→16:37)
[2025-05-11] MEDS: Metoprolol Succinate ER 25 MG TAB.ER.24H PO (08:06)
--- NOTE | 2025-05-11 09:51 | PM.PNGS ---
Subjective Subjective Date of Service: 05/11/25 Interval history: Still reporting perirectal pain. No discharge noted at this time. Physical Exam Vital Signs: Vital Signs: Last Vital Signs Temp 98.4 F 05/11/25 09:44 Pulse 74 05/11/25 09:44 Resp 18 05/11/25 09:44 BP 164/71 H 05/11/25 09:44 Pulse Ox 96 05/11/25 07:40 O2 Del Method Room Air 05/11/25 07:40 BMI result Body Mass Index 29.0 Const: General: no acute distress Nutritional Appearance: well nourished Orientation/consciousness: patient oriented x3 Limitations: no limitations Resp: Effort & Inspection: normal respiratory effort Back/Spine/Pelvis: Other: Tender perirectal abscess, confirmed by CT Neuro: General: patient oriented x3 Extrem: General: Yes no clubbing, cyanosis or edema Objective Data Active Medications Acetaminophen (Acetaminophen 325 Mg Tablet) 650 mg PO Q6H PRN PRN Reason: Pain, Mild 1-3,fever,headache Last Admin: 05/10/25 22:58 Dose: 650 mg Documented By: KRISTIN Amlodipine Besylate (Amlodipine Besylate 10 Mg Tablet) 10 mg PO DAILY [facility]; Protocol Last Admin: 05/11/25 08:06 Dose: 10 mg Documented By: SHIRLEY Calcium Carbonate (Calcium Carbonate 750 Mg Tab.Chew) 750 mg PO Q4H PRN PRN Reason: Heartburn Dextrose (Dextrose 50 % 25 Gm/50 Ml Syringe) 25 gm IVPUSH Q15M PRN; Protocol PRN Reason: per Hypoglycemia Standing Ord. Gabapentin (Gabapentin 300 Mg Capsule) 300 mg PO Q8H [facility] Last Admin: 05/11/25 09:33 Dose: 300 mg Documented By: SHIRLEY Glucose (Glucose Gel 15 Gm Gel..Gram.) 15 gm PO Q15M PRN; Protocol PRN Reason: per Hypoglycemia Standing Ord. Lactated Ringer's (Lr) 1,000 mls @ 150 mls/hr IVCONT .Q6H40M [facility] Last Admin: 05/11/25 09:24 Dose: Not Given Documented By: SHIRLEY Non-Admin Reason: Physician Held Med Insulin Human Lispro (Insulin Lispro 100 Unit/Ml 3 Ml Vial) 0 unit SUBCUT QIDACHS [facility]; Protocol Last Admin: 05/11/25 07:49 Dose: Not Given Documented By: SHIRLEY Non-Admin Reason: No Insulin Coverage Comments: POC 133 Magnesium Hydroxide (Milk Of Magnesia 30 Ml Oral.Susp) 30 ml PO DAILY PRN PRN Reason: Constipation Melatonin (Melatonin 3 Mg Tablet) 6 mg PO BEDTIME PRN PRN Reason: Insomnia Metoprolol Succinate (Metoprolol Succinate Er 25 Mg Tab.Er.24h) 25 mg PO DAILY [facility]; Protocol Last Admin: 05/11/25 08:06 Dose: 25 mg Documented By: SHIRLEY Pravastatin Sodium (Pravastatin Sodium 80 Mg Tablet) 80 mg PO DAILY [facility] Last Admin: 05/11/25 08:06 Dose: 80 mg Documented By: SHIRLEY Sodium Chloride (0.9 % Sodium Chloride Flush 3 Ml Syringe) 3 ml IVFLUSH QSHIFT [facility] Last Admin: 05/11/25 08:06 Dose: 3 ml Documented By: SHIRLEY Sodium Zirconium Cyclosilicate (Sodium Zirconium Cyclosilicate 10 Gm Powd.Pack) 10 gm PO DAILY [facility] Last Admin: 05/11/25 09:33 Dose: 10 gm Documented By: SHIRLEY Labs 05/11/25 06:09 05/11/25 06:09 Labs: Laboratory Results - last 24 hr 05/10/25 05/10/25 05/10/25 13:24 13:25 14:26 MCV 96.8 MCH 29.1 MCHC 30.0 L RDW 16.1 H Plt Count 265 MPV 9.8 Immature Gran % (Auto) 0.6 H Neut % (Auto) 77.5 H Lymph % (Auto) 11.2 L Smith % (Auto) 7.6 Eos % (Auto) 2.5 Baso % (Auto) 0.6 Lymph # (Auto) 1.6 Smith # (Auto) 1.1 Eos # (Auto) 0.4 Baso # (Auto) 0.1 Abs Immat Gran (auto) 0.08 H Absolute Neuts (auto) 10.8 H Absolute Nucleated RBC 0.000 Nucleated RBC % (auto) 0.0 PT INR APTT Anion Gap 10 L Estim Creat Clear Calc 28.1 Estimated GFR 32 POC Glucose Random Glucose 113 Calcium 9.1 Magnesium 2.0 Total Bilirubin 0.1 Direct Bilirubin < 0.2 AST 15 ALT 12 Alkaline Phosphatase 104 Troponin I High Sens 40.4 H D Total Protein 7.2 Albumin 3.7 Lipase 31 Urine Color Urine Appearance Urine pH Ur Specific [place] Urine Protein Urine Glucose (UA) Urine Ketones Urine Blood Urine Nitrite Ur Leukocyte Esterase Urine RBC Urine WBC Ur Squamous Epith Cells Urine Bacteria Hyaline Casts Stool Occult Blood NEGATIVE Influenza Type A (PCR) NEGATIVE Influenza Type B (PCR) NEGATIVE RSV RNA Qual (PCR) NEGATIVE SARS-CoV-2 RNA (RT-PCR) NEGATIVE Blood Type Antibody Screen Crossmatch 05/10/25 05/10/25 05/10/25 15:20 18:02 20:36 MCV MCH MCHC RDW Plt Count MPV Immature Gran % (Auto) Neut % (Auto) Lymph % (Auto) Smith % (Auto) Eos % (Auto) Baso % (Auto) Lymph # (Auto) Smith # (Auto) Eos # (Auto) Baso # (Auto) Abs Immat Gran (auto) Absolute Neuts (auto) Absolute Nucleated RBC Nucleated RBC % (auto) PT INR APTT Anion Gap Estim Creat Clear Calc Estimated GFR POC Glucose 120 H 129 H Random Glucose Calcium Magnesium Total Bilirubin Direct Bilirubin AST ALT Alkaline Phosphatase Troponin I High Sens 39.7 H Total Protein Albumin Lipase Urine Color Urine Appearance Urine pH Ur Specific [place] Urine Protein Urine Glucose (UA) Urine Ketones Urine Blood Urine Nitrite Ur Leukocyte Esterase Urine RBC Urine WBC Ur Squamous Epith Cells Urine Bacteria Hyaline Casts Stool Occult Blood Influenza Type A (PCR) Influenza Type B (PCR) RSV RNA Qual (PCR) SARS-CoV-2 RNA (RT-PCR) Blood Type A Positive Antibody Screen NEGATIVE Crossmatch See Detail 05/10/25 05/10/25 05/11/25 23:19 23:52 06:09 MCV 94.4 94.0 MCH 28.9 28.8 MCHC 30.6 L 30.6 L RDW 16.2 H 16.0 Plt Count 245 240 MPV 9.5 9.8 Immature Gran % (Auto) 0.5 H Neut % (Auto) 76.0 H Lymph % (Auto) 12.5 L Smith % (Auto) 6.7 Eos % (Auto) 3.6 Baso % (Auto) 0.7 Lymph # (Auto) 1.7 Smith # (Auto) 0.9 Eos # (Auto) 0.5 H Baso # (Auto) 0.1 Abs Immat Gran (auto) 0.07 H Absolute Neuts (auto) 10.4 H Absolute Nucleated RBC 0.000 0.000 Nucleated RBC % (auto) 0.0 0.0 PT 12.9 INR 1.1 APTT 28.1 Anion Gap 13 12 Estim Creat Clear Calc 30.6 34.2 Estimated GFR 35 40 POC Glucose Random Glucose 135 H 126 H Calcium 9.0 8.9 Magnesium Total Bilirubin Direct Bilirubin AST ALT Alkaline Phosphatase Troponin I High Sens Total Protein Albumin Lipase Urine Color Yellow Urine Appearance Clear Urine pH 5.5 Ur Specific [place] 1.015 Urine Protein 300 (3+) H Urine Glucose (UA) Negative Urine Ketones Negative Urine Blood Negative Urine Nitrite Negative Ur Leukocyte Esterase Negative Urine RBC 0-2 Urine WBC 0-5 Ur Squamous Epith Cells 0-2 Urine Bacteria None Seen Hyaline Casts 0-2 Stool Occult Blood Influenza Type A (PCR) Influenza Type B (PCR) RSV RNA Qual (PCR) SARS-CoV-2 RNA (RT-PCR) Blood Type Antibody Screen Crossmatch 05/11/25 07:39 MCV MCH MCHC RDW Plt Count MPV Immature Gran % (Auto) Neut % (Auto) Lymph % (Auto) Smith % (Auto) Eos % (Auto) Baso % (Auto) Lymph # (Auto) Smith # (Auto) Eos # (Auto) Baso # (Auto) Abs Immat Gran (auto) Absolute Neuts (auto) Absolute Nucleated RBC Nucleated RBC % (auto) PT INR APTT Anion Gap Estim Creat Clear Calc Estimated GFR POC Glucose 133 H Random Glucose Calcium Magnesium Total Bilirubin Direct Bilirubin AST ALT Alkaline Phosphatase Troponin I High Sens Total Protein Albumin Lipase Urine Color Urine Appearance Urine pH Ur Specific [place] Urine Protein Urine Glucose (UA) Urine Ketones Urine Blood Urine Nitrite Ur Leukocyte Esterase Urine RBC Urine WBC Ur Squamous Epith Cells Urine Bacteria Hyaline Casts Stool Occult Blood Influenza Type A (PCR) Influenza Type B (PCR) RSV RNA Qual (PCR) SARS-CoV-2 RNA (RT-PCR) Blood Type Antibody Screen Crossmatch Procedures Date of Service Date of Service: 05/11/25 Progress Note: A&P Assessment and plan (1) Perianal abscess: Status: Acute Plan I recommended incision and drainage of the perianal abscess and after discussion of the procedure, risks and alternatives she consents to the surgery. This will be performed at the bedside under local anesthesia later today. Time Spent With Patient Time: Total time managing care of this patient today ____ minutes. Quality Stroke Does the patient have a stroke diagnosis?: No VTE Prior VTE?: No VTE Risk Level:: Medical - moderate - high VTE Device Contraindication: N/A - Device Ordered VTE Drug Contraindication: Treatment Not Tolerated (anemia, active bleed)
--- NOTE | 2025-05-11 09:57 | P.CONNP_ITS ---
History of Present Illness Reason for Consult Consult date: 05/11/25 Chief Complaint Chief complaint: lump rectal area PMFSH Past Medical History Medical History COPD with acute exacerbation Urinary tract infection Acute bronchitis CKD (chronic kidney disease) stage 3, GFR 30-59 ml/min Anemia of chronic disease CKD (chronic kidney disease) Murmur Microalbuminuria Urge urinary incontinence Hypovitaminosis D Neuropathy Insomnia Diabetes mellitus Dyslipidemia Essential hypertension Family History Family History Father Colon cancer Mother Lung cancer Surgical History Surgical History History of heart artery stent (~05/2024) History of tonsillectomy No pertinent past surgical history Social History Social History Household Members: Children Household Members Other:: son and grandson Housing: House Do you presently have visiting nurse or other home services: No Alcohol intake: never Patient Tobacco Use Status: Current everyday Tobacco user Tobacco use type: Cigarette Cigarette Packs Per Day: 1 Cigarettes Per Day: 20.0 Smoked in Last 30 Days: Yes e-Cigarette/Vaping Use: Never Used Patient Interested in Nicotine Replacement: No Second Hand Smoke Exposure: No Use of substances other than those prescribed or required for medical reasons: No Substance Use Type: Marijuana Currently Displaying Signs/Symptoms of Drug Intoxication Withdrawal: No Have you been hit, kicked, punched, or otherwise hurt by someone within the past year? If so, by whom?: No Do you feel safe in your current relationship?: No Current Relationship Is there a partner from a previous relationship who is making you feel unsafe now?: No Are you made to feel afraid or neglected: No Advance Directives: Yes Advance Directives on File: Yes Advance Directives Date on File: 06/17/22 Do you have a plan to hurt others: No Plan Nutrition Risks: No Nutritional Risk Patient : No : No Poor oral hygiene: No service: No Current occupational status: retired Cognitive needs: No Hearing needs: No Vision needs: No Meds Allergies Allergy/AdvReac Type Severity Reaction Status Date / Time No Known Allergies (No Known Allergy Verified 05/10/25 13:04 Allergies*) Active Medications: Current Medications Acetaminophen (Acetaminophen 325 Mg Tablet) 650 mg PO Q6H PRN PRN Reason: Pain, Mild 1-3,fever,headache Last Admin: 05/10/25 22:58 Dose: 650 mg Amlodipine Besylate (Amlodipine Besylate 10 Mg Tablet) 10 mg PO DAILY [facility]; Protocol Last Admin: 05/11/25 08:06 Dose: 10 mg Calcium Carbonate (Calcium Carbonate 750 Mg Tab.Chew) 750 mg PO Q4H PRN PRN Reason: Heartburn Dextrose (Dextrose 50 % 25 Gm/50 Ml Syringe) 25 gm IVPUSH Q15M PRN; Protocol PRN Reason: per Hypoglycemia Standing Ord. Gabapentin (Gabapentin 300 Mg Capsule) 300 mg PO Q8H [facility] Last Admin: 05/11/25 09:33 Dose: 300 mg Glucose (Glucose Gel 15 Gm Gel..Gram.) 15 gm PO Q15M PRN; Protocol PRN Reason: per Hypoglycemia Standing Ord. Lactated Ringer's (Lr) 1,000 mls @ 150 mls/hr IVCONT .Q6H40M [facility] Last Admin: 05/11/25 09:24 Dose: Not Given Insulin Human Lispro (Insulin Lispro 100 Unit/Ml 3 Ml Vial) 0 unit SUBCUT QIDACHS [facility]; Protocol Last Admin: 05/11/25 07:49 Dose: Not Given Magnesium Hydroxide (Milk Of Magnesia 30 Ml Oral.Susp) 30 ml PO DAILY PRN PRN Reason: Constipation Melatonin (Melatonin 3 Mg Tablet) 6 mg PO BEDTIME PRN PRN Reason: Insomnia Metoprolol Succinate (Metoprolol Succinate Er 25 Mg Tab.Er.24h) 25 mg PO DAILY [facility]; Protocol Last Admin: 05/11/25 08:06 Dose: 25 mg Pravastatin Sodium (Pravastatin Sodium 80 Mg Tablet) 80 mg PO DAILY [facility] Last Admin: 05/11/25 08:06 Dose: 80 mg Sodium Chloride (0.9 % Sodium Chloride Flush 3 Ml Syringe) 3 ml IVFLUSH QSHIFT [facility] Last Admin: 05/11/25 08:06 Dose: 3 ml Sodium Zirconium Cyclosilicate (Sodium Zirconium Cyclosilicate 10 Gm Powd.Pack) 10 gm PO DAILY [facility] Last Admin: 05/11/25 09:33 Dose: 10 gm Home Medications ?Medication ?Instructions ?Recorded ?Confirmed ?Last Taken ?Type aspirin 81 mg tablet,delayed 81 mg PO DAILY 10/25/24 1 07/10/24 05/10/25 History release pioglitazone 15 mg tablet 15 mg PO DAILY 02/11/2501/2505/10/25 History linagliptin 5 mg tablet (Tradjenta) 5 mg PO DAILY 01/2505/10/25 05/10/25 History Physical Exam Vital Signs: Last Vital Signs Temp 98.4 F 05/11/25 09:44 Pulse 74 05/11/25 09:44 Resp 18 05/11/25 09:44 BP 164/71 H 05/11/25 09:44 Pulse Ox 96 05/11/25 07:40 O2 Del Method Room Air 05/11/25 07:40 BMI result Body Mass Index 29.0 Results Lab Results 05/11/25 06:09 05/11/25 06:09 Lab results: Chemistry 05/10/25 05/10/25 05/11/25 13:25 23:52 06:09 Sodium 139 138 138 Potassium 6.4 H* 5.4 H 5.5 H Carbon Dioxide 16 L 15 L 16 L BUN 43 H 39 H 36 H Creatinine 1.58 H 1.45 H 1.30 Calcium 9.1 9.0 8.9 Hematology 05/10/25 05/10/25 05/11/25 13:25 23:52 06:09 WBC 13.9 H 13.7 H 11.1 H Hgb 7.3 L D 7.2 L 6.7 L* Plt Count 265 245 240 Urinalysis 05/10/25 23:19 Urine Color Yellow Urine Appearance Clear Urine pH 5.5 Ur Specific [place] 1.015 Urine Protein 300 (3+) H Urine Glucose (UA) Negative Urine Ketones Negative Urine Blood Negative Urine Nitrite Negative Ur Leukocyte Esterase Negative Urine RBC 0-2 Urine WBC 0-5 Ur Squamous Epith Cells 0-2 Hyaline Casts 0-2 Procedures Date of Service Date of Service: 05/11/25
--- NOTE | 2025-05-11 10:10 | HO.PM.IMPN ---
Subjective Subjective Date of Service: 05/11/25 Interval History: Follow-up on rectal mass, chronic kidney failure, hyperkalemia and anemia suspected GI bleeding. Hemoglobin is down to 6.4 today. She has reported feeling dizzy at home. No signs of active bleed Holding aspirin and Brilinta Physical Exam Vital Signs: Vital Signs: Last Vital Signs Temp 98.4 F 05/11/25 09:44 Pulse 74 05/11/25 09:44 Resp 18 05/11/25 09:44 BP 164/71 H 05/11/25 09:44 Pulse Ox 96 05/11/25 07:40 O2 Del Method Room Air 05/11/25 07:40 BMI result Body Mass Index 29.0 Const: Other: General:?Alert, no acute distress Cardiac:?Regular rate and rhythm, no murmurs Pulmonary:?Clear to auscultation Abdomen:?Soft, non-tender, no distension Rectal:?2.5 cm fluctuant mass, tender, possible abscess--as assessed by Ed doctor Neuro:?Grossly intact Objective Data Active Medications Acetaminophen (Acetaminophen 325 Mg Tablet) 650 mg PO Q6H PRN PRN Reason: Pain, Mild 1-3,fever,headache Last Admin: 05/10/25 22:58 Dose: 650 mg Documented By: KRISTIN Amlodipine Besylate (Amlodipine Besylate 10 Mg Tablet) 10 mg PO DAILY [facility]; Protocol Last Admin: 05/11/25 08:06 Dose: 10 mg Documented By: SHIRLEY Calcium Carbonate (Calcium Carbonate 750 Mg Tab.Chew) 750 mg PO Q4H PRN PRN Reason: Heartburn Dextrose (Dextrose 50 % 25 Gm/50 Ml Syringe) 25 gm IVPUSH Q15M PRN; Protocol PRN Reason: per Hypoglycemia Standing Ord. Gabapentin (Gabapentin 300 Mg Capsule) 300 mg PO Q8H [facility] Last Admin: 05/11/25 09:33 Dose: 300 mg Documented By: SHIRLEY Glucose (Glucose Gel 15 Gm Gel..Gram.) 15 gm PO Q15M PRN; Protocol PRN Reason: per Hypoglycemia Standing Ord. Lactated Ringer's (Lr) 1,000 mls @ 150 mls/hr IVCONT .Q6H40M [facility] Last Admin: 05/11/25 09:24 Dose: Not Given Documented By: SHIRLEY Non-Admin Reason: Physician Held Med Insulin Human Lispro (Insulin Lispro 100 Unit/Ml 3 Ml Vial) 0 unit SUBCUT QIDACHS [facility]; Protocol Last Admin: 05/11/25 07:49 Dose: Not Given Documented By: SHIRLEY Non-Admin Reason: No Insulin Coverage Comments: POC 133 Magnesium Hydroxide (Milk Of Magnesia 30 Ml Oral.Susp) 30 ml PO DAILY PRN PRN Reason: Constipation Melatonin (Melatonin 3 Mg Tablet) 6 mg PO BEDTIME PRN PRN Reason: Insomnia Metoprolol Succinate (Metoprolol Succinate Er 25 Mg Tab.Er.24h) 25 mg PO DAILY [facility]; Protocol Last Admin: 05/11/25 08:06 Dose: 25 mg Documented By: SHIRLEY Pravastatin Sodium (Pravastatin Sodium 80 Mg Tablet) 80 mg PO DAILY [facility] Last Admin: 05/11/25 08:06 Dose: 80 mg Documented By: SHIRLEY Sodium Chloride (0.9 % Sodium Chloride Flush 3 Ml Syringe) 3 ml IVFLUSH QSHIFT [facility] Last Admin: 05/11/25 08:06 Dose: 3 ml Documented By: SHIRLEY Sodium Zirconium Cyclosilicate (Sodium Zirconium Cyclosilicate 10 Gm Powd.Pack) 10 gm PO DAILY [facility] Last Admin: 05/11/25 09:33 Dose: 10 gm Documented By: SHIRLEY Labs 05/11/25 06:09 05/11/25 06:09 Labs: Laboratory Results - last 24 hr 05/10/25 05/10/25 05/10/25 13:24 13:25 14:26 MCV 96.8 MCH 29.1 MCHC 30.0 L RDW 16.1 H Plt Count 265 MPV 9.8 Immature Gran % (Auto) 0.6 H Neut % (Auto) 77.5 H Lymph % (Auto) 11.2 L [place] % (Auto) 7.6 Eos % (Auto) 2.5 Baso % (Auto) 0.6 Lymph # (Auto) 1.6 [place] # (Auto) 1.1 Eos # (Auto) 0.4 Baso # (Auto) 0.1 Abs Immat Gran (auto) 0.08 H Absolute Neuts (auto) 10.8 H Absolute Nucleated RBC 0.000 Nucleated RBC % (auto) 0.0 PT INR APTT Anion Gap 10 L Estim Creat Clear Calc 28.1 Estimated GFR 32 POC Glucose Random Glucose 113 Calcium 9.1 Magnesium 2.0 Total Bilirubin 0.1 Direct Bilirubin < 0.2 AST 15 ALT 12 Alkaline Phosphatase 104 Troponin I High Sens 40.4 H D Total Protein 7.2 Albumin 3.7 Lipase 31 Urine Color Urine Appearance Urine pH Ur Specific [place] Urine Protein Urine Glucose (UA) Urine Ketones Urine Blood Urine Nitrite Ur Leukocyte Esterase Urine RBC Urine WBC Ur Squamous Epith Cells Urine Bacteria Hyaline Casts Stool Occult Blood NEGATIVE Influenza Type A (PCR) NEGATIVE Influenza Type B (PCR) NEGATIVE RSV RNA Qual (PCR) NEGATIVE SARS-CoV-2 RNA (RT-PCR) NEGATIVE Blood Type Antibody Screen Crossmatch 05/10/25 05/10/25 05/10/25 15:20 18:02 20:36 MCV MCH MCHC RDW Plt Count MPV Immature Gran % (Auto) Neut % (Auto) Lymph % (Auto) [place] % (Auto) Eos % (Auto) Baso % (Auto) Lymph # (Auto) [place] # (Auto) Eos # (Auto) Baso # (Auto) Abs Immat Gran (auto) Absolute Neuts (auto) Absolute Nucleated RBC Nucleated RBC % (auto) PT INR APTT Anion Gap Estim Creat Clear Calc Estimated GFR POC Glucose 120 H 129 H Random Glucose Calcium Magnesium Total Bilirubin Direct Bilirubin AST ALT Alkaline Phosphatase Troponin I High Sens 39.7 H Total Protein Albumin Lipase Urine Color Urine Appearance Urine pH Ur Specific [place] Urine Protein Urine Glucose (UA) Urine Ketones Urine Blood Urine Nitrite Ur Leukocyte Esterase Urine RBC Urine WBC Ur Squamous Epith Cells Urine Bacteria Hyaline Casts Stool Occult Blood Influenza Type A (PCR) Influenza Type B (PCR) RSV RNA Qual (PCR) SARS-CoV-2 RNA (RT-PCR) Blood Type A Positive Antibody Screen NEGATIVE Crossmatch See Detail 05/10/25 05/10/25 05/11/25 23:19 23:52 06:09 MCV 94.4 94.0 MCH 28.9 28.8 MCHC 30.6 L 30.6 L RDW 16.2 H 16.0 Plt Count 245 240 MPV 9.5 9.8 Immature Gran % (Auto) 0.5 H Neut % (Auto) 76.0 H Lymph % (Auto) 12.5 L [place] % (Auto) 6.7 Eos % (Auto) 3.6 Baso % (Auto) 0.7 Lymph # (Auto) 1.7 [place] # (Auto) 0.9 Eos # (Auto) 0.5 H Baso # (Auto) 0.1 Abs Immat Gran (auto) 0.07 H Absolute Neuts (auto) 10.4 H Absolute Nucleated RBC 0.000 0.000 Nucleated RBC % (auto) 0.0 0.0 PT 12.9 INR 1.1 APTT 28.1 Anion Gap 13 12 Estim Creat Clear Calc 30.6 34.2 Estimated GFR 35 40 POC Glucose Random Glucose 135 H 126 H Calcium 9.0 8.9 Magnesium Total Bilirubin Direct Bilirubin AST ALT Alkaline Phosphatase Troponin I High Sens Total Protein Albumin Lipase Urine Color Yellow Urine Appearance Clear Urine pH 5.5 Ur Specific [place] 1.015 Urine Protein 300 (3+) H Urine Glucose (UA) Negative Urine Ketones Negative Urine Blood Negative Urine Nitrite Negative Ur Leukocyte Esterase Negative Urine RBC 0-2 Urine WBC 0-5 Ur Squamous Epith Cells 0-2 Urine Bacteria None Seen Hyaline Casts 0-2 Stool Occult Blood Influenza Type A (PCR) Influenza Type B (PCR) RSV RNA Qual (PCR) SARS-CoV-2 RNA (RT-PCR) Blood Type Antibody Screen Crossmatch 05/11/25 07:39 MCV MCH MCHC RDW Plt Count MPV Immature Gran % (Auto) Neut % (Auto) Lymph % (Auto) [place] % (Auto) Eos % (Auto) Baso % (Auto) Lymph # (Auto) [place] # (Auto) Eos # (Auto) Baso # (Auto) Abs Immat Gran (auto) Absolute Neuts (auto) Absolute Nucleated RBC Nucleated RBC % (auto) PT INR APTT Anion Gap Estim Creat Clear Calc Estimated GFR POC Glucose 133 H Random Glucose Calcium Magnesium Total Bilirubin Direct Bilirubin AST ALT Alkaline Phosphatase Troponin I High Sens Total Protein Albumin Lipase Urine Color Urine Appearance Urine pH Ur Specific [place] Urine Protein Urine Glucose (UA) Urine Ketones Urine Blood Urine Nitrite Ur Leukocyte Esterase Urine RBC Urine WBC Ur Squamous Epith Cells Urine Bacteria Hyaline Casts Stool Occult Blood Influenza Type A (PCR) Influenza Type B (PCR) RSV RNA Qual (PCR) SARS-CoV-2 RNA (RT-PCR) Blood Type Antibody Screen Crossmatch Assessment and Plan (1) RTA (renal tubular acidosis): Status: Acute (2) Hyperkalemia: Status: Acute Plan 74-year-old female with multiple comorbidities presenting with a rectal mass, likely abscess, associated with burning pain, constipation, and minor rectal bleeding. Notable for acute drop in hemoglobin and hyperkalemia (treated). CKD at baseline. No ECG changes. Plan Rectal Mass/Abscess Surgery will do I and D. Non-contrast CT: 2 x 2.3 cm low-attenuation or cystic right perianal lesion measuring 2 x 2.3 cm, question perianal abscess or pilonidal cyst GI consult for evaluation of rectal bleeding and chronic anemia. Hold Abx for now Anemia Transfuse packed red blood cells if Hgb < 7, Hgb 6.4 Monitor hemoglobin/hematocrit Evaluate for ongoing blood loss. Hold ASA and Brilanta Hyperkalemia, acute on chronic d/t CKD and likely RTA 4 Lokelma as needed, further eval by nephrology Elevated troponin, flat/chronic, no acute event Constipation Bowel regimen as appropriate, considering rectal pathology. Comorbidities (DM, HTN, HLD, CAD) Continue home medications as appropriate, adjust for renal function. Monitor for cardiac and respiratory complications. 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 Pharmacologic prophylaxis to be considered after surgical/GI evaluation and bleeding risk reassessed Code Status:Full code. Disposition: Admit to medicine for further management and coordination of care. Quality Stroke Does the patient have a stroke diagnosis?: No VTE Prior VTE?: No VTE Risk Level:: Medical - moderate - high VTE Device Contraindication: N/A - Device Ordered VTE Drug Contraindication: Treatment Not Tolerated (anemia, active bleed)
--- NOTE | 2025-05-11 10:20 | MHC.CM.PN ---
IMM 05/11/25, Pt. lives with her son and grand children. PCP confirmed: Ana Hough MD. HCP is on file and confirmed: Shirley. Pt. does not use home health services or DME, family to transport her home at [place], DCP: home, self care, CM to follow for DC needs.
--- NOTE | 2025-05-11 11:22 | W.PM.OPN ---
Operative Note Operative Note Date of Service: 05/11/25 Narrative: Preoperative diagnosis: Perianal abscess Postoperative diagnosis: Same Procedure: Incision and drainage perianal abscess Surgeon: Adryan Vazquez MD [employer] Engineer: None Anesthesia: Lidocaine 1% plain Indications for procedure: 74-year-old female patient found to have a tender lump in the perianal skin consistent with a perianal abscess Operative findings: Foul-smelling bloody fluid approximately 20 mL Specimen: None Estimated blood loss: None Complications: None Procedure details: After assuring informed consent and confirming the site of procedure, the patient was placed in a right lateral decubitus position on her bed. Skin was prepped with Betadine and draped in a sterile fashion. Local anesthesia was then infiltrated around the abscess cavity. An incision was then made with a 11 blade and a large thin bloody fluid collection was drained. This fluid was foul-smelling. The collection was completely drained therefore no packing was inserted. Sterile dressings were then applied. The patient tolerated the procedure well and felt improved following the procedure.
[2025-05-11 11:42] LABS: Glucose, Whole Blood 139 mg/dL (60-115)
--- NOTE | 2025-05-11 16:19 | PM.EVENT ---
Event Note Date of Service: 05/11/25 Event Note: After fisr unit of blood, repored sob, no chest pain, O2 low, improved with O2. Exam: rales at left base. CXR no acute change, initially BP high has come down. Holding further transfusion, and recheck H/H later. Next transfusion should be given at slow rate. Likely fluid overload from IV and blood product. IVF stopped, presently better BP 123/58. O2 sat 97 on 2 L RR20 Time Spent With Patient Time: Total time managing care of this patient today ____ minutes.
[2025-05-11 16:20] LABS: Glucose, Whole Blood 157 mg/dL (60-115)
[2025-05-11] MEDS: Furosemide 40 MG/4 ML VIAL IVPUSH (16:36)
--- NOTE | 2025-05-11 18:11 | PM.EVENT ---
Event Note Date of Service: 05/11/25 Event Note: Chart reviewed 74 yr old woman with stable CKD with severe anemia and hyperkalemia s/p drainage of perianal abscess Low K diet and Lokelma PRN Keep I > O Concur with current medical management Full consult to follow Time Spent With Patient Time: Total time managing care of this patient today ____ minutes.
[2025-05-11 21:18] LABS: Glucose, Whole Blood 177 mg/dL (60-115)
[2025-05-11 22:10] LABS: Hematocrit 24.0 % (37.0-47.0); Hemoglobin 7.9 g/dl (12.0-16.0); Mean Corpuscular HGB Conc 32.9 g/dl (31.0-35.0); Mean Corpuscular Hemoglobin 30.0 pg (27.0-33.0); Mean Corpuscular Volume 91.3 fL (80.0-98.0); NRBC Abs Auto 0.000 X10*3/uL (0.0-0.012); NRBC Pct Auto 0.0 /100WBC (0.0-0.2); Platelet Count 205 X10*3/uL (160-400); Red Blood Count 2.63 X10*6/uL (4.20-5.50); White Blood Count 12.0 X10*3/uL (4.8-10.8)
[2025-05-11 22:20] LABS: Anion Gap 13 (12-20); Carbon Dioxide 16 mmol/L (22-29); Chloride 113 mmol/L (96-108); Potassium 4.4 mmol/L (3.3-5.1); Sodium 138 mmol/L (135-145)
[2025-05-12 03:10] VITALS: BP 134/54; PULSE 64; RESP 20; TEMP 36.4; O2SAT 97
[2025-05-12 07:41] VITALS: BP 182/77; PULSE 72; RESP 18; TEMP 36.3; O2SAT 98
[2025-05-12 07:45] LABS: Glucose, Whole Blood 85 mg/dL (60-115)
[2025-05-12 07:51] LABS: Hematocrit 25.9 % (37.0-47.0); Hemoglobin 8.1 g/dl (12.0-16.0); Mean Corpuscular HGB Conc 31.3 g/dl (31.0-35.0); Mean Corpuscular Hemoglobin 29.1 pg (27.0-33.0); Mean Corpuscular Volume 93.2 fL (80.0-98.0); NRBC Abs Auto 0.000 X10*3/uL (0.0-0.012); NRBC Pct Auto 0.0 /100WBC (0.0-0.2); Platelet Count 210 X10*3/uL (160-400); Red Blood Count 2.78 X10*6/uL (4.20-5.50); White Blood Count 11.0 X10*3/uL (4.8-10.8)
[2025-05-12 08:11] LABS: Anion Gap 12 (12-20); Blood Urea Nitrogen 35 mg/dL (9-16); Calcium 8.6 mg/dL (8.4-10.2); Carbon Dioxide 18 mmol/L (22-29); Chloride 115 mmol/L (96-108); Creatinine Clr Calc Pharmacy 29.2; Estimated Glomerular Filt Rate 33; Potassium 4.6 mmol/L (3.3-5.1); Sodium 140 mmol/L (135-145)
[2025-05-12] MEDS: Metoprolol Succinate ER 25 MG TAB.ER.24H PO (08:22)
[2025-05-12] MEDS: 0.9 % Sodium Chloride Flush 3 ML SYRINGE IVFLUSH (08:23)
--- NOTE | 2025-05-12 11:05 | P.PNIM_ITS ---
Subjective Subjective Date of Service: 05/12/25 Interval History: Follow-up on rectal mass, chronic kidney failure, hyperkalemia and anemia suspected GI bleeding. hemoglobin has improved after 1 unit, transient sob d/t fluid with transfusion yesterday and got lasix, K is normal Physical Exam 2 Vital Signs: Vital Signs: Last Vital Signs Temp 97.4 F 05/12/25 07:41 Pulse 72 05/12/25 07:41 Resp 18 05/12/25 07:41 BP 182/77 H 05/12/25 07:41 Pulse Ox 98 05/12/25 07:41 O2 Del Method Nasal Cannula 05/12/25 07:41 O2 Flow Rate 2 05/12/25 07:41 BMI result Body Mass Index 29.0 Const: Other: General:?Alert, no acute distress Cardiac:?Regular rate and rhythm, no murmurs Pulmonary:?Clear to auscultation Abdomen:?Soft, non-tender, no distension Rectal:?deffered Neuro:?Grossly intact Objective Data Active Medications Acetaminophen (Acetaminophen 325 Mg Tablet) 650 mg PO Q6H PRN PRN Reason: Pain, Mild 1-3,fever,headache Last Admin: 05/10/25 22:58 Dose: 650 mg Documented By: KRISTIN Amlodipine Besylate (Amlodipine Besylate 10 Mg Tablet) 10 mg PO DAILY [facility]; Protocol Last Admin: 05/12/25 08:23 Dose: 10 mg Documented By: SHIRLEY Calcium Carbonate (Calcium Carbonate 750 Mg Tab.Chew) 750 mg PO Q4H PRN PRN Reason: Heartburn Dextrose (Dextrose 50 % 25 Gm/50 Ml Syringe) 25 gm IVPUSH Q15M PRN; Protocol PRN Reason: per Hypoglycemia Standing Ord. Gabapentin (Gabapentin 300 Mg Capsule) 300 mg PO Q8H [facility] Last Admin: 05/12/25 03:12 Dose: 300 mg Documented By: URIEL Glucose (Glucose Gel 15 Gm Gel..Gram.) 15 gm PO Q15M PRN; Protocol PRN Reason: per Hypoglycemia Standing Ord. Insulin Human Lispro (Insulin Lispro 100 Unit/Ml 3 Ml Vial) 0 unit SUBCUT QIDACHS [facility]; Protocol Last Admin: 05/12/25 07:43 Dose: Not Given Documented By: SHIRLEY Non-Admin Reason: No Insulin Coverage Comments: POC 85 Magnesium Hydroxide (Milk Of Magnesia 30 Ml Oral.Susp) 30 ml PO DAILY PRN PRN Reason: Constipation Melatonin (Melatonin 3 Mg Tablet) 6 mg PO BEDTIME PRN PRN Reason: Insomnia Metoprolol Succinate (Metoprolol Succinate Er 25 Mg Tab.Er.24h) 25 mg PO DAILY [facility]; Protocol Last Admin: 05/12/25 08:22 Dose: 25 mg Documented By: SHIRLEY Morphine Sulfate (Morphine Sulfate 4 Mg/Ml Cartridge) 2 mg IVPUSH Q4H PRN; Protocol PRN Reason: Pain, Severe (Pain Scale 7-10) Last Admin: 05/11/25 11:54 Dose: 2 mg Documented By: SHIRLEY Patient Own Med ( Linagliptin [ Tradjenta] 5 Mg Tablet) 5 mg PO DAILY [facility] Last Admin: 05/12/25 08:22 Dose: 5 mg Documented By: SHIRLEY Pravastatin Sodium (Pravastatin Sodium 80 Mg Tablet) 80 mg PO DAILY [facility] Last Admin: 05/12/25 08:22 Dose: 80 mg Documented By: SHIRLEY Sodium Chloride (0.9 % Sodium Chloride Flush 3 Ml Syringe) 3 ml IVFLUSH QSHIFT [facility] Last Admin: 05/12/25 08:23 Dose: 3 ml Documented By: SHIRLEY Sodium Zirconium Cyclosilicate (Sodium Zirconium Cyclosilicate 10 Gm Powd.Pack) 10 gm PO DAILY [facility] Last Admin: 05/12/25 08:23 Dose: 10 gm Documented By: SHIRLEY Labs 05/12/25 06:58 05/12/25 06:58 Labs: Laboratory Results - last 24 hr 05/10/25 05/11/25 05/11/25 15:20 11:32 16:16 MCV MCH MCHC RDW Plt Count MPV Absolute Nucleated RBC Nucleated RBC % (auto) Anion Gap Estim Creat Clear Calc Estimated GFR POC Glucose 139 H 157 H Random Glucose Calcium Crossmatch See Detail 05/11/25 05/11/25 05/12/25 21:07 21:53 06:58 MCV 91.3 93.2 MCH 30.0 29.1 MCHC 32.9 31.3 RDW 15.9 15.9 Plt Count 205 210 MPV 9.3 L 9.9 Absolute Nucleated RBC 0.000 0.000 Nucleated RBC % (auto) 0.0 0.0 Anion Gap 13 12 Estim Creat Clear Calc 29.2 Estimated GFR 33 POC Glucose 177 H Random Glucose 86 Calcium 8.6 Crossmatch 05/12/25 07:39 MCV MCH MCHC RDW Plt Count MPV Absolute Nucleated RBC Nucleated RBC % (auto) Anion Gap Estim Creat Clear Calc Estimated GFR POC Glucose 85 Random Glucose Calcium Crossmatch Assessment and Plan (1) RTA (renal tubular acidosis): Status: Acute (2) Hyperkalemia: Status: Acute Plan 74-year-old female with multiple comorbidities presenting with a rectal mass, likely abscess, associated with burning pain, constipation, and minor rectal bleeding. Notable for acute drop in hemoglobin and hyperkalemia (treated). CKD at baseline. No ECG changes. Plan Rectal Mass/Abscess Surgery will do I and D. Non-contrast CT: 2 x 2.3 cm low-attenuation or cystic right perianal lesion measuring 2 x 2.3 cm, question perianal abscess or pilonidal cyst s/p drainage by surgery yeserday, foul smelling no gram stain/culture available at [facility] for possible infection Anemia Transfused 1 RBC on 05/11, H/H is better Monitor hemoglobin/hematocrit Hold ASA and Brilanta For EGD and colonoscopy tomorrow Hyperkalemia, acute on chronic d/t CKD 3 and likely RTA 4 Lokelma as needed, Low K diet, Nephro input noted Elevated troponin, flat/chronic, no acute event Acute pulmonary edema d/t IVF and blood, resolved after lasix, hold further lasix at this time Constipation Bowel regimen as appropriate, considering rectal pathology. Comorbidities (DM, HTN, HLD, CAD) Continue home medications as appropriate, adjust for renal function. Monitor for cardiac and respiratory complications. 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 Pharmacologic prophylaxis to be considered after surgical/GI evaluation and bleeding risk reassessed Code Status:Full code. Disposition: Admit to medicine for further management and coordination of care. Quality Stroke Does the patient have a stroke diagnosis?: No VTE Prior VTE?: No VTE Risk Level:: Medical - moderate - high VTE Device Contraindication: N/A - Device Ordered VTE Drug Contraindication: Treatment Not Tolerated (anemia, active bleed)
[2025-05-12 11:19] LABS: Glucose, Whole Blood 109 mg/dL (60-115)
[2025-05-12 11:44] VITALS: BP 169/73; PULSE 70; RESP 18; TEMP 36.2; O2SAT 98
[2025-05-12] MEDS: PEG 3350/Na Sulf,Bicarb,Cl/KCL 4,000 ML SOLN.RECON 4000 ML PO (13:49)
[2025-05-12 16:00] VITALS: BP 166/48; PULSE 70; RESP 20; TEMP 36.7; O2SAT 93
[2025-05-12 16:27] LABS: Glucose, Whole Blood 110 mg/dL (60-115)
[2025-05-12 20:00] VITALS: BP 145/90; PULSE 66; RESP 20; TEMP 36.3; O2SAT 96
[2025-05-12 21:57] LABS: Glucose, Whole Blood 118 mg/dL (60-115)
[2025-05-13] VITALS (10 sets, daily range): BP systolic 132–182; BP diastolic 29–101; PULSE 67–83; RESP 15–18; TEMP 36.1–36.9; O2SAT 94–97
--- NOTE | 2025-05-13 07:00 | CA_ITS ---
Transthoracic Echocardiogram Patient (Last, First, Middle): Mary Ceballos E Gender: Female Date of : 1950 Age: 74 Procedure Date: 05/13/2025 Procedure Type: Transthoracic Echocardiogram Location: [facility] – [place], [place] Height: 157.48 cm Weight: 71.67 kg BSA: 1.73 m2 Heart Rate: 65 bpm BP: 137 / 62 mmHg Wool Supplier: MALIK Referring MD: Mike Faulkner MD Starting Gate Driver: Shamar Howe MD Symptoms: pulmonary edema Study Quality: Adequate ECG Rhythm: Sinus Conclusions: - 1. Normal LV ejection fraction 55-60% with impaired relaxation filling pattern 2. Mild calcific aortic stenosis and aortic regurgitation 3. Mildly dilated ascending aorta 4. No gross pericardial effusion Findings Left Ventricle Normal left ventricular size, thickness, and systolic function. The visually estimated ejection fraction is between 55-60%. Spectral Doppler is indicative of an impaired relaxation filling pattern. E/E prime ratio is between 8 and 15 consistent with indeterminate filling pressures. Wall Motion Rest Echo Findings The basal inferior segment is akinetic. All other scored wall segments showed normal motion. Right Ventricle Normal right ventricular cavity size and systolic function. Atria Both atria are normal in size. There is lipomatous hypertrophy of the interatrial septum. There is no evidence of interatrial shunt. Aortic Valve There is moderate calcification of the aortic valve. There is mild aortic valve stenosis. The peak aortic gradient is 29 mmHg.The mean gradient is 16 mmHg. The aortic valve area is 1.63 cm2. There is mild aortic valve regurgitation. Mitral Valve There is mild anterior and moderate posterior mitral leaflet thickening. There is no mitral valve regurgitation. There is no mitral valve stenosis. Pulmonic Valve The pulmonic valve is likely normal. Tricuspid Valve Normal tricuspid valve structure. Tricuspid regurgitation envelope is inadequate for calculation of right ventricular systolic pressure. Normal right atrial pressure. Great Vessels The pulmonary artery was not well visualized. There is mild dilatation of the ascending aorta measuring 3.70 cm. Small plaque is seen in the sino tubular ridge. Venous The inferior vena cava is normal in size and collapses greater than 50% with inspiration. Pericardium/Pleural There is no evidence of pericardial effusion. Prior Study Comparison Changes noted compared to prior study dated: 10/09/2024. LV ejection fraction is within normal limits Measurements 2D Linear Measurements IVSd: 1.18 0.6-0.9/0.6-1.0 cm LVIDd: 5.01 3.9-5.3/4.2-5.9 cm LVIDd Index: 2.90 2.4-3.2/2.2-3.1 cm/m2 LVIDs: 3.41 2.0-3.6 cm LVPWd: 0.85 0.7-1.1 cm LA Diam: 4.10 2.7-3.8/3.0-4.0 cm LAIDs Index: 2.37 1.5-2.3 cm/m2 LV Mass: 231.47 67-162/88-224 g LV Mass Index: 133.80 43-95/49-115 g/m2 LVOT Diam: 2.00 3.0+(-)1.3 cm 2D Systolic Function EF 4C: 52.50 >55% EF 2C: 61.40 >55% EF BiP: 57.20 >55% Mitral Valve MV Pk E: 0.83 MV PK A: 1.13 MV Decel Time: 259.00 E/A: 0.70 E'Lateral: 5.55 E'Medial: 4.68 E/E' Med: 17.70 E/E' Lat: 14.90 PHT: 76.00 MVA PHT: 2.89 Decel [place]: 3.19 Aortic Valve AoV Pk [place]: 2.69 AoV Mn [place]: 1.89 AoV VTI: 0.61 AoV Pk Grad: 29.00 Aov Mn Grad: 16.00 JOANN Cont.VTI: 1.63 AI Pk [place]: 3.64 AI VTI: 1.69 AI [place]: 2.59 LVOT LVOT Pk [place]: 1.25 LVOT Mn [place]: 0.91 LVOT VTI: 0.32 LVOT Pk Grad: 6.00 LVOT Mn Grad: 4.00 LVOT Diam: 2.00 LVOT Area: 3.14 Diastolic Function MV Pk E: 0.83 MV Pk A: 1.13 E/A: 0.70 E'Medial: 4.68 E/E' Med: 17.70 E' Laterial: 5.55 E/E' Lat: 14.90 Right Ventricle TAPSE (mm): 20.30 TVS' [place]: 12.10 Tricuspid Valve RA Press: 3.00 Great Vessels Aorta Sinus of Valsalva: 3.10 2.0-3.5 cm Ao Asc: 3.70 2.1-3.4 cm Pulmonary Veins Pulm Vein S/D 2.00 Pulmonary Valve PV Pk [place]: 1.15 Peak PV Grad: 5.00 Updated in Other Vendor System with Status of Final Shamar Howe MD electronically signed on 05/13/2025 1:54:42 PM with status of Final
[2025-05-13 07:17] LABS: Glucose, Whole Blood 119 mg/dL (60-115)
[2025-05-13 07:36] LABS: Anion Gap 14 (12-20); Blood Urea Nitrogen 29 mg/dL (9-16); Calcium 9.0 mg/dL (8.4-10.2); Carbon Dioxide 19 mmol/L (22-29); Chloride 112 mmol/L (96-108); Creatinine Clr Calc Pharmacy 35.3; Estimated Glomerular Filt Rate 41; Potassium 4.0 mmol/L (3.3-5.1); Sodium 141 mmol/L (135-145)
[2025-05-13 07:47] LABS: Hematocrit 27.8 % (37.0-47.0); Hemoglobin 9.0 g/dl (12.0-16.0); Mean Corpuscular HGB Conc 32.4 g/dl (31.0-35.0); Mean Corpuscular Hemoglobin 29.5 pg (27.0-33.0); Mean Corpuscular Volume 91.1 fL (80.0-98.0); NRBC Abs Auto 0.000 X10*3/uL (0.0-0.012); NRBC Pct Auto 0.0 /100WBC (0.0-0.2); Platelet Count 250 X10*3/uL (160-400); Red Blood Count 3.05 X10*6/uL (4.20-5.50); White Blood Count 8.2 X10*3/uL (4.8-10.8)
--- NOTE | 2025-05-13 08:10 | PM.PNGS ---
Subjective Subjective Date of Service: 05/13/25 Interval history: Currently denies any pain at perirectal I&D site. Denies significant drainage from the site. Awaiting colonoscopy today. Physical Exam Vital Signs: Vital Signs: Last Vital Signs Temp 97.3 F 05/13/25 07:33 Pulse 77 05/13/25 07:33 Resp 18 05/13/25 07:33 BP 161/50 H 05/13/25 07:33 Pulse Ox 94 05/13/25 07:33 O2 Del Method Room Air 05/13/25 07:33 O2 Flow Rate 2 05/12/25 07:41 BMI result Body Mass Index 29.0 Const: General: comfortable, no acute distress and alert Orientation/consciousness: patient oriented x3 Resp: Effort & Inspection: normal respiratory effort GI: Other: perirectal - small I&D site on right; no fluctuance appreciated, no drainage noted, small amount of residual induration, area nontender, mild erythema Skin: Other: warm and dry Neuro: General: patient oriented x3 and moves all extremities Objective Data Active Medications Acetaminophen (Acetaminophen 325 Mg Tablet) 650 mg PO Q6H PRN PRN Reason: Pain, Mild 1-3,fever,headache Last Admin: 05/10/25 22:58 Dose: 650 mg Documented By: KRISTIN Amlodipine Besylate (Amlodipine Besylate 10 Mg Tablet) 10 mg PO DAILY [facility]; Protocol Last Admin: 05/12/25 08:23 Dose: 10 mg Documented By: SHIRLEY Calcium Carbonate (Calcium Carbonate 750 Mg Tab.Chew) 750 mg PO Q4H PRN PRN Reason: Heartburn Dextrose (Dextrose 50 % 25 Gm/50 Ml Syringe) 25 gm IVPUSH Q15M PRN; Protocol PRN Reason: per Hypoglycemia Standing Ord. Gabapentin (Gabapentin 300 Mg Capsule) 300 mg PO Q8H [facility] Last Admin: 05/13/25 02:41 Dose: Not Given Documented By: ABY Non-Admin Reason: Patient Refused Glucose (Glucose Gel 15 Gm Gel..Gram.) 15 gm PO Q15M PRN; Protocol PRN Reason: per Hypoglycemia Standing Ord. Hydralazine HCl (Hydralazine Hcl 25 Mg Tablet) 25 mg PO BID [facility]; Protocol Last Admin: 05/12/25 22:17 Dose: 25 mg Documented By: ABY Insulin Human Lispro (Insulin Lispro 100 Unit/Ml 3 Ml Vial) 0 unit SUBCUT QIDACHS [facility]; Protocol Last Admin: 05/12/25 22:18 Dose: Not Given Documented By: ABY Non-Admin Reason: na Magnesium Hydroxide (Milk Of Magnesia 30 Ml Oral.Susp) 30 ml PO DAILY PRN PRN Reason: Constipation Melatonin (Melatonin 3 Mg Tablet) 6 mg PO BEDTIME PRN PRN Reason: Insomnia Metoprolol Succinate (Metoprolol Succinate Er 25 Mg Tab.Er.24h) 25 mg PO DAILY [facility]; Protocol Last Admin: 05/12/25 08:22 Dose: 25 mg Documented By: SHIRLEY Morphine Sulfate (Morphine Sulfate 4 Mg/Ml Cartridge) 2 mg IVPUSH Q4H PRN; Protocol PRN Reason: Pain, Severe (Pain Scale 7-10) Last Admin: 05/11/25 11:54 Dose: 2 mg Documented By: SHIRLEY Patient Own Med ( Linagliptin [ Tradjenta] 5 Mg Tablet) 5 mg PO DAILY [facility] Last Admin: 05/12/25 08:22 Dose: 5 mg Documented By: SHIRLEY Pravastatin Sodium (Pravastatin Sodium 80 Mg Tablet) 80 mg PO DAILY [facility] Last Admin: 05/12/25 08:22 Dose: 80 mg Documented By: SHIRLEY Sodium Chloride (0.9 % Sodium Chloride Flush 3 Ml Syringe) 3 ml IVFLUSH QSHIFT [facility] Last Admin: 05/13/25 01:25 Dose: Not Given Documented By: ABY Non-Admin Reason: Patient Asleep Sodium Zirconium Cyclosilicate (Sodium Zirconium Cyclosilicate 10 Gm Powd.Pack) 10 gm PO DAILY [facility] Last Admin: 05/12/25 08:23 Dose: 10 gm Documented By: SHIRLEY Labs 05/13/25 06:33 05/13/25 06:33 Labs: Laboratory Results - last 24 hr 05/12/25 05/12/25 05/12/25 06:58 11:15 15:40 MCV MCH MCHC RDW Plt Count MPV Absolute Nucleated RBC Nucleated RBC % (auto) Anion Gap 12 Estim Creat Clear Calc 29.2 Estimated GFR 33 POC Glucose 109 110 Random Glucose 86 Calcium 8.6 1105/13/25 05/13/25 21:30 06:33 07:14 MCV 91.1 MCH 29.5 MCHC 32.4 RDW 15.2 Plt Count 250 MPV 9.7 Absolute Nucleated RBC 0.000 Nucleated RBC % (auto) 0.0 Anion Gap 14 Estim Creat Clear Calc 35.3 Estimated GFR 41 POC Glucose 118 H 119 H Random Glucose 111 Calcium 9.0 Procedures Date of Service Date of Service: 05/13/25 Progress Note: A&P Assessment and plan (1) Perirectal abscess: Status: Acute Plan No further surgical intervention warranted, site adequately drained. Some residual induration and erythema but non tender, no drainage and no fluctuance. Encouraged sitz baths TID or hot showers to help cleanse the area, especially after BM. Patient comfortable with plan. Time Spent With Patient Time: Total time managing care of this patient today ____ minutes. Quality Stroke Does the patient have a stroke diagnosis?: No VTE Prior VTE?: No VTE Risk Level:: Medical - moderate - high VTE Device Contraindication: N/A - Device Ordered VTE Drug Contraindication: Treatment Not Tolerated (anemia, active bleed)
[2025-05-13] MEDS: Metoprolol Succinate ER 25 MG TAB.ER.24H PO (08:24)
[2025-05-13] MEDS: 0.9 % Sodium Chloride Flush 3 ML SYRINGE IVFLUSH (08:24)
--- NOTE | 2025-05-13 09:17 | HO.PM.IMPN ---
Subjective Subjective Date of Service: 05/13/25 Interval History: Follow-up on rectal mass, chronic kidney failure, hyperkalemia and anemia suspected GI bleeding. hemoglobin has improved after 1 unit and even better today. Physical Exam Vital Signs: Vital Signs: Last Vital Signs Temp 97.3 F 05/13/25 07:33 Pulse 77 05/13/25 07:33 Resp 18 05/13/25 07:33 BP 161/50 H 05/13/25 07:33 Pulse Ox 94 05/13/25 07:33 O2 Del Method Room Air 05/13/25 07:33 O2 Flow Rate 2 05/12/25 07:41 BMI result Body Mass Index 29.0 Const: Other: General:?Alert, no acute distress Cardiac:?Regular rate and rhythm, no murmurs Pulmonary:?Clear to auscultation Abdomen:?Soft, non-tender, no distension Rectal:?deffered Neuro:?Grossly intact Objective Data Active Medications Acetaminophen (Acetaminophen 325 Mg Tablet) 650 mg PO Q6H PRN PRN Reason: Pain, Mild 1-3,fever,headache Last Admin: 05/10/25 22:58 Dose: 650 mg Documented By: KRISTIN Amlodipine Besylate (Amlodipine Besylate 10 Mg Tablet) 10 mg PO DAILY [facility]; Protocol Last Admin: 05/13/25 08:24 Dose: 10 mg Documented By: SONALI Calcium Carbonate (Calcium Carbonate 750 Mg Tab.Chew) 750 mg PO Q4H PRN PRN Reason: Heartburn Dextrose (Dextrose 50 % 25 Gm/50 Ml Syringe) 25 gm IVPUSH Q15M PRN; Protocol PRN Reason: per Hypoglycemia Standing Ord. Gabapentin (Gabapentin 300 Mg Capsule) 300 mg PO Q8H [facility] Last Admin: 05/13/25 02:41 Dose: Not Given Documented By: ABY Non-Admin Reason: Patient Refused Glucose (Glucose Gel 15 Gm Gel..Gram.) 15 gm PO Q15M PRN; Protocol PRN Reason: per Hypoglycemia Standing Ord. Hydralazine HCl (Hydralazine Hcl 25 Mg Tablet) 25 mg PO BID [facility]; Protocol Last Admin: 05/13/25 08:24 Dose: 25 mg Documented By: SONALI Insulin Human Lispro (Insulin Lispro 100 Unit/Ml 3 Ml Vial) 0 unit SUBCUT QIDACHS [facility]; Protocol Last Admin: 05/13/25 08:29 Dose: Not Given Documented By: SONALI Non-Admin Reason: No Insulin Coverage Magnesium Hydroxide (Milk Of Magnesia 30 Ml Oral.Susp) 30 ml PO DAILY PRN PRN Reason: Constipation Melatonin (Melatonin 3 Mg Tablet) 6 mg PO BEDTIME PRN PRN Reason: Insomnia Metoprolol Succinate (Metoprolol Succinate Er 25 Mg Tab.Er.24h) 25 mg PO DAILY [facility]; Protocol Last Admin: 05/13/25 08:24 Dose: 25 mg Documented By: SONALI Morphine Sulfate (Morphine Sulfate 4 Mg/Ml Cartridge) 2 mg IVPUSH Q4H PRN; Protocol PRN Reason: Pain, Severe (Pain Scale 7-10) Last Admin: 05/11/25 11:54 Dose: 2 mg Documented By: SHIRLEY Patient Own Med ( Linagliptin [ Tradjenta] 5 Mg Tablet) 5 mg PO DAILY [facility] Last Admin: 05/13/25 08:29 Dose: Not Given Documented By: SONALI Non-Admin Reason: Physician Held Med Pravastatin Sodium (Pravastatin Sodium 80 Mg Tablet) 80 mg PO DAILY [facility] Last Admin: 05/12/25 08:22 Dose: 80 mg Documented By: SHIRLEY Sodium Chloride (0.9 % Sodium Chloride Flush 3 Ml Syringe) 3 ml IVFLUSH QSHIFT [facility] Last Admin: 05/13/25 08:24 Dose: 3 ml Documented By: SONALI Sodium Zirconium Cyclosilicate (Sodium Zirconium Cyclosilicate 10 Gm Powd.Pack) 10 gm PO DAILY [facility] Last Admin: 05/12/25 08:23 Dose: 10 gm Documented By: SHIRLEY Labs 05/13/25 06:33 05/13/25 06:33 Labs: Laboratory Results - last 24 hr 05/12/25 05/12/25 05/12/25 11:15 15:40 21:30 MCV MCH MCHC RDW Plt Count MPV Absolute Nucleated RBC Nucleated RBC % (auto) Anion Gap Estim Creat Clear Calc Estimated GFR POC Glucose 109 110 118 H Random Glucose Calcium 05/13/25 05/13/25 06:33 07:14 MCV 91.1 MCH 29.5 MCHC 32.4 RDW 15.2 Plt Count 250 MPV 9.7 Absolute Nucleated RBC 0.000 Nucleated RBC % (auto) 0.0 Anion Gap 14 Estim Creat Clear Calc 35.3 Estimated GFR 41 POC Glucose 119 H Random Glucose 111 Calcium 9.0 Assessment and Plan (1) RTA (renal tubular acidosis): Status: Acute (2) Hyperkalemia: Status: Acute Plan 74-year-old female with multiple comorbidities presenting with a rectal mass, likely abscess, associated with burning pain, constipation, and minor rectal bleeding. Notable for acute drop in hemoglobin and hyperkalemia (treated). CKD at baseline. No ECG changes. Plan Rectal Mass/Abscess Surgery will do I and D. Non-contrast CT: 2 x 2.3 cm low-attenuation or cystic right perianal lesion measuring 2 x 2.3 cm, question perianal abscess or pilonidal cyst s/p drainage by surgery yeserday, foul smelling no gram stain/culture available at Add dox empirically Anemia Transfused 1 RBC on 05/11, H/H is better after 1 unit of RBC Monitor hemoglobin/hematocrit Hold ASA and Brilanta For colonoscopy today HypErkalemia, acute on chronic d/t CKD 3 and likely RTA 4 Lokelma as needed, Low K diet, Nephro input noted K is presently normal Elevated troponin, flat/chronic, no acute event Acute pulmonary edema d/t IVF and blood, resolved after lasix, hold further lasix. Echo today Constipation Bowel regimen as appropriate, considering rectal pathology. Comorbidities (DM, HTN, HLD, CAD) Continue home medications as appropriate, adjust for renal function. Monitor for cardiac and respiratory complications. BP on higher side side, Valsartan on hold d/t high K aded hydralazine, continue metoprolol and Norvasc Chronic Metabolic acidosis, Hyperkalemia, CKD 3, DM--Likely has RTA4 Nephrology consult hold bicab replacement for now Consults: Surgery (for rectal mass/abscess) GI (for rectal bleeding and anemia) DVT Prophylaxis: Apply compression devices (SCDs). Pharmacologic prophylaxis to be considered after surgical/GI evaluation and bleeding risk reassessed Code Status:Full code. Disposition: Admit to medicine for further management and coordination of care. Quality Stroke Does the patient have a stroke diagnosis?: No VTE Prior VTE?: No VTE Risk Level:: Medical - moderate - high VTE Device Contraindication: N/A - Device Ordered VTE Drug Contraindication: Treatment Not Tolerated (anemia, active bleed)
--- NOTE | 2025-05-13 09:28 | PM.DS ---
DS: Providers Provider Date of Service: 05/13/25 Date of admission: 05/10/25 15:46 Date of discharge: 05/13/25 Primary care physician: Ana Hough MD Consults: 05/10/25 15:49 Consult to Gastroenterology [place]ine Consulting [place] [facility] [place] [facility] Reason for consultation: +FOBT, acute blood anemia Has provider been notified: No Consult to General Surgery Routine Consulting Provider[place] [facility] [facility] Reason for consultation: rectal mass 05/11/25 07:23 Consult to Nephrology Routine Consulting Provider: [facility] [place] [facility] [place] [facility] Reason for consultation: ckd, chronic hyperkalemia, metabolic acidosis Has provider been notified: No DS: Diagnosis Discharge Diagnosis (1) RTA (renal tubular acidosis): Status: Acute (2) Hyperkalemia: Status: Acute DS: Summary Hospital Course Hospital Course: Admitting HPI Chief Complaint: rectal pain, anemia and high potassium 74-year-old female with a history of COPD, CKD stage 3, chronic HypErkalemiachronic was 6 in February and was prescribed Kayexalate but didn't go for repeat lab, anemia (has refused colonoscopy in past), diabetic neuropathy, diabetes mellitus, dyslipidemia, hypertension, aortic stenosis, and coronary artery disease (proximal RCA stents, residual proximal LAD stenosis as of 10/11/2024), she is on Brilanta and ASA. She presents with a self-reported rectal lump noticed 3-4 days ago. She describes burning pain at the site. Normally, she has up to 8 loose bowel movements daily, but has been constipated for the past several days. She has also noticed a small amount of blood on wiping. In the ED, a 2.5 cm fluctuant mass was noted, possibly an abscess. A non-contrast CT has been requested. She received Lokelma 10 mg PO x2 for hyperkalemia (K 6.4). Creatinine is 1.54 (at baseline). Hemoglobin is 7.3 (down from 10.4 in October). ECG shows no peaked T waves. ED treatment: Lokelma 10 mg po x 2, Hospital course: 74-year-old female with multiple comorbidities presenting with a rectal mass, likely abscess, associated with burning pain, constipation, and minor rectal bleeding. Notable for acute drop in hemoglobin and hyperkalemia (treated). CKD at baseline. No ECG changes. Plan Rectal Mass/Abscess with no fever or increase WBC. Non-contrast CT: 2 x 2.3 cm Surgery did I and D: question perianal abscess or pilonidal cyst s/p drainage by surgery yeserday, foul smelling no gram stain/culture available, given empiric Doxy and treat for 7 days. Anemia, no active bleed. Previously refused colnoscopy. Transfused 1 RBC on 05/11, H/H went from 6.7/ to 03/30 today. She is assymptomatic. ASA and Brilanta on hold. Colonsocpy showed.... HypErkalemia, acute on chronic d/t CKD 3 and likely RTA 4 Lokelma as needed, Low K diet, Nephro saw her and recommend low K diet and outpatient follow up. K is now normal Elevated troponin, flat/chronic, no acute event Chronic metabolic acidosis to CKD, no bicab repalcement at this time, to follow with nephrology Acute pulmonary edema d/t IVF and blood, resolved after lasix, hold further lasix. Echo show Constipation Bowel regimen as appropriate, considering rectal pathology. Comorbidities (DM, HTN, HLD, CAD).. Resume home meds. For HTN holding Losartan due to high K, BP on high side, continue Norvasc and metoprolol and added hydralazine, to follow up with PCP for further med adjustment Physical Exam Vital Signs: Vital Signs: Last Vital Signs Temp 97.3 F 05/13/25 07:33 Pulse 77 05/13/25 07:33 Resp 18 05/13/25 07:33 BP 161/50 H 05/13/25 07:33 Pulse Ox 94 05/13/25 07:33 O2 Del Method Room Air 05/13/25 07:33 O2 Flow Rate 2 05/12/25 07:41 BMI result Body Mass Index 29.0 DS: Data Data Completed and Pending Labs on day of discharge: Laboratory Results - last 24 hr 05/12/25 05/12/25 05/12/25 11:15 15:40 21:30 WBC RBC Hgb Hct MCV MCH MCHC RDW Plt Count MPV Absolute Nucleated RBC Nucleated RBC % (auto) Sodium Potassium Chloride Carbon Dioxide Anion Gap BUN Creatinine Estim Creat Clear Calc Estimated GFR POC Glucose 109 110 118 H Random Glucose Calcium 05/13/25 05/13/25 06:33 07:14 WBC 8.2 RBC 3.05 L Hgb 9.0 L Hct 27.8 L MCV 91.1 MCH 29.5 MCHC 32.4 RDW 15.2 Plt Count 250 MPV 9.7 Absolute Nucleated RBC 0.000 Nucleated RBC % (auto) 0.0 Sodium 141 Potassium 4.0 Chloride 112 H Carbon Dioxide 19 L Anion Gap 14 BUN 29 H Creatinine 1.26 Estim Creat Clear Calc 35.3 Estimated GFR 41 POC Glucose 119 H Random Glucose 111 Calcium 9.0 Discharge Plan Discharge Anticipated Discharge Date/Time: 05/13/25 09:29 Patient Disposition: Home, Self-Care Discharge Diagnosis: Anemia, perianal cyst, hyperkalemia, metabolic acidosis Referrals: Ana Lanier MD [Primary Care Provider, Internal Medicine] - 1 Week Discharge Medications: Continued metformin 1,000 mg tablet 1,000 mg PO BID 90 Days Qty: 180 3RF pravastatin 80 mg tablet 80 mg PO DAILY Qty: 90 1RF Brilinta 90 mg tablet 90 mg PO BID Qty: 60 11RF amlodipine 10 mg tablet 10 mg PO DAILY 30 Days Qty: 30 6RF gabapentin 300 mg capsule 300 mg PO Q8H 90 Days Qty: 270 1RF metoprolol succinate 25 mg tablet extended release 24 hr 25 mg PO DAILY Qty: 90 3RF Tradjenta 5 mg tablet 5 mg PO DAILY pioglitazone 15 mg tablet 15 mg PO DAILY aspirin 81 mg tablet,delayed release (DR/EC) 81 mg PO DAILY valsartan 80 mg tablet 80 mg PO DAILY Qty: 90 1RF Rx Instructions: changed to separate tab hydrochlorothiazide 25 mg tablet 25 mg PO DAILY 30 Days Qty: 30 3RF Rx Instructions: changed to separate pill and dose increased Diet: Advance to usual diet Activity on Discharge: As tolerated Stand Alone Forms: Patient Portal Discharge page Print Language: Congolese Care Plan Goals: recovery from anemia, rectal cyst, hyperkalemia, and metabolic acidosis Health Concerns: same as above Assessment: seen above
--- NOTE | 2025-05-13 09:30 | P.CONAN_ITS ---
HPI - Anesthesia Eval Consult details Narrative: 74 yr old female for Upper Endoscopy and Colonoscopy Last dose of Tradjenta was 05/12/25 Recently treated for hyperkalemia by renal CAD: Cardiac catheterization 10/11/2024 plaque rupture proximal LAD with thrombus as well as mid LAD severe stenosis, 85%, RCA proximal 90% stenosis, right coronary dominant system, KEV placed to the RCA. Will remain on Brilinta uninterupted 1 yr COPD: SOB is at baseline [facility] Active Problems Active Problems: All Active Problems RTA (renal tubular acidosis) (Acute) Chronic kidney disease (Acute) Perianal abscess (Acute) Acute hyperkalemia (Acute) Anemia (Acute) Perirectal abscess (Acute) Hyperlipidemia (Acute) S/P cardiac cath (Acute) CAD (coronary artery disease) (Acute) Aortic stenosis (Acute) Hyperkalemia (Acute) Abnormal EKG (Acute) Pre-op evaluation (Acute) Change in bowel habit (Acute) CKD (chronic kidney disease) stage 4, GFR 15-29 ml/min (Acute) Systolic murmur (Acute) Dysuria (Acute) Osteoporosis (Acute) Positive colorectal cancer screening using Cologuard test (Acute) Screen for colon cancer (Acute) Left sided sciatica (Acute) COPD (chronic obstructive pulmonary disease) (Acute) Hospital discharge follow-up (Acute) Hyperglycemia (Acute) Hyperkalemia (Acute) Positive colorectal cancer screening using Cologuard test (Acute) Age related osteoporosis (Acute) Osteopenia of lumbar spine (Acute) Low left ventricular ejection fraction (Acute) Osteopenia (Acute) Discomfort of right ear (Acute) Change in consistency of stool (Acute) Encounter for screening colonoscopy (Acute) Anemia of chronic disease (Acute) CKD (chronic kidney disease) (Acute) Murmur (Acute) Microalbuminuria (Acute) Urge urinary incontinence (Acute) Hypovitaminosis D (Acute) Neuropathy (Acute) Insomnia (Acute) Diabetes mellitus (Acute) Dyslipidemia (Acute) Essential hypertension (Acute) Fatigue (Acute) Colonoscopy refused (Acute) Past Medical History Medical History COPD with acute exacerbation Urinary tract infection Acute bronchitis CKD (chronic kidney disease) stage 3, GFR 30-59 ml/min Anemia of chronic disease CKD (chronic kidney disease) Murmur Microalbuminuria Urge urinary incontinence Hypovitaminosis D Neuropathy Insomnia Diabetes mellitus Dyslipidemia Essential hypertension Family History Family History Father Colon cancer Mother Lung cancer Surgical History Surgical History History of heart artery stent (~05/2024) History of tonsillectomy No pertinent past surgical history Social History Social History Household Members: Children Household Members Other:: son and grandson Housing: House Do you presently have visiting nurse or other home services: No Alcohol intake: never Comment: pt refuse nonslip socks Patient Tobacco Use Status: Current everyday Tobacco user Tobacco use type: Cigarette Cigarette Packs Per Day: 1 Cigarettes Per Day: 20.0 Smoked in Last 30 Days: Yes e-Cigarette/Vaping Use: Never Used Patient Interested in Nicotine Replacement: No Second Hand Smoke Exposure: No Use of substances other than those prescribed or required for medical reasons: No Substance Use Type: Marijuana Currently Displaying Signs/Symptoms of Drug Intoxication Withdrawal: No Have you been hit, kicked, punched, or otherwise hurt by someone within the past year? If so, by whom?: No Do you feel safe in your current relationship?: No Current Relationship Is there a partner from a previous relationship who is making you feel unsafe now?: No Are you made to feel afraid or neglected: No Advance Directives: Yes Advance Directives on File: Yes Advance Directives Date on File: 06/17/22 Do you have a plan to hurt others: No Plan Nutrition Risks: No Nutritional Risk Patient : No : No Poor oral hygiene: No service: No Current occupational status: retired Cognitive needs: No Hearing needs: No Vision needs: No Meds Allergies Allergy/AdvReac Type Severity Reaction Status Date / Time No Known Allergies (No Known Allergy Verified 05/10/25 13:04 Allergies*) Active Medications: Current Medications Acetaminophen (Acetaminophen 325 Mg Tablet) 650 mg PO Q6H PRN PRN Reason: Pain, Mild 1-3,fever,headache Last Admin: 05/10/25 22:58 Dose: 650 mg Amlodipine Besylate (Amlodipine Besylate 10 Mg Tablet) 10 mg PO DAILY SKINNY; Protocol Last Admin: 05/13/25 08:24 Dose: 10 mg Calcium Carbonate (Calcium Carbonate 750 Mg Tab.Chew) 750 mg PO Q4H PRN PRN Reason: Heartburn Dextrose (Dextrose 50 % 25 Gm/50 Ml Syringe) 25 gm IVPUSH Q15M PRN; Protocol PRN Reason: per Hypoglycemia Standing Ord. Doxycycline Monohydrate (Doxycycline Monohydrate 100 Mg Capsule) 100 mg PO Q12H [facility] Gabapentin (Gabapentin 300 Mg Capsule) 300 mg PO Q8H [facility] Last Admin: 05/13/25 02:41 Dose: Not Given Glucose (Glucose Gel 15 Gm Gel..Gram.) 15 gm PO Q15M PRN; Protocol PRN Reason: per Hypoglycemia Standing Ord. Hydralazine HCl (Hydralazine Hcl 25 Mg Tablet) 25 mg PO BID [facility]; Protocol Last Admin: 05/13/25 08:24 Dose: 25 mg Insulin Human Lispro (Insulin Lispro 100 Unit/Ml 3 Ml Vial) 0 unit SUBCUT QIDACHS [facility]; Protocol Last Admin: 05/13/25 08:29 Dose: Not Given Magnesium Hydroxide (Milk Of Magnesia 30 Ml Oral.Susp) 30 ml PO DAILY PRN PRN Reason: Constipation Melatonin (Melatonin 3 Mg Tablet) 6 mg PO BEDTIME PRN PRN Reason: Insomnia Metoprolol Succinate (Metoprolol Succinate Er 25 Mg Tab.Er.24h) 25 mg PO DAILY [facility]; Protocol Last Admin: 05/13/25 08:24 Dose: 25 mg Morphine Sulfate (Morphine Sulfate 4 Mg/Ml Cartridge) 2 mg IVPUSH Q4H PRN; Protocol PRN Reason: Pain, Severe (Pain Scale 7-10) Last Admin: 05/11/25 11:54 Dose: 2 mg Patient Own Med ( Linagliptin [ Tradjenta] 5 Mg Tablet) 5 mg PO DAILY [facility] Last Admin: 05/13/25 08:29 Dose: Not Given Pravastatin Sodium (Pravastatin Sodium 80 Mg Tablet) 80 mg PO DAILY [facility] Last Admin: 05/12/25 08:22 Dose: 80 mg Sodium Chloride (0.9 % Sodium Chloride Flush 3 Ml Syringe) [facility] Last Admin: 05/13/25 08:24 Dose: 3 ml Sodium Zirconium Cyclosilicate (Sodium Zirconium Cyclosilicate 10 Gm Powd.Pack) 10 gm PO DAILY [facility] Last Admin: 05/12/25 08:23 Dose: 10 gm Home Medications ?Medication ?Instructions ?Recorded ?Confirmed ?Last Taken ?Type aspirin 81 mg tablet,delayed 81 mg PO DAILY 10/25/24 1 07/10/24 05/10/25 History release pioglitazone 15 mg tablet 15 mg PO DAILY 02/11/2501/2505/10/25 History linagliptin 5 mg tablet (Tradjenta) 5 mg PO DAILY 01/2505/10/25 05/10/25 History Exam Height,Weight and Vital Signs: Height 5 ft 2 in Weight 72 kg Last Vital Signs Temp 97.3 F 05/13/25 07:33 Pulse 77 05/13/25 07:33 Resp 18 05/13/25 07:33 BP 161/50 H 05/13/25 07:33 Pulse Ox 94 05/13/25 07:33 O2 Del Method Room Air 05/13/25 07:33 O2 Flow Rate 2 05/12/25 07:41 Pertinent Lab Results Pertinent Lab Results: Laboratory Tests 05/10/25 05/10/25 05/10/25 13:24 13:25 14:26 WBC 13.9 H RBC 2.51 L D Hgb 7.3 L D Hct 24.3 L D MCV 96.8 MCH 29.1 MCHC 30.0 L RDW 16.1 H Plt Count 265 MPV 9.8 Immature Gran % (Auto) 0.6 H Neut % (Auto) 77.5 H Lymph % (Auto) 11.2 L [place] % (Auto) 7.6 Eos % (Auto) 2.5 Baso % (Auto) 0.6 Lymph # (Auto) 1.6 [place] # (Auto) 1.1 Eos # (Auto) 0.4 Baso # (Auto) 0.1 Abs Immat Gran (auto) 0.08 H Absolute Neuts (auto) 10.8 H Absolute Nucleated RBC 0.000 Nucleated RBC % (auto) 0.0 PT INR APTT Sodium 139 Potassium 6.4 H* Chloride 119 H Carbon Dioxide 16 L Anion Gap 10 L BUN 43 H Creatinine 1.58 H Estim Creat Clear Calc 28.1 Estimated GFR 32 POC Glucose Random Glucose 113 Calcium 9.1 Magnesium 2.0 Total Bilirubin 0.1 Direct Bilirubin < 0.2 AST 15 ALT 12 Alkaline Phosphatase 104 Troponin I High Sens 40.4 H D Total Protein 7.2 Albumin 3.7 Lipase 31 Urine Color Urine Appearance Urine pH Ur Specific [place] Urine Protein Urine Glucose (UA) Urine Ketones Urine Blood Urine Nitrite Ur Leukocyte Esterase Urine RBC Urine WBC Ur Squamous Epith Cells Urine Bacteria Hyaline Casts Stool Occult Blood NEGATIVE Influenza Type A (PCR) NEGATIVE Influenza Type B (PCR) NEGATIVE RSV RNA Qual (PCR) NEGATIVE SARS-CoV-2 RNA (RT-PCR) NEGATIVE Blood Type Antibody Screen Crossmatch 05/10/25 05/10/25 05/10/25 15:20 18:02 20:36 WBC RBC Hgb Hct MCV MCH MCHC RDW Plt Count MPV Immature Gran % (Auto) Neut % (Auto) Lymph % (Auto) [place] % (Auto) Eos % (Auto) Baso % (Auto) Lymph # (Auto) [place] # (Auto) Eos # (Auto) Baso # (Auto) Abs Immat Gran (auto) Absolute Neuts (auto) Absolute Nucleated RBC Nucleated RBC % (auto) PT INR APTT Sodium Potassium Chloride Carbon Dioxide Anion Gap BUN Creatinine Estim Creat Clear Calc Estimated GFR POC Glucose 120 H 129 H Random Glucose Calcium Magnesium Total Bilirubin Direct Bilirubin AST ALT Alkaline Phosphatase Troponin I High Sens 39.7 H Total Protein Albumin Lipase Urine Color Urine Appearance Urine pH Ur Specific [place] Urine Protein Urine Glucose (UA) Urine Ketones Urine Blood Urine Nitrite Ur Leukocyte Esterase Urine RBC Urine WBC Ur Squamous Epith Cells Urine Bacteria Hyaline Casts Stool Occult Blood Influenza Type A (PCR) Influenza Type B (PCR) RSV RNA Qual (PCR) SARS-CoV-2 RNA (RT-PCR) Blood Type A Positive Antibody Screen NEGATIVE Crossmatch See Detail 05/10/25 05/10/25 05/11/25 23:19 23:52 06:09 WBC 13.7 H 11.1 H RBC 2.49 L 2.33 L Hgb 7.2 L 6.7 L* Hct 23.5 L 21.9 L MCV 94.4 94.0 MCH 28.9 28.8 MCHC 30.6 L 30.6 L RDW 16.2 H 16.0 Plt Count 245 240 MPV 9.5 9.8 Immature Gran % (Auto) 0.5 H Neut % (Auto) 76.0 H Lymph % (Auto) 12.5 L [place] % (Auto) 6.7 Eos % (Auto) 3.6 Baso % (Auto) 0.7 Lymph # (Auto) 1.7 [place] # (Auto) 0.9 Eos # (Auto) 0.5 H Baso # (Auto) 0.1 Abs Immat Gran (auto) 0.07 H Absolute Neuts (auto) 10.4 H Absolute Nucleated RBC 0.000 0.000 Nucleated RBC % (auto) 0.0 0.0 PT 12.9 INR 1.1 APTT 28.1 Sodium 138 138 Potassium 5.4 H 5.5 H Chloride 115 H 116 H Carbon Dioxide 15 L 16 L Anion Gap 13 12 BUN 39 H 36 H Creatinine 1.45 H 1.30 Estim Creat Clear Calc 30.6 34.2 Estimated GFR 35 40 POC Glucose Random Glucose 135 H 126 H Calcium 9.0 8.9 Magnesium Total Bilirubin Direct Bilirubin AST ALT Alkaline Phosphatase Troponin I High Sens Total Protein Albumin Lipase Urine Color Yellow Urine Appearance Clear Urine pH 5.5 Ur Specific [place] 1.015 Urine Protein 300 (3+) H Urine Glucose (UA) Negative Urine Ketones Negative Urine Blood Negative Urine Nitrite Negative Ur Leukocyte Esterase Negative Urine RBC 0-2 Urine WBC 0-5 Ur Squamous Epith Cells 0-2 Urine Bacteria None Seen Hyaline Casts 0-2 Stool Occult Blood Influenza Type A (PCR) Influenza Type B (PCR) RSV RNA Qual (PCR) SARS-CoV-2 RNA (RT-PCR) Blood Type Antibody Screen Crossmatch 05/11/25 05/11/25 05/11/25 07:39 11:32 16:16 WBC RBC Hgb Hct MCV MCH MCHC RDW Plt Count MPV Immature Gran % (Auto) Neut % (Auto) Lymph % (Auto) [place] % (Auto) Eos % (Auto) Baso % (Auto) Lymph # (Auto) [place] # (Auto) Eos # (Auto) Baso # (Auto) Abs Immat Gran (auto) Absolute Neuts (auto) Absolute Nucleated RBC Nucleated RBC % (auto) PT INR APTT Sodium Potassium Chloride Carbon Dioxide Anion Gap BUN Creatinine Estim Creat Clear Calc Estimated GFR POC Glucose 133 H 139 H 157 H Random Glucose Calcium Magnesium Total Bilirubin Direct Bilirubin AST ALT Alkaline Phosphatase Troponin I High Sens Total Protein Albumin Lipase Urine Color Urine Appearance Urine pH Ur Specific [place] Urine Protein Urine Glucose (UA) Urine Ketones Urine Blood Urine Nitrite Ur Leukocyte Esterase Urine RBC Urine WBC Ur Squamous Epith Cells Urine Bacteria Hyaline Casts Stool Occult Blood Influenza Type A (PCR) Influenza Type B (PCR) RSV RNA Qual (PCR) SARS-CoV-2 RNA (RT-PCR) Blood Type Antibody Screen Crossmatch 05/11/25 05/11/25 05/12/25 21:07 21:53 06:58 WBC 12.0 H 11.0 H RBC 2.63 L 2.78 L Hgb 7.9 L 8.1 L Hct 24.0 L 25.9 L MCV 91.3 93.2 MCH 30.0 29.1 MCHC 32.9 31.3 RDW 15.9 15.9 Plt Count 205 210 MPV 9.3 L 9.9 Immature Gran % (Auto) Neut % (Auto) Lymph % (Auto) [place] % (Auto) Eos % (Auto) Baso % (Auto) Lymph # (Auto) [place] # (Auto) Eos # (Auto) Baso # (Auto) Abs Immat Gran (auto) Absolute Neuts (auto) Absolute Nucleated RBC 0.000 0.000 Nucleated RBC % (auto) 0.0 0.0 PT INR APTT Sodium 138 140 Potassium 4.4 4.6 Chloride 113 H 115 H Carbon Dioxide 16 L 18 L Anion Gap 13 12 BUN 35 H Creatinine 1.52 H Estim Creat Clear Calc 29.2 Estimated GFR 33 POC Glucose 177 H Random Glucose 86 Calcium 8.6 Magnesium Total Bilirubin Direct Bilirubin AST ALT Alkaline Phosphatase Troponin I High Sens Total Protein Albumin Lipase Urine Color Urine Appearance Urine pH Ur Specific [place] Urine Protein Urine Glucose (UA) Urine Ketones Urine Blood Urine Nitrite Ur Leukocyte Esterase Urine RBC Urine WBC Ur Squamous Epith Cells Urine Bacteria Hyaline Casts Stool Occult Blood Influenza Type A (PCR) Influenza Type B (PCR) RSV RNA Qual (PCR) SARS-CoV-2 RNA (RT-PCR) Blood Type Antibody Screen Crossmatch 05/12/25 05/12/25 05/12/25 07:39 11:15 15:40 WBC RBC Hgb Hct MCV MCH MCHC RDW Plt Count MPV Immature Gran % (Auto) Neut % (Auto) Lymph % (Auto) [place] % (Auto) Eos % (Auto) Baso % (Auto) Lymph # (Auto) [place] # (Auto) Eos # (Auto) Baso # (Auto) Abs Immat Gran (auto) Absolute Neuts (auto) Absolute Nucleated RBC Nucleated RBC % (auto) PT INR APTT Sodium Potassium Chloride Carbon Dioxide Anion Gap BUN Creatinine Estim Creat Clear Calc Estimated GFR POC Glucose 85 109 110 Random Glucose Calcium Magnesium Total Bilirubin Direct Bilirubin AST ALT Alkaline Phosphatase Troponin I High Sens Total Protein Albumin Lipase Urine Color Urine Appearance Urine pH Ur Specific [place] Urine Protein Urine Glucose (UA) Urine Ketones Urine Blood Urine Nitrite Ur Leukocyte Esterase Urine RBC Urine WBC Ur Squamous Epith Cells Urine Bacteria Hyaline Casts Stool Occult Blood Influenza Type A (PCR) Influenza Type B (PCR) RSV RNA Qual (PCR) SARS-CoV-2 RNA (RT-PCR) Blood Type Antibody Screen Crossmatch 05/12/25 05/13/25 05/13/25 21:30 06:33 07:14 WBC 8.2 RBC 3.05 L Hgb 9.0 L Hct 27.8 L MCV 91.1 MCH 29.5 MCHC 32.4 RDW 15.2 Plt Count 250 MPV 9.7 Immature Gran % (Auto) Neut % (Auto) Lymph % (Auto) [place] % (Auto) Eos % (Auto) Baso % (Auto) Lymph # (Auto) [place] # (Auto) Eos # (Auto) Baso # (Auto) Abs Immat Gran (auto) Absolute Neuts (auto) Absolute Nucleated RBC 0.000 Nucleated RBC % (auto) 0.0 PT INR APTT Sodium 141 Potassium 4.0 Chloride 112 H Carbon Dioxide 19 L Anion Gap 14 BUN 29 H Creatinine 1.26 Estim Creat Clear Calc 35.3 Estimated GFR 41 POC Glucose 118 H 119 H Random Glucose 111 Calcium 9.0 Magnesium Total Bilirubin Direct Bilirubin AST ALT Alkaline Phosphatase Troponin I High Sens Total Protein Albumin Lipase Urine Color Urine Appearance Urine pH Ur Specific [place] Urine Protein Urine Glucose (UA) Urine Ketones Urine Blood Urine Nitrite Ur Leukocyte Esterase Urine RBC Urine WBC Ur Squamous Epith Cells Urine Bacteria Hyaline Casts Stool Occult Blood Influenza Type A (PCR) Influenza Type B (PCR) RSV RNA Qual (PCR) SARS-CoV-2 RNA (RT-PCR) Blood Type Antibody Screen Crossmatch Narrative Narrative: ECHO 10/2024 Conclusions: - Normal left ventricular cavity size. There is normal left ventricular wall thickness. The left ventricular systolic function is mildly decreased. The visually estimated ejection fraction is between 40-45%. - Elevated filling pressures. - The inferolateral wall, the basal inferior, and mid inferior segments are akinetic. - Normal right ventricular cavity size and systolic function. - There is mild aortic valve stenosis. There is mild to moderate aortic valve regurgitation. - There is mild dilatation of the ascending aorta measuring 3.80 cm. EKG 05/10/25 Vent. Rate : 67 BPM Atrial Rate : 67 BPM P-R Int : 170 ms QRS Dur : 74 ms QT Int : 378 ms P-R-T Axes : 29 -12 231 degrees QTcB Int : 399 ms Normal sinus rhythm Left ventricular hypertrophy with repolarization abnormality ( R in aVL ) Abnormal ECG When compared with ECG of 14-Sep-2024 11:27, Borderline criteria for Inferior infarct are no longer Present
--- NOTE | 2025-05-13 10:19 | MHC.CM.PN ---
Per ROUNDS discussion, Patient is having a Colonoscopy today and may be able to dc;CM will follow.
[2025-05-13 11:47] LABS: Glucose, Whole Blood 130 mg/dL (60-115)
--- NOTE | 2025-05-13 12:10 | P.PNNP_ITS ---
Subjective Subjective Date of Service: 05/13/25 Interval history: No new events, electrolytes stable potassium 4.0, bicarb 19. Does not have any new symptoms, planned for colonoscopy this afternoon Physical Exam 2 Vital Signs: Vital Signs: Last Vital Signs Temp 97.0 F 05/13/25 11:33 Pulse 72 05/13/25 11:33 Resp 18 05/13/25 11:33 BP 170/60 H 05/13/25 11:33 Pulse Ox 95 05/13/25 11:33 O2 Del Method Room Air 05/13/25 11:33 O2 Flow Rate 2 05/12/25 07:41 BMI result Body Mass Index 29.0 General: not in any acute distress, comfortable, sitting in the bed Nutritional Appearance: well nourished and slightly overweight Eyes: appearance normal, both eyes and all related structures; Alignment and Position: alignment normal and position normal Neck: No lymphadenopathy, no thyromegaly Resp: bilateral air entry equal, no added sounds present Cardio: Regular rate, regular rhythm; Heart sounds: S1 normal heart sound present and S2 normal heart sound present GI: soft, nontender, no guarding, no hepatosplenomegaly : bladder normal to inspection, bladder normal to palpation, no renal angle tenderness Skin: no rashes or lesions noted and elasticity normal Neuro: alert, oriented x 3, moves all extremities Objective Data Labs 05/13/25 06:33 05/13/25 06:33 Labs: Laboratory Results - last 24 hr 05/12/25 05/12/25 05/13/25 15:40 21:30 06:33 WBC 8.2 RBC 3.05 L Hgb 9.0 L Hct 27.8 L MCV 91.1 MCH 29.5 MCHC 32.4 RDW 15.2 Plt Count 250 MPV 9.7 Absolute Nucleated RBC 0.000 Nucleated RBC % (auto) 0.0 Sodium 141 Potassium 4.0 Chloride 112 H Carbon Dioxide 19 L Anion Gap 14 BUN 29 H Creatinine 1.26 Estim Creat Clear Calc 35.3 Estimated GFR 41 POC Glucose 110 118 H Random Glucose 111 Calcium 9.0 05/13/25 05/13/25 07:14 11:35 WBC RBC Hgb Hct MCV MCH MCHC RDW Plt Count MPV Absolute Nucleated RBC Nucleated RBC % (auto) Sodium Potassium Chloride Carbon Dioxide Anion Gap BUN Creatinine Estim Creat Clear Calc Estimated GFR POC Glucose 119 H 130 H Random Glucose Calcium Procedures Date of Service Date of Service: 05/13/25 Assessment & Plan Assessment and plan (1) RTA (renal tubular acidosis): Status: Acute (2) Hyperkalemia: Status: Acute Plan Type 4 RTA: Patient follows up with Dr. [facility], last seen in February 2025 Her potassium is 4.0, bicarb is 19; continue as needed Lokelma if the patient has hyperkalemia during hospitalization. Urinary pH 5.5 along with history of hyperkalemia and non-anion gap metabolic acidosis all suggestive of type 4 RTA. Hypertension: Poorly controlled. On amlodipine 10 mg, metoprolol 25 daily, hydralazine 25 mg b.i.d. Recommend adding hydrochlorothiazide 25 mg daily, stopping hydralazine and if needed increase the dose of metoprolol Time Spent With Patient Time: Total time managing care of this patient today ____ minutes. Progress Note: Quality Stroke Does the patient have a stroke diagnosis?: No
--- NOTE | 2025-05-13 14:30 | PC.NURSE ---
report given to brandy cervantes rn aware that dr. manning needs to write emergent note due to taking tradjenta yesterday and one spot to be signed on preop record.
--- NOTE | 2025-05-13 15:11 | MHC.SHP ---
Pre-Procedural Eval Section A - 24 Hr Update-Section A only Date of Service: 05/13/25 The patient is an INPATIENT: Yes Changes since office visit: Yes New Medical Problems, Yes Changes in Medication and Yes Patient answered all questions; No Cold of Flu in the past 2 weeks The patient has been examined within 24 hours of the surgical procedure. The History & Physical has been completed within 30 days and I have reviewed it.: Yes Section B - Complete if H&P > 30 days Chief Complaint: lump rectal area Allergies: Allergies Allergy/AdvReac Type Severity Reaction Status Date / Time No Known Allergies (No Known Allergy Verified 05/10/25 13:04 Allergies*) Plan Diagnosis/Plan: Unchanged Patient is on Trajdenta and procedure was declared an emergency to proceed with EGD and Colon today due to severe anemia and positive cologuard test. I have reviewed the history and physical and performed a pertinent physical examination on my patient. No changes have occurred unless specified. Time Spent With Patient Time: Total time managing care of this patient today ____ minutes.
--- NOTE | 2025-05-13 16:36 | HO.OPN-COLON ---
Colonoscopy Operative Note Operative Note Date of Service: 05/13/25 Narrative: FLEXIBLE TRANSORAL UPPER GASTROINTESTINAL ENDOSCOPY WITH BIOPSIES AND COLONOSCOPY TILL CECUM WITH BIOPSIES AND SNARE POLYPECTOMY Pre-op diagnosis: Anemia, positive Cologuard test, dysphagia, rectal bleeding Post-op diagnosis: GERD, Gastritis, multiple nodules stomach and duodenal bulb, duodenal AVM, Colon Polyps, Diverticulosis, hemorrhoids Endoscopist:Miranda Ledesma MD Anesthesia:?MAC UPPER ENDOSCOPY Consent: Indications for the procedure and potential complications of bleeding, perforation, reaction to medications and missed diagnosis were discussed with the patient and informed consent was obtained. Instrument: Olympus GIF H 190 mid size upper endoscope Monitoring: Vital signs and clinical assessment, continuous EKG monitoring, Pulse oximetry, Carbon Dioxide monitoring and blood pressure monitoring were done throughout the procedure. Procedure: The patient was placed in the left lateral decubitis position and pre-procedure medications were administered and a bite block was placed. The endoscope was inserted into the mouth and advanced under direct vision to the third part of duodenum. A careful inspection was made as the upper endoscope was withdrawn including a retroflexed examination of the proximal stomach; Findings and interventions are described below. Findings: Larynx: Normal Esophagus: Mildly tortuous esophagus without stricture or ring. GE junction at 38 cms. Two 1 cms tongues of suspected Mckinnon's - biopsied. Stomach: Multiple 1-2 cms benign appearing nodules with central ulcerations in the gastric antrum - biopsied. Moderate diffuse gastric erythema - biopsies were obtained from the gastric body and antrum. Grade 2 flap valve on retroflexed examination of the cardia. Duodenum: Multiple 1-2 cms benign appearing nodules with central ulcerations in the bulb and normal descending duodenum Biopsies were obtained from descending duodenum to check for celiac sprue Intervention: Biopsies as noted above COLONOSCOPY PROCEDURE NOTE Instrument: Olympus PCF H 190 L variable stiffness pediatric colonoscope Monitoring: Vital signs and clinical assessment, intermittent blood pressure monitoring, continuous EKG monitoring, Pulse oximetry and Carbon Dioxide monitoring were done throughout the procedure. Please see anesthesia flowsheet. Colon withdrawl time was 30 minutes. Procedure: The patient was placed in the left lateral decubitis position and pre-procedure medications were administered. After a digital rectal examination of the ano-rectum, the video colonoscope was inserted into the rectum and advanced through the colon to the cecum. The colonoscope was slowly withdrawn in a retrograde panoramic fashion and the colon mucosa was carefully examined including a retroflexed view of the rectum. Findings and interventions are described below. Procedure Difficulty: without difficulty Findings: Terminal Ileum: Not evaluated Cecum: A 7-8 mm sessile polyp just adjacent to the appendicular orifice - removed with a cold snare. Residual polyp was removed with a cold biopsy. Ascending Colon: A 4-5 mm sessile polyp in the mid AC - removed with a cold snare. Transverse Colon: Normal Descending Colon: Moderate diverticulosis Sigmoid Colon: A 5-6 mm sessile polyp - removed with a cold biopsy. A 10 mm sessile polyp - removed with a cold snare and polyp was not retrieved. Moderate diverticulosis Rectum: Normal Ano-rectum: Moderate internal hemorrhoids Colon preparation: Good to Fair after copious irrigation. Offerle Bowel Preparation Scale Right colon; 1-2 Transverse colon: 2 Left colon; 1-2 (0 = Unprepared colon segment with mucosa not seen due to solid stool that cannot be cleared. 1 = Portion of mucosa of the colon segment seen, but other areas of the colon segment not well seen due to staining, residual stool and/or opaque liquid. 2 = Minor amount of residual staining, small fragments of stool and/or opaque liquid, but mucosa of colon segment seen well. 3 = Entire mucosa of colon segment seen well with no residual staining, small fragments of stool or opaque liquid) Impression and Post Procedure Diagnosis: Endoscopy Findings: ESOPHAGUS: Mildly tortuous esophagus without stricture or ring - Dysphagia is likely due to esophageal motility disorder. Two 1 cms tongues of suspected Mckinnon's - biopsied. STOMACH: Diffuse gastritis and multiple 1-2 cms benign appearing nodules with central ulcerations in the gastric antrum - biopsied. DUODENUM: Multiple 1-2 cms benign appearing nodules with central ulcerations in the bulb Colonoscopy Findings: Four small to medium sized polyps were removed Moderate diverticulosis seen in the left colon Moderate hemorrhoids on retroflexed exam. Plan: Ok to resume a cardiac diet - ordered. Continue PPI for PUD Repeat EGD in 3-4 months to FU on gastric and duodenal ulcers Repeat Colonoscopy in 1-2 years if polyps are adenomatous and due to fair prep. (Miralax split prep and Dulcolax 10 mg daily x 5 days prior to next colon appointment) A summary of above findings and relevant handouts were given to the patient. BIOPSIES SHOWED: A. Small bowel, biopsy: Small intestinal mucosa within normal limits. B. Duodenum, nodule, biopsy: Chronic active erosive duodenitis. C. Stomach, antrum, biopsy: - Antral-type mucosa with moderate chronic active inflammation. - Positive for H pylori. D. Stomach, antral nodule, biopsy: - Antral-type mucosa with moderate chronic active inflammation hyperplastic changes. - Positive for H pylori. E. Stomach, body, biopsy: - Oxyntic mucosa with moderate chronic active inflammation. - Positive for H pylori. F. Esophagus, distal, biopsy: - Mckinnon esophagus with background moderate chronic, focally active, and erosive inflammation. - No dysplasia seen. - Squamous epithelium within normal limits. G. Cecum, polypectomy: Fragments of tubular adenoma; negative for high-grade dysplasia or carcinoma. H. Colon, ascending, polypectomy: Tubular adenoma; negative for high-grade dysplasia or carcinoma. I. Colon, sigmoid, polypectomy: Fragments of tubular adenoma; negative for high-grade dysplasia or carcinoma. Pt called and biopsy results were reviewed with her. Pt is already taking quadruple therapy prescribed by her primary care physician. Patient was placed on the procedure recall list for repeat EGD (FU of Mckinnon's) and colonoscopy (FU of polyps and sub-optimal prep) for repeat EGD and colon in 1 year.
[2025-05-13 17:13] LABS: Glucose, Whole Blood 132 mg/dL (60-115)
--- NOTE | 2025-06-03 10:43 | P.CDIM_ITS ---
PROVIDER RESPONSE TEXT: To clarify, the appropriate diagnosis supported by the clinical indicators: Incision and Drainage (I&D): Incision extended into the subcutaneous tissue least 2 cm deep QUERY TEXT: PHYSICIAN'S DOCUMENTATION REQUEST Date of Query: 05/29/2025 06:21 AM EST Patient Name: Mary Ceballos Admit Date: 05/10/2025 Dear Adryan Vazquez MD, RETROSPECTIVE QUERY A review of the medical record indicates additional documentation may be needed. Please review below and update the documentation accordingly. Clinical Indicators: Procedure note dated 05/11/25 - Incision and drainage perianal abscess An incision was made with a 11 blade and a large thin bloody fluid collection was drained. This fluid was foul smelling. The collection was completely drained therefore no packing was inserted. Could you provide, if possible, any further clarification regarding the Depth of the Incision and Drainage procedure performed: Perianal abscess Incision and Drainage (I&D) skin, subcutaneous tissue and fascia etc. Other specifics to the procedure performed Other (explain) Clinically unable to determine (explain) Thank you, Linda Stewart, CCS, CDIS Use of terms such as suspected, likely, concern for, or probable (associated with a specific diagnosis that is being evaluated, monitored, or treated as if it exists) are acceptable and can be coded in the inpatient setting, when documented at the time of discharge. Please use your independent medical judgment in providing your response. THIS QUERY IS PART OF THE PERMANENT MEDICAL RECORD
== END 2025-05-13 18:15 | disposition home or self-care (01) | DRG 394 ==
LOC: HO.ED 14:05 → HO.EDOVER 15:58 → HO.IMC 19:16
PROVIDERS: Hospitalist; Internal Medicine Gastroenterology; Physician Assistant Medical; Admitting Provider Internal Medicine; Emergency Provider Emergency Medicine Emergency Medical Services; PCP Internal Medicine; Visit Provider Internal Medicine
PROC: 0DBK8ZX Excision of Ascending Colon, Via Natural or Artificial Opening Endoscopic, Diagnostic (ICD-10-PCS; principal; 2025-05-13 14:50)
DX: K61.1 Rectal abscess (principal); E87.22 Chronic metabolic acidosis; F17.210 Nicotine dependence, cigarettes, uncomplicated; Z71.6 Tobacco abuse counseling; N18.30 Chronic kidney disease, stage 3 unspecified; J44.9 Chronic obstructive pulmonary disease, unspecified; E11.22 Type 2 diabetes mellitus with diabetic chronic kidney disease; I12.9 Hypertensive chronic kidney disease with stage 1 through stage 4 chronic kidney disease, or unspecified chronic kidney disease; D63.1 Anemia in chronic kidney disease; E87.5 Hyperkalemia; K59.00 Constipation, unspecified; K22.70 Barrett's esophagus without dysplasia; B96.81 Helicobacter pylori [H. pylori] as the cause of diseases classified elsewhere; I25.10 Atherosclerotic heart disease of native coronary artery without angina pectoris; E78.5 Hyperlipidemia, unspecified; K63.5 Polyp of colon; K29.70 Gastritis, unspecified, without bleeding; K57.30 Diverticulosis of large intestine without perforation or abscess without bleeding; K64.8 Other hemorrhoids; E11.40 Type 2 diabetes mellitus with diabetic neuropathy, unspecified; Z20.822 Contact with and (suspected) exposure to COVID-19; Z95.5 Presence of coronary angioplasty implant and graft; Z79.4 Long term (current) use of insulin; Z79.82 Long term (current) use of aspirin; Z79.84 Long term (current) use of oral hypoglycemic drugs; Z79.899 Other long term (current) drug therapy
CPT/HCPCS: 36415; 71045; 71046; 74176; 80048; 80051; 80076; 81001; 82272; 82947; 83690; 83735; 84484; 85025; 85027; 85610; 85730; 86850; 86900; 86901; 86923; 87637; 88305; 88313; 88342; 93005; 93306; 93970; 99285; J1308; J1938; J2003; J2270; J2371; J2405; J2704; J2765; J3010; J7120; P9016; Q9957

== ENCOUNTER → 2025-05-10 13:05 | Outpatient (BNV) | payer MEDICARE, OTHER, SELFPAY | PROVIDERS: Admitting Provider Internal Medicine; Emergency Provider Emergency Medicine Emergency Medical Services; PCP Internal Medicine; Visit Provider Internal Medicine Cardiovascular Disease | DX: I51.7 Cardiomegaly (principal) | CPT/HCPCS: 93010 ==

== ENCOUNTER → 2025-05-10 13:06 | Outpatient (BNV) | payer MEDICARE, OTHER, SELFPAY | PROVIDERS: PCP Internal Medicine; Visit Provider Radiology Diagnostic Ultrasound | DX: K57.30 Diverticulosis of large intestine without perforation or abscess without bleeding (principal); I25.10 Atherosclerotic heart disease of native coronary artery without angina pectoris; J90 Pleural effusion, not elsewhere classified; R91.8 Other nonspecific abnormal finding of lung field | CPT/HCPCS: 74176 ==

== ENCOUNTER → 2025-05-10 14:02 | Outpatient (BNV) | payer MEDICARE, OTHER, SELFPAY | PROVIDERS: Emergency Provider Emergency Medicine Emergency Medical Services; PCP Internal Medicine; Visit Provider Surgery | DX: K61.1 Rectal abscess (principal) | CPT/HCPCS: 99222 ==

== ENCOUNTER 2025-05-10 15:46 | Outpatient (BNV) | payer MEDICARE, OTHER, SELFPAY | END 2025-05-13 07:00 | PROVIDERS: Admitting Provider Internal Medicine; Emergency Provider Emergency Medicine Emergency Medical Services; PCP Internal Medicine; Visit Provider Internal Medicine Cardiovascular Disease | DX: I35.0 Nonrheumatic aortic (valve) stenosis (principal); I34.0 Nonrheumatic mitral (valve) insufficiency; I77.810 Thoracic aortic ectasia | CPT/HCPCS: 93306 ==

== ENCOUNTER → 2025-05-10 15:46 | Outpatient (BNV) | payer MEDICARE, OTHER, SELFPAY | PROVIDERS: Admitting Provider Internal Medicine; Emergency Provider Emergency Medicine Emergency Medical Services; PCP Internal Medicine; Visit Provider Internal Medicine Gastroenterology | DX: K61.1 Rectal abscess (principal); D64.9 Anemia, unspecified | CPT/HCPCS: 99222 ==

== ENCOUNTER → 2025-05-10 15:46 | Outpatient (BNV) | payer MEDICARE, OTHER, SELFPAY | PROVIDERS: Admitting Provider Internal Medicine; Emergency Provider Emergency Medicine Emergency Medical Services; PCP Internal Medicine; Visit Provider Internal Medicine Critical Care Medicine | DX: N25.89 Other disorders resulting from impaired renal tubular function (principal); E87.5 Hyperkalemia | CPT/HCPCS: 99232 ==

== ENCOUNTER → 2025-05-10 15:46 | Outpatient (BNV) | payer MEDICARE, OTHER, SELFPAY | PROVIDERS: Admitting Provider Internal Medicine; Emergency Provider Emergency Medicine Emergency Medical Services; PCP Internal Medicine; Visit Provider Internal Medicine | DX: N25.89 Other disorders resulting from impaired renal tubular function (principal); E87.5 Hyperkalemia | CPT/HCPCS: 99232 ==

== ENCOUNTER 2025-05-16 09:58 | Outpatient (AMB) | payer MEDICARE, OTHER, SELFPAY ==
[2025-05-16 10:00] VITALS: BP 158/52; PULSE 75; O2SAT 95; BMI 29.6
--- NOTE | 2025-05-16 10:00 | HO.NEPHOV ---
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 Instructions: Resume on 05/18/25. doxycycline monohydrate 100 mg PO Q12H gabapentin 300 mg PO Q8H 90 days linagliptin (Tradjenta) 5 mg PO DAILY metformin 1,000 mg PO BID 90 days metoprolol succinate ER 25 mg PO DAILY omeprazole 40 mg PO DAILY 3 months pioglitazone 15 mg PO DAILY pravastatin 80 mg PO DAILY ticagrelor (Brilinta) 90 mg PO BID Held on 05/13/25. Instructions: Resume on 05/18/25. valsartan 80 mg PO DAILY HPI Comments Details: Mary is a pleasant 72-year-old woman with a history of longstanding hypertension and diabetes mellitus with stage III A chronic kidney disease. She has a history of hyperkalemia while she was on lisinopril 40 mg q.d. Lisinopril was switched to Diovan head CT and she has been able to tolerate this very well. She has no new complaints today. Of note she has been taking ibuprofen 800 mg 2 tabs as needed. She has been doing this for quite some time. She was prescribed Farxiga but she is unable to take it due to cost issues. She has a history of COPD. However she has no significant respiratory issues and she has not needed the inhalers. 10/10/23 Here for follow up c/o pain left flank ;Recently treated with antibiotics for UTI ;Blood sugar sub optimal with A1C 9% ;Cr is up to 1.56 04/23/24 Continues to have back pain ;Radiates down legs ;NO urinary symptoms 08/30/24 Still with back pain. Worse at night ; Waiting for Colonoscopy in 02/11/25 c/o back pain radiating to legs HCTZ has been added. Leg edema improved with HCTZ Admits to eating more salt 05/16/25 The patient is a 74-year-old female presenting with follow-up after recent hospitalization for a rectal abscess and associated complications. She has a history of Chronic Kidney Disease (CKD) and was recently admitted with a rectal abscess, hyperkalemia, and Acute Kidney Injury (ANDRE). The abscess was drained during her hospital stay, and she received blood transfusions due to severe anemia. Her kidney function and potassium levels improved upon discharge. . She experiences leg swelling, which may be related to her medication regimen, including amlodipine and pioglitazone. She also reports shortness of breath, particularly with exertion, and has a history of smoking one pack per day. An echocardiogram showed an ejection fraction of 55-60%, and a chest X-ray revealed no acute findings. During a recent colonoscopy, biopsies revealed gastritis, polyps, and hemorrhoids, with pathology results pending for malignancy. [facility] Medical History COPD with acute exacerbation Urinary tract infection Acute bronchitis CKD (chronic kidney disease) stage 3, GFR 30-59 ml/min Anemia of chronic disease CKD (chronic kidney disease) Murmur Microalbuminuria Urge urinary incontinence Hypovitaminosis D Neuropathy Insomnia Diabetes mellitus Dyslipidemia Essential hypertension Surgical History History of heart artery stent (~05/2024) History of tonsillectomy No pertinent past surgical history Family History Father Colon cancer Mother Lung cancer Social History Household Members: Children Household Members Other:: son and grandson Housing: House Are you a primary pharmacy care coordinator to a significant other at home: No Do you presently have visiting nurse or other home services: No Alcohol intake: never Comment: pt refuse nonslip socks Patient Tobacco Use Status: Current everyday Tobacco user Tobacco use type: Cigarette Cigarette Packs Per Day: 1 Cigarettes Per Day: 20.0 e-Cigarette/Vaping Use: Never Used Second Hand Smoke Exposure: No Substance Use Type: Marijuana Advance Directives Date on File: 06/17/22 service: No Current occupational status: retired Cognitive needs: No Hearing needs: No Vision needs: No Physical Exam Vital Signs: Last Vital Signs Pulse 75 05/16/25 10:00 BP 158/52 H 05/16/25 10:00 Pulse Ox 95 05/16/25 10:00 Oxygen Delivery Method Room Air 05/16/25 10:00 BMI result Body Mass Index 29.6 Const General: comfortable; No acute distress Orientation/consciousness: patient oriented x3 Eyes General: appearance normal, both eyes and all related structures Visual Rhodes: normal visual rhodes by confrontation Neck Neck: Yes supple and Yes no JVD Resp Effort & Inspection: normal respiratory effort and respiratory effort not decreased Cardio Palpation: no palpable S3 and no palpable S4 Heart sounds: no rubs GI Inspection: Yes normal to inspection Palpation (GI): Soft to palpation Percussion: Yes normal to percussion Auscultation: normal bowel sounds General: Yes no CVA tenderness Back/Spine/Pelvis Back: no CVA tenderness Skin General skin exam: no petechiae and no purpura Neuro General: patient oriented x3 and no focal motor deficits Extrem General: No clubbing and Yes edema (1 to 2 +) Results Reviewed Results Reviewed: ECHO : 05/13/25 - 1. Normal LV ejection fraction 55-60% with impaired relaxation filling pattern 2. Mild calcific aortic stenosis and aortic regurgitation 3. Mildly dilated ascending aorta 4. No gross pericardial effusion Nephrology Results: Hgb, (12.0-16.0) 9.0 g/dl L 05/13/25 WBC, (4.8-10.8) 8.2 X10*3/uL 05/13/25 Plt Count, (160-400) 250 X10*3/uL 05/13/25 Sodium, (135-145) 141 mmol/L 05/13/25 Potassium, (3.3-5.1) 4.0 mmol/L 05/13/25 Chloride, (96-108) 112 mmol/L H 05/13/25 Carbon Dioxide, (22-29) 19 mmol/L L 05/13/25 BUN, (9-16) 29 mg/dL H 05/13/25 Creatinine, (0.5-1.4) 1.26 mg/dL 05/13/25 Calcium, (8.4-10.2) 9.0 mg/dL 05/13/25 Urine Protein, (Neg-Trace) 300 (3+) mg/dL H 05/10/25 Renal US 12/23/23 Assessment & Plan Assessment & Plan (1) Essential hypertension: Code(s): I10 - Essential (primary) hypertension Category: Medical (2) CKD (chronic kidney disease): Code(s): N18.9 - Chronic kidney disease, unspecified Category: Medical (3) Hyperkalemia: Code(s): E87.5 - Hyperkalemia Category: Medical (4) CKD (chronic kidney disease) stage 3, GFR 30-59 ml/min: Code(s): N18.30 - Chronic kidney disease, stage 3 unspecified Category: Medical Qualifiers: Chronic kidney disease stage 3 subtype: stage 3b (GFR 30-44) Qualified Code(s): N18.32 - Chronic kidney disease, stage 3b (5) COPD (chronic obstructive pulmonary disease): Code(s): J44.9 - Chronic obstructive pulmonary disease, unspecified Category: Medical Qualifiers: COPD type: unspecified COPD Qualified Code(s): J44.9 - Chronic obstructive pulmonary disease, unspecified Plan Mary has stage 3 chronic kidney disease in the setting of longstanding hypertension and diabetes mellitus. s/p ANDRE - resolved The renal function is close to baseline now . Goal is to slow the progression of renal disease. 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 Resolved Encouraged her to stay on low-potassium diet as well. COPD Will refer to Pulmonary No intention to quit smoking Anemia s/p Transfusion s/p EGD/ Colonoscopy Pathology pending Await GI follow up Orders: Orders Ferritin 3 Months D64.9 - Anemia, unspecified, N18.9 - Chronic kidney disease, unspecified Complete Blood Count Auto Diff 3 Months D64.9 - Anemia, unspecified, N18.9 - Chronic kidney disease, unspecified Basic Metabolic Panel 3 Months I10 - Essential (primary) hypertension, J44.9 - Chronic obstructive pulmonary disease, unspecified, N18.9 - Chronic kidney disease, unspecified IRON PROFILE 3 Months D64.9 - Anemia, unspecified, N18.9 - Chronic kidney disease, unspecified Referrals Pulmonology Referral J44.9 - Chronic obstructive pulmonary disease, unspecified Medications: New furosemide (Lasix) 20 mg PO DAILY 90 tabs 1RF Coding Level of Care Code Est Pt Level 4 (09415) Diagnoses Essential hypertension I10 CKD (chronic kidney disease) N18.9 Hyperkalemia E87.5 Stage 3b chronic kidney disease N18.32 Chronic kidney disease stage 3 subtype: stage 3b (GFR 30-44) Chronic obstructive pulmonary disease, unspecified COPD type J44.9 COPD type: unspecified COPD
--- OUTSIDE RECORDS SUMMARY | 2025-05-16 11:56 | XMS_ITS | Clinical Summary ---
Author Organization [facility] Address [address] [place] [address] Phone Care Team Providers Care Service Station Console Operator Name Role Phone Ana Lanier MD Primary Care Provider [phone] Allergies No known active allergies Medications amLODIPine [...] age to complete this topic Insurance Medicare [facility] Medicare [facility] Care Teams Service Station Console Operator Relationship Specialty Start Date End Date Ana Lanier MD [address] [place], [place] PCP - General Internal Medicine 07/01/21
== END 2025-05-16 10:22 | disposition home or self-care (01) ==
LOC: HO.HKA 09:59
PROVIDERS: PCP Internal Medicine; Visit Provider Internal Medicine Hypertension Specialist
DX: I12.9 Hypertensive chronic kidney disease with stage 1 through stage 4 chronic kidney disease, or unspecified chronic kidney disease (principal); N18.9 Chronic kidney disease, unspecified; E87.5 Hyperkalemia; N18.32 Chronic kidney disease, stage 3b; J44.9 Chronic obstructive pulmonary disease, unspecified
CPT/HCPCS: 99214

== ENCOUNTER → 2025-05-16 09:58 | Outpatient (BNVA) | payer MEDICARE, OTHER, SELFPAY | PROVIDERS: PCP Internal Medicine; Visit Provider Internal Medicine Hypertension Specialist | DX: I12.9 Hypertensive chronic kidney disease with stage 1 through stage 4 chronic kidney disease, or unspecified chronic kidney disease (principal); E11.22 Type 2 diabetes mellitus with diabetic chronic kidney disease; N18.32 Chronic kidney disease, stage 3b; I1A.0 Resistant hypertension; Z72.0 Tobacco use; Z79.84 Long term (current) use of oral hypoglycemic drugs; Z09 Encounter for follow-up examination after completed treatment for conditions other than malignant neoplasm; E87.5 Hyperkalemia; Z79.82 Long term (current) use of aspirin | CPT/HCPCS: 99212 ==

== ENCOUNTER 2025-06-01 13:55 | Inpatient (IN) | payer MEDICARE, OTHER, SELFPAY ==
[2025-06-01] VITALS (12 sets, daily range): BP systolic 102–123; BP diastolic 33–56; PULSE 48–75; RESP 15–19; TEMP 35.7–36.4; O2SAT 98–100; BMI 27.9
--- NOTE | ~2025-06-01 | CT_ITS ---
CLINICAL HISTORY: sepsis, ANDRE, CT abdomen and pelvis without contrast Comparison: CT abdomen and pelvis from 05/10/2025 Findings: Mild bibasilar atelectasis and scarring. Liver surface nodularity noted as can be seen with cirrhosis. Calcified remnants of old granulomatous process noted in the liver in this noncontrast study. Moderate bilateral adrenal hyperplasia. Mild volume loss of the pancreas. Gallbladder is partly obscured and otherwise unremarkable for noncontrast CT. The spleen is nonenlarged. Nonobstructing nephrolithiasis of the left kidney measures 2 mm. Nonobstructing nephrolithiasis of the right kidney measures 3 mm. Additional renal hilar calcifications are likely vascular. Additional vascular calcifications are multifocal. Mild fluid and mesentery can be seen with cira mesentery and mesenteric adenitis. Mixed density of the multiple small-bowel loops with small bowel measuring up to 2.4 cm diameter. No definite small bowel obstruction. Imaged appendix within normal limits (52 of series 6). Fluid in the large intestine can be seen with diarrhea type illnesses in the colitis. Mild wall thickening of the large intestine is nonspecific by noncontrast CT. Differential considerations include colitis. Rectal tube is in place. Uterus is anteverted. No adnexal soft tissue mass by noncontrast CT. Mild wall thickening of the urinary bladder is nonspecific. Small foci of gas in the bladder can be seen with Valente catheter placement or recent instrumentation. [id number] osteoarthritis of the hips. Degenerative disc changes and facet arthropathy of the spine are multifocal. Minimal thoracic vertebral height losses appear old/chronic. Subcutaneous edema is noted, including dependently. IMPRESSION: 1. CT findings concerning for colitis. 2. Mild dilatation of the multiple small-bowel loops are nonspecific and likely related to ileus from adjacent inflammation such as colitis. No definite small bowel obstruction at this time. 3. Mild wall thickening of the urinary bladder with small foci of gas in the urinary bladder. This document has been electronically signed by: Christiano Powers MD on 06/01/2025 19:56:51
--- NOTE | ~2025-06-01 | CT_ITS ---
CLINICAL HISTORY: sepsis unknown source CT chest without contrast Comparison: Chest x-ray from 06/01/2025 Findings: Mild left basilar atelectasis and scarring. Mild emphysematous changes by CT. Vascular calcifications include imaged aorta and its branches. Small mediastinal lymph nodes likely reactive. Moderate cardiomegaly with multi chamber enlargement of the heart. Coronary artery calcifications and valve calcifications noted. Mild mediastinal lipomatosis. No pleural effusion or pneumothorax. Mild imaged rib deformities appear old/chronic. Degenerative changes include the imaged shoulders and imaged spine. Vacuum disc phenomenon noted, including T10-T11. Liver surface nodularity of the cirrhosis noted in the imaged abdomen with liver calcifications. IMPRESSION: Mild left basilar atelectasis and scarring This document has been electronically signed by: Christiano Powers MD on 06/01/2025 19:57:08
--- NOTE | ~2025-06-01 | XR_ITS ---
CLINICAL HISTORY: chest pain 1 view chest x-ray. Comparison: 05/11/2025 Findings: No consolidation or effusion. Cardiac and mediastinal contours appear stable. Bones unremarkable. Impression: 1. No acute pulmonary disease. This document has been electronically signed by: Dixon Valdovinos MD on 06/01/2025 15:44:57
--- NOTE | 2025-06-01 14:37 | ED.GENADULT ---
HPI - General Adult General Chief complaint: General Medical Stated complaint: INC WEAKNESS X 2 DAYS PER EMS Time Seen by Provider: 06/01/25 14:26 Source: patient and family Limitations: no limitations History of Present Illness HPI narrative: This is 74 years old female presented to the emergency department with a chief complaint of generalized weakness she states I am to weak ,I can not walK she denies any fall denies any chest pain she has a history of coronary artery disease, she has a history of anemia she has a history of H pylori infection. Onset (ago): week(s) (1) Radiation: non-radiation Severity: mild Pain Consistency: constant Relieving factors: none Exacerbating factors: none Related Data Home Medications ?Medication ?Instructions ?Recorded ?Confirmed aspirin 81 mg tablet,delayed 81 mg PO DAILY 10/25/24 06/05/25 release pioglitazone 15 mg tablet 15 mg PO DAILY 02/11/25 06/05/25 Held on 06/04/25. Instructions: Resume on 06/11/25. linagliptin 5 mg tablet (Tradjenta) 5 mg PO DAILY 05/10/25 06/05/25 gabapentin 300 mg capsule 300 mg PO TID PRN NERVE PAIN 06/02/25 06/05/25 Held on 06/04/25. Instructions: Resume on 06/10/25. hydrochlorothiazide 25 mg tablet 25 mg PO DAILY 06/02/25 06/05/25 Previous Rx's ?Medication ?Instructions ?Recorded metformin 1,000 mg tablet 1,000 mg PO BID 90 days #180 tabs 12/17/24 Held on 06/04/25. Instructions: Resume on 06/10/25. pravastatin 80 mg tablet 80 mg PO DAILY #90 tabs 01/01/25 ticagrelor 90 mg tablet (Brilinta) 90 mg PO BID #60 tabs 01/16/25 valsartan 80 mg tablet 80 mg PO DAILY #90 tabs 01/24/25 Held on 06/04/25. Instructions: Resume on 06/10/25. amlodipine 10 mg tablet 10 mg PO DAILY 30 days #30 tabs 03/03/25 metoprolol succinate 25 mg 25 mg PO DAILY #90 tabs 04/29/25 tablet,extended release 24 hr omeprazole 40 mg capsule,delayed 40 mg PO DAILY 3 months #90 caps 05/13/25 release furosemide 20 mg tablet (Lasix) 20 mg PO DAILY #90 tabs 05/16/25 amoxicillin 500 mg capsule 1,000 mg (2 x 500 mg) PO Q12H 10 06/04/25 days #40 caps metronidazole 500 mg tablet 500 mg PO Q12H 10 days #20 tabs 06/04/25 Allergies Allergy/AdvReac Type Severity Reaction Status Date / Time No Known Allergies (No Known Allergy Verified 06/01/25 14:28 Allergies*) Review of Systems Constitutional: Constitutional: Reports fatigue, Reports malaise and Reports poor appetite Cardiovascular: Cardiovascular: Reports no additional cardiovascular complaints Endocrine: Endocrine: Reports fatigue PMFSH Past Medical History Attestation statement: The following information was validated with the patient. Medical History Chronic kidney disease Colonoscopy refused COPD with acute exacerbation Urinary tract infection Acute bronchitis CKD (chronic kidney disease) stage 3, GFR 30-59 ml/min Anemia of chronic disease CKD (chronic kidney disease) Murmur Microalbuminuria Urge urinary incontinence Hypovitaminosis D Neuropathy Insomnia Diabetes mellitus Dyslipidemia Essential hypertension Surgical History History of heart artery stent (~05/2024) History of tonsillectomy No pertinent past surgical history Family History Family History Father Colon cancer Mother Lung cancer Social History Social History Household Members: Family and Children Household Members Other:: son and grandson Housing: House Are you a primary home visit field care manager to a significant other at home: No Do you presently have visiting nurse or other home services: No Alcohol intake: never Comment: pt refuse nonslip socks Patient Tobacco Use Status: Former Tobacco user Tobacco use type: Cigarette Cigarette Packs Per Day: 1 Cigarettes Per Day: 20.0 e-Cigarette/Vaping Use: Never Used Second Hand Smoke Exposure: Yes Substance Use Type: Marijuana Advance Directives Date on File: 06/17/22 service: No Current occupational status: retired Cognitive needs: No Hearing needs: No Vision needs: No Physical Exam ED Exam Exam: No acute distress comfortable in the stretcher Vital Signs: Vital Signs - 24 hr 06/01/25 14:26 06/01/25 14:49 06/01/25 16:16 Temperature 96.3 F L 96.3 F L Pulse Rate 49 L 48 L 49 L Respiratory Rate 18 16 18 Blood Pressure 104/33 L 108/33 L Pulse Oximetry 100 100 98 Oxygen Delivery Method Room Air Room Air Room Air 06/01/25 17:03 06/01/25 18:04 06/01/25 18:44 Temperature 96.6 F L 97.2 F Pulse Rate 50 57 Respiratory Rate 15 16 Blood Pressure 119/37 L 107/37 L 102/36 L Pulse Oximetry 100 99 Oxygen Delivery Method Room Air Room Air 06/01/25 19:58 Temperature 97.5 F Pulse Rate 64 Respiratory Rate 18 Blood Pressure 118/40 L Pulse Oximetry 99 Oxygen Delivery Method Room Air BMI result Body Mass Index 27.9 Const General: cooperative and comfortable Nutritional Appearance: average body habitus Orientation/consciousness: patient oriented x3 HENMT Head: Yes normal to inspection Ears: hearing grossly normal bilaterally General nose exam: Normal external nose present Face and sinus: Yes normal facial exam Mouth: Normal oral and palatal mucosa present Throat: Yes posterior oropharynx normal Neck Neck: Yes normal visual inspection Resp Effort & Inspection: normal respiratory effort Auscultation: clear to auscultation bilaterally Cardio Jugular venous distension: no JVD Rate: regular rate Rhythm: regular rhythm GI Inspection: Yes normal to inspection Palpation (GI): Soft to palpation, not firm and nontender General: Yes no CVA tenderness Back/Spine/Pelvis Back: no CVA tenderness Skin General skin exam: no rashes or lesions noted Lesions: no lesions Rashes: no rashes Neuro General: patient oriented x3 Cranial nerves: Yes CN's II-XII intact bilaterally Course Reevaluation(s) Reevaluation #1: 4:36 PM 06/01/2025 (Dr. Holger Whitman): I assumed care of the patient at this time she presented with generalized weakness not safe to be discharged home the current status per the previous provider. She is pending medical workup though there was no focal symptoms to suggest acute infection or injury. Pending labs and urinalysis may need case management for placement. Reevaluation #2: 5:25 PM 06/01/2025 (Dr. Holger Whitman): I was informed at this time of a hypothermic measurement despite the patient being in warm blankets and receiving warm fluids. Lactate 3 I will activate sepsis with the patient antibiotics continue with IV fluids. There has been no hypotension or lactate over 4 as of yet. No clearly identifiable source urine was just sent to the lab we will get a chest x-ray Reevaluation #3: 7:34 PM 06/01/2025 (Dr. Holger Whitman): Multifactorial metabolic acidemia is present looks like probably from acute kidney injury BUN is over 100. Lactate elevated at 3. Likely uremia/lactic acidosis/starvation ketosis. PH 7.16. Patient has already received NS 2 L. additional LR L ordered no underlying heart failure history no crackles in the lungs or hypoxia. She looks very dry she has remained hemodynamically stable however. She is on a Lori Hugger now. Presumed sepsis. Bedside ultrasound excludes urologic obstruction with no hydronephrosis. Valente will be placed to continuously watch and monitor output. For ICU consultation given the significant acidemia they recommend LR x3 L rechecked BNP. Patient will receive orantes scan to evaluate for possible sepsis source. Additional Reevaluation(s): 8:23 PM 06/01/2025 (Dr. Holger Whitman): After 3.5 L fluid resuscitation. Still shows acidemia ICU accepts for admission. No urologic obstruction CT or ultrasound. There was comment colitis. Patient has received ceftriaxone defer additional antibiotics to ICU team. No shock in the ED. Patient awake protecting airway. Putting out minimal urine output. Impression: Presumed diagnosis of profound dehydration with prerenal azotemia. Uremic and lactic and probably starvation ketosis as etiology of metabolic acidosis. No clear infectious source. Covered with empiric antibiotics. Initial efforts at correcting acidosis induced and kidney failure induced hyperkalemia with Lasix/fluid/Lokelma. Bicarbonate. Medications Administered Discontinued Medications Generic Name Dose Route Start Last Admin Trade Name Freq PRN Reason Stop Dose Admin Amlodipine Besylate 10 mg 06/04/25 09:00 06/04/25 09:05 Amlodipine Besylate 10 Mg Tablet PO 10 mg DAILY SKINNY Administration Protocol Amoxicillin 1,000 mg 06/01/25 22:15 06/04/25 09:05 Amoxicillin 500 Mg Capsule PO 1,000 mg Q12H SKINNY Administration Aspirin 81 mg 06/03/25 12:20 06/04/25 09:05 Aspirin Enteric Coated 81 Mg Tablet.Dr PO 81 mg DAILY SKINNY Administration Bismuth Subsalicylate 262 mg 06/02/25 09:00 06/02/25 10:39 Bismuth Subsalicylate Liquid 524 Mg/30 Ml Oral.Susp PO Not Given QID SKINNY Bismuth Subsalicylate 262 mg 06/02/25 10:15 06/04/25 14:32 Bismuth Subsalicylate Oral Nisreen 525 Mg/30 Ml Oral.Susp PO Not Given QID SKINNY Furosemide 40 mg 06/01/25 18:14 06/01/25 18:44 Furosemide 40 Mg/4 Ml Vial IVPUSH 06/01/25 18:15 40 mg STAT STA Administration Protocol Furosemide 20 mg 06/03/25 12:20 06/04/25 09:06 Furosemide 20 Mg Tablet PO 20 mg DAILY SKINNY Administration Protocol Heparin Sodium (Porcine) 5,000 unit 06/02/25 08:00 06/04/25 00:30 Heparin Sodium,Porcine 5,000 Unit/Ml Vial SUBCUT Not Given Q8H SKINNY Hydrochlorothiazide 25 mg 06/03/25 12:25 06/04/25 09:05 Hydrochlorothiazide 25 Mg Tablet PO 25 mg DAILY SKINNY Administration Protocol Sodium Chloride 1,000 mls @ 100 mls/hr 06/01/25 14:45 06/01/25 17:53 Ns IVCONT Infused .Q10H SKINNY Infusion Sodium Chloride 1,000 mls @ 999 mls/hr 06/01/25 17:15 06/01/25 18:45 Ns IV 06/01/25 18:15 Infused .Q1H1M SKINNY Infusion Ceftriaxone Sodium 2 gm/ 50 mls @ 100 mls/hr 06/01/25 17:11 06/01/25 17:53 Sodium Chloride IV 06/01/25 17:40 Infused ONCE ONE Infusion Lactated Ringer's 1,000 mls @ 999 mls/hr 06/01/25 18:15 06/01/25 19:13 Lr IV 06/01/25 19:15 Infused .Q1H1M SKINNY Infusion Sodium Bicarbonate 150 meq/ 1,000 mls @ 100 mls/hr 06/01/25 19:00 06/02/25 10:07 Dextrose IV Infused .Q10H SKINNY Infusion Lactated Ringer's 1,000 mls @ 999 mls/hr 06/01/25 18:45 06/01/25 20:52 Lr IV 06/01/25 20:45 Infused .Q1H1M SKINNY Infusion Sodium Chloride 1,000 mls @ 999 mls/hr 06/01/25 19:15 06/01/25 21:46 Ns IV 06/01/25 20:15 Infused .Q1H1M SKINNY Infusion Sodium Chloride 1,000 mls @ 999 mls/hr 06/01/25 19:15 06/01/25 22:42 Ns IV 06/01/25 20:15 Infused .Q1H1M SKINNY Infusion Albumin Human 100 mls @ 133.333 mls/hr 06/01/25 20:15 06/01/25 22:42 Kedbumin 25 % IV 06/01/25 21:59 Infused Q1H SKINNY Infusion Piperacillin Sod/Tazobactam 100 mls @ 200 mls/hr 06/01/25 20:17 06/01/25 20:53 Sod 4.5 gm/ Sodium Chloride IV 06/01/25 20:46 Infused ONCE ONE Infusion Albumin Human 100 mls @ 100 mls/hr 06/02/25 03:00 06/02/25 21:41 Kedbumin 25 % IV 06/02/25 21:59 Infused Q6H SKINNY Infusion Metronidazole 500 mg in 100 mls @ 100 mls/hr 06/01/25 23:00 06/03/25 10:15 Flagyl IV Infused Q8H SKINNY Infusion Magnesium Sulfate/Dextrose 1 gm in 100 mls @ 100 mls/hr 06/02/25 09:00 06/02/25 10:15 Magnesium Sulfate/D5w IV 06/02/25 09:59 Infused ONCE ONE Infusion Insulin Human Lispro 0 unit 06/02/25 11:30 06/04/25 13:28 Insulin Lispro 100 Unit/Ml 3 Ml Vial SUBCUT 6 unit QIDACHS SKINNY Administration Protocol Metoprolol Succinate 25 mg 06/04/25 09:00 06/04/25 09:06 Metoprolol Succinate Er 25 Mg Tab.Er.24h PO 25 mg DAILY SKINNY Administration Protocol Metronidazole 500 mg 06/03/25 21:00 06/04/25 09:05 Metronidazole 500 Mg Tablet PO 500 mg Q12H SKINNY Administration Omeprazole 20 mg 06/02/25 06:30 06/04/25 06:35 Omeprazole 20 Mg Capsule. PO 20 mg BID@9483,2498 SKINNY Administration Pravastatin Sodium 80 mg 06/04/25 09:00 06/04/25 09:06 Pravastatin Sodium 80 Mg Tablet PO 80 mg DAILY SKINNY Administration Sodium Bicarbonate 50 meq 06/01/25 18:14 06/01/25 18:45 Sodium Bicarbonate 8.4% 50 Meq/50 Ml Syringe IVPUSH 06/01/25 18:15 50 meq ONCE ONE Administration Sodium Chloride 3 ml 06/02/25 00:00 06/04/25 09:07 0.9 % Sodium Chloride Flush 3 Ml Syringe IVFLUSH 3 ml QSHIFT SKINNY Administration Sodium Zirconium Cyclosilicate 10 gm 06/01/25 18:14 06/01/25 18:45 Sodium Zirconium Cyclosilicate 10 Gm Powd.Pack PO 06/01/25 18:15 10 gm ONCE ONE Administration Ticagrelor 90 mg 06/03/25 12:25 06/04/25 09:07 Ticagrelor 90 Mg Tablet PO 90 mg BID SKINNY Administration Procedures Procedure Narrative Procedure Narrative: EMERGENCY ULTRASOUND INTERPRETATION-Limited Retroperitoneal (Renal) [This study was ordered, performed, and interpreted by myself. The study reveals: Impression: NO EVIDENCE OF UROLOGIC OBSTRUCTION] [Indication: FLANK PAIN Bladder: ANECHOIC URINE Right Kidney: NO HYDRONEPHROSIS Left Kidney: NO HYDRONEPHROSIS Performed by: Holger Whitman MD Images were stored CPT: 86447] Medical Decision Making Medical Decision Making MDM Narrative: Patient presented to the emergency department with a generalized weakness malaise we will check labs Differential Diagnosis Differential Diagnoses: The differential diagnosis associated with the presentation includes Anemia/deconditioning/urinary tract infect Lab Data 06/04/25 09:21 06/04/25 09:21 Labs: Lab Results 06/01/25 06/01/25 06/01/25 Range/Units 15:05 16:31 17:01 WBC 6.7 (4.8-10.8) X10*3/uL RBC 4.03 L D (4.20-5.50) X10*6/uL Hgb 11.5 L D (12.0-16.0) g/dl Hct 36.6 L D (37.0-47.0) % MCV 90.8 (80.0-98.0) fL MCH 28.5 (27.0-33.0) pg MCHC 31.4 (31.0-35.0) g/dl RDW 15.8 (11.0-16.0) % Plt Count 201 (160-400) X10*3/uL MPV 12.1 (9.4-12.3) fL Immature Gran % (Auto) 0.7 H (0.0-0.4) % Neut % (Auto) 79.9 H (45-73) % Lymph % (Auto) 15.3 L (20-40) % [place] % (Auto) 3.4 (2-11) % Eos % (Auto) 0.1 (0-4) % Baso % (Auto) 0.6 (0-2) % Lymph # (Auto) 1.0 L (1.2-4.9) X10*3/uL [place] # (Auto) 0.2 (0.1-1.2) X10*3/uL Eos # (Auto) 0.0 (0.0-0.4) X10*3/uL Baso # (Auto) 0.0 (0.0-0.2) X10*3/uL Abs Immat Gran (auto) 0.05 H (0.00-0.03) X10*3/uL Absolute Neuts (auto) 5.3 (2.0-8.3) x10*3/uL Absolute Nucleated RBC 0.030 H (0.0-0.012) X10*3/uL Nucleated RBC % (auto) 0.4 H (0.0-0.2) /100WBC PT 15.7 H D (11.2-13.5) SEC INR 1.3 H (0.9-1.1) VBG pH (7.32-7.43) VBG pCO2 mmHg VBG pO2 mmHg VBG HCO3 (22-26) mmol/L VBG O2 Saturation % VBG Base Excess mmol/L Sodium 138 (135-145) mmol/L Potassium 5.5 H D (3.3-5.1) mmol/L Chloride 118 H (96-108) mmol/L Carbon Dioxide 7 L* D (22-29) mmol/L Anion Gap 19 (12-20) BUN 102 H (9-16) mg/dL Creatinine 3.76 H (0.5-1.4) mg/dL Estim Creat Clear Calc 10.6 Estimated GFR 12 Random Glucose 133 H (60-115) mg/dL Lactic Acid 3.0 H* (0.5-2.0) mmol/L Lactic Acid F/U @ 2Hr (0.5-2.0) mmol/L Calcium 7.5 L D (8.4-10.2) mg/dL Magnesium 1.7 (1.6-2.6) mg/dL Total Bilirubin 0.3 (0.0-1.0) mg/dL AST 65 H (5-31) U/L ALT 102 H (0-31) U/L Alkaline Phosphatase 125 H (39-117) U/L Troponin I High Sens 18.1 H D (<3.5-17.0) ng/L NT-Pro-B Natriuret Pep 963.6 H (<300) pg/mL Total Protein 5.2 L (6.5-8.0) g/dL Albumin 2.6 L (3.5-5.0) g/dL Urine Color Dark Yellow Urine Appearance Cloudy Urine pH 5.0 (5.0-9.0) Ur Specific [place] 1.015 (1.005-1.025) Urine Protein 100 (2+) H (Neg-Trace) mg/dL Urine Glucose (UA) Negative (Negative) mg/dL Urine Ketones Negative (Negative) mg/dL Urine Blood Negative (Negative) Urine Nitrite Negative (Negative) Ur Leukocyte Esterase Trace H (Negative) Urine RBC 0-2 (0-2) /HPF Urine WBC 0-5 (0-5) /HPF Ur Squamous Epith Cells 3-5 (0-2) /HPF Urine Bacteria 1+ (None Seen) Hyaline Casts 0-2 (0-2) /LPF Urine Yeast Present Urine Osmolality 371 L (373-1093) mosm/kg Ur Random Sodium 25.0 mmol/L Urine Creatinine 100.49 mg/dL 06/01/25 06/01/25 06/01/25 Range/Units 18:25 18:39 19:38 WBC (4.8-10.8) X10*3/uL RBC (4.20-5.50) X10*6/uL Hgb (12.0-16.0) g/dl Hct (37.0-47.0) % MCV (80.0-98.0) fL MCH (27.0-33.0) pg MCHC (31.0-35.0) g/dl RDW (11.0-16.0) % Plt Count (160-400) X10*3/uL MPV (9.4-12.3) fL Immature Gran % (Auto) (0.0-0.4) % Neut % (Auto) (45-73) % Lymph % (Auto) (20-40) % [place] % (Auto) (2-11) % Eos % (Auto) (0-4) % Baso % (Auto) (0-2) % Lymph # (Auto) (1.2-4.9) X10*3/uL [place] # (Auto) (0.1-1.2) X10*3/uL Eos # (Auto) (0.0-0.4) X10*3/uL Baso # (Auto) (0.0-0.2) X10*3/uL Abs Immat Gran (auto) (0.00-0.03) X10*3/uL Absolute Neuts (auto) (2.0-8.3) x10*3/uL Absolute Nucleated RBC (0.0-0.012) X10*3/uL Nucleated RBC % (auto) (0.0-0.2) /100WBC PT (11.2-13.5) SEC INR (0.9-1.1) VBG pH 7.16 L* (7.32-7.43) VBG pCO2 20 mmHg VBG pO2 108 mmHg VBG HCO3 7 L (22-26) mmol/L VBG O2 Saturation 99.0 % VBG Base Excess -19.0 mmol/L Sodium 139 (135-145) mmol/L Potassium 5.3 H (3.3-5.1) mmol/L Chloride 118 H (96-108) mmol/L Carbon Dioxide 10 L* D (22-29) mmol/L Anion Gap 16 (12-20) BUN 100 H (9-16) mg/dL Creatinine 3.56 H (0.5-1.4) mg/dL Estim Creat Clear Calc 11.2 Estimated GFR 12 Random Glucose 109 (60-115) mg/dL Lactic Acid (0.5-2.0) mmol/L Lactic Acid F/U @ 2Hr 2.4 H* (0.5-2.0) mmol/L Calcium 7.5 L (8.4-10.2) mg/dL Magnesium (1.6-2.6) mg/dL Total Bilirubin (0.0-1.0) mg/dL AST (5-31) U/L ALT (0-31) U/L Alkaline Phosphatase (39-117) U/L Troponin I High Sens (<3.5-17.0) ng/L NT-Pro-B Natriuret Pep (<300) pg/mL Total Protein (6.5-8.0) g/dL Albumin (3.5-5.0) g/dL Urine Color Urine Appearance Urine pH (5.0-9.0) Ur Specific [place] (1.005-1.025) Urine Protein (Neg-Trace) mg/dL Urine Glucose (UA) (Negative) mg/dL Urine Ketones (Negative) mg/dL Urine Blood (Negative) Urine Nitrite (Negative) Ur Leukocyte Esterase (Negative) Urine RBC (0-2) /HPF Urine WBC (0-5) /HPF Ur Squamous Epith Cells (0-2) /HPF Urine Bacteria (None Seen) Hyaline Casts (0-2) /LPF Urine Yeast Urine Osmolality (373-1093) mosm/kg Ur Random Sodium mmol/L Urine Creatinine mg/dL Critical Care Time Critical Care Time Critical Care Time: Yes Total Critical Care Time: 120 Attestation: ED Critical Care: Metabolic acidemia. Dehydration, acute kidney injury, hypokalemia secondary to acidosis versus kidney injury Authorized and Performed by: Holger Whitman MD Total critical care time: Approximately 120 min Due to a high probability of clinically significant, life threatening deterioration, the patient required my highest level of preparedness to intervene emergently and I personally spent this critical care time directly and personally managing the patient. This critical care time included obtaining a history; examining the patient; pulse oximetry; ordering and review of studies; arranging urgent treatment with development of a management plan; evaluation of patient's response to treatment; frequent reassessment; and, discussions with other providers. This critical care time was performed to assess and manage the high probability of imminent, life-threatening deterioration that could result in multi-organ failure. It was exclusive of separately billable procedures and treating other patients and teaching time. Discharge Plan Discharge Clinical Impression: Stage 4 chronic kidney disease Patient Disposition: Admitted As Inpatient Interventions: Admission Worksheet (ED) Last Done: 06/01/25 21:08 Discharge Date/Time: 06/01/25 21:10
--- OUTSIDE RECORDS SUMMARY | 2025-06-01 14:58 | XMS_ITS | Clinical Summary ---
Author Organization [facility] Address [address] [place] [address] Phone Care Team Providers Care Psychiatric Secretary Name Role Phone Ana Lanier MD Primary Care Provider [phone] Allergies No known active allergies Medications amLODIPine [...] age to complete this topic Insurance Medicare [facility] Medicare [facility] Care Teams Psychiatric Secretary Relationship Specialty Start Date End Date Ana Lanier MD [address] [place], [place] PCP - General Internal Medicine 07/01/21
[2025-06-01 15:11] LABS: MANUAL DIFF FLAG NO
[2025-06-01 15:13] LABS: Hematocrit 36.6 % (37.0-47.0); Hemoglobin 11.5 g/dl (12.0-16.0); Imm Gran Abs Auto 0.05 X10*3/uL (0.00-0.03); Imm Gran Pct Auto 0.7 % (0.0-0.4); Lymphocytes Absolute Auto 1.0 X10*3/uL (1.2-4.9); Mean Corpuscular HGB Conc 31.4 g/dl (31.0-35.0); Mean Corpuscular Hemoglobin 28.5 pg (27.0-33.0); Mean Corpuscular Volume 90.8 fL (80.0-98.0); NRBC Abs Auto 0.030 X10*3/uL (0.0-0.012); NRBC Pct Auto 0.4 /100WBC (0.0-0.2); Platelet Count 201 X10*3/uL (160-400); Red Blood Count 4.03 X10*6/uL (4.20-5.50); White Blood Count 6.7 X10*3/uL (4.8-10.8)
--- NOTE | 2025-06-01 15:23 | ECG_ITS ---
Test Reason : liz Blood Pressure : */* mmHG Vent. Rate : 48 BPM Atrial Rate : 48 BPM P-R Int : 196 ms QRS Dur : 88 ms QT Int : 500 ms P-R-T Axes : -20 -14 -43 degrees QTcB Int : 446 ms Sinus bradycardia Nonspecific T wave abnormality Abnormal ECG When compared with ECG of 10-May-2025 13:16, ST no longer depressed in Lateral leads Nonspecific T wave abnormality has replaced inverted T waves in Lateral leads Referred By: Todd Leggett Electronically Signed By: VITO BARRAZA
[2025-06-01 15:39] LABS: Troponin-I High Sensitivity 18.1 ng/L (<3.5-17.0)
--- NOTE | 2025-06-01 15:41 | PC.NURSE ---
assumed care of this patient at 1500, patient noted to be hypotermic 96.1, paced on hospital monitor HR noted to be 40s, EKG ordered. Confirmed w/ provider okay to start warmed IV fluids & blanket warmer. Pt stated she stopped her fluid pills about a week ago.
--- NOTE | 2025-06-01 16:12 | PC.NURSE ---
Pt in need of second IV line and additional labwork/ recollects. US RN made asked to look for access, in room at this time.
[2025-06-01 16:48] LABS: INTERNATIONAL NORM RATIO 1.3 (0.9-1.1); Prothrombin Time 15.7 SEC (11.2-13.5)
[2025-06-01 17:00] LABS: Magnesium 1.7 mg/dL (1.6-2.6)
[2025-06-01 17:10] LABS: Appearance Urine Cloudy; Glucose Urine UA Negative (Negative); PH 5.0 (5.0-9.0); Specific Gravity - Urine 1.015 (1.005-1.025); UMIC TRIGGER UACC YES
[2025-06-01 17:27] LABS: NT Pro B Type Natriuretic Pept 963.6 pg/mL (<300)
--- NOTE | 2025-06-01 17:46 | PC.NURSE ---
Lab chemistries still not resulted, called lab spoke to lima, lab should resulting in the next 10 minutes
[2025-06-01 17:59] LABS: Alanine Aminotransferase 102 U/L (0-31); Albumin Level 2.6 g/dL (3.5-5.0); Alkaline Phosphatase 125 U/L (39-117); Anion Gap 19 (12-20); Aspartate Amino Transferase 65 U/L (5-31); Blood Urea Nitrogen 102 mg/dL (9-16); Calcium 7.5 mg/dL (8.4-10.2); Carbon Dioxide 7 mmol/L (22-29); Chloride 118 mmol/L (96-108); Creatinine Clr Calc Pharmacy 10.6; Estimated Glomerular Filt Rate 12; Potassium 5.5 mmol/L (3.3-5.1); Sodium 138 mmol/L (135-145); Total Protein 5.2 g/dL (6.5-8.0)
[2025-06-01] MEDS: Lactated Ringers 1,000 ML 999 ML IV ×3 (18:06→19:57)
[2025-06-01 18:32] LABS: VBG HCO3 7 mmol/L (22-26); VBG O2 % Saturation 99.0 %
[2025-06-01 18:33] LABS: Venous Blood Gas Refer to POC result
[2025-06-01 18:38] LABS: Reflex Lactate? Lactic Acid Added
[2025-06-01] MEDS: Furosemide 40 MG/4 ML VIAL IVPUSH (18:44)
[2025-06-01] MEDS: Sodium Bicarbonate 8.4% 150 MEQ in Dextrose 5 % 850 ML 100 MEQ IV (19:23)
[2025-06-01 19:30] LABS: ~Lactic Acid-LAB USE ONLY 2.4 mmol/L (0.5-2.0)
[2025-06-01 20:06] LABS: Anion Gap 16 (12-20); Blood Urea Nitrogen 100 mg/dL (9-16); Calcium 7.5 mg/dL (8.4-10.2); Carbon Dioxide 10 mmol/L (22-29); Chloride 118 mmol/L (96-108); Creatinine Clr Calc Pharmacy 11.2; Estimated Glomerular Filt Rate 12; Potassium 5.3 mmol/L (3.3-5.1); Sodium 139 mmol/L (135-145)
[2025-06-01] MEDS: Albumin Human 25 % 100 ML 133.33 ML IV ×2 (20:27→21:15)
[2025-06-01 20:44] LABS: Reflex Lactate? 2 Y
--- NOTE | 2025-06-01 20:44 | PM.CCHP ---
History of Present Illness Date of Service: 06/01/25 Attending physician on admission: Russell Kc Chief Complaint: Generalized weakness The patient is a 74-year-old female with a past medical history of chronic kidney disease stage III, diabetes mellitus, hypertension, congestive heart failure (EF 55-60%), coronary artery disease aortic (proximal RCA stents, residual proximal LAD stenosis as of 10/11/2024)stenosis, dyslipidemia, COPD, anemia chronic disease, dyslipidemia and recent admission 05/10/25 to 05/13/25 with rectal abscesses, hyperkalemia and ANDRE discharge on doxycycline. 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 Started on metronidazole, tetracycline, bismuth subsalicylate ?and omeprazole. Today patient presented to the emergency department with increased generalized weakness.? Patient reported I am to weak ,I can not walK worserning x 2 days.? Patient does admit to not being able to drink and eat much in the past week since discharge from hospital. On arrival to emergency department, patient hypothermic to 96.3, bradycardic to 48, blood pressure 108/33, ?satting of 100% on room air Laboratory data significant for venous gas with severe metabolic acidosis 7.16/20/108/7.? Potassium 5.5, chloride 118, serum bicarb 7, BUN 102, creatinine 3.76, lactic acid 3, AST 65, ALT 102, phos 125, albumin 2.6 IMAGING: ABDOMINAL CT:? Consistent with colitis, no evidence of obstruction/ischemia. Chest CT:? No evidence of infection/pulmonary congestion ED course: Patient received a total of 5 L bolus of crystalloids, Lasix 40 mg, Lokelma 10 mg, ceftriaxone 2 g, and place on bicarb drip 150meq at 100ml/hr Review of Systems Review of Systems: As HPI, all other systems reviewed and negative PMFSH Past Medical History Medical History Chronic kidney disease Colonoscopy refused COPD with acute exacerbation Urinary tract infection Acute bronchitis CKD (chronic kidney disease) stage 3, GFR 30-59 ml/min Anemia of chronic disease CKD (chronic kidney disease) Murmur Microalbuminuria Urge urinary incontinence Hypovitaminosis D Neuropathy Insomnia Diabetes mellitus Dyslipidemia Essential hypertension Family History Family History Father Colon cancer Mother Lung cancer Surgical History Surgical History History of heart artery stent (~05/2024) History of tonsillectomy No pertinent past surgical history Social History Social History Household Members: Family and Children Household Members Other:: son and grandson Housing: House Are you a primary behavioral health care coordinator to a significant other at home: No Do you presently have visiting nurse or other home services: No Alcohol intake: never Comment: pt refuse nonslip socks Patient Tobacco Use Status: Former Tobacco user Tobacco use type: Cigarette Cigarette Packs Per Day: 1 Cigarettes Per Day: 20.0 Smoked in Last 30 Days: Yes e-Cigarette/Vaping Use: Never Used Patient Interested in Nicotine Replacement: No Patient Given Instructions on How to Stop Smoking: Yes Date Education Initiated: 06/01/25 Second Hand Smoke Exposure: Yes Use of substances other than those prescribed or required for medical reasons: No Substance Use Type: Marijuana Currently Displaying Signs/Symptoms of Drug Intoxication Withdrawal: No Have you been hit, kicked, punched, or otherwise hurt by someone within the past year? If so, by whom?: No Do you feel safe in your current relationship?: No Current Relationship Is there a partner from a previous relationship who is making you feel unsafe now?: No Are you made to feel afraid or neglected: No Advance Directives: Yes Advance Directives on File: Yes Advance Directives Date on File: 06/17/22 Do you have a plan to hurt others: No Plan Recently lost weight without trying: No Patient : No : No Poor oral hygiene: No service: No Current occupational status: retired Cognitive needs: No Hearing needs: No Vision needs: No Meds Allergies Allergy/AdvReac Type Severity Reaction Status Date / Time No Known Allergies (No Known Allergy Verified 06/01/25 14:28 Allergies*) Active Medications: Current Medications Sodium Bicarbonate 150 meq/ (Dextrose) 1,000 mls @ 100 mls/hr IV .Q10H SKINNY Last Admin: 06/01/25 19:23 Dose: 100 mls/hr Lactated Ringer's (Lr) 1,000 mls @ 999 mls/hr IV .Q1H1M SKINNY Stop: 06/01/25 20:45 Last Admin: 06/01/25 19:57 Dose: 999 mls/hr Albumin Human (Kedbumin 25 %) 100 mls @ 133.333 mls/hr IV Q1H SKINNY Stop: 06/01/25 21:59 Last Admin: 06/01/25 20:27 Dose: 133.33 mls/hr Piperacillin Sod/Tazobactam (Sod 4.5 gm/ Sodium Chloride) 100 mls @ 200 mls/hr IV ONCE ONE Stop: 06/01/25 20:46 Last Admin: 06/01/25 20:27 Dose: 200 mls/hr Home Medications ?Medication ?Instructions ?Recorded ?Confirmed ?Last Taken ?Type aspirin 81 mg tablet,delayed 81 mg PO DAILY 10/25/24 05/16/25 05/10/25 History release Held on 05/13/25. Instructions: Resume on 05/18/25. pioglitazone 15 mg tablet 15 mg PO DAILY 02/11/25 05/16/25 05/10/25 History linagliptin 5 mg tablet (Tradjenta) 5 mg PO DAILY 05/10/25 05/16/25 05/10/25 History Physical Exam Exam: Exam: ?General:? Alert oriented x3 no acute distress.? Speaking full sentences.? Speech is well articulated, thought process is coherent.? Following all commands. ?HEENT:? Head is normocephalic, atraumatic, pupils equal round reactive to light accommodation bilaterally.? Extraocular movements appear intact.? Buccal mucosa is dry, Neck is supple without lymphadenopathy. ?Cardiac:? Clear S1-S2, no murmurs rubs or gallops. ?Pulmonary:? Clear to auscultation, no wheezes, rales or rhonchi. ?Abdomen:? ?Abdomen soft, diffuse tenderness, non-distended. Normal bowel sounds. No pulsatile mass. No hepatosplenomegaly. ?Musculoskeletal:? Moving all 4 extremities upon request a major joints, there is no crepitus or tenderness.? The strength is 5/5 bilaterally and throughout all 4 extremities.? Gait not assessed at this point. ?Neurologic:? cranial nerves 2-12 are grossly intact.? No focal deficits noted.Motor strength as above.?? ?Skin:? No edema Vascular:? 2+ pulses upper and lower extremities distally.? Vital Signs: Vital Signs: Last Vital Signs Temp 97.5 F 06/01/25 19:58 Pulse 64 06/01/25 19:58 Resp 18 06/01/25 19:58 BP 118/40 L 06/01/25 19:58 Pulse Ox 99 06/01/25 19:58 O2 Del Method Room Air 06/01/25 19:58 BMI result Body Mass Index 27.9 Results Labs 06/01/25 15:05 06/01/25 19:38 Labs: Laboratory Results - last 24 hr 06/01/25 06/01/25 06/01/25 15:05 16:31 17:01 MCV 90.8 MCH 28.5 MCHC 31.4 RDW 15.8 Plt Count 201 MPV 12.1 Immature Gran % (Auto) 0.7 H Neut % (Auto) 79.9 H Lymph % (Auto) 15.3 L Cotton % (Auto) 3.4 Eos % (Auto) 0.1 Baso % (Auto) 0.6 Lymph # (Auto) 1.0 L Cotton # (Auto) 0.2 Eos # (Auto) 0.0 Baso # (Auto) 0.0 Abs Immat Gran (auto) 0.05 H Absolute Neuts (auto) 5.3 Absolute Nucleated RBC 0.030 H Nucleated RBC % (auto) 0.4 H PT 15.7 H D INR 1.3 H VBG pH VBG pCO2 VBG pO2 VBG HCO3 VBG O2 Saturation VBG Base Excess Anion Gap 19 Estim Creat Clear Calc 10.6 Estimated GFR 12 Random Glucose 133 H Lactic Acid 3.0 H* Lactic Acid F/U @ 2Hr Calcium 7.5 L D Magnesium 1.7 Total Bilirubin 0.3 AST 65 H ALT 102 H Alkaline Phosphatase 125 H Troponin I High Sens 18.1 H D NT-Pro-B Natriuret Pep 963.6 H Total Protein 5.2 L Albumin 2.6 L Urine Color Dark Yellow Urine Appearance Cloudy Urine pH 5.0 Ur Specific [place] 1.015 Urine Protein 100 (2+) H Urine Glucose (UA) Negative Urine Ketones Negative Urine Blood Negative Urine Nitrite Negative Ur Leukocyte Esterase Trace H Urine RBC 0-2 Urine WBC 0-5 Ur Squamous Epith Cells 3-5 Urine Bacteria 1+ Hyaline Casts 0-2 Urine Yeast Present 06/01/25 06/01/25 06/01/25 18:25 18:39 19:38 MCV MCH MCHC RDW Plt Count MPV Immature Gran % (Auto) Neut % (Auto) Lymph % (Auto) Cotton % (Auto) Eos % (Auto) Baso % (Auto) Lymph # (Auto) Cotton # (Auto) Eos # (Auto) Baso # (Auto) Abs Immat Gran (auto) Absolute Neuts (auto) Absolute Nucleated RBC Nucleated RBC % (auto) PT INR VBG pH 7.16 L* VBG pCO2 20 VBG pO2 108 VBG HCO3 7 L VBG O2 Saturation 99.0 VBG Base Excess -19.0 Anion Gap 16 Estim Creat Clear Calc 11.2 Estimated GFR 12 Random Glucose 109 Lactic Acid Lactic Acid F/U @ 2Hr 2.4 H* Calcium 7.5 L Magnesium Total Bilirubin AST ALT Alkaline Phosphatase Troponin I High Sens NT-Pro-B Natriuret Pep Total Protein Albumin Urine Color Urine Appearance Urine pH Ur Specific [place] Urine Protein Urine Glucose (UA) Urine Ketones Urine Blood Urine Nitrite Ur Leukocyte Esterase Urine RBC Urine WBC Ur Squamous Epith Cells Urine Bacteria Hyaline Casts Urine Yeast Assessment and Plan (1) Metabolic acidosis: Status: Acute (2) Positive H. pylori test: Status: Acute (3) SIRS (systemic inflammatory response syndrome): Status: Resolved (4) Elevated lactic acid level: Status: Acute (5) ANDRE (acute kidney injury): Status: Acute (6) CKD (chronic kidney disease) stage 3, GFR 30-59 ml/min: Qualifiers: Chronic kidney disease stage 3 subtype: stage 3b (GFR 30-44) Qualified Code(s): N18.32 - Chronic kidney disease, stage 3b Status: Inactive (7) Acute hyperkalemia: Status: Inactive (8) Transaminitis: Status: Acute Plan 74-year-old female with a past medical history of chronic kidney disease stage III, diabetes mellitus, hypertension, congestive heart failure (EF 55-60%), coronary artery disease aortic (proximal RCA stents, residual proximal LAD stenosis as of 10/11/2024)stenosis, dyslipidemia, COPD, anemia chronic disease, dyslipidemia, recent rectal abscesses and H pylori infection.? Admitted to ICU hemodynamic monitoring of metabolic acidosis due to dehydration Neuro:?? No acute issues Cardiac:?? SIRS: white count within normal limit, but neutrophils slightly elevated, hypothermia and tachypneia. ?Received ceftriaxone emergency department. ?She had recent diagonis of H pylori started on metronidazole, tetracycline, bismuth subsalicylate ?and omeprazole. Will resume H Pylori meds. Despite lactic being elevated no evidence of septic shock. Elevated lactic: ?No evidence of septic shock, elevated lactate due to profound dehydration. ?Continue to trend Pulmonary:? no acute issues?? Renal:? ANDRE-nonoliguric,? has underlying CKD stage III , baseline creat is around 1.2 to 1.3 today BUN 102 Creat 3.76. ANDRE related to severe dehydration, she is also on metformin Continue IV fluids.? Continue to check renal induces and urine output. Fena pending. Nephrology consult placed Hyperkalemia: ?No peaked T-waves on EKG. ?Patient does have a history of hyperkalemia, likely due to dehydration.? Continue to trend GI:?? Metabilic Acidosis: ?Venous gas consistent with severe metabolic acidosis, patient reports poor p.o. intake in the past couple weeks, also had H pylori diagnosis and started on multiple antibiotics, dehydration is likely the cause of acute renal failure and met acid.? Abdominal CT with no obstruction/ischemia. ?She is making urine. Started on bicarb drip in the emergency department.? Continue bicarb drip Transaminitis: No evidence of a bleeding. Likely due to dehydration. We will continue to trend Endo: Underlying diabetes mellitus: ?She is on metformin and linagliptin. Will hold due to ANDRE. Q6H POC ID:? ? H PYLORI: ?Patient had a follow up with PCP to review endoscopy results which showed H pylori. ?She was started on metronidazole, tetracycline, bismuth subsalicylate ?and omeprazole.? Tetracycline is not on formulary, with switch to amoxicillin. Blood cultures collected and pending. Heme/Onc:? No acute issues. Psych: ? No acute issues Miscellaneous:? No acute issues. Prophylaxis: subcu heparin Diet: ?Clear liquid diet ?? CODE: FULL Critical care time:? 30 min
--- NOTE | 2025-06-01 20:47 | PC.NURSE ---
Lori Vera stopped, warmed IVF stopped d/t pt's core temp reaching acceptable threshold. IVF,albumin, bicarb gtt running. Pt to be transferred to ICU
--- NOTE | 2025-06-01 21:08 | PC.NURSE ---
RN to RN report given to STE[employer] AND POWER SUPERVISOR, pt transported to ICU w/ RN supervisor buffing and pasting and ED transport.
[2025-06-01 21:37] LABS: Venous Blood Gas Refer to POC result
[2025-06-01 21:38] LABS: VBG HCO3 10 mmol/L (22-26); VBG O2 % Saturation 92.0 %
[2025-06-01 21:51] LABS: ~Lactic Acid-LAB USE ONLY 2.9 mmol/L (0.5-2.0)
[2025-06-01] MEDS: metroNIDAZOLE/NS 500 MG/100 ML PIGGYBACK 100 MG IV (22:57)
[2025-06-01 23:23] LABS: Resp Syncy Virus RNA Qual PCR NEGATIVE (Negative); SARS COV2 PCR INHOUSE NEGATIVE (Negative)
[2025-06-01 23:56] LABS: Glucose, Whole Blood 106 mg/dL (60-115)
[2025-06-02] VITALS (15 sets, daily range): BP systolic 104–142; BP diastolic 35–63; PULSE 60–82; RESP 12–18; TEMP 36.2–36.8; O2SAT 96–99
[2025-06-02] MEDS: Albumin Human 25 % 100 ML IV ×4 (03:27→20:41)
[2025-06-02 05:06] LABS: VBG HCO3 15 mmol/L (22-26); VBG O2 % Saturation 92.0 %
--- NOTE | 2025-06-02 05:11 | PC.NURSE ---
Pt admitted to ICU from ED at 2114 under this writers care. AOX4, able to make needs known. VSS. NSR-SB on tele. Remains on room air. C/o weakness throughout all extremities. Passed bedside swallow, tolerating clear liquid diet. Tolerated PO meds whole by mouth. Valente remains in place, clear yellow o/p. + BS in all four quadrants. Scant bruising throughout upper extremities. Pt able to reposition herself in bed. Utilizing bedpan for bowel movements only passed gas on shift at this point. IVF per SEP. POC Q6 WNL. Safety maintained throughout shift. Call morrison within reach.
[2025-06-02] MEDS: Sodium Bicarbonate 8.4% 150 MEQ in Dextrose 5 % 850 ML 100 MEQ IV (05:23)
[2025-06-02 05:46] LABS: MANUAL DIFF FLAG NO
[2025-06-02 05:50] LABS: Venous Blood Gas Refer to POC result
[2025-06-02 06:00] LABS: Hematocrit 22.9 % (37.0-47.0); Hemoglobin 7.6 g/dl (12.0-16.0); Imm Gran Abs Auto 0.04 X10*3/uL (0.00-0.03); Imm Gran Pct Auto 0.6 % (0.0-0.4); Lymphocytes Absolute Auto 2.1 X10*3/uL (1.2-4.9); Mean Corpuscular HGB Conc 33.2 g/dl (31.0-35.0); Mean Corpuscular Hemoglobin 28.9 pg (27.0-33.0); Mean Corpuscular Volume 87.1 fL (80.0-98.0); NRBC Abs Auto 0.020 X10*3/uL (0.0-0.012); NRBC Pct Auto 0.3 /100WBC (0.0-0.2); Red Blood Count 2.63 X10*6/uL (4.20-5.50); White Blood Count 7.2 X10*3/uL (4.8-10.8)
[2025-06-02 06:02] LABS: Platelet Count 75 X10*3/uL (160-400)
[2025-06-02 06:02] LABS: Glucose, Whole Blood 91 mg/dL (60-115)
[2025-06-02 06:10] LABS: Alanine Aminotransferase 58 U/L (0-31); Albumin Level 3.5 g/dL (3.5-5.0); Alkaline Phosphatase 82 U/L (39-117); Anion Gap 18 (12-20); Aspartate Amino Transferase 37 U/L (5-31); Blood Urea Nitrogen 86 mg/dL (9-16); Calcium 7.5 mg/dL (8.4-10.2); Carbon Dioxide 15 mmol/L (22-29); Chloride 113 mmol/L (96-108); Creatinine Clr Calc Pharmacy 13.8; Estimated Glomerular Filt Rate 15; Magnesium 1.5 mg/dL (1.6-2.6); Potassium 3.7 mmol/L (3.3-5.1); Sodium 142 mmol/L (135-145); Total Protein 5.3 g/dL (6.5-8.0)
[2025-06-02] MEDS: metroNIDAZOLE/NS 500 MG/100 ML PIGGYBACK 100 MG IV ×3 (07:58→23:15)
[2025-06-02] MEDS: 0.9 % Sodium Chloride Flush 3 ML SYRINGE IVFLUSH ×3 (08:04→20:49)
--- NOTE | 2025-06-02 08:27 | PHA.MEDREC ---
Pharmacy Consult ? Medication Reconciliation Pharmacy has completed the medication reconciliation.Med rec complete, spoke to patient and compared with pharmacy claims history. Patient stated that she had completed her regimen for H Pylori mostly with a few days left. It made her very sick.
--- NOTE | 2025-06-02 10:46 | PM.CCPN ---
Subjective Subjective Date of Service: 06/02/25 Interval History: 24-year-old lady with underlying history of CKD stage 3, diabetes mellitus hypertension, diastolic heart failure, CAD post RCA stent, COPD recent rectal abscess who has been started on H. pylori prodrome therapy by her PCP approximately 2 weeks prior with subsequent development of poor p.o. intake and intravascular volume depletion with likely acute tubular necrosis. Patient was admitted 06/01/2025 with initial complains of malaise and fatigue, on ER evaluation patient with acute on chronic kidney injury with resultant metabolic acidosis and hyperkalemia, started on IV fluid support and admitted to intensive care unit for close monitoring. Overnight with resolution of metabolic acidosis and hyperkalemia and with improvement in renal indices. Overnight events as above. Critical Care Time (minutes): 0 Physical Exam Vital Signs: Vital Signs: Last Vital Signs Temp 98.3 F 06/02/25 08:00 Pulse 67 06/02/25 10:00 Resp 15 06/02/25 10:00 BP 129/36 L 06/02/25 10:00 Pulse Ox 98 06/02/25 10:00 O2 Del Method Room Air 06/02/25 10:00 BMI result Body Mass Index 30.0 Const: General: no acute distress, alert and awake Eyes: Sclerae: sclerae normal EOM: EOMs intact bilaterally Neck: Neck: Yes no lymphadenopathy, Yes trachea midline and Yes supple Resp: Effort & Inspection: normal respiratory effort and no respiratory distress Auscultation: clear to auscultation bilaterally Cardio: Rate: regular rate Rhythm: regular rhythm Heart sounds: no gallops, no murmurs and no rubs GI: Palpation (GI): Soft to palpation and Other GI palpation findings present ( Nontender) Auscultation: normal bowel sounds Extrem: General: Yes no pedal edema, No clubbing and No cyanosis Objective Data Labs 06/02/25 05:03 06/02/25 05:03 Labs: Laboratory Results - last 24 hr 06/01/25 06/01/25 06/01/25 15:05 16:31 17:01 WBC 6.7 RBC 4.03 L D Hgb 11.5 L D Hct 36.6 L D MCV 90.8 MCH 28.5 MCHC 31.4 RDW 15.8 Plt Count 201 MPV 12.1 Immature Gran % (Auto) 0.7 H Neut % (Auto) 79.9 H Lymph % (Auto) 15.3 L [place] % (Auto) 3.4 Eos % (Auto) 0.1 Baso % (Auto) 0.6 Lymph # (Auto) 1.0 L [place] # (Auto) 0.2 Eos # (Auto) 0.0 Baso # (Auto) 0.0 Abs Immat Gran (auto) 0.05 H Absolute Neuts (auto) 5.3 Absolute Nucleated RBC 0.030 H Nucleated RBC % (auto) 0.4 H PT 15.7 H D INR 1.3 H VBG pH VBG pCO2 VBG pO2 VBG HCO3 VBG O2 Saturation VBG Base Excess Sodium 138 Potassium 5.5 H D Chloride 118 H Carbon Dioxide 7 L* D Anion Gap 19 BUN 102 H Creatinine 3.76 H Estim Creat Clear Calc 10.6 Estimated GFR 12 POC Glucose Random Glucose 133 H Lactic Acid 3.0 H* Lactic Acid F/U @ 2Hr Lactic Acid F/U @ 4Hr Calcium 7.5 L D Phosphorus Magnesium 1.7 Total Bilirubin 0.3 AST 65 H ALT 102 H Alkaline Phosphatase 125 H Troponin I High Sens 18.1 H D NT-Pro-B Natriuret Pep 963.6 H Total Protein 5.2 L Albumin 2.6 L Beta-Hydroxybutyrate TSH Urine Color Dark Yellow Urine Appearance Cloudy Urine pH 5.0 Ur Specific [place] 1.015 Urine Protein 100 (2+) H Urine Glucose (UA) Negative Urine Ketones Negative Urine Blood Negative Urine Nitrite Negative Ur Leukocyte Esterase Trace H Urine RBC 0-2 Urine WBC 0-5 Ur Squamous Epith Cells 3-5 Urine Bacteria 1+ Hyaline Casts 0-2 Urine Yeast Present Urine Osmolality 371 L Ur Random Sodium 25.0 Urine Creatinine 100.49 Influenza Type A (PCR) Influenza Type B (PCR) RSV RNA Qual (PCR) SARS-CoV-2 RNA (RT-PCR) 06/01/25 06/01/25 06/01/25 18:25 18:39 19:38 WBC RBC Hgb Hct MCV MCH MCHC RDW Plt Count MPV Immature Gran % (Auto) Neut % (Auto) Lymph % (Auto) [place] % (Auto) Eos % (Auto) Baso % (Auto) Lymph # (Auto) [place] # (Auto) Eos # (Auto) Baso # (Auto) Abs Immat Gran (auto) Absolute Neuts (auto) Absolute Nucleated RBC Nucleated RBC % (auto) PT INR VBG pH 7.16 L* VBG pCO2 20 VBG pO2 108 VBG HCO3 7 L VBG O2 Saturation 99.0 VBG Base Excess -19.0 Sodium 139 Potassium 5.3 H Chloride 118 H Carbon Dioxide 10 L* D Anion Gap 16 BUN 100 H Creatinine 3.56 H Estim Creat Clear Calc 11.2 Estimated GFR 12 POC Glucose Random Glucose 109 Lactic Acid Lactic Acid F/U @ 2Hr 2.4 H* Lactic Acid F/U @ 4Hr Calcium 7.5 L Phosphorus Magnesium Total Bilirubin AST ALT Alkaline Phosphatase Troponin I High Sens NT-Pro-B Natriuret Pep Total Protein Albumin Beta-Hydroxybutyrate TSH Urine Color Urine Appearance Urine pH Ur Specific [place] Urine Protein Urine Glucose (UA) Urine Ketones Urine Blood Urine Nitrite Ur Leukocyte Esterase Urine RBC Urine WBC Ur Squamous Epith Cells Urine Bacteria Hyaline Casts Urine Yeast Urine Osmolality Ur Random Sodium Urine Creatinine Influenza Type A (PCR) Influenza Type B (PCR) RSV RNA Qual (PCR) SARS-CoV-2 RNA (RT-PCR) 06/01/25 06/01/25 06/01/25 20:38 21:22 21:30 WBC RBC Hgb Hct MCV MCH MCHC RDW Plt Count MPV Immature Gran % (Auto) Neut % (Auto) Lymph % (Auto) [place] % (Auto) Eos % (Auto) Baso % (Auto) Lymph # (Auto) [place] # (Auto) Eos # (Auto) Baso # (Auto) Abs Immat Gran (auto) Absolute Neuts (auto) Absolute Nucleated RBC Nucleated RBC % (auto) PT INR VBG pH 7.23 L VBG pCO2 24 VBG pO2 72 VBG HCO3 10 L VBG O2 Saturation 92.0 VBG Base Excess -14.9 Sodium Potassium Chloride Carbon Dioxide Anion Gap BUN Creatinine Estim Creat Clear Calc Estimated GFR POC Glucose Random Glucose Lactic Acid Lactic Acid F/U @ 2Hr Lactic Acid F/U @ 4Hr 2.9 H* Calcium Phosphorus Magnesium Total Bilirubin AST ALT Alkaline Phosphatase Troponin I High Sens NT-Pro-B Natriuret Pep Total Protein Albumin Beta-Hydroxybutyrate 0.36 H TSH 0.36 Urine Color Urine Appearance Urine pH Ur Specific [place] Urine Protein Urine Glucose (UA) Urine Ketones Urine Blood Urine Nitrite Ur Leukocyte Esterase Urine RBC Urine WBC Ur Squamous Epith Cells Urine Bacteria Hyaline Casts Urine Yeast Urine Osmolality Ur Random Sodium Urine Creatinine Influenza Type A (PCR) NEGATIVE Influenza Type B (PCR) NEGATIVE RSV RNA Qual (PCR) NEGATIVE SARS-CoV-2 RNA (RT-PCR) NEGATIVE 06/01/25 06/02/25 06/02/25 23:52 00:56 05:03 WBC 7.2 RBC 2.63 L D Hgb 7.6 L D Hct 22.9 L D MCV 87.1 MCH 28.9 MCHC 33.2 RDW 15.5 Plt Count 75 L D MPV 13.4 H Immature Gran % (Auto) 0.6 H Neut % (Auto) 62.0 Lymph % (Auto) 28.9 [place] % (Auto) 7.7 Eos % (Auto) 0.4 Baso % (Auto) 0.4 Lymph # (Auto) 2.1 [place] # (Auto) 0.6 Eos # (Auto) 0.0 Baso # (Auto) 0.0 Abs Immat Gran (auto) 0.04 H Absolute Neuts (auto) 4.4 Absolute Nucleated RBC 0.020 H Nucleated RBC % (auto) 0.3 H PT INR VBG pH VBG pCO2 VBG pO2 VBG HCO3 VBG O2 Saturation VBG Base Excess Sodium 142 Potassium 3.7 D Chloride 113 H Carbon Dioxide 15 L Anion Gap 18 BUN 86 H Creatinine 3.02 H Estim Creat Clear Calc 13.8 Estimated GFR 15 POC Glucose 106 Random Glucose 93 Lactic Acid 1.8 Lactic Acid F/U @ 2Hr Lactic Acid F/U @ 4Hr Calcium 7.5 L Phosphorus 5.7 H Magnesium 1.5 L Total Bilirubin 0.4 AST 37 H ALT 58 H Alkaline Phosphatase 82 Troponin I High Sens NT-Pro-B Natriuret Pep Total Protein 5.3 L Albumin 3.5 Beta-Hydroxybutyrate TSH Urine Color Urine Appearance Urine pH Ur Specific [place] Urine Protein Urine Glucose (UA) Urine Ketones Urine Blood Urine Nitrite Ur Leukocyte Esterase Urine RBC Urine WBC Ur Squamous Epith Cells Urine Bacteria Hyaline Casts Urine Yeast Urine Osmolality Ur Random Sodium Urine Creatinine Influenza Type A (PCR) Influenza Type B (PCR) RSV RNA Qual (PCR) SARS-CoV-2 RNA (RT-PCR) 06/02/25 06/02/25 05:04 05:57 WBC RBC Hgb Hct MCV MCH MCHC RDW Plt Count MPV Immature Gran % (Auto) Neut % (Auto) Lymph % (Auto) [place] % (Auto) Eos % (Auto) Baso % (Auto) Lymph # (Auto) [place] # (Auto) Eos # (Auto) Baso # (Auto) Abs Immat Gran (auto) Absolute Neuts (auto) Absolute Nucleated RBC Nucleated RBC % (auto) PT INR VBG pH 7.46 H VBG pCO2 21 VBG pO2 63 VBG HCO3 15 L VBG O2 Saturation 92.0 VBG Base Excess -6.8 Sodium Potassium Chloride Carbon Dioxide Anion Gap BUN Creatinine Estim Creat Clear Calc Estimated GFR POC Glucose 91 Random Glucose Lactic Acid Lactic Acid F/U @ 2Hr Lactic Acid F/U @ 4Hr Calcium Phosphorus Magnesium Total Bilirubin AST ALT Alkaline Phosphatase Troponin I High Sens NT-Pro-B Natriuret Pep Total Protein Albumin Beta-Hydroxybutyrate TSH Urine Color Urine Appearance Urine pH Ur Specific [place] Urine Protein Urine Glucose (UA) Urine Ketones Urine Blood Urine Nitrite Ur Leukocyte Esterase Urine RBC Urine WBC Ur Squamous Epith Cells Urine Bacteria Hyaline Casts Urine Yeast Urine Osmolality Ur Random Sodium Urine Creatinine Influenza Type A (PCR) Influenza Type B (PCR) RSV RNA Qual (PCR) SARS-CoV-2 RNA (RT-PCR) Progress Note: A&P Assessment and plan (1) Essential hypertension: Status: Acute (2) Diabetes mellitus: Status: Acute (3) Positive H. pylori test: Status: Acute (4) CKD (chronic kidney disease) stage 4, GFR 15-29 ml/min: Status: Acute (5) ANDRE (acute kidney injury): Status: Acute Plan Assessment: 74-year-old lady admitted with metabolic acidosis secondary to ANDRE on CKD likely secondary to combination of intravascular volume depletion and ATN Plan: Neuro: No acute issues. Cardiac: No acute issues. Underlying diastolic dysfunction and CAD. Pulmonary: No acute issues. Renal: Metabolic acidosis secondary to acute kidney on the background of chronic kidney disease. Metabolic acidosis resolved. Renal function is improving. Neurology evaluation is requested. Continue to monitor renal indices and urine output. Endo: No acute issues. Underlying diabetes mellitus GI: No acute issues. ID: Recent diagnosis of H pylori restart 4 drug therapy. Heme/Onc: No acute issues. Psych: No acute issues. Miscellaneous: No acute issues. Prophylaxis: Heparin Diet: Regular Quality Stroke Does the patient have a stroke diagnosis?: No VTE Prior VTE?: No VTE Risk Level:: Medical - moderate - high VTE Device Contraindication: N/A - Device Ordered VTE Drug Contraindication: N/A - Med Ordered
[2025-06-02 11:55] LABS: Glucose, Whole Blood 101 mg/dL (60-115)
--- NOTE | 2025-06-02 12:23 | MHC.CM.PN ---
IMM DELIVERED PT LIVES WITH SON/GRANDCHILD AND IS FUNCTIONALLY INDEPENDENT AT BASELINE. NO SERVICES OR DME. + HCP ON FILE AND VERIFIED. PCP DR. CLAIRE. DP: HOME VS HOME WITH SERVICES? P.T. EVAL PENDING. REFERRAL SENT TO [facility] ([facility]). SON WILL TRANSPORT AT DC. CM WILL CONTINUE TO FOLLOW FOR ANY CHANGE TO DC PLAN/NEEDS.
--- NOTE | 2025-06-02 13:15 | PC.NURSE ---
Alert & oriented x4. Room air. Sinus rhythm on tele. Tolerating regular diet, Valente removed, due to void @ today 1800. Transfer to Med-tele not requiring ICU level of care.
[2025-06-02 16:31] LABS: Glucose, Whole Blood 178 mg/dL (60-115)
[2025-06-02 20:40] LABS: Glucose, Whole Blood 132 mg/dL (60-115)
[2025-06-03] VITALS (8 sets, daily range): BP systolic 118–166; BP diastolic 63–72; PULSE 69–108; RESP 17–18; TEMP 36.3–36.6; O2SAT 92–100; BMI 30.1
[2025-06-03 04:24] LABS: Hematocrit 23.5 % (37.0-47.0); Hemoglobin 8.0 g/dl (12.0-16.0); Mean Corpuscular HGB Conc 34.0 g/dl (31.0-35.0); Mean Corpuscular Hemoglobin 28.7 pg (27.0-33.0); Mean Corpuscular Volume 84.2 fL (80.0-98.0); NRBC Abs Auto 0.000 X10*3/uL (0.0-0.012); NRBC Pct Auto 0.0 /100WBC (0.0-0.2); Platelet Count 63 X10*3/uL (160-400); Red Blood Count 2.79 X10*6/uL (4.20-5.50); White Blood Count 6.2 X10*3/uL (4.8-10.8)
[2025-06-03 07:19] LABS: MANUAL DIFF FLAG NO
[2025-06-03 07:25] LABS: VBG HCO3 22 mmol/L (22-26); VBG O2 % Saturation 77.0 %
[2025-06-03 07:26] LABS: Hematocrit 24.3 % (37.0-47.0); Hemoglobin 8.3 g/dl (12.0-16.0); Imm Gran Abs Auto 0.04 X10*3/uL (0.00-0.03); Imm Gran Pct Auto 0.6 % (0.0-0.4); Lymphocytes Absolute Auto 2.0 X10*3/uL (1.2-4.9); Mean Corpuscular HGB Conc 34.2 g/dl (31.0-35.0); Mean Corpuscular Hemoglobin 29.1 pg (27.0-33.0); Mean Corpuscular Volume 85.3 fL (80.0-98.0); NRBC Abs Auto 0.000 X10*3/uL (0.0-0.012); NRBC Pct Auto 0.0 /100WBC (0.0-0.2); Red Blood Count 2.85 X10*6/uL (4.20-5.50); White Blood Count 6.4 X10*3/uL (4.8-10.8)
[2025-06-03 07:27] LABS: Platelet Count 67 X10*3/uL (160-400)
[2025-06-03 07:28] LABS: Venous Blood Gas Refer to POC result
[2025-06-03 07:54] LABS: Albumin Level 4.5 g/dL (3.5-5.0); Anion Gap 13 (12-20); Blood Urea Nitrogen 68 mg/dL (9-16); Calcium 8.5 mg/dL (8.4-10.2); Carbon Dioxide 21 mmol/L (22-29); Chloride 112 mmol/L (96-108); Creatinine Clr Calc Pharmacy 17.9; Estimated Glomerular Filt Rate 20; Magnesium 1.9 mg/dL (1.6-2.6); Potassium 3.3 mmol/L (3.3-5.1); Sodium 143 mmol/L (135-145)
[2025-06-03 08:09] LABS: Glucose, Whole Blood 95 mg/dL (60-115)
[2025-06-03] MEDS: metroNIDAZOLE/NS 500 MG/100 ML PIGGYBACK 100 MG IV (08:31)
[2025-06-03] MEDS: 0.9 % Sodium Chloride Flush 3 ML SYRINGE IVFLUSH ×2 (08:32→15:56)
[2025-06-03 11:53] LABS: Glucose, Whole Blood 140 mg/dL (60-115)
--- NOTE | 2025-06-03 12:15 | HO.PM.IMPN ---
Subjective Subjective Date of Service: 06/03/25 Interval History: Patient is on p.o. meds Awaiting PT input regarding stairs If she continues to do better we will likely be discharged tomorrow Review of Systems Review of Systems: Yes all other systems are reviewed and are negative Physical Exam Exam: Exam: General: AOx3, no acute distress , frail and deconditioned, Mild cognitive impairement Resp: CTA bilaterally CVS: S1, S2, RRR GI: +BS, NT, no distention Neuro: Mild cognitive impairment, was repeatedly asking similar questions that have been answered, bedside RN a witnessed for the entire conversation Vital Signs: Vital Signs: Last Vital Signs Temp 97.9 F 06/03/25 12:00 Pulse 73 06/03/25 12:00 Resp 18 06/03/25 12:00 BP 139/72 06/03/25 12:00 Pulse Ox 98 06/03/25 12:00 O2 Del Method Room Air 06/03/25 12:00 BMI result Body Mass Index 30.1 Const: Other: General:?Alert, no acute distress Cardiac:?Regular rate and rhythm, no murmurs Pulmonary:?Clear to auscultation Abdomen:?Soft, non-tender, no distension Rectal:?deffered Neuro:?Grossly intact Objective Data Active Medications Amoxicillin (Amoxicillin 500 Mg Capsule) 1,000 mg PO Q12H [facility] Last Admin: 06/03/25 08:34 Dose: 1,000 mg Documented By: MICHAEL Bismuth Subsalicylate (Bismuth Subsalicylate Oral Nisreen 525 Mg/30 Ml Oral.Susp) 262 mg PO QID [facility] Last Admin: 06/03/25 08:37 Dose: 262 mg Documented By: MICHAEL Heparin Sodium (Porcine) (Heparin Sodium,Porcine 5,000 Unit/Ml Vial) 5,000 unit SUBCUT Q8H [facility] Last Admin: 06/03/25 08:34 Dose: 5,000 unit Documented By: MICHAEL Insulin Human Lispro (Insulin Lispro 100 Unit/Ml 3 Ml Vial) 0 unit SUBCUT QIDACHS [facility]; Protocol Last Admin: 06/03/25 12:11 Dose: Not Given Documented By: MICHAEL Non-Admin Reason: No Insulin Coverage Metronidazole (Metronidazole 500 Mg Tablet) 500 mg PO Q12H [facility] Omeprazole (Omeprazole 20 Mg Capsule.) 20 mg PO BID@0630,1630 [facility] Last Admin: 06/03/25 06:12 Dose: 20 mg Documented By: DIVINA Sodium Chloride (0.9 % Sodium Chloride Flush 3 Ml Syringe) 3 ml IVFLUSH QSHIFT [facility] Last Admin: 06/03/25 08:32 Dose: 3 ml Documented By: MICHAEL Labs 06/03/25 07:12 06/03/25 07:12 Labs: Laboratory Results - last 24 hr 06/02/25 06/02/25 06/03/25 16:27 20:36 04:03 MCV 84.2 MCH 28.7 MCHC 34.0 RDW 15.0 Plt Count 63 L MPV Not Reportable Immature Gran % (Auto) Neut % (Auto) Lymph % (Auto) [place] % (Auto) Eos % (Auto) Baso % (Auto) Lymph # (Auto) [place] # (Auto) Eos # (Auto) Baso # (Auto) Abs Immat Gran (auto) Absolute Neuts (auto) Absolute Nucleated RBC 0.000 Nucleated RBC % (auto) 0.0 VBG pH VBG pCO2 VBG pO2 VBG HCO3 VBG O2 Saturation VBG Base Excess Anion Gap Estim Creat Clear Calc Estimated GFR POC Glucose 178 H 132 H Random Glucose Calcium Phosphorus Magnesium Albumin Blood Type A Positive Antibody Screen NEGATIVE 06/03/25 06/03/25 06/03/25 07:12 07:20 07:38 MCV 85.3 MCH 29.1 MCHC 34.2 RDW 15.1 Plt Count 67 L MPV Not Reportable Immature Gran % (Auto) 0.6 H Neut % (Auto) 55.3 Lymph % (Auto) 30.6 [place] % (Auto) 9.7 Eos % (Auto) 3.0 Baso % (Auto) 0.8 Lymph # (Auto) 2.0 [place] # (Auto) 0.6 Eos # (Auto) 0.2 Baso # (Auto) 0.1 Abs Immat Gran (auto) 0.04 H Absolute Neuts (auto) 3.5 Absolute Nucleated RBC 0.000 Nucleated RBC % (auto) 0.0 VBG pH 7.40 VBG pCO2 35 VBG pO2 51 VBG HCO3 22 VBG O2 Saturation 77.0 VBG Base Excess -1.8 Anion Gap 13 Estim Creat Clear Calc 17.9 Estimated GFR 20 POC Glucose 95 Random Glucose 99 Calcium 8.5 D Phosphorus 3.0 Magnesium 1.9 Albumin 4.5 Blood Type Antibody Screen 06/03/25 11:48 MCV MCH MCHC RDW Plt Count MPV Immature Gran % (Auto) Neut % (Auto) Lymph % (Auto) [place] % (Auto) Eos % (Auto) Baso % (Auto) Lymph # (Auto) [place] # (Auto) Eos # (Auto) Baso # (Auto) Abs Immat Gran (auto) Absolute Neuts (auto) Absolute Nucleated RBC Nucleated RBC % (auto) VBG pH VBG pCO2 VBG pO2 VBG HCO3 VBG O2 Saturation VBG Base Excess Anion Gap Estim Creat Clear Calc Estimated GFR POC Glucose 140 H Random Glucose Calcium Phosphorus Magnesium Albumin Blood Type Antibody Screen Microbiology Microbiology Results: Microbiology 06/01/25 16:31 Blood Culture - Preliminary Blood - Venous No growth after 24 hours. 06/01/25 16:31 Blood Culture - Preliminary Blood - Venous No growth after 24 hours. Assessment and Plan (1) ANDRE (acute kidney injury): Status: Acute (2) CKD (chronic kidney disease) stage 4, GFR 15-29 ml/min: Status: Acute Plan Pt is a 74-year-old F with PMH CKD stage 3, DM2 , hypertension, diastolic heart failure, CAD post RCA stent, COPD recent rectal abscess who has been started on H. pylori prodrome therapy by her PCP approximately 2 weeks prior with subsequent development of poor p.o. intake and intravascular volume depletion with likely acute tubular necrosis. Patient was admitted 06/01/2025 with initial complains of malaise and fatigue, on ER evaluation patient with acute on chronic kidney injury with resultant metabolic acidosis and hyperkalemia, started on IV fluid support and admitted to intensive care unit for close monitoring. Overnight with resolution of metabolic acidosis and hyperkalemia and with improvement in renal indices. Patient is transferred to the floors as of 06/02/2025. ANDRE on CKD 3 AGMA Likely prerenal and renal in etiology Nephrology consulted by ICU awaiting input Metabolic acidosis has resolved Rectal abscess Continue p.o. ampicillin and metronidazole H pylori 4 drug therapy to be resumed CAD Status post RCA stent Continue home meds HTN continue home meds COPD continue home meds Dm 2 Insulin sliding scale while inpatient PT to cleared the patient and work with her regarding stairs This note is constructed using voice recognition software. While every effort has been made to ensure accuracy, cheesemaker helper errors may have been included. Quality Stroke Does the patient have a stroke diagnosis?: No VTE Prior VTE?: No VTE Risk Level:: Medical - moderate - high VTE Device Contraindication: N/A - Device Ordered VTE Drug Contraindication: N/A - Med Ordered
[2025-06-03] MEDS: Aspirin Enteric Coated 81 MG TABLET.DR PO (13:08)
--- NOTE | 2025-06-03 14:50 | MHC.CM.PN ---
CM met with pt. to discuss DCP, she said she will have VNA services, she adamantly refuses to go to [facility]. CM to continue to assist with DC plan.
[2025-06-03 15:58] LABS: Glucose, Whole Blood 181 mg/dL (60-115)
[2025-06-03 21:04] LABS: Glucose, Whole Blood 198 mg/dL (60-115)
[2025-06-04] VITALS: BP 160/52; PULSE 71; RESP 18; TEMP 36.4; O2SAT 98
[2025-06-04] MEDS: 0.9 % Sodium Chloride Flush 3 ML SYRINGE IVFLUSH ×2 (00:44→09:07)
[2025-06-04 03:29] VITALS: BP 161/71; PULSE 63; RESP 18; TEMP 36.3; O2SAT 94
[2025-06-04 06:00] VITALS: BMI 29.5
--- NOTE | 2025-06-04 06:47 | PC.NURSE ---
At [address] Almonte as pt has low HH and Platelets with SQ Heparin ordered. Med held, sequentials ordered. MD replied pass onto day team to follow up PF4 levels.
--- NOTE | 2025-06-04 07:40 | P.CDIM_ITS ---
PROVIDER RESPONSE TEXT: To clarify, the appropriate diagnosis supported by the clinical indicators: Acute QUERY TEXT: PHYSICIAN'S DOCUMENTATION REQUEST Date of Query: 06/04/2025 07:30 AM EST Patient Name: Mary Ceballos Admit Date: 06/02/2025 Dear Aliyah Stearns MD, A review of the medical record indicates additional documentation may be needed. Please review below and update the documentation accordingly. Clinical Indicators: Progress note dated 06/03/25 - Metabolic acidosis has resolved. Overnight with resolution of metabolic acidosis and hyperkalemia. Clarify which of the following accurately represents the acuity of the Metabolic acidosis: Possible options might include: Acute Chronic Other specified Other (explain) Clinically unable to determine (explain) Thank you, Linda Stewart, CCS, CDIS Use of terms such as suspected, likely, concern for, or probable (associated with a specific diagnosis that is being evaluated, monitored, or treated as if it exists) are acceptable and can be coded in the inpatient setting, when documented at the time of discharge. Please use your independent medical judgment in providing your response. THIS QUERY IS PART OF THE PERMANENT MEDICAL RECORD
[2025-06-04 08:00] VITALS: BP 132/66; PULSE 76; RESP 18; TEMP 36.7; O2SAT 96
[2025-06-04 08:01] LABS: Glucose, Whole Blood 112 mg/dL (60-115)
[2025-06-04] MEDS: Aspirin Enteric Coated 81 MG TABLET.DR PO (09:05)
[2025-06-04] MEDS: Metoprolol Succinate ER 25 MG TAB.ER.24H PO (09:06)
[2025-06-04 09:39] LABS: MANUAL DIFF FLAG NO
[2025-06-04 09:46] VITALS: PULSE 82; O2SAT 100
[2025-06-04 09:53] LABS: Hematocrit 30.0 % (37.0-47.0); Hemoglobin 10.2 g/dl (12.0-16.0); Imm Gran Abs Auto 0.03 X10*3/uL (0.00-0.03); Imm Gran Pct Auto 0.4 % (0.0-0.4); Lymphocytes Absolute Auto 1.8 X10*3/uL (1.2-4.9); Mean Corpuscular HGB Conc 34.0 g/dl (31.0-35.0); Mean Corpuscular Hemoglobin 28.5 pg (27.0-33.0); Mean Corpuscular Volume 83.8 fL (80.0-98.0); NRBC Abs Auto 0.020 X10*3/uL (0.0-0.012); NRBC Pct Auto 0.3 /100WBC (0.0-0.2); Red Blood Count 3.58 X10*6/uL (4.20-5.50); White Blood Count 6.7 X10*3/uL (4.8-10.8)
[2025-06-04 10:01] LABS: Platelet Count 72 X10*3/uL (160-400)
[2025-06-04 10:08] LABS: Alanine Aminotransferase 42 U/L (0-31); Albumin Level 4.5 g/dL (3.5-5.0); Alkaline Phosphatase 103 U/L (39-117); Anion Gap 14 (12-20); Aspartate Amino Transferase 35 U/L (5-31); Blood Urea Nitrogen 57 mg/dL (9-16); Calcium 9.3 mg/dL (8.4-10.2); Carbon Dioxide 22 mmol/L (22-29); Chloride 110 mmol/L (96-108); Creatinine Clr Calc Pharmacy 21.4; Estimated Glomerular Filt Rate 25; Potassium 3.4 mmol/L (3.3-5.1); Sodium 143 mmol/L (135-145); Total Protein 6.8 g/dL (6.5-8.0)
[2025-06-04 12:00] VITALS: BP 119/66; PULSE 72; RESP 18; TEMP 36.2; O2SAT 96
[2025-06-04 12:04] LABS: Glucose, Whole Blood 263 mg/dL (60-115)
--- NOTE | 2025-06-04 14:09 | MHC.CM.PN ---
Second IMM 06/04/25, Pt. has been medically cleared to [place], she will go home via family, and have home care services from [facility].
--- NOTE | 2025-06-04 14:39 | P.DS_ITS ---
DS: Providers Provider Date of Service: 06/04/25 Date of admission: 06/01/25 20:32 Date of discharge: 06/04/25 Primary care physician: Ana Hough MD Consults: 06/01/25 21:53 Consult to Nephrology Routine Consulting Provider: [facility] Reason for consultation: ANDRE, Met acidosis DS: Diagnosis Discharge Diagnosis (1) ANDRE (acute kidney injury): Status: Acute (2) CKD (chronic kidney disease) stage 4, GFR 15-29 ml/min: Status: Acute DS: Summary Hospital Course Hospital Course: Per H&P: Chief Complaint: Generalized weakness The patient is a 74-year-old female with a past medical history of chronic kidney disease stage III, diabetes mellitus, hypertension, congestive heart failure (EF 55-60%), coronary artery disease aortic (proximal RCA stents, residual proximal LAD stenosis as of 10/11/2024)stenosis, dyslipidemia, COPD, anemia chronic disease, dyslipidemia and recent admission 05/10/25 to 05/13/25 with rectal abscesses, hyperkalemia and ANDRE discharge on doxycycline. 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 Started on metronidazole, tetracycline, bismuth subsalicylate ?and omeprazole. Today patient presented to the emergency department with increased generalized weakness.? Patient reported I am to weak ,I can not walK worserning x 2 days.? Patient does admit to not being able to drink and eat much in the past week since discharge from hospital. On arrival to emergency department, patient hypothermic to 96.3, bradycardic to 48, blood pressure 108/33, ?satting of 100% on room air Laboratory data significant for venous gas with severe metabolic acidosis 7.16/20/108/7.? Potassium 5.5, chloride 118, serum bicarb 7, BUN 102, creatinine 3.76, lactic acid 3, AST 65, ALT 102, phos 125, albumin 2.6 IMAGING: ABDOMINAL CT:? Consistent with colitis, no evidence of obstruction/ischemia. Chest CT:? No evidence of infection/pulmonary congestion ED course: Patient received a total of 5 L bolus of crystalloids, Lasix 40 mg, Lokelma 10 mg, ceftriaxone 2 g, and place on bicarb drip 150meq at 100ml/hr Hospital Course: Patient was admitted 06/01/2025 with initial complains of malaise and fatigue, on ER evaluation patient with acute on chronic kidney injury with resultant metabolic acidosis and hyperkalemia, started on IV fluid support and admitted to intensive care unit for close monitoring. Overnight with resolution of metabolic acidosis and hyperkalemia and with improvement in renal indices. Patient is transferred to the floors as of 06/02/2025. ANDRE on CKD 3 AGMA Likely prerenal and renal in etiology - resolving with fluids and abx F/UP PCP Metabolic acidosis has resolved Rectal abscess Continue p.o. ampicillin and metronidazole per instructions below f/up with pcp H pylori 4 drug therapy to be resumed per PCP and GI - deferred to PCP CAD Status post RCA stent HTN Holding antihypertensive medications as the patient appears is yet to recover from her ANDRE hence valsartan, metformin, gabapentin and pioglitazone have been held COPD continue home meds Dm 2 Holding metformin, gabapentin and pioglitazone have been held till ANDRE recovered - PCP to f/up for repeat labs PT - STR strongly recommened, pt deferred, family - son [place] is aware and the fact that she is Patient has VNA, spoke to the son who said he will be able to take care of her- he lives with her at home so PT even though they recommended short-term rehab the patient is adamantly refusing hence VNA is a better option Patient and son aware that if she were to have any symptoms, to come back to the ED and seek care for appropriate medical management. The time of discharge, patient even though deconditioned, is aware of refusing short-term rehab and would like to go home with VNA only This note is constructed using voice recognition software. While every effort has been made to ensure accuracy, agricultural produce packer errors may have been included. Time spent discussing smoking cessation with patient: more than 10 minutes Time Attestation Discharge Coordination Time (in mins): 65 Quality: Safe Use of Opioids Does Pt have an Active Cancer Diagnosis on the Problem List?: No Quality: Stroke Does the patient have a stroke diagnosis?: No Physical Exam Vital Signs: Vital Signs: Last Vital Signs Temp 97.2 F 06/04/25 12:00 Pulse 72 06/04/25 12:00 Resp 18 06/04/25 12:00 BP 119/66 06/04/25 12:00 Pulse Ox 96 06/04/25 12:00 O2 Del Method Room Air 06/04/25 12:00 BMI result Body Mass Index 29.5 DS: Data Data Completed and Pending Completed studies during hospitalization [Text1]: Procedures Drainage of Perineum Subcutaneous Tissue and Fascia, Open Approach (05/10/25) Excision of Ascending Colon, Via Natural or Artificial Opening Endoscopic, Diagnostic (05/10/25) Excision of Cecum, Via Natural or Artificial Opening Endoscopic, Diagnostic (05/10/25) Excision of Duodenum, Via Natural or Artificial Opening Endoscopic, Diagnostic (05/10/25) Excision of Esophagus, Via Natural or Artificial Opening Endoscopic, Diagnostic (05/10/25) Excision of Sigmoid Colon, Via Natural or Artificial Opening Endoscopic, Diagnostic (05/10/25) Transfusion of Nonautologous Red Blood Cells into Peripheral Vein, Percutaneous Approach (05/10/25) Labs on day of discharge: Laboratory Results - last 24 hr 06/03/25 06/03/25 06/04/25 15:52 20:58 07:56 WBC RBC Hgb Hct MCV MCH MCHC RDW Plt Count MPV Immature Gran % (Auto) Neut % (Auto) Lymph % (Auto) [place] % (Auto) Eos % (Auto) Baso % (Auto) Lymph # (Auto) [place] # (Auto) Eos # (Auto) Baso # (Auto) Abs Immat Gran (auto) Absolute Neuts (auto) Absolute Nucleated RBC Nucleated RBC % (auto) Sodium Potassium Chloride Carbon Dioxide Anion Gap BUN Creatinine Estim Creat Clear Calc Estimated GFR POC Glucose 181 H 198 H 112 Random Glucose Calcium Total Bilirubin AST ALT Alkaline Phosphatase Total Protein Albumin 06/04/25 06/04/25 09:21 11:59 WBC 6.7 RBC 3.58 L D Hgb 10.2 L D Hct 30.0 L D MCV 83.8 MCH 28.5 MCHC 34.0 RDW 15.4 Plt Count 72 L MPV Not Reportable Immature Gran % (Auto) 0.4 Neut % (Auto) 62.0 Lymph % (Auto) 26.5 [place] % (Auto) 8.8 Eos % (Auto) 1.9 Baso % (Auto) 0.4 Lymph # (Auto) 1.8 [place] # (Auto) 0.6 Eos # (Auto) 0.1 Baso # (Auto) 0.0 Abs Immat Gran (auto) 0.03 Absolute Neuts (auto) 4.1 Absolute Nucleated RBC 0.020 H Nucleated RBC % (auto) 0.3 H Sodium 143 Potassium 3.4 Chloride 110 H Carbon Dioxide 22 Anion Gap 14 BUN 57 H Creatinine 1.93 H Estim Creat Clear Calc 21.4 Estimated GFR 25 POC Glucose 263 H Random Glucose 136 H Calcium 9.3 D Total Bilirubin 0.8 AST 35 H ALT 42 H Alkaline Phosphatase 103 Total Protein 6.8 Albumin 4.5 Preliminary micro results at discharge 06/01/25 16:31 Blood Culture - Preliminary Blood - Venous No growth after 48 hours. 06/01/25 16:31 Blood Culture - Preliminary Blood - Venous No growth after 48 hours. Discharge Plan Discharge Anticipated Discharge Date/Time: 06/04/25 13:23 Patient Disposition: Home Health Service Discharge Diagnosis: ANDRE, a GME on CKD 3, rectal abscess, H pylori Referrals: [facility] [Provider Group, Cardiology] - 1 Week [facility] [Outside] - 1 Week Emory Martinez MD [Physician, Nephrology] - 1 Week Ana Lanier MD [Primary Care Provider, Internal Medicine] - 1 Week Discharge Medications: New amoxicillin 500 mg Capsule 1,000 mg PO Q12H 10 Days Qty: 40 0RF metronidazole 500 mg Tablet 500 mg PO Q12H 10 Days Qty: 20 0RF Continued pravastatin 80 mg tablet 80 mg PO DAILY Qty: 90 1RF Brilinta 90 mg tablet 90 mg PO BID Qty: 60 11RF amlodipine 10 mg tablet 10 mg PO DAILY 30 Days Qty: 30 6RF metoprolol succinate 25 mg tablet extended release 24 hr 25 mg PO DAILY Qty: 90 3RF Tradjenta 5 mg tablet 5 mg PO DAILY omeprazole 40 mg capsule,delayed release(DR/EC) 40 mg PO DAILY 90 Days Qty: 90 0RF hydrochlorothiazide 25 mg Tablet 25 mg PO DAILY aspirin 81 mg tablet,delayed release (DR/EC) 81 mg PO DAILY furosemide [Lasix] 20 mg tablet 20 mg PO DAILY Qty: 90 1RF Held metformin 1,000 mg tablet 1,000 mg PO BID 90 Days Qty: 180 3RF Hold Instructions: Resume on 06/10/25. gabapentin 300 mg capsule 300 mg PO TID PRN (Reason: NERVE PAIN) Hold Instructions: Resume on 06/10/25. pioglitazone 15 mg tablet 15 mg PO DAILY Hold Instructions: Resume on 06/11/25. valsartan 80 mg tablet 80 mg PO DAILY Qty: 90 1RF Hold Instructions: Resume on 06/10/25. Rx Instructions: changed to separate tab Discharge Orders: Discharge Order (Routine); Ordered 06/04/25 Ordered By: Aliyah Stearns Diet: Low salt diet Activity on Discharge: As tolerated Stand Alone Forms: Patient Portal Discharge page Print Language: Lao Care Plan Goals: Holding antihypertensive medications as the patient appears is yet to recover from her ANDRE hence valsartan, metformin, gabapentin and pioglitazone have been held Patient has VNA, spoke to the son who said he will be able to take care of her- he lives with her at home so PT even though they recommended short-term rehab the patient is adamantly refusing hence VNA is a better option Patient needs to take metronidazole and amoxicillin for 7 more days to complete total antibiotic course as instructed above to complete treatment for sepsis Patient needs to follow up with outpatient PCP, Nephrology, Cardiology, VNA and PTOT outpatient Patient and son aware that if she were to have any symptoms, to come back to the ED and seek care for appropriate medical management. The time of discharge, patient even though deconditioned, is aware of refusing short-term rehab and would like to go home with VNA only Health Concerns: See above Plan of Treatment: See above Assessment: See above Discharge Date/Time: 06/04/25 15:10
--- NOTE | 2025-06-04 21:36 | W.MHC.F2F ---
Service Date Service Date: 06/04/25 Encounter Date of encounter: 06/04/25 Reasons for Services Signs and symptoms assessed: VNA needs Reason for senior living: medication management, medication treatment and teach disease management Reason for physical therapy: home safety and mobility, therapeutic exercises, restore joint function, gait/transfer training, assess need for DME, ADL training and energy conservation Reason for speech therapy: cognitive impairment Homebound: Leaving the home is medically contraindicated at this time without the asist of a device and/or another person due th the listed conditions above and below. Reason homebound: unsteady gait / fall risk, shortness of breath with minimal effort, poor balance / fall risk, cognitively impaired / unsafe and weakness related to hospital stay Certification: Based on the above findings, I certify that this patient is confined to the home and needs intermittent senior living care, physical therapy and/or speech therapy, or continues to need occupational therapy. The patient is under my care, and I have initiated the establishment of the plan of care. The patient will be followed by a physician who will periodically review the plan of care. Time Spent With Patient Time: Total time managing care of this patient today ____ minutes.
== END 2025-06-04 15:10 | disposition home health service (06) | DRG 683 ==
LOC: HO.ED 14:55 → HO.EDOVER 20:45 → HO.ICU 20:46 → HO.IMC 06-02 11:24
PROVIDERS: Emergency Medicine; Internal Medicine; Internal Medicine Pulmonary Disease; Admitting Provider Registered Nurse Community Health; Emergency Provider Emergency Medicine; PCP Internal Medicine; Visit Provider Student in an Organized Health Care Education/Training Program
DX: N17.9 Acute kidney failure, unspecified (principal); E87.21 Acute metabolic acidosis; I13.0 Hypertensive heart and chronic kidney disease with heart failure and stage 1 through stage 4 chronic kidney disease, or unspecified chronic kidney disease; I50.32 Chronic diastolic (congestive) heart failure; K61.1 Rectal abscess; E86.0 Dehydration; M18.30 Unilateral post-traumatic osteoarthritis of first carpometacarpal joint, unspecified hand; J44.9 Chronic obstructive pulmonary disease, unspecified; B96.81 Helicobacter pylori [H. pylori] as the cause of diseases classified elsewhere; E11.22 Type 2 diabetes mellitus with diabetic chronic kidney disease; I25.10 Atherosclerotic heart disease of native coronary artery without angina pectoris; Z95.5 Presence of coronary angioplasty implant and graft; Z20.822 Contact with and (suspected) exposure to COVID-19; Z87.891 Personal history of nicotine dependence; Z79.82 Long term (current) use of aspirin; Z79.84 Long term (current) use of oral hypoglycemic drugs; Z79.899 Other long term (current) drug therapy
CPT/HCPCS: 36415; 71045; 71250; 74176; 80048; 80053; 81001; 82010; 82040; 82570; 82803; 82947; 83605; 83735; 83880; 83935; 84100; 84300; 84443; 84484; 85025; 85027; 85610; 86850; 86900; 86901; 87040; 87637; 93005; 97116; 97162; 97530; 99285; J0696; J1644; J1836; J1938; J2543; J3475; J7120; P9047

== ENCOUNTER → 2025-06-01 14:36 | Outpatient (BNV) | payer MEDICARE, OTHER, SELFPAY | PROVIDERS: Emergency Provider Emergency Medicine; PCP Internal Medicine; Visit Provider Radiology Diagnostic Radiology | DX: A41.9 Sepsis, unspecified organism (principal); N17.9 Acute kidney failure, unspecified; N32.89 Other specified disorders of bladder; J98.11 Atelectasis; J98.4 Other disorders of lung | CPT/HCPCS: 71250; 74176 ==

== ENCOUNTER → 2025-06-01 15:23 | Outpatient (BNV) | payer MEDICARE, OTHER, SELFPAY | PROVIDERS: Admitting Provider Registered Nurse Community Health; Emergency Provider Emergency Medicine; PCP Internal Medicine; Visit Provider Internal Medicine | DX: R00.1 Bradycardia, unspecified (principal) | CPT/HCPCS: 93010 ==

== ENCOUNTER → 2025-06-01 20:32 | Outpatient (BNV) | payer MEDICARE, OTHER, SELFPAY | PROVIDERS: Admitting Provider Registered Nurse Community Health; Emergency Provider Emergency Medicine; PCP Internal Medicine; Visit Provider Student in an Organized Health Care Education/Training Program | DX: N18.4 Chronic kidney disease, stage 4 (severe) (principal); K61.1 Rectal abscess; B96.81 Helicobacter pylori [H. pylori] as the cause of diseases classified elsewhere; N17.9 Acute kidney failure, unspecified | CPT/HCPCS: 99233; 99239; G0180 ==

== ENCOUNTER → 2025-06-01 20:32 | Outpatient (BNV) | payer MEDICARE, OTHER, SELFPAY | PROVIDERS: Admitting Provider Registered Nurse Community Health; Emergency Provider Emergency Medicine; PCP Internal Medicine; Visit Provider Internal Medicine Pulmonary Disease | DX: I12.9 Hypertensive chronic kidney disease with stage 1 through stage 4 chronic kidney disease, or unspecified chronic kidney disease (principal); N18.4 Chronic kidney disease, stage 4 (severe); A04.8 Other specified bacterial intestinal infections; E11.65 Type 2 diabetes mellitus with hyperglycemia; N17.9 Acute kidney failure, unspecified | CPT/HCPCS: 99232 ==

== ENCOUNTER → 2025-06-01 20:32 | Outpatient (BNV) | payer MEDICARE, OTHER, SELFPAY | PROVIDERS: Admitting Provider Registered Nurse Community Health; Emergency Provider Emergency Medicine; PCP Internal Medicine; Visit Provider Registered Nurse Community Health | DX: E87.20 Acidosis, unspecified (principal); A04.8 Other specified bacterial intestinal infections; R65.10 Systemic inflammatory response syndrome (SIRS) of non-infectious origin without acute organ dysfunction; R79.89 Other specified abnormal findings of blood chemistry; N17.9 Acute kidney failure, unspecified; N18.32 Chronic kidney disease, stage 3b; E87.5 Hyperkalemia; R74.01 Elevation of levels of liver transaminase levels | CPT/HCPCS: 99223 ==